=== PATIENT | female | born 1995 | race Caucasian/White ===

== ENCOUNTER → 2024-08-30 | Outpatient (CLI) | payer OTHER, SELFPAY ==
[2024-09-02 22:07] LABS: Chlamydia By Nucleic Acid AMP Negative (Negative); Gonococcus By Nucleic Acid AMP Negative (Negative)
== END | disposition home or self-care (01) ==
LOC: LABSPEC 15:44
PROVIDERS: Referring Provider Obstetrics & Gynecology; Visit Provider Obstetrics & Gynecology
DX: O09.90 Supervision of high risk pregnancy, unspecified, unspecified trimester (principal); Z3A.00 Weeks of gestation of pregnancy not specified
CPT/HCPCS: 87086; 87491; 87591

== ENCOUNTER → 2024-09-03 | Outpatient (CLI) | payer OTHER, SELFPAY ==
[2024-09-03 17:13] LABS: Absolute Lymphocyte Count 2.19 X10^3/uL (0.83-4.51); Absolute Neutrophil Count 6.8 X10^3/uL (2.0-7.7); Basophil# 0.04 X10^3/uL; Basophil% 0.4 % (0-1); Eosinophil# 0.14 X10^3/uL; Eosinophils% 1.4 % (0-5); Hematocrit 40.1 % (37-47); Lymphocyte # 2.19 X10^3/ul (0.83-4.51); Lymphocyte % 22.4 % (19-41); Mean Corp Hgb Conc 34.9 g/dL (32-36); Mean Corpuscular Hgb 30.8 pg (27.0-32.0); Mean Corpuscular Volume 88.3 fL (81-99); Mean Platelet Vol. 10.7 fl (6.2-12.0); Monocyte# 0.54 X10^3/uL; Monocyte% 5.5 % (0-10); NRBC Flagged by Analyzer 0 % (0-5); Neutrophil # 6.82 X10^3/uL (2.7-7.7); Platelet Count 216 K/mm3 (150-450); RBC Distribution Width CV 12.4 % (11.6-14.6); Red Blood Count 4.54 M/mm3 (4.2-5.4); White Blood Count 9.8 K/mm3 (4.4-11.0)
[2024-09-03 17:41] LABS: HIV Nonreactive (Nonreactive); Hepatitis B Surface Antigen Nonreactive (Nonreactive); Rubella IgG REAC (Nonreactive); Syphilis Antibodies Nonreactive (Nonreactive)
[2024-09-03 18:12] LABS: Hemoglobin A1c 5.1 % (<=5.6)
[2024-09-03 18:22] LABS: Hepatitis C Antibody Nonreactive (Nonreactive)
== END | disposition home or self-care (01) ==
PROVIDERS: Obstetrics & Gynecology; Referring Provider Obstetrics & Gynecology; Visit Provider Obstetrics & Gynecology
DX: O09.90 Supervision of high risk pregnancy, unspecified, unspecified trimester (principal); Z3A.00 Weeks of gestation of pregnancy not specified
CPT/HCPCS: 36415; 83036; 85025; 86703; 86762; 86780; 86803; 86850; 86900; 86901; 87340

== ENCOUNTER → 2025-01-10 | Outpatient (CLI) | payer OTHER, SELFPAY ==
[2025-01-10 12:20] LABS: Hematocrit 33.8 % (37-47); Hemoglobin 12.1 g/dL (12.0-15.0); Immature Granulocytes Count 0.050 X10^3/uL (0.0-0.0); Mean Corp Hgb Conc 35.8 g/dL (32-36); Mean Corpuscular Volume 90.9 fL (81-99); Mean Platelet Vol. 11.2 fl (6.2-12.0); NRBC Flagged by Analyzer 0 % (0-5); Platelet Count 176 K/mm3 (150-450); RBC Distribution Width CV 12.5 % (11.6-14.6); RBC Distribution Width SD 41.1 fl (35.1-43.9); Red Blood Count 3.72 M/mm3 (4.2-5.4); White Blood Count 8.4 K/mm3 (4.4-11.0)
[2025-01-10 13:38] LABS: Glucose Challenge Gest 1H 50g 115 mg/dL (70-140); HIV Nonreactive (Nonreactive); Syphilis Antibodies Nonreactive (Nonreactive)
== END | disposition home or self-care (01) ==
PROVIDERS: Referring Provider Obstetrics & Gynecology; Visit Provider Obstetrics & Gynecology
DX: O09.91 Supervision of high risk pregnancy, unspecified, first trimester (principal); Z13.1 Encounter for screening for diabetes mellitus; Z3A.00 Weeks of gestation of pregnancy not specified
CPT/HCPCS: 36415; 82950; 85025; 86703; 86780; 86850; 86900; 86901

== ENCOUNTER → 2025-02-07 | Outpatient (CLI) | payer OTHER, SELFPAY | END | disposition home or self-care (01) | PROVIDERS: PCP Family Medicine; Referring Provider Nurse Practitioner Women's Health; Visit Provider Nurse Practitioner Women's Health | DX: O09.93 Supervision of high risk pregnancy, unspecified, third trimester (principal); O26.899 Other specified pregnancy related conditions, unspecified trimester; R00.0 Tachycardia, unspecified; Z3A.00 Weeks of gestation of pregnancy not specified | CPT/HCPCS: 93005 ==

== ENCOUNTER 2025-02-12 16:05 | Outpatient (CLI) | payer OTHER, SELFPAY ==
[2025-02-12 17:21] LABS: Anion Gap 12 (5-15); BUN 11 mg/dL (4-19); BUN/Creat Ratio 20.0 RATIO (10-20); Calcium,Total 9.1 mg/dL (7.6-11.0); Carbon Dioxide 20.4 mmol/L (21.0-32.0); Chloride 104 mmol/L (98-108); Glucose 109 mg/dL (70-99); Potassium 3.9 mmol/L (3.3-5.1)
--- OUTSIDE RECORDS SUMMARY | 2025-02-12 18:15 | XMS RPT_ITS | CCD ---
Author Organization [facility] CliniSydc Care Team Providers Care Ultimate Hoops Referee Name Role Phone MARTY ERNST Primary Care Unavailabl e EIDEN, MARTY BELTRAN Admitting Unavailabl e STEFAN, RICHARD CHOUDHARY Attending Unavail able STEFAN, RICHARD CHOUDHARY Attending Unavail able Seggerson MILIEU TECHNICIAN, Merissa Syed Primary Care Provider MERISSA LINTON Primary Care Unavailab le HASSMANN II, GILBERTO HUANG Attending Un available SEGGERSON, MERISSA SYED Primary Care Unavailab le HASSMANN II, GILBERTO HUANG Referring Un available HASSMANN II, GILBERTO HUANG Admitting Un available HASSMANN II, GILBERTO HUANG Attending Un available SEGGERSON, MERISSA KUNAL Primary Care Unavailab le Seggerson ACTING SECTION CHIEF-MILIEU TECHNICIAN, Merissa Syed Attending Unavailable Seggerson ACTING SECTION CHIEF-MILIEU TECHNICIAN, Merissa Kunal Primary Care Unavailable Vaca ACTING SECTION CHIEF-MILIEU TECHNICIAN, Mary Cleveland Attending Mary vailable Seggerson ACTING SECTION CHIEF-MILIEU TECHNICIAN, Merissa Kunal Primary Care Unavailable Seggerson ACTING SECTION CHIEF-MILIEU TECHNICIAN, Merissa Kunal Primary Care Unavailable Vaca ACTING SECTION CHIEF-MILIEU TECHNICIAN, Mary Cleveland Attending Mary vailable Dr. Marisela Nelson MD Attending Provider [phone] Dr. Rachele Llanes DO Attending Provider Dr. Marisela Nelson MD Referring Provider [phone]( [phone] Dr. Rachele Llanes DO Referring Provider Sai Turner Attending Provider [phone] Louann Hager MD Primary Care Provider LOUANN HAGER Attending Unavailable LOUANN HAGER Primary Care Unavailable NO PRIMARY CAREMD Primary Care Unavailable PRUDENCE, SAI S Referring Unavailable SILVER ANTUNEZ Attending Unavailable Rick SMALL, Veronica Attending Provider [phone] Omar ROBERTO, Dr. Antonio Attending Provider Prudence WHYTE-C, Sai Attending Physician [phone] Dr. Rachele Llanes DO Attending Physician Veronica Cabrera CNM Attending Physician [phone] Omar ROBERTO, Dr. Antonio Attending Physician Dr. Marisela Nelson MD Referring Provider Prudence WHYTE-Micah, Sai Attending Physician [phone] Marisela Nelson Attending Unavailable Veronica Cabrera Attending Unavailable Omar, Marisela Attending Unavailable Marisela Nelson Referring Unavailable Jose Miguel Bradley, Rachele Attending Unavailvivian Llanes, Rachele Referring Unavailvivian Nelson, Marisela Attending Unavailable Marisela Nelson Referring Unavailable Prudence MACHINE SET UP TECHNICIAN, Sai Referring Unavailable Louann Hager Primary Care Unavailable Prudence MACHINE SET UP TECHNICIAN, Sai Attending Unavailable Jose Miguel Bradley, Rachele Attending Unavailvivian e Prudence MACHINE SET UP TECHNICIAN, Sai Attending Unavailable Jose Miguel Bradley, Rachele Attending Unavailabl maida Nelson, Marisela Attending Unavailable Prudence MACHINE SET UP TECHNICIAN, Sai Attending Unavailable Prudence MACHINE SET UP TECHNICIAN, Sai Attending Unavailable Veronica Cabrera Attending Unavailable Allergies Allergy Classification Reported Allergen(s) Allergy Type Date of Onset Reaction(s) Facility (1 source) No Known Medication Allergies; Translations: [No Known Medication Allergies] Propensity to adverse reactions to drug (disorder) [facility] Repository (10 sources) Ragweed pollen; Translations: [ragweed pollen] Allergy to substance 5 Itching [facility] Medications Current Medications Medication Drug Class(es) Dates Sig (Normalized) Sig (Original) cephalexin 500 mg oral capsule (3 sources) Cephalosporin Antibacterial Start: 09-29-2023 End: 10-04-2023 take 1 capsule by mouth four times daily cephALEXin (KEFLEX) 500 MG capsule Take 1 (one) capsule (500 mg total) by mouth 4 (four) times a day for 5 days . 20 capsule 0 09/29/2023 10/04/2023 Active Start: 09-19-2023 End: 09-26-2023 take 1 capsule by mouth four times daily cephALEXin (KEFLEX) 500 MG capsule Indications: Toe abscess, left , Paronychia of great toe Take 1 (one) capsule (500 mg total) by mouth 4 (four) times a day for 7 days . 28 capsule 0 09/19/2023 09/26/2023 Active famotidine 20 mg oral tablet (4 sources) Histamine-2 Receptor Antagonist Start: 12-20-2024 take 1 tablet by mouth twice daily Famotidine (Pepcid) 20 mg tablet Active 20 mg PO TWICE A DAY 60 December 20, 2024 12:00am Complies with drug therapy Mv-Mins 71-Qzhc-Xviyy No.1-Dha (Pnv-[place]) 28-1-300 mg capsule (9 sources) Start: 08-06-2024 Mv-Mins 63-Ixza-Qvlkz No.1-Dha (Pnv-[place]) 28-1-300 mg capsule Active NMA PO August 06, 2024 12:00am Complies with drug therapy Start: 08-06-2024 Start: 08-06-2024 Mv-Mins 71-Iro n-Folic No.1-Dha (Pnv-[place]) 28-1-300 mg capsule Active NMA PO August 06, 2024 12:00am ondansetron 4 mg disintegrating oral tablet (1 source) Serotonin-3 Receptor Antagonist Start: 2025 take 1 tablet by mouth every four hours as needed for nausea and vomiting Ondansetron 4 mg tablet,disintegrating Active 4 mg PO Q4H as needed for nausea and vomiting 60 2 2025 12:00am Complies with drug therapy no115/iron/folic acid ( 19 ORAL) (1 source) no115/i domenico/folic acid ( 19 ORAL) Take by mouth. Active sertraline 50 mg oral tablet (14 sources) Serotonin Reuptake Inhibitor Start: 10-01-2024 take 1 tablet by mouth once daily sertraline (Zoloft) 50 mg tablet Indications: Anxiety and depression Take 1 tablet (50 mg) by mouth once daily. 90 tablet 3 10/01/2024 Active Start: 08-13-2023 End: 10-01-2024 take 1 tablet by mouth once daily Sertraline 50 mg tablet Active 50 mg PO daily July 31, 2024 12:00am Complies with drug therapy Completed/Discontinued Medications Medication Drug Class(es) Dates Sig (Normalized) Sig (Original) docosahexaenoic acid 200 mg oral capsule (9 sources) Start: 07-31-2024 End: 08-06-2024 Docosahexaenoic Acid ( Dha) 200 mg capsule Discontinued mg PO July 31, 2024 12:00am August 06, 2024 9:13am Lidocaine (2 sources) Antiarrhythmic, Amide Local Anesthetic Start: 09-19-2023 End: 09-19-2023 lidocaine 20 mg/mL (2 %) injection 3 mL Problems Active Problems Problem Classification Problem Date Documented Da te Episodic/Chronic Administrative/social admission (1 source) First encounter by subject; Translations: [Persons encountering health services in other specified circumstances] 10-01-2024 Episodic Anxiety disorders (3 sources) Mixed anxiety and depressive disorder; Translations: [Anxiety disorder, unspecified] Onset: 10-01-2024 10-01-2024 Chronic Cardiac dysrhythmias (2 sources) Tachycardia, unspecified; Translations: [Tachycardia, unspecified] Onset: 02-05-2025 Episodic Immunizations and screening for infectious disease (1 source) Encounter for immunization; Translations: [Encounter for immunization] Onset: 2025 Episodic Mood disorders (20 sources) Depressive disorder; Translations: [Depression] 08-06-2024 Chronic Comment on above: sertraline sertraline/stable Mood disorders (3 sources) Mood disorders; Translations: [Depression, unspecified] Onset: 10-01-2024 Other complications of (20 sources) Maternal obesity complicating , childbirth and the puerperium, antepartum; Translations: [Obesity complicating , unspecified trimester] 08-06-2024 Chronic Comment on above: HgbA1c Other complications of (1 source) Obesity complicating , first trimester; Translations: [Obesity complicating , first trimester] Onset: 01-10-2025 Chronic Other complications of (1 source) Obesity complicating , unspecified trimester; Translations: [Obesity complicating , unspecified trimester] Onset: 08-30-2024 Chronic Other complications of (20 sources) High risk ; Translations: [Supervision of high risk , unspecified, unspecified trimester] 08-06-2024 Episodic Comment on above: , SAMANTHA 04/04/25, Joshua [id number], SAMANTHA 5 Boy, Joshua [id number], SAMANTHA 5 Boy, name secret?(jermaine) Joshua Other complications of (2 sources) Supervision of high risk , unspecified, third trimester; Translations: [Supervision of high risk , unspecified, third trimester] Onset: 02-05-2025 Episodic Other complications of (1 source) Supervision of high risk , unspecified, first trimester; Translations: [Supervision of high risk , unspecified, first trimester] Onset: 01-15-2025 Episodic Other connective tissue disease (2 sources) Pain of toe of left foot; Translations: [Pain in left toe(s)] 09-19-2023 Episodic Other connective tissue disease (2 sources) Pain in left foot; Translations: [Pain in left foot] Onset: 09-19-2023 Episodic Other connective tissue disease (2 sources) Pain in left toe(s); Translations: [Pain in left toe(s)] Onset: 09-19-2023 Episodic Other injuries and conditions due to external causes (1 source) Injury of toe of left foot; Translations: [Unspecified injury of left foot, initial encounter] 10-01-2024 Episodic Other skin disorders (2 sources) Ingrowing nail; Translations: [Ingrowing nail] 09-19-2023 Episodic Other skin disorders (2 sources) Ingrowing nail; Translations: [Ingrowing nail] Onset: 09-19-2023 Episodic Residual codes; unclassified (20 sources) RhD negative; Translations: [Unspecified blood type, Rh negative] 09-24-2024 Episodic Comment on above: Fetus RHD+ on NIPT; rhogam 28 wk, pp and prn Residual codes; unclassified (1 source) Gestation period, 13 weeks; Translations: [13 weeks gestation of ] 10-01-2024 Episodic Residual codes; unclassified (1 source) Unspecified blood type, Rh negative; Translations: [Unspecified blood type, Rh negative] Onset: 01-10-2025 Episodic Residual codes; unclassified (1 source) 28 weeks gestation of ; Translations: [28 weeks gestation of ] Onset: 01-10-2025 Episodic Residual codes; unclassified (1 source) 25 weeks gestation of ; Translations: [25 weeks gestation of ] Onset: 12-20-2024 Episodic Residual codes; unclassified (1 source) 21 weeks gestation of ; Translations: [21 weeks gestation of ] Onset: 11-22-2024 Episodic Skin and subcutaneous tissue infections (7 sources) Abscess of toe of left foot; Translations: [Cutaneous abscess of left foot] Onset: 09-19-2023 09-19-2023 Episodic Past or Other Problems Problem Classification Problem Date Documented Da te Episodic/Chronic Other complications of (1 source) Supervision of high risk , unspecified, unspecified trimester; Translations: [Supervision of high risk , unspecified, unspecified trimester] Onset: 09-04-2024 Episodic Other and delivery including normal (20 sources) ; Translations: [Encounter for supervision of normal , unspecified, unspecified trimester] Onset: 09-07-2024 08-30-2024 Episodic Comment on above: discussed NIPT & Car rier testing-Undecided NIPT low risk, Chelle er neg. 4/4 NIPT low risk, Chelle er neg. 4/4, unremarkable anatomy, consistent dates Residual codes; unclassified (1 source) 12 weeks gestation of ; Translations: [12 weeks gestation of ] Onset: 09-24-2024 Episodic Residual codes; unclassified (1 source) 9 weeks gestation of ; Translations: [9 weeks gestation of ] Onset: 08-30-2024 Episodic Unclassified (1 source) Onset: 10-01-2024 10-01-2024 NEGATED: Highlighted row has been ruled out!Unclassified (1 source) No known active problems 10-01-2024 Results Test Name Value Interpretation Reference Range Facility 12 Lead EKGon 02-07-2025 12 Lead EKG [facility] [address] [place] [address] 12 Lead EKG 02/07/25 0739 MR#: [id number] Acct: [id number] Name: JAMIL NORRIS Rep #: [id number] : 1995 30 From: Gale Zamora MD Attending Dr: CAMPOS Sullivan Status: REG CLI Ordering Dr: Sai Foss NP Date: 02/07/25 Location: [facility] Sex: F C Admitted: Test Reason : TACHY Blood Pressure : */* mmHG Vent. Rate : 93 BPM Atrial Rate : 93 BPM P-R Int : 142 ms QRS Dur : 80 ms QT Int : 332 ms P-R-T Axes : 31 23 39 degrees QTcB Int : 412 ms Sinus rhythm with Possible Premature atrial complexes with Aberrant conduction Otherwise normal ECG Confirmed by GALE ZAMORA ([id number]), publishing editor DEWAYNE DUBON ([id number]) on 02/10/2025 7:10:52 AM Referred By: Sai Foss Confirmed By: GALE ZAMORA 02/10/25 0710 Date Gale Zamora MD CC: ISABELL-Micah Foss; Dr. Louann Hager MD Signed Normal [facility] Assistant Secretary Office Visit Reporton 02-05-2025 Assistant Secretary Office Visit Report [facility] [address], [address] [place] [address] OFFICE VISIT Date of Service: 02/05/25 MR#: [id number] Acct: [id number] Name: JAMIL NORRIS Rep #: [id number] : 1995 Provider: CAMPOS solitario Age/Sex: 30/F Location: [facility] Status: Signed Intake Vital Signs 11/22/24 11:24 01/23/25 10:46 02/05/25 13:10 Height 5 ft 5 in 5 ft 5 in 5 ft 5 in Weight: 213 lb 6 oz BMI 35.5 BP 107/70 Pulse 112 H Intake Visit Reasons: 31 WK 5D 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 Is patient in pain?: No Allergies ragweed pollen Allergy (Mild, Verified 02/05/25 13:09) Itching Medications ???Medication ???Instructions ???Recorded ???Confirmed ???Type sertraline 50 mg tablet 50 mg PO QDAY 07/31/24 02/05/25 Hi story multivit-min no.71-iron fum 28 cap PO 08/06/24 02/05/25 History mg-folate no.1 1 mg-dha 300 mg capsule (PNV-[place]) famotidine 20 mg tablet (Pepcid) 20 mg PO BID #60 tabs 12/20/24 Rx ondansetron 4 mg disintegrating 4 mg PO Q4H PRN nausea and 5 02/05/25 Rx tablet vomiting #60 tabs Last Menstrual Period: 06/28/24 Zika: Zika virus screening: Negative : No PFSH PFSH Medical History RhD negative Seasonal allergies Pneumonia Surgical History [place] teeth extracted Family History Grandmother Arthritis Diabetes High cholesterol Grandfather Parkinson disease Thyroid disorder Lymphoma, Onset Age: 70 Maternal Grandfather Diabetes Lung cancer, Onset Age: 65 Maternal Mother Diabetes Thyroid disorder Cancer, Onset Age: 35 Thyroid cancer- thyroid removed Social History adopted: No household members: spouse housing: house current occupational status: employed 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/hazards: No pets and animals: Yes pets and animals: dog(s) history of recent travel: Yes ([place]) out of state: Yes out of country: Yes sexually active: Yes Smoking Status: Never smoker alcohol intake: current alcohol intake frequency: holidays/special occasions only details: Not while substance use type: does not use well-balanced diet: daily or most days caffeine: Yes Type: coffee Number of servings: 1 eating out: rarely or never during the past year weight has: remained stable what type of physical activity do you participate in: walking, bicycling and weight training frequency: 1-2 times per week duration: 30-45 minutes/day fredi/zoroastrian: Amish seatbelt use: always do you feel safe at home: Yes additional social history: -[place] [employer] History 1 Elective abortions Hx Para 0 Spontaneous abortions Hx # Term Pregnancies Ectopic pregnancies Hx # Pregnancies Multiple births # of living children HPI 31 WK 5D OB Details: JAMIL NORRIS is a 30 year old who presents for routine OB visit. OB Visit SAMANTAH Calculator Estimated Delivery Date Method Current WG Current Estimate 04/04/25 LMP (Certain) 31w 5d Other Estimates 04/02/25 Ultrasound #1 32w 0d Expected Delivery Route/Plan Labor Preferences- CB/BF classes: enc labor support person: Joshua labor intervention preferences: pain management options preferred: limited cut cord/dad catch: cord : yes PP control planned: [] discussed possible routes of delivery and associated risks: [] special requests: [] Specific Issue/Plans Covid status: vaccinated Flu vaccine: given Tdap vaccine: given Rhogam: given LARC form signed: yes Problem list reviewed and updated with the most current plan of care details and appropriate orders placed. Relevant counseling for the gestational age provided. Continue routine care and follow up unless otherwise noted in visit notes/problem list details Initial Weight: Not Recorded Date -???-???-???-???-?? ?-???-???-???-???-? ??-???-???- EGA Weight BP Urine Prot -???-???-???-???-?? ?-???-???-???-???-? ??-???-???- Glucose FHR FuHt Pres Dilation -???-???-???-???-?? ?-???-???-???-???-? ??-???-???- Effaced St Visit Note 08/30/24 -???-???-???-???-?? ?-???-???-???-???-? ??-???-???- 9w 0d 182 lb 8 oz 127/81 -???-???-???-???-?? ?-???-???-???-???-? ??-???-???- 179 -???-???-???-???-?? ?-???-???-???-???-? ??-???-???- JV- CRL cons istent with LMP. desires nipt. first baby first . lives in [place]. 09/24/24 -???-???-???-???-?? ?-???-???-???-???-? ??-???-???- 12w 4d 181 lb 130/82 Negative -???-???-???-???-?? ?-???-???-?? (more content not included)... Normal [facility] - Chemistry and C hemistry - challengeOrdered By: Rachele Bradley on 2025 Glucose Ql (U) Negative [facility] - UrinalysisOrder ed By: Rachele Bradley on 2025 Protein Ql (U) Negative [facility] Assistant Secretary Office Visit Reporton 2025 Assistant Secretary Office Visit Report [facility] [address], [address] [place] [address] OFFICE VISIT Date of Service: 01/23/25 MR#: [id number] Acct: [id number] Name: JAMIL NORRIS Rep #: [id number] : 1995 Provider: CAMPOS solitario Age/Sex: 30/F Location: [facility] Status: Signed Intake Vital Signs 11/22/24 11:24 01/10/25 11:12 01/23/25 10:45 01/23/25 10:46 Height 5 ft 5 in 5 ft 5 in 5 ft 5 in 5 ft 5 in Weight: 211 lb 1 oz BMI 35.1 BP 115/77 Intake Visit Reasons: 30wk ob 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 Is patient in pain?: No Allergies ragweed pollen Allergy (Mild, Verified 01/23/25 10:45) Itching Medications ???Medication ???Instructions ???Recorded ???Confirmed ???Type sertraline 50 mg tablet 50 mg PO QDAY 07/31/24 01/23/25 Hi story multivit-min no.71-iron fum 28 cap PO 08/06/24 01/23/25 History mg-folate no.1 1 mg-dha 300 mg capsule (PNV-[place]) famotidine 20 mg tablet (Pepcid) 20 mg PO BID #60 tabs 12/20/2401/09 Rx ondansetron 4 mg disintegrating 4 mg PO Q4H PRN nausea and 5 01/23/25 Rx tablet vomiting #60 tabs Last Menstrual Period: 06/28/24 Zika: Zika virus screening: Negative : Yes PFSH PFSH Medical History RhD negative Seasonal allergies Pneumonia Surgical History [place] teeth extracted Family History Grandmother Arthritis Diabetes High cholesterol Grandfather Parkinson disease Thyroid disorder Lymphoma, Onset Age: 70 Maternal Grandfather Diabetes Lung cancer, Onset Age: 65 Maternal Mother Diabetes Thyroid disorder Cancer, Onset Age: 35 Thyroid cancer- thyroid removed Social History adopted: No household members: spouse housing: house current occupational status: employed 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/hazards: No pets and animals: Yes pets and animals: dog(s) history of recent travel: Yes ([place]) out of state: Yes out of country: Yes sexually active: Yes Smoking Status: Never smoker alcohol intake: current alcohol intake frequency: holidays/special occasions only details: Not while substance use type: does not use well-balanced diet: daily or most days caffeine: Yes Type: coffee Number of servings: 1 eating out: rarely or never during the past year weight has: remained stable what type of physical activity do you participate in: walking, bicycling and weight training frequency: 1-2 times per week duration: 30-45 minutes/day fredi/zoroastrian: Amish seatbelt use: always do you feel safe at home: Yes additional social history: -Joshua- Kapil History 1 Elective abortions Hx Para 0 Spontaneous abortions Hx # Term Pregnancies Ectopic pregnancies Hx # Pregnancies Multiple births # of living children HPI 30wk ob Details: JAMIL NORRIS is a 30 year old who presents for routine OB visit. OB Visit SAMANTHA Calculator Estimated Delivery Date Method Current WG Current Estimate 04/04/25 LMP (Certain) 29w 6d Other Estimates 04/02/25 Ultrasound #1 30w 1d Expected Delivery Route/Plan Labor Preferences- CB/BF classes: enc labor support person: Joshua labor intervention preferences: pain management options preferred: limited cut cord/dad catch: cord : yes PP control planned: [] discussed possible routes of delivery and associated risks: [] special requests: [] Specific Issue/Plans Covid status: vaccinated Flu vaccine: given Tdap vaccine: given Rhogam: given LARC form signed: yes Problem list reviewed and updated with the most current plan of care details and appropriate orders placed. Relevant counseling for the gestational age provided. Continue routine care and follow up unless otherwise noted in visit notes/problem list details Initial Weight: Not Recorded Date -???-???-???-???-?? ?-???-???-???-???-? ??-???-???- EGA Weight BP Urine Prot -???-???-???-???-?? ?-???-???-???-???-? ??-???-???- Glucose FHR FuHt Pres Dilation -???-???-???-???-?? ?-???-???-???-???-? ??-???-???- Effaced St Visit Note 08/30/24 -???-???-???-???-?? ?-???-???-???-???-? ??-???-???- 9w 0d 182 lb 8 oz 127/81 -???-???-???-???-?? ?-???-???-???-???-? ??-???-???- 179 -???-???-???-???-?? ?-???-???-???-???-? ??-???-???- JV- CRL cons istent with LMP. desires nipt. first baby first . lives in [place]. 09/24/24 -???-???-???-???-?? ?-???-???-???-???-? ??-???-???- 12w 4d 181 lb 130/82 Negative -???-???-???-???-?? ?-???-???-?? (more content not included)... Normal [facility] Absolute lymphocyte countOrd ered By: Marisela Omar on 01-10-2025 Lymphocytes Auto (Unsp spec) [#/Vol] 1.58 10*3/uL 0.83-4.51 [facility] Absolute neutrophil countOrd ered By: Marisela Pickettgene on 01-10-2025 Neutrophils (Bld) [#/Vol] 5.8 10*3/uL 2.0-7.7 [facility] Automated lymphocyte count a s percentage of total leukocytesOrdered By: Marisela Nelson on 01-10-2025 Lymphocytes/100 WBC Auto (Unsp spec) 18.9 % Low 19-41 [facility] Basophil percentageOrdered B y: Marisela Nelson on 01-10-2025 Basophils/100 WBC (Bld) 0.6 % 0-1 [facility] CBC W/Diff, Automatedon 12-17 Absolute Lymph 1.58 X10 3/uL Normal 0.83-4.51 [facility] Comment on above: Performed By: #### M 100.2200, [id number] #### [facility] [address] [place], [address] Absolute Neut 5.8 X10 3/uL Normal 2.0-7.7 [facility] Comment on above: Performed By: #### M 100.2200, [id number] #### [facility] [address] [place], [address] Basophils/100 WBC (Bld) 0.6 % Normal 0-1 [facility] Comment on above: Performed By: #### M 100.2200, [id number] #### [facility] [address] [place], [address] Eosinophils/100 WBC (Bld) 2.9 % Normal 0-5 [facility] Comment on above: Performed By: #### M 100.2200, [id number] #### [facility] [address] [place], [address] Erythrocyte distribution width (RBC) [Ratio] 12.5 % Normal 11.6-14.6 [facility] Comment on above: Performed By: #### M 100.2200, [id number] #### [facility] [address] [place], [address] Hematocrit (Bld) [Volume fraction] 33.8 % Low 37-47 [facility] Comment on above: Performed By: #### M 100.2200, [id number] #### [facility] [address] [place], [address] Hemoglobin (Bld) [Mass/Vol] 12.1 g/dL Normal 12.0-15.0 [facility] Comment on above: Performed By: #### M 100.2200, [id number] #### [facility] [address] [place], [address] IG% 0.600 Normal 0.0-0.9 [facility] Comment on above: Result Comment: IG% - Immature Granulocytes (promyelocytes, myelocytes and metamyelocytes) > 1% indicates that a LEFT SHIFT is Present. Performed By: #### M 100.2200, [id number] #### [facility] [address] [place], [address] Lymphocytes/100 WBC (Bld) 18.9 % Low 19-41 [facility] Comment on above: Performed By: #### M 100.2200, [id number] #### [facility] Laboratory [address] [place], [address] MCH (RBC) [Entitic mass] 32.5 pg High 27.0-32.0 [facility] Comment on above: Performed By: #### M 100.2200, L7000.1800 #### [facility] Laboratory [address] [place], [address] MCHC (RBC) [Mass/Vol] 35.8 g/dL Normal 32-36 [facility] Comment on above: Performed By: #### M 100.2200, L7000.1800 #### [facility] Laboratory [address] [place], [address] MCV (RBC) [Entitic vol] 90.9 fL Normal 81-99 [facility] Comment on above: Performed By: #### M 100.2200, L7000.1800 #### [facility] Laboratory [address] [place], [address] Monocytes/100 WBC (Bld) 7.3 % Normal 0-10 [facility] Comment on above: Performed By: #### M 100.2200, L7000.1800 #### [facility] Laboratory [address] [place], [address] Neutrophils/100 WBC (Bld) 69.7 % Normal 47-70 [facility] Comment on above: Performed By: #### M 100.2200, L7000.1800 #### [facility] Laboratory [address] [place], [address] Nucleated RBC (Bld) [#/Vol] 0 10*3/uL Normal 0-5 [facility] Comment on above: Performed By: #### M 100.2200, L7000.1800 #### [facility] Laboratory [address] [place], [address] Platelet mean volume (Bld) [Entitic vol] 11.2 fL Normal 6.2-12.0 [facility] Comment on above: Performed By: #### M 100.2200, L7000.1800 #### [facility] Laboratory [address] [place], [address] Platelets (Bld) [#/Vol] 176 10*3/uL Normal 150-450 [facility] Comment on above: Performed By: #### M 100.2200, L7000.1800 #### [facility] Laboratory [address] [place], [address] RBC (Bld) [#/Vol] 3.72 10*6/uL Low 4.2-5.4 [facility] Comment on above: Performed By: #### M 100.2200, L7000.1800 #### [facility] Laboratory [address] [place], [address] RDW SD 41.1 fl Normal 35.1-43.9 [facility] Comment on above: Performed By: #### M 100.2200, L7000.1800 #### [facility] Laboratory [address] [place], [address] WBC (Bld) [#/Vol] 8.4 10*3/uL Normal 4.4-11.0 [facility] Comment on above: Performed By: #### M 100.2200, L7000.1800 #### [facility] Laboratory [address] [place], [address] Eosinophil percentageOrdered By: Marisela Nelson on 01-10-2025 Eosinophils/100 WBC (Bld) 2.9 % 0-5 [facility] Erythrocyte distribution wid th ratioOrdered By: Marisela Nelson on 01-10-2025 Erythrocyte distribution width (RBC) [Ratio] 12.5 % 11.6-14.6 [facility] Erythrocyte distribution wid th standard deviationOrdered By: Marisela Nelson on 01-10-2025 Erythrocyte distribution width (RBC) [Ratio] 41.1 fl 35.1-43.9 [facility] Glucose Challenge Gest 1H 50 boris 01-10-2025 GLU GEST 50g 1H 115 mg/dL Normal 70-140 [facility] Comment on above: Performed By: #### M 100.2200, L7000.1800 #### [facility] Laboratory [address] [facility] [place], [address] Glucose measurement at 2 lizeth rs post-dose gestational glucose tolerance testOrdered By: Marisela Nelson on 01-10-2025 Glucose [Mass/Vol] 115 mg/dL 70-140 [facility] HIVon 01-10-2025 HIV Non-Reactive Normal Nonreactive [facility] Comment on above: Result Comment: Non- Reactive Reactive Repeatedly reactive samples must be confirmed according to CDC recommended confirmatory algorithms. The subresults for either HIVAG or AHIV can be used as an aid in the selection of the confirmation algorithm for reactive samples. Send out specimens with Reactive results to [facility] for confirmation. Order the HIV antibody detection and differentiation: #[id number] Performed By: #### M 100.2200, L7000.1800 #### [facility] Laboratory [address] [place], [place], [address] Hematocrit Auto (Bld) [Volum e fraction]Ordered By: Marisela Nelson on 01-10-2025 Hematocrit (Bld) [Volume fraction] 33.8 % Low 37-47 [facility] Hemoglobin measurementOrdere d By: Marisela Nelson on 01-10-2025 Hemoglobin (Bld) [Mass/Vol] 12.1 g/dL 12.0-15.0 [facility] Immature granulocytes/100 WB C Auto (Bld)Ordered By: Marisela Nelson on 01-10-2025 Immature granulocytes/100 WBC (Bld) 0.600 % 0.0-0.9 [facility] Comment on above: IG% - Immature Granu locytes (promyelocytes, myelocytes and metamyelocytes) > 1% indicates that a LEFT SHIFT is Present. Laboratory - Chemistry and C hemistry - challengeOrdered By: Veronica Cabrera on 01-10-2025 Glucose Ql (U) Negative [facility] Laboratory - UrinalysisOrder ed By: Veronica Cabrera on 01-10-2025 Protein Ql (U) Negative [facility] MCV (mean corpuscular volume ) determinationOrdered By: Marisela Nelson on 01-10-2025 MCV (RBC) [Entitic vol] 90.9 fL 81-99 [facility] Mean corpuscular hemoglobin (MCH) determinationOrdered By: Marisela Nelson on 01-10-2025 MCH (RBC) [Entitic mass] 32.5 pg High 27.0-32.0 [facility] Mean corpuscular hemoglobin concentration (MCHC) determinationOrdered By: Marisela Nelson on 01-10-2025 MCHC (RBC) [Mass/Vol] 35.8 g/dL 32-36 [facility] Mean platelet volume determi nationOrdered By: Marisela Nelson on 01-10-2025 Platelet mean volume (Bld) [Entitic vol] 11.2 fL 6.2-12.0 [facility] Monocyte percentageOrdered B y: Marisela Nelson on 01-10-2025 Monocytes/100 WBC (Bld) 7.3 % 0-10 [facility] Neutrophil percentageOrdered By: Marisela Nelson on 01-10-2025 Neutrophils/100 WBC (Bld) 69.7 % 47-70 [facility] No Panel InformationOrdered By: Marisela Nelson on 01-10-2025 HIV (1&2) Antibody Non-Reactive Nonreactive [facility] Comment on above: Non-ReactiveReactive Repeatedly reactive samples must be confirmed according to CDC recommended confirmatory algorithms. The subresults for either HIVAG or AHIV can be used as an aid in the selection of the confirmation algorithm for reactive samples.Send out specimens with Reactive results to [facility] for confirmation.Order the HIV antibody detection and differentiation: #[id number] Nucleated red blood cell per centageOrdered By: Marisela Nelson on 01-10-2025 Nucleated RBC/100 WBC (Bld) [Ratio] 0 % 0-5 [facility] Assistant Secretary Office Visit Reporton 01-10-2025 Assistant Secretary Office Visit Report [facility] Women[facility] [address], [address] [place] [address] OFFICE VISIT Date of Service: 01/10/25 MR#: [id number] Acct: [id number] Name: JAMIL NORRIS Rep #: [id number] : 1995 Provider: GEOVANNY Salazar ams Age/Sex: 29/F Location: [facility] Status: Signed with Addenda ADDENDUM by Renetta Pina on 01/10/25 at 1205 Office Procedure Documentation entered by Renetta Pina 01/10/25 12:05: Injections Is this a patient provided medication?: No Immunizations Adacel(Tdap Adolesn/Adult)(PF) 2 Lf-(2.5-5-3-5)-5 Lf/0.5 mL IM syringe Performing Provider: Veronica Cabrera CNM Performing Location: [facility][1] Administered by: Renetta Pina on 01/10/25 12:03 Dose Route Admin Location Dispensed Lot Number Expiration Date Package NDC NDC Business Database Analyst 0.5 mL IM Left Deltoid 0.5 mL [id number] 12/04/26 73229-393-62 [id number] NOFI[employer]PA[employer]UR VIS Given Date VIS Provided VIS Publication Date 01/10/25 Single Vaccine 24 Eligibility Eligibility Date Funding Source Not Applicable Office Meds RhoGAM Ultra-Filtered PLUS 1,500 unit (300 mcg) intramuscular syringe Performing Provider: Veronica Cabrera CNM Performing Location: [facility][1] Administered by: Renetta Pina on 01/10/25 12:03 Dose Route Admin Location Dispensed Lot Number Expiration Date Package NDC NDC Business Database Analyst 1,500 unit IM Left Buttock 1 ea [id number] 10/30/26 05659-271-14 [id number] CSL Validas [facility] Date cc: * Signed Intake Vital Signs 11/22/24 11:24 12/20/24 10:06 01/10/25 11:12 Height 5 ft 5 in 5 ft 5 in 5 ft 5 in Weight: 206 lb 4 oz BMI 34.3 BP 127/78 H Intake Visit Reasons: 28wk ob/glucose/rhogam Chief Complaint: 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 Is patient in pain?: No Allergies ragweed pollen Allergy (Mild, Verified 01/10/25 11:10) Itching Medications ???Medication ???Instructions ???Recorded ???Confirmed ???Type sertraline 50 mg tablet 50 mg PO QDAY 07/31/24 01/10/25 Hi story multivit-min no.71-iron fum 28 cap PO 08/06/24 01/10/25 History mg-folate no.1 1 mg-dha 300 mg capsule (PNV-[place]) famotidine 20 mg tablet (Pepcid) 20 mg PO BID #60 tabs 12/20/24 Rx Last Menstrual Period: 06/28/24 : No PFSH PFSH Medical History RhD negative Seasonal allergies Pneumonia Surgical History [place] teeth extracted Family History Grandmother Arthritis Diabetes High cholesterol Grandfather Parkinson disease Thyroid disorder Lymphoma, Onset Age: 70 Maternal Grandfather Diabetes Lung cancer, Onset Age: 65 Maternal Mother Diabetes Thyroid disorder Cancer, Onset Age: 35 Thyroid cancer- thyroid removed Social History adopted: No household members: spouse housing: house current occupational status: employed 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/hazards: No pets and animals: Yes pets and animals: dog(s) history of recent travel: Yes ([place]) out of state: Yes out of country: Yes sexually active: Yes Smoking Status: Never smoker alcohol intake: current alcohol intake frequency: holidays/special occasions only details: Not while substance use type: does not use well-balanced diet: daily or most days caffeine: Yes Type: coffee Number of servings: 1 eating out: rarely or never during the past year weight has: remained stable what type of physical activity do you participate in: walking, bicycling and weight training frequency: 1-2 times per week duration: 30-45 minutes/day fredi/zoroastrian: Amish seatbelt use: always do you feel safe at home: Yes additional social history: -Joshua- Sales History 1 Elective abortions Hx Para 0 Spontaneous abortions Hx # Term Pregnancies Ectopic pregnancies Hx # Pregnancies Multiple births # of living children HPI 28wk ob/glucose/rhogam Details: JAMIL NORRIS is a 29 year old who presents for routine OB visit. OB Visit SAMANTHA Calculator Estimated Delivery Date Method Current WG Current Estimate 04/04/25 LMP (Certain) 28w 0d Other Estimates 04/02/25 Ultrasound #1 28w 2d Expected Delivery Route/Plan Labor Preferences- CB/BF classes: [] labor support person: [] labor intervention preferences: [] pain management options preferred: [] cut cord/dad catch: [] : [] PP control planned: [] discussed possible routes of delivery and associated risks: [] special requests (more content not included)... Normal [facility] Platelet countOrdered By: Barbara Nelson on 01-10-2025 Platelets (Bld) [#/Vol] 176 10*3/uL 150-450 [facility] RBC Auto (Bld) [#/Vol]Ordere d By: Marisela Nelson on 01-10-2025 RBC (Bld) [#/Vol] 3.72 10*6/uL Low 4.2-5.4 [facility] Syphilis Antibodieson 2024 Syphilis Abs Non-Reactive Normal Nonreactive [facility] Comment on above: Performed By: #### M 100.2200, L7000.1800 #### [facility] Laboratory [address] [place], [address] Type AND Screenon 01-10-2025 ABO and Rh group Nom (Bld) Blood group A Rh(D) negative Normal [facility] Comment on above: Order Comment: PN Performed By: #### M 100.2200, L7000.1800 #### [facility] Laboratory [address] [place], [place], [address] White blood cell (WBC) count Ordered By: Marisela Nelson on 01-10-2025 WBC (Bld) [#/Vol] 8.4 10*3/uL 4.4-11.0 [facility] Laboratory - Chemistry and C hemistry - challengeOrdered By: Marisela Nelson on 12-20-2024 Glucose Ql (U) Negative [facility] Laboratory - UrinalysisOrder ed By: Marisela Nelson on 12-20-2024 Protein Ql (U) Negative [facility] Assistant Secretary Office Visit Reporton 12-20-2024 Assistant Secretary Office Visit Report [facility], [address] [place] [address] OFFICE VISIT Date of Service: 12/20/24 MR#: [id number] Acct: [id number] Name: JAMIL NORRIS Rep #: [id number] : 1995 Provider: Dr. 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 Is patient in pain?: No Allergies ragweed pollen Allergy (Mild, Verified 12/20/24 10:03) Itching Medications ???Medication ???Instructions ???Recorded ???Confirmed ???Type sertraline 50 mg tablet 50 mg PO QDAY 07/31/24 12/20/24 Hi story multivit-min no.71-iron fum 28 cap PO 08/06/24 12/20/24 History mg-folate no.1 1 mg-dha 300 mg capsule (PNV-[place]) famotidine 20 mg tablet (Pepcid) 20 mg PO BID #60 tabs 12/20/2409/08 Rx Last Menstrual Period: 06/28/24 Zika: Zika virus screening: Negative : No PFSH PFSH Medical History RhD negative Seasonal allergies Pneumonia Surgical History [place] teeth extracted Family History Grandmother Arthritis Diabetes High cholesterol Grandfather Parkinson disease Thyroid disorder Lymphoma, Onset Age: 70 Maternal Grandfather Diabetes Lung cancer, Onset Age: 65 Maternal Mother Diabetes Thyroid disorder Cancer, Onset Age: 35 Thyroid cancer- thyroid removed Social History adopted: No household members: spouse housing: house current occupational status: employed 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/hazards: No pets and animals: Yes pets and animals: dog(s) history of recent travel: Yes ([place]) out of state: Yes out of country: Yes sexually active: Yes Smoking Status: Never smoker alcohol intake: current alcohol intake frequency: holidays/special occasions only details: Not while substance use type: does not use well-balanced diet: daily or most days caffeine: Yes Type: coffee Number of servings: 1 eating out: rarely or never during the past year weight has: remained stable what type of physical activity do you participate in: walking, bicycling and weight training frequency: 1-2 times per week duration: 30-45 minutes/day fredi/zoroastrian: Amish seatbelt use: always do you feel safe at home: Yes additional social history: -Joshua- Sales History 1 Elective abortions Hx Para 0 Spontaneous abortions Hx # Term Pregnancies Ectopic pregnancies Hx # Pregnancies Multiple births # of living children HPI 25wk ob Details: JAMIL NORRIS is a 29 year old who presents for routine OB visit. OB Visit SAMANTHA Calculator Estimated Delivery Date Method Current WG Current Estimate 04/04/25 LMP (Certain) 25w 0d Other Estimates 04/02/25 Ultrasound #1 25w 2d Expected Delivery Route/Plan Labor Preferences- CB/BF classes: [] labor support person: [] labor intervention preferences: [] pain management options preferred: [] cut cord/dad catch: [] : [] PP control planned: [] discussed possible routes of delivery and associated risks: [] special requests: [] Specific Issue/Plans Covid status: vaccinated Flu vaccine: unvaccinated last 2 year Tdap vaccine: Rhogam: [] LARC form signed: [] Problem list reviewed and updated with the most current plan of care details and appropriate orders placed. Relevant counseling for the gestational age provided. Continue routine care and follow up unless otherwise noted in visit notes/problem list details Initial Weight: Not Recorded Date -???-???-???-???-?? ?-???-???-???-???-? ??-???-???- EGA Weight BP Urine Prot -???-???-???-???-?? ?-???-???-???-???-? ??-???-???- Glucose FHR FuHt Pres Dilation -???-???-???-???-?? ?-???-???-???-???-? ??-???-???- Effaced St Visit Note 08/30/24 -???-???-???-???-?? ?-???-???-???-???-? ??-???-???- 9w 0d 182 lb 8 oz 127/81 -???-???-???-???-?? ?-???-???-???-???-? ??-???-???- 179 -???-???-???-???-?? ?-???-???-???-???-? ??-???-???- JV- CRL cons istent with LMP. desires nipt. first baby first . lives in [place]. 09/24/24 -???-???-???-???-?? ?-???-???-???-???-? ??-???-???- 12w 4d 181 lb 130/82 Negative -???-???-???-???-?? ?-???-???-???-???-? ??-???-???- Negative 152 -???-???-???-???-?? ?-???-???-???-???-? ??-???-???- MH-No VB. N ausea improved. (more content not included)... Normal [facility] Laboratory - Chemistry and C hemistry - challengeOrdered By: Veronica Cabrera on 11-22-2024 Glucose Ql (U) Negative [facility] Laboratory - UrinalysisOrder ed By: Veronica Cabrera on 11-22-2024 Protein Ql (U) Negative [facility] Assistant Secretary Office Visit Reporton 11-22-2024 Assistant Secretary Office Visit Report [facility] [address], [address] [place] [address] OFFICE VISIT Date of Service: 11/22/24 MR#: [id number] Acct: [id number] Name: JAMIL NORRIS Maida Rep #: [id number] : 1995 Provider: GEOVANNY Salazar ams Age/Sex: 29/F Location: [facility] Status: Signed Intake Vital Signs 08/30/24 14:15 10/24/24 10:52 11/22/24 11:24 Height 5 ft 5 in 5 ft 5 in 5 ft 5 in Weight: 189 lb 2 oz BMI 31.4 BP 124/69 H Intake Visit Reasons: 21wk ob Chief Complaint: 21wk 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 Is patient in pain?: No Allergies ragweed pollen Allergy (Mild, Verified 11/22/24 11:22) Itching Medications ???Medication ???Instructions ???Recorded ???Confirmed ???Type sertraline 50 mg tablet 50 mg PO QDAY 07/31/24 11/22/24 Hi story multivit-min no.71-iron fum 28 cap PO 08/06/24 11/22/24 History mg-folate no.1 1 mg-dha 300 mg capsule (PNV-[place]) Last Menstrual Period: 06/28/24 : No PFSH PFSH Medical History RhD negative Seasonal allergies Pneumonia Surgical History [place] teeth extracted Family History Grandmother Arthritis Diabetes High cholesterol Grandfather Parkinson disease Thyroid disorder Lymphoma, Onset Age: 70 Maternal Grandfather Diabetes Lung cancer, Onset Age: 65 Maternal Mother Diabetes Thyroid disorder Cancer, Onset Age: 35 Thyroid cancer- thyroid removed Social History adopted: No household members: spouse housing: house current occupational status: employed 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/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: No pets and animals: Yes pets and animals: dog(s) history of recent travel: Yes ([place]) out of state: Yes out of country: Yes sexually active: Yes Smoking Status: Never smoker alcohol intake: current alcohol intake frequency: holidays/special occasions only details: Not while substance use type: does not use well-balanced diet: daily or most days caffeine: Yes Type: coffee Number of servings: 1 eating out: rarely or never during the past year weight has: remained stable what type of physical activity do you participate in: walking, bicycling and weight training frequency: 1-2 times per week duration: 30-45 minutes/day fredi/zoroastrian: Amish seatbelt use: always do you feel safe at home: Yes additional social history: -Joshua- Sales History 1 Elective abortions Hx Para 0 Spontaneous abortions Hx # Term Pregnancies Ectopic pregnancies Hx # Pregnancies Multiple births # of living children HPI 21wk ob Details: JAMIL NORRIS is a 29 year old who presents for routine OB visit. OB Visit SAMANTHA Calculator Estimated Delivery Date Method Current WG Current Estimate 04/04/25 LMP (Certain) 21w 0d Other Estimates 04/02/25 Ultrasound #1 21w 2d Specific Issue/Plans Covid status: vaccinated Flu vaccine: unvaccinated last 2 year Tdap vaccine: Rhogam: [] LARC form signed: [] Problem list reviewed and updated with the most current plan of care details and appropriate orders placed. Relevant counseling for the gestational age provided. Continue routine care and follow up unless otherwise noted in visit notes/problem list details Initial Weight: Not Recorded Date -???-???-???-???-?? ?-???-???-???-???-? ??-???-???- EGA Weight BP Urine Prot -???-???-???-???-?? ?-???-???-???-???-? ??-???-???- Glucose FHR FuHt Pres Dilation -???-???-???-???-?? ?-???-???-???-???-? ??-???-???- Effaced St Visit Note 08/30/24 -???-???-???-???-?? ?-???-???-???-???-? ??-???-???- 9w 0d 182 lb 8 oz 127/81 -???-???-???-???-?? ?-???-???-???-???-? ??-???-???- 179 -???-???-???-???-?? ?-???-???-???-???-? ??-???-???- JV- CRL cons istent with LMP. desires nipt. first baby first . lives in [place]. 09/24/24 -???-???-???-???-?? ?-???-???-???-???-? ??-???-???- 12w 4d 181 lb 130/82 Negative -???-???-???-???-?? ?-???-???-???-???-? ??-???-???- Negative 152 -???-???-???-???-?? ?-???-???-???-???-? ??-???-???- MH-No VB. N ausea improved. Br US confirm FHT 10/24/24 -???-???-???-???-?? ?-???-???-???-???-? ??-???-???- 16w 6d 180 lb 6 oz 111/79 Negative -???-???-???-???-?? ?-???-???-???-???-? ??-???-???- Negative 152 -???-???-???-???-?? ?-???-???-???-???-? ??-???-???- JV- having a boy and thinking of naming him Jermaine. No complaints today. 11/22/24 -???-???-???-???-?? ?-???-???-???-???-? ??-???-???- 21w 0d 189 lb 2 oz 124/69 Negative -???-???-???-???-?? ?-???-???-???-???-? ??-???-???- Negative 145 21 (more content not included)... Normal [facility] Laboratory - Chemistry and C hemistry - challengeOrdered By: Rachele Bradley on 10-24-2024 Glucose Ql (U) Negative [facility] Laboratory - UrinalysisOrder ed By: Rachele Bradley on 10-24-2024 Protein Ql (U) Negative [facility] Assistant Secretary Office Visit Reporton 10-24-2024 Assistant Secretary Office Visit Report [facility] [address], [address] [place] [address] OFFICE VISIT Date of Service: 10/24/24 MR#: [id number] Acct: [id number] Name: JAMIL NORRIS Rep #: [id number] : 1995 Provider: Dr. 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 Is patient in pain?: No Allergies ragweed pollen Allergy (Mild, Verified 10/24/24 10:53) Itching Medications ???Medication ???Instructions ???Recorded ???Confirmed ???Type sertraline 50 mg tablet 50 mg PO QDAY 07/31/24 10/24/24 Hi story multivit-min no.71-iron fum 28 cap PO 08/06/24 10/24/24 History mg-folate no.1 1 mg-dha 300 mg capsule (PNV-[place]) Last Menstrual Period: 06/28/24 Zika: Zika virus screening: Negative : No PFSH PFSH Medical History RhD negative Seasonal allergies Pneumonia Surgical History [place] teeth extracted Family History Grandmother Arthritis Diabetes High cholesterol Grandfather Parkinson disease Thyroid disorder Lymphoma, Onset Age: 70 Maternal Grandfather Diabetes Lung cancer, Onset Age: 65 Maternal Mother Diabetes Thyroid disorder Cancer, Onset Age: 35 Thyroid cancer- thyroid removed Social History adopted: No household members: spouse housing: house current occupational status: employed 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/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: No pets and animals: Yes pets and animals: dog(s) history of recent travel: Yes ([place]) out of state: Yes out of country: Yes sexually active: Yes Smoking Status: Never smoker alcohol intake: current alcohol intake frequency: holidays/special occasions only details: Not while substance use type: does not use well-balanced diet: daily or most days caffeine: Yes Type: coffee Number of servings: 1 eating out: rarely or never during the past year weight has: remained stable what type of physical activity do you participate in: walking, bicycling and weight training frequency: 1-2 times per week duration: 30-45 minutes/day fredi/zoroastrian: Amish seatbelt use: always do you feel safe at home: Yes additional social history: -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 OB Visit SAMANTHA Calculator Estimated Delivery Date Method Current WG Current Estimate 04/04/25 LMP (Certain) 16w 6d Other Estimates 04/02/25 Ultrasound #1 17w 1d Specific Issue/Plans Covid status: vaccinated Flu vaccine: unvaccinated last 2 year Tdap vaccine: Rhogam: [] LARC form signed: [] Problem list reviewed and updated with the most current plan of care details and appropriate orders placed. Relevant counseling for the gestational age provided. Continue routine care and follow up unless otherwise noted in visit notes/problem list details Initial Weight: Not Recorded Date -???-???-???-???-?? ?-???-???-???-???-? ??-???-???- EGA Weight BP Urine Prot -???-???-???-???-?? ?-???-???-???-???-? ??-???-???- Glucose FHR FuHt Pres Dilation -???-???-???-???-?? ?-???-???-???-???-? ??-???-???- Effaced St Visit Note 08/30/24 -???-???-???-???-?? ?-???-???-???-???-? ??-???-???- 9w 0d 182 lb 8 oz 127/81 -???-???-???-???-?? ?-???-???-???-???-? ??-???-???- 179 -???-???-???-???-?? ?-???-???-???-???-? ??-???-???- JV- CRL cons istent with LMP. desires nipt. first baby first . lives in [place]. 09/24/24 -???-???-???-???-?? ?-???-???-???-???-? ??-???-???- 12w 4d 181 lb 130/82 Negative -???-???-???-???-?? ?-???-???-???-???-? ??-???-???- Negative 152 -???-???-???-???-?? ?-???-???-???-???-? ??-???-???- MH-No VB. N ausea improved. Br US confirm FHT 10/24/24 -???-???-???-???-?? ?-???-???-???-???-? ??-???-???- 16w 6d 180 lb 6 oz 111/79 Negative -???-???-???-???-?? ?-???-???-???-???-? ??-???-???- Negative 152 -???-???-???-???-?? ?-???-???-???-???-? ??-???-???- JV- having a boy and thinking of naming him Jermaine. No complaints today. ACOG First Trimester First Trimester: Discussed Results POC Urinalysis 2 Dip (Clinic) Office Urine (more content not included)... Normal [facility] - Chemistry and C hemistry - challengeOrdered By: Sai Foss on 09-24-2024 Glucose Ql (U) Negative [facility] - UrinalysisOrder ed By: Sai Foss on 09-24-2024 Protein Ql (U) Negative [facility] Assistant Secretary Office Visit Reporton 09-24-2024 Assistant Secretary Office Visit Report [facility] [address], [address] [place] [address] OFFICE VISIT Date of Service: 09/24/24 MR#: [id number] Acct: [id number] Name: JAMIL NORRIS Rep #: [id number] : 1995 Provider: CAMPOS solitario Age/Sex: 29/F Location: [facility] [place] Status: Signed Intake Vital Signs 08/06/24 09:57 08/30/24 14:15 09/24/24 09:41 Height 5 ft 5 in 5 ft 5 in 5 ft 5 in Weight: 181 lb BMI 30.1 BP 130/82 H Intake Visit Reasons: 12 WK OB Chief Complaint: 12 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 Is patient in pain?: No Allergies ragweed pollen Allergy (Mild, Verified 09/24/24 09:43) Itching Medications ???Medication ???Instructions ???Recorded ???Confirmed ???Type sertraline 50 mg tablet 50 mg PO QDAY 07/31/24 09/24/24 Hi story multivit-min no.71-iron fum 28 cap PO 08/06/24 09/24/24 History mg-folate no.1 1 mg-dha 300 mg capsule (PNV-[place]) Last Menstrual Period: 06/28/24 Zika: Zika virus screening: Negative : No PFSH PFSH Medical History RhD negative Seasonal allergies Pneumonia Surgical History [place] teeth extracted Family History Grandmother Arthritis Diabetes High cholesterol Grandfather Parkinson disease Thyroid disorder Lymphoma, Onset Age: 70 Maternal Grandfather Diabetes Lung cancer, Onset Age: 65 Maternal Mother Diabetes Thyroid disorder Cancer, Onset Age: 35 Thyroid cancer- thyroid removed Social History adopted: No household members: spouse housing: house current occupational status: employed 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/hazards: No pets and animals: Yes pets and animals: dog(s) history of recent travel: Yes ([place]) out of state: Yes out of country: Yes sexually active: Yes Smoking Status: Never smoker alcohol intake: current alcohol intake frequency: holidays/special occasions only details: Not while substance use type: does not use well-balanced diet: daily or most days caffeine: Yes Type: coffee Number of servings: 1 eating out: rarely or never during the past year weight has: remained stable what type of physical activity do you participate in: walking, bicycling and weight training frequency: 1-2 times per week duration: 30-45 minutes/day fredi/zoroastrian: Amish seatbelt use: always do you feel safe at home: Yes additional social history: -Joshua- Sales History 1 Elective abortions Hx Para 0 Spontaneous abortions Hx # Term Pregnancies Ectopic pregnancies Hx # Pregnancies Multiple births # of living children HPI 12 WK OB Details: JAMIL NORRIS is a 29 year old who presents for routine OB visit. OB Visit SAMANTHA Calculator Estimated Delivery Date Method Current WG Current Estimate 04/04/25 LMP (Certain) 12w 4d Other Estimates 04/02/25 Ultrasound #1 12w 6d Specific Issue/Plans Covid status: vaccinated Flu vaccine: unvaccinated last 2 year Tdap vaccine: Rhogam: [] LARC form signed: [] Problem list reviewed and updated with the most current plan of care details and appropriate orders placed. Relevant counseling for the gestational age provided. Continue routine care and follow up unless otherwise noted in visit notes/problem list details Initial Weight: Not Recorded Date -???-???-???-???-?? ?-???-???-???-???-? ??-???-???- EGA Weight BP Urine Prot -???-???-???-???-?? ?-???-???-???-???-? ??-???-???- Glucose FHR FuHt Pres Dilation -???-???-???-???-?? ?-???-???-???-???-? ??-???-???- Effaced St Visit Note 08/30/24 -???-???-???-???-?? ?-???-???-???-???-? ??-???-???- 9w 0d 182 lb 8 oz 127/81 -???-???-???-???-?? ?-???-???-???-???-? ??-???-???- 179 -???-???-???-???-?? ?-???-???-???-???-? ??-???-???- JV- CRL cons istent with LMP. desires nipt. first baby first . lives in [place]. 09/24/24 -???-???-???-???-?? ?-???-???-???-???-? ??-???-???- 12w 4d 181 lb 130/82 Negative -???-???-???-???-?? ?-???-???-???-???-? ??-???-???- Negative 152 -???-???-???-???-?? ?-???-???-???-???-? ??-???-???- MH-No VB. N ausea improved. Br US confirm FHT ACOG First Trimester First Trimester: Discussed ROS Const Reports system reviewed and no additional complaints, except as documented GI Denies abdominal pain, Denies nausea and Denies vomiting Exam Const General: cooperative Nutritional Appearance: well nourished GI Palpation: soft, nontender and other (gravid) Results POC Urinalysis 2 Dip (Clin (more content not included)... Normal [facility] Absolute lymphocyte countOrd ered By: Marisela Nelson on 09-03-2024 Lymphocytes Auto (Unsp spec) [#/Vol] 2.19 10*3/uL 0.83-4.51 [facility] Absolute neutrophil countOrd ered By: Marisela Nelson on 09-03-2024 Neutrophils (Bld) [#/Vol] 6.8 10*3/uL 2.0-7.7 [facility] Automated lymphocyte count a s percentage of total leukocytesOrdered By: Marisela Pickettgene on 09-03-2024 Lymphocytes/100 WBC Auto (Unsp spec) 22.4 % 19-41 [facility] Basophil percentageOrdered B y: Marisela Straussorlin on 09-03-2024 Basophils/100 WBC (Bld) 0.4 % 0-1 [facility] CBC W/Diff, Automatedon 08-16 0-2024 Absolute Lymph 2.19 X10 3/uL Normal 0.83-4.51 [facility] Comment on above: Performed By: #### L 509.8002, L501.9985, BTS, L3890.6006, L100.0100, L3890.6102, L509.4006, L3890.6301 #### [facility] [address] [place], [place], [id number] Absolute Neut 6.8 X10 3/uL Normal 2.0-7.7 [facility] Comment on above: Performed By: #### L 509.8002, L501.9985, BTS, L3890.6006, L100.0100, L3890.6102, L509.4006, L3890.6301 #### [facility] [address] [place], [address] Basophils/100 WBC (Bld) 0.4 % Normal 0-1 [facility] Comment on above: Performed By: #### L 509.8002, L501.9985, BTS, L3890.6006, L100.0100, L3890.6102, L509.4006, L3890.6301 #### [facility] [address] [place], [address] Eosinophils/100 WBC (Bld) 1.4 % Normal 0-5 [facility] Comment on above: Performed By: #### L 509.8002, L501.9985, BTS, L3890.6006, L100.0100, L3890.6102, L509.4006, L3890.6301 #### [facility] [address] [place], [address] Erythrocyte distribution width (RBC) [Ratio] 12.4 % Normal 11.6-14.6 [facility] Comment on above: Performed By: #### L 509.8002, L501.9985, BTS, L3890.6006, L100.0100, L3890.6102, L509.4006, L3890.6301 #### [facility] [address] [place], [address] Hematocrit (Bld) [Volume fraction] 40.1 % Normal 37-47 [facility] Comment on above: Performed By: #### L 509.8002, L501.9985, BTS, L3890.6006, L100.0100, L3890.6102, L509.4006, L3890.6301 #### [facility] [address] [place], [address] Hemoglobin (Bld) [Mass/Vol] 14.0 g/dL Normal 12.0-15.0 [facility] Comment on above: Performed By: #### L 509.8002, L501.9985, BTS, L3890.6006, L100.0100, L3890.6102, L509.4006, L3890.6301 #### [facility] [address] [place], [address] IG% 0.300 Normal 0.0-0.9 [facility] Comment on above: Result Comment: IG% - Immature Granulocytes (promyelocytes, myelocytes and metamyelocytes) > 1% indicates that a LEFT SHIFT is Present. Performed By: #### L 509.8002, L501.9985, BTS, L3890.6006, L100.0100, L3890.6102, L509.4006, L3890.6301 #### [facility] [address] [facility] [place], [address] Lymphocytes/100 WBC (Bld) 22.4 % Normal 19-41 [facility] Comment on above: Performed By: #### L 509.8002, L501.9985, BTS, L3890.6006, L100.0100, L3890.6102, L509.4006, L3890.6301 #### [facility] [address] [place], [address] MCH (RBC) [Entitic mass] 30.8 pg Normal 27.0-32.0 [facility] Comment on above: Performed By: #### L 509.8002, L501.9985, BTS, L3890.6006, L100.0100, L3890.6102, L509.4006, L3890.6301 #### [facility] [address] [facility] [place], [address] MCHC (RBC) [Mass/Vol] 34.9 g/dL Normal 32-36 [facility] Comment on above: Performed By: #### L 509.8002, L501.9985, BTS, L3890.6006, L100.0100, L3890.6102, L509.4006, L3890.6301 #### [facility] [address] [place], [address] MCV (RBC) [Entitic vol] 88.3 fL Normal 81-99 [facility] Comment on above: Performed By: #### L 509.8002, L501.9985, BTS, L3890.6006, L100.0100, L3890.6102, L509.4006, L3890.6301 #### [facility] [address] [place], [address] Monocytes/100 WBC (Bld) 5.5 % Normal 0-10 [facility] Comment on above: Performed By: #### L 509.8002, L501.9985, BTS, L3890.6006, L100.0100, L3890.6102, L509.4006, L3890.6301 #### [facility] [address] [place], [address] Neutrophils/100 WBC (Bld) 70.0 % Normal 47-70 [facility] Comment on above: Performed By: #### L 509.8002, L501.9985, BTS, L3890.6006, L100.0100, L3890.6102, L509.4006, L3890.6301 #### [facility] [address] [place], [address] Nucleated RBC (Bld) [#/Vol] 0 10*3/uL Normal 0-5 [facility] Comment on above: Performed By: #### L 509.8002, L501.9985, BTS, L3890.6006, L100.0100, L3890.6102, L509.4006, L3890.6301 #### [facility] [address] [place], [address] Platelet mean volume (Bld) [Entitic vol] 10.7 fL Normal 6.2-12.0 [facility] Comment on above: Performed By: #### L 509.8002, L501.9985, BTS, L3890.6006, L100.0100, L3890.6102, L509.4006, L3890.6301 #### [facility] [address] [place], [address] Platelets (Bld) [#/Vol] 216 10*3/uL Normal 150-450 [facility] Comment on above: Performed By: #### L 509.8002, L501.9985, BTS, L3890.6006, L100.0100, L3890.6102, L509.4006, L3890.6301 #### [facility] [address] [place], [address] RBC (Bld) [#/Vol] 4.54 10*6/uL Normal 4.2-5.4 [facility] Comment on above: Performed By: #### L 509.8002, L501.9985, BTS, L3890.6006, L100.0100, L3890.6102, L509.4006, L3890.6301 #### [facility] [address] [place], [address] RDW SD 40.0 fl Normal 35.1-43.9 [facility] Comment on above: Performed By: #### L 509.8002, L501.9985, BTS, L3890.6006, L100.0100, L3890.6102, L509.4006, L3890.6301 #### [facility] [address] [place], [address] WBC (Bld) [#/Vol] 9.8 10*3/uL Normal 4.4-11.0 [facility] Comment on above: Performed By: #### L 509.8002, L501.9985, BTS, L3890.6006, L100.0100, L3890.6102, L509.4006, L3890.6301 #### [facility] [address] [place], [place], [id number] Eosinophil percentageOrdered By: Marisela Pickettgene on 09-03-2024 Eosinophils/100 WBC (Bld) 1.4 % 0-5 [facility] Erythrocyte distribution wid th ratioOrdered By: Marisela Pickettgene on 09-03-2024 Erythrocyte distribution width (RBC) [Ratio] 12.4 % 11.6-14.6 [facility] Erythrocyte distribution wid th standard deviationOrdered By: Marisela Pickettgene on 09-03-2024 Erythrocyte distribution width (RBC) [Ratio] 40.0 fl 35.1-43.9 [facility] HIVon 09-03-2024 HIV Non-Reactive Normal Nonreactive [facility] Comment on above: Result Comment: Non- Reactive Reactive Repeatedly reactive samples must be confirmed according to CDC recommended confirmatory algorithms. The subresults for either HIVAG or AHIV can be used as an aid in the selection of the confirmation algorithm for reactive samples. Send out specimens with Reactive results to [facility] for confirmation. Order the HIV antibody detection and differentiation: lc#[id number] Performed By: #### L 509.8002, L501.9985, BTS, L3890.6006, L100.0100, L3890.6102, L509.4006, L3890.6301 #### [facility] [address] [place], [place], [address] Hematocrit Auto (Bld) [Volum e fraction]Ordered By: Marisela Nelson on 09-03-2024 Hematocrit (Bld) [Volume fraction] 40.1 % 37-47 [facility] Hemoglobin A1con 09-03-2024 HbA1c (Bld) [Mass fraction] 5.1 % Normal <=5.6 [facility] Comment on above: Result Comment: Norm al < 5.7 % Prediabetic 5.7 - 6.4 % Diabetic >or= 6.5 % Please note range changes. Performed By: #### L 509.8002, L501.9985, BTS, L3890.6006, L100.0100, L3890.6102, L509.4006, L3890.6301 #### [facility] [address] [place], [address] Hemoglobin A1c percentageOrd ered By: Marisela Nelson on 09-03-2024 HbA1c (Bld) [Mass fraction] 5.1 % <5.7 [facility] Comment on above: Normal < 5.7 % Predi abetic 5.7 - 6.4 % Diabetic >or= 6.5 % Please note range changes. Hemoglobin measurementOrdere d By: Marisela Nelson on 09-03-2024 Hemoglobin (Bld) [Mass/Vol] 14.0 g/dL 12.0-15.0 [facility] Hepatitis C Antibodyon 09-03 Hepatitis C Ab Non-Reactive Normal Nonreactive [facility] Comment on above: Result Comment: Reac tive: Presumptive evidence of antibodies to HCV. Follow CDC recommendations for supplemental testing. Non-Reactive: Antibodies to HCV were not detected; does not exclude the possibility of exposure to HCV Reactive Results are presumptive evidence of antibodies to HCV. Follow CDC recommendations for supplemental testing. Order confirmation testing: HCV Quant by PCR testing - HCVPCR #[id number] Non Reactive: < 0.8 Equivocal: >/= 0.8 to < 1.0 Reactive: >/= 1.0 The CDC requires that a reactive/equivocal HCV antibody result be sent out for confirmation. HCV Quant by PCR testing. Performed By: #### M 100.2200, L7000.1800 #### [facility] [address] [place], [address] Immature granulocytes/100 WB C Auto (Bld)Ordered By: Marisela Nelson on 09-03-2024 Immature granulocytes/100 WBC (Bld) 0.300 % 0.0-0.9 [facility] Comment on above: IG% - Immature Granu locytes (promyelocytes, myelocytes and metamyelocytes) > 1% indicates that a LEFT SHIFT is Present. L3890.6102on 09-03-2024 HEP B Surf Ag Non-Reactive Normal Nonreactive [facility] Comment on above: Result Comment: Reac tive: Presumptive evidence of HBV. Repeatedly reactive samples must be confirmed using a neutralization test ([employer] HBsAg Confirmatory Test) Non-Reactive: HBsAg not detected; does not exclude the possibility of exposure to HBV Performed By: #### L 509.8002, L501.9985, BTS, L3890.6006, L100.0100, L3890.6102, L509.4006, L3890.6301 #### [facility] [address] [facility] [place], [place], [id number] L509.4006on 09-03-2024 Rubella IgG REAC Normal Nonreactive [facility] Comment on above: Result Comment: Anti body Result: Interpretation Non-Reactive: Non-Immune Reactive: Immune The following results were obtained with the [employer] Rubella IgG assay. Results from assays of other manufacturers cannot be used interchangeably. Performed By: #### L 509.8002, L501.9985, BTS, L3890.6006, L100.0100, L3890.6102, L509.4006, L3890.6301 #### [facility] [address] [place], [place], [id number] Laboratory - Microbiology an d Antimicrobial susceptibilityOrdered By: Marisela Nelson on 09-03-2024 HBV surface Ag Ql (S) Non-Reactive Nonreactive [facility] Comment on above: Reactive: Presumptiv e evidence of HBV. Repeatedly reactive samples must be confirmed using a neutralization test ([employer] HBsAg Confirmatory Test)Non-Reactive: HBsAg not detected; does not exclude the possibility of exposure to HBV MCV (mean corpuscular volume ) determinationOrdered By: Marisela Nelson on 09-03-2024 MCV (RBC) [Entitic vol] 88.3 fL 81-99 [facility] Mean corpuscular hemoglobin (MCH) determinationOrdered By: Marisela Nelson on 09-03-2024 MCH (RBC) [Entitic mass] 30.8 pg 27.0-32.0 [facility] Mean corpuscular hemoglobin concentration (MCHC) determinationOrdered By: Marisela Nelson on 09-03-2024 MCHC (RBC) [Mass/Vol] 34.9 g/dL 32-36 [facility] Mean platelet volume determi nationOrdered By: Marisela Nelson on 09-03-2024 Platelet mean volume (Bld) [Entitic vol] 10.7 fL 6.2-12.0 [facility] Monocyte percentageOrdered B y: Marisela Nelson on 09-03-2024 Monocytes/100 WBC (Bld) 5.5 % 0-10 [facility] NATERAon 09-03-2024 NATURA SEE SCANNED REPORT Normal [facility] Comment on above: Performed By: #### L 900.0098 #### [facility] [address] [place], [address] Neutrophil percentageOrdered By: Marisela Nelson on 09-03-2024 Neutrophils/100 WBC (Bld) 70.0 % 47-70 [facility] No Panel InformationOrdered By: Marisela Nelson on 09-03-2024 HIV (1&2) Antibody Non-Reactive Nonreactive [facility] Comment on above: Non-ReactiveReactive Repeatedly reactive samples must be confirmed according to CDC recommended confirmatory algorithms. The subresults for either HIVAG or AHIV can be used as an aid in the selection of the confirmation algorithm for reactive samples.Send out specimens with Reactive results to [facility] for confirmation.Order the HIV antibody detection and differentiation: #[id number] Nucleated red blood cell per centageOrdered By: Marisela Nelson on 09-03-2024 Nucleated RBC/100 WBC (Bld) [Ratio] 0 % 0-5 [facility] Platelet countOrdered By: Barbara Nelson on 09-03-2024 Platelets (Bld) [#/Vol] 216 10*3/uL 150-450 [facility] RBC Auto (Bld) [#/Vol]Ordere d By: Marisela Nelson on 09-03-2024 RBC (Bld) [#/Vol] 4.54 10*6/uL 4.2-5.4 [facility] Syphilis Antibodieson 2024 Syphilis Abs Non-Reactive Normal Nonreactive [facility] Comment on above: Performed By: #### L 509.8002, L501.9985, BTS, L3890.6006, L100.0100, L3890.6102, L509.4006, L3890.6301 #### [facility] [address] [place], [address] Type AND Screenon 09-03-2024 Ab SCREEN GEL Negative Normal [facility] Comment on above: Order Comment: PN Performed By: #### L 509.8002, L501.9985, BTS, L3890.6006, L100.0100, L3890.6102, L509.4006, L3890.6301 #### [facility] [address] [place], [address] White blood cell (WBC) count Ordered By: Marisela Nelson on 09-03-2024 WBC (Bld) [#/Vol] 9.8 10*3/uL 4.4-11.0 [facility] Chlamydia/GC CK aptimaon CHLAMY,NUC ACID Negative Normal Negative [facility] Comment on above: Performed By: #### M 100.2200, L7000.1800 #### [facility] [address] [place], [address] GC BY NUC ACID Negative Normal Negative [facility] Comment on above: Result Comment: Perf ormed at: =G - [facility] [address] [id number] Web Site Specialist: Jeannine So MD, Phone: [phone] Performed By: #### M 100.2200, L7000.1800 #### [facility] [address] [place], [address] Urine Cultureon 08-31-2024 URC Culture exhibits no growth. Normal [facility] Comment on above: Performed By: #### M 100.2200, L7000.1800 #### [facility] [address] [place], [address] Chlamydia trachomatis rRNA d etection by probe and target amplification methodOrdered By: Marisela Nelson on 08-30-2024 C. trachomatis rRNA CK+probe Ql (Unsp spec) Negative Negative [facility] Neisseria gonorrhoeae nuclei c acid detection by amplified probe techniqueOrdered By: Marisela Nelson on 08-30-2024 N. gonorrhoeae DNA CK+probe Ql (Unsp spec) Negative Negative [facility] Comment on above: Performed at: =[address] [id number] Director: Jeannine So MD, Phone: [phone] Assistant Secretary Office Visit Reporton 08-30-2024 Assistant Secretary Office Visit Report [facility] [address], [address] [place] [address] OFFICE VISIT Date of Service: 08/30/24 MR#: [id number] Acct: [id number] Name: JAMIL NORRIS Maida Rep #: [id number] : 1995 Provider: Dr. Rachele Hook DO Age/Sex: 29/F Location: [facility] [place] Status: Signed Intake Vital Signs 08/06/24 09:57 08/30/24 14:13 08/30/24 14:15 Height 5 ft 5 in 5 ft 5 in 5 ft 5 in Weight: 182 lb 8 oz BMI 30.3 BP 127/81 H Intake Visit Reasons: New OB, LMP 06/28, SAMANTHA 04/04, first baby 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 Is patient in pain?: No Allergies ragweed pollen Allergy (Mild, Verified 08/30/24 14:12) Itching Medications ???Medication ???Instructions ???Recorded ???Confirmed ???Type sertraline 50 mg tablet 50 mg PO QDAY 07/31/24 08/30/24 Hi story multivit-min no.71-iron fum 28 cap PO 08/06/24 08/30/24 History mg-folate no.1 1 mg-dha 300 mg capsule (PNV-[place]) Last Menstrual Period: 06/28/24 Zika: Zika virus screening: Negative : No PFSH PFSH Medical History Seasonal allergies Pneumonia Surgical History [place] teeth extracted Family History Grandmother Arthritis Diabetes High cholesterol Grandfather Parkinson disease Thyroid disorder Lymphoma, Onset Age: 70 Maternal Grandfather Diabetes Lung cancer, Onset Age: 65 Maternal Mother Diabetes Thyroid disorder Cancer, Onset Age: 35 Thyroid cancer- thyroid removed Social History adopted: No household members: spouse housing: house current occupational status: employed 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/hazards: No pets and animals: Yes pets and animals: dog(s) history of recent travel: Yes ([place] April) out of state: Yes out of country: Yes sexually active: Yes Smoking Status: Never smoker alcohol intake: current alcohol intake frequency: holidays/special occasions only details: Not while substance use type: does not use well-balanced diet: daily or most days caffeine: Yes Type: coffee Number of servings: 1 eating out: rarely or never during the past year weight has: remained stable what type of physical activity do you participate in: walking, bicycling and weight training frequency: 1-2 times per week duration: 30-45 minutes/day fredi/zoroastrian: Amish seatbelt use: always do you feel safe at home: Yes additional social history: -Joshua- Sales History 1 Elective abortions Hx Para 0 Spontaneous abortions Hx # Term Pregnancies Ectopic pregnancies Hx # Pregnancies Multiple births # of living children HPI New OB, LMP 06/28, SAMANTHA 04/04, first baby Details: JAMIL NORRIS is a 29 year old who presents for New OB visit. OB Visit SAMANTHA Calculator Estimated Delivery Date Method Current WG Current Estimate 04/04/25 LMP (Certain) 9w 0d Other Estimates 04/02/25 Ultrasound #1 9w 2d Estimated Due Date: 04/04/25 Specific Issue/Plans Covid status: vaccinated Flu vaccine: unvaccinated last 2 year Tdap vaccine: Rhogam: [] LARC form signed: [] Problem list reviewed and updated with the most current plan of care details and appropriate orders placed. Relevant counseling for the gestational age provided. Continue routine care and follow up unless otherwise noted in visit notes/problem list details Initial Weight: Not Recorded Date -???-???-???-???-?? ?-???-???-???-???-? ??-???-???- EGA Weight BP Urine Prot -???-???-???-???-?? ?-???-???-???-???-? ??-???-???- Glucose FHR FuHt Pres Dilation -???-???-???-???-?? ?-???-???-???-???-? ??-???-???- Effaced St Visit Note 08/30/24 -???-???-???-???-?? ?-???-???-???-???-? ??-???-???- 9w 0d 182 lb 8 oz 127/81 -???-???-???-???-?? ?-???-???-???-???-? ??-???-???- 179 -???-???-???-???-?? ?-???-???-???-???-? ??-???-???- JV- CRL cons istent with LMP. desires nipt. first baby first . lives in [place]. Menstrual History Last Menstrual Period: 06/28/24 Reported LMP: definite Normal amount/duration: Yes Frequency in days: 28-29 On hormonal BC at conception: No hCG+: 07/24/24 Antepartum Record Genetic Screening: Congenital Heart Defect: Other, Neural Tube Defect: Other, Hemoglobinopathy Or Carrier: Other, Cystic Fibrosis: Other, Chromosome Abnormality: Other, Julio-Sachs: Other, Hemophilia: Other, Intellectual Disability/Autism: Other, Recurrent Loss/Stillbirth: Other, Other Structural Defect: Other, Other Genetic Disease: Other and Maternal Metabolic Disorder: Other Infe (more content not included)... Normal [facility] Urine cultureOrdered By: Nazario Nelson on 08-30-2024 Bacteria identified Cx Nom (U) Culture exhibits no growth. [facility] Laboratory - Chemistry and C hemistry - challengeOrdered By: Marisela Nelson on 08-06-2024 HCG ( test) Ql (U) Positive [facility] Office Visit Reporton 2024 Office Visit Report [facility] [address] [place] [address] OFFICE VISIT Date of Service: 08/06/24 MR#: [id number] Acct: [id number] Patient: JAMIL NORRIS Rep #: [id number] : 1995 Provider: Dr. Marisela wang MD Age/Sex: 29/F Location: [facility] [place] Status: Signed Intake Vital Signs 08/06/24 09:57 Height 5 ft 5 in Weight: 182 lb BMI 30.2 BP 116/70 Blood Pressure Location Rt brachial Position Sitting Intake Visit Reasons: Est Care/Urine test/ Vitals 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 Accompanied by: Is patient in pain?: No Allergies ragweed pollen Allergy (Mild, Verified 08/06/24 09:59) Itching Medications ???Medication ???Instructions ???Recorded ???Confirmed ???Type sertraline 50 mg tablet 50 mg PO QDAY 07/31/24 08/06/24 Hi story multivit-min no.71-iron fum 28 cap PO 08/06/24 08/06/24 History mg-folate no.1 1 mg-dha 300 mg capsule (PNV-[place]) Is last menstrual period known: Yes Last menstrual period: 06/28/24 Post menopausal: No Patient : Yes Nurse's Note: Pt here for PNOB. Office UPT: positive. Vitals WNL. PNOB questions completed. Problem list, allergies, and medications updated. Results POC Urine Office , Urine Positive Last Edit by Celia Pires on 08/06/24 10:01 Assessment and Plan Assessment and Plan (1) Supervision of high-risk : Status: Acute Comment: , SAMANTHA 04/04/25, Joshua (2) Depression: Status: Acute Comment: sertraline (3) : Status: Acute Comment: discussed NIPT Carrier testing-Undecided (4) Obesity affecting : Status: Acute Comment: HgbA1c Orders: Orders POC Urine 08/06/24 N91.2 - Amenorrhea, unspecified CBC W/Diff, Automated 08/06/24 O09.90 - Supervision of high risk , unspecified, unspecified trimester Type Screen 08/06/24 O09.90 - Supervision of high risk , unspecified, unspecified trimester Rubella IgG 08/06/24 O09.90 - Supervision of high risk , unspecified, unspecified trimester Hepatitis C Antibody 08/06/24 O09.90 - Supervision of high risk , unspecified, unspecified trimester Hepatitis B Surface Antigen 08/06/24 O09.90 - Supervision of high risk , unspecified, unspecified trimester Culture, Urine 08/06/24 O09.90 - Supervision of high risk , unspecified, unspecified trimester Syphilis Antibodies 08/06/24 O09.90 - Supervision of high risk , unspecified, unspecified trimester Chlamydia/GC CK aptima 08/06/24 O09.90 - Supervision of high risk , unspecified, unspecified trimester HIV 08/06/24 O09.90 - Supervision of high risk , unspecified, unspecified trimester Hemoglobin A1c 08/06/24 O09.90 - Supervision of high risk , unspecified, unspecified trimester, O99.210 - Obesity complicating , unspecified trimester 08/07/24 1218 Date Marisela Jin Signature: Date (if applicable) CC: Pedro [facility] Family Medicine Office/Clini c Noteon 07-04-2024 Family Medicine Office/Clinic Note The content of this note was generated by an artificial intelligence (AI) language dictation. The patient or guardian has given their consent for the use of AI technology during the visit to capture and process the conversation. The AI will assist in providing information and support throughout the discussion. The AI will not store personal or sensitive information beyond the scope of this session, and the purpose is solely to facilitate the conversation. Chief Complaint Wellness History of Present Illness Disclaimer: The content of this note was generated by an artificial intelligence (AI) language model version 25.01.0.0 The patient is a 29-year-old female with a history of major depression, presenting for a medication check. Medication Management and Mental Health The patient has been on Zoloft since February 2020. She reports that the medication has been effective in stabilizing her mood, preventing significant highs and lows. However, she expresses concerns about the long-term use of Zoloft, particularly as she and her are actively trying to conceive. She has considered weaning off the medication but is apprehensive about potential mood destabilization. The patient has discussed her concerns with her friend Meka Vaca, who reassured her about the safety of Zoloft during . The patient is aware that Zoloft is considered one of the safest medications for use during and . She notes that her overall happiness and social engagement have decreased since starting the medication. She used to be very social and active but now prefers solitude and a smaller social [place]. The patient is also concerned about the impact of Zoloft on her libido and intimacy with her , which has declined since starting the medication. TSH has been checked and normal in 2020. Pap 01/18/24. Review of Systems General Adult ROS Fatigue: No Appetite change: No Weakness: No Cardiovascular Chest pain/pressure: No Edema: No Palpitations: No EENMT Nasal congestion: No Nasal discharge: No Sore_throat: No Gastrointestinal Abdominal pain: No Constipation: No Diarrhea: No Genitourinary Dysuria: No Hematologic/Lymphat ic Musculoskeletal Muscle aches: No Neurological Headache: No Psychiatric Anxiety: No Depression: No Homicidal Ideation: No Poor sleep quality: No Suicidal Ideation: No Respiratory Cough: No Shortness_of_breath : No Skin Physical Exam Vitals & Measurements T: 36.3 ?C (Temporal Artery) HR: 81 (Peripheral) BP: 110/70 SpO2: 99% HT: 165.5 cm WT: 81.9 kg WT: 81.9 kg (Dosing) BMI: 29.9 Constitutional General appearance: Comfortable, Well Kept Nutritional status: normal Lungs CTAB, no crackles or wheezes. CV RRR, no murmur. Psychiatric Affect reactive. Mood euthymic. Judgment: normal Mental Status: Psych-alert and oriented x 4. Attentive and appropriate, constitutionally normal, displays normal mood and affect per situation. There are no obvious deficits in memory, reasoning, or intellect. Additional Vitals BP Position/Location: Sitting, Left arm Assessment and Plan: Patient is a 29-year-old female with major depression presenting today for wellness examination and medication management. 1. Wellness examination - Discussed the importance of thyroid function in conception and recommended rechecking thyroid levels if not by September. - Advised patient to follow up with family practice in [place] in September for a wellness check and lab work. 2. Major depression - Continue current medication (Zoloft) as it is considered safe for and . - Discussed the potential impact of hormonal changes during on mood. - Recommended against weaning off medication during winter; suggested considering weaning in the next three weeks when the weather is consistently nice. - Discussed the possibility of cutting the dose in half for a week and then stopping, with flexibility based on how she feels. - Emphasized the importance of maintaining mental health for a healthy and period. - Encouraged outdoor activities and exposure to sunlight for mental health benefits. - Refilled Zoloft prescription for one year. - Discussed the potential impact of Zoloft on libido and intimacy, and the possibility of switching to Wellbutrin, although it is not the preferred choice for someone trying to conceive. - Emphasized the importance of self-care and mental health for overall well-being and successful . Medical Decision Making Chronic conditions NOT treated during this visit that affected my overall medical decision making: [] Treatment plans discussed but not opted for at this time: [] Prescribed medication that requires intensive monitoring for toxicity: [] I have reviewed the patient?s medication list for medication interactions/contra indications and/or for upcoming procedures: [yes or no] Time Spent with the Pa (more content not included)... Normal [facility] [employer] Cytology Reporton 10-08- 2024 [facility] [employer] [facility] Cytology Report Clinical Information Specimen Collection Date: 01/18/24 LMP: 01/16/24 Type of specimen: Cervical/endocervic al Purpose of smear: Regular periodic exam/screening Pap HPV testing ordered only if ASCUS Pap. GY Specimen A Liquid Prep Pap Smear, Reflex if ASCUS Adequacy Alpha Response SAT ANATOMICPATHOLOGY Endocervical Alpha Response EC/TZONE - ANATOMICPATHOLOGY Statement of Adequacy Satisfactory for Evaluation. Transformation Zone Absent. Diagnosis Alpha Response GY NILM ANATOMICPATHOLOGY Diagnosis NEGATIVE FOR INTRAEPITHELIAL LESION OR MALIGNANCY. Completed by: GRETCHEN Conteh (ASCP) (Electronically signed by) 01/23/24 13:54 EDT GY Recommendation Smear is partially obscured by blood. Endometrial cells present GY Disclaimer Interp The PAP smear is a screening test with an inherent, but low, probability of error. A negative report indicates a low probability of significant cervical pathology. Your patient should be reminded to consult you immediately if she experiences new symptoms and to continue having regular PAP smears in the future. GY Disclaimer Alpha [facility] [employer] [facility] Disclaimer ANATOMICPATHOLOGY Normal [facility] Comment on above: Performed By: #### G YNCYTREP #### [facility] (DEFAULT) [address] [id number] Gynecology Office/Clinic Not terrence 01-18-2024 Gynecology Office/Clinic Note Chief Complaint 28 y/o presents for annual visit. last pap 11/10/22-negative. History of Present Illness Pelvic Pain: No Painful Sex: No Abnormal Vaginal Discharge: No Abnormal Vaginal Bleeding: No Vaginal Dryness: No Vaginal Itch: No Vaginal Burning: No Vaginal Odor: No Hot Flashes: No Night Sweats: No Breast Lump: No Breast Pain: No Sexually Active: No Jamil presents for annual. Menses regular. Not using hormonal contraception. Denies pelvic pain or breast concerns. Does wonder if she has PCOS d/t hirsutism. Discussed [place] criteria. Remains on 50mg Zoloft for anxiety/depression, managed by PCP. Would like to wean soon. Plans to attempt . Dc'd this medication in and it's safety. [employer] Additional Details Menstrual History Last Menstrual [id number]/16/2024 Age Menses [id number] Periods RegularYes Days Between Periods~ 30 days Menstrual Flow Days5 Pass ClotsYes Pain With PeriodYes Flow Start PainNo Pain Starts Days Before Period7 Periods AreLight Miss School/Work Due to PeriodsNo Contraception Contraception TypeCondoms Review of Systems Head Migraines: No Headaches: No Eyes Corrective Lenses: Glasses Blurred vision: Glasses Ears, Nose, Throat Congestion: No Vertigo: No Sore throat: No Nasal drainage: No Cardio Respiratory Peripheral edema: No Heart Irregularity: No Chest Pain: No Shortness of Breath: No Gastrointestinal Bloating: No Reflux/heartburn: No Abdominal Pain: No Change in bowel habits: No Urinary Urinary Incontinence: No Urinary frequency: No Nocturia: No Urgency: No Painful urination: No Musculoskeletal Back Pain: No Muscle Aches: No Joint Pain: No Integumentary Lesions: No Moles: No Acne: No Hair changes: No PsychoSocial Sleep Problems: No Anxiety: No Suicidal Ideation: No Homicidal Ideation: No Depression: No Hematologic/Lymphat ic Lymphadenopathy: No Thromboembolism: No Bruising: No Bleeding tendencies: No Endocrine Abnormal weight gain: No Abnormal weight loss: No Fatigue: No Additional Details Pain Present Physical Exam Vitals & Measurements BP: 118/80 HT: 165.5 cm WT: 79.7 kg WT: 79.7 kg (Dosing) BMI: 29.1 General: Alert and oriented, well nourished, no acute distress. Neck: Supple, non-tender, no carotid bruits, no JVD, no lymphadenopathy. Lungs: Clear to auscultation, non-labored respiration. Heart: Normal rate, regular rhythm, no murmur, gallop or edema. Abdomen: Soft, non-tender, non-distended, no masses. Musculoskeletal: Normal range of motion and strength, no tenderness or swelling. Skin: Skin is warm, dry and pink, no rashes or lesions. Neurologic: Awake, alert, and oriented X3, CN II-XII intact. Psychiatric: Cooperative, appropriate mood and affect. Breast exam: No fibrocystic changes noted bilaterally, no masses, tenderness, skin changes or nipple discharge. External Genitalia: Normal urethral meatus, no lesions, vulvar skin intact. Genitourinary: Normal vaginal mucosa, no lesions or abnormal discharge, cervix intact without lesions, some vaginal bleeding pt on cycle. No cystocele or rectocele. Bimanual exam: Normal sized, non-tender, mobile uterus. No adnexal tenderness or masses Assessment/Plan 1. Women's annual routine gynecological examination Pap collected w/o difficulty. ON cycle, dc'd may come back obscured by blood Dc'd mammo at age 42 Ordered: Pathology Pap Smear Request Time Spent with the Patient I have personally spent [30] minutes on this date, directly related to today's patient visit, including pre and post visit work, for this date of service. Time listed does not include time spent on separately billable services. OB History History (0,0,0,0) No previous pregnancies history have been recorded Women's Health Screening Last Pap Smear Diagnosis 11/10/22 18:57:00 NEGATIVE FOR INTRAEPITHELIAL LESION OR MALIGNANCY. Last HPV No qualifying data available. Bone Density No qualifying data available. Mammograms No qualifying data available. Outside Results No qualifying data available. 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 Substance Abuse Denies All Tobacco Never (less than 100 in lifetime) Use:. Family History Family history is negative Immunizations Vaccine Date Status meningococcal conjugate vaccine 05/31/2017 Given Comments : ND (more content not included)... Normal [facility] Destruction of lesionon 06-0 ALICIA Kohler DPM 09/19/2023 10:30 AM Destruction of lesion Timeout: Verbal Consent obtained?: Yes Written Consent obtained?: Yes Date:: 09/19/2023 Consent given by:: Patient Procedure: Procedure Performed for: Left great toe lateral border partial temporary nail avulsion versus I&D Performed by: Physician Dr. ALICIA Kohler DPM Fenestrated: No Bleeding: Minimal Hemostasis Achieved: N/A Secured: Yes Secured with: Bandage Dressing Applied: Yes Type of dressing applied: Adaptic Pain Control: 2% Lidocaine Procedural Pain:: 0 Post Procedural Pain:: 0 Additional Procedure details:: Procedure: Timeout and consent was performed for Left great toe partial temporary lateral nail avulsion. Patient was blocked with 3 cc of 2% lidocaine plain in each block type fashion. Attention was directed laterally where the nail was split with an Iranian anvil distally to approximately 3 mm off the hyponychium just below the eponychium and finished with a 6100 blade. The offending nail border was bluntly avulsed and passed off the surgical field. A curette was used to check for spicules, none were found. A copious amount of normal saline was used. Site and location. No abscess was appreciated. Post irrigation a copious amount of bacitracin was applied and a postop dressing was applied with Telfa Kerlix and Racheal. Response to Treatment:: Procedure was tolerated well [facility] Vital Signs Date Time Vital Sign Value Performing Clinician Kwan jalloh 2025 10:46-0400 Body height 165.[address] Marisela Nelson MD Work Phone: [facility] 2025 10:45-0400 Body mass index (BMI) [Ratio] 35.1 kg/m2 Dr. Marisela Nelson MD Work Phone: [facility] 2025 10:45-0400 Body weight 95.[address] Marisela Nelson MD Work Phone: [facility] 2025 10:45-0400 Diastolic blood pressure 77 mm[Hg] Dr. Marisela Nelson MD Work Phone: [facility] 2025 10:45-0400 Systolic blood pressure 115 mm[Hg] Dr. Marisela Nelson MD Work Phone: [facility] 01-10-2025 11:12-0400 Body height 165.[address] Marisela Nelson MD Work Phone: [facility] 01-10-2025 11:12-0400 Body mass index (BMI) [Ratio] 34.3 kg/m2 Dr. Marisela Nelson MD Work Phone: [facility] 01-10-2025 11:12-0400 Body weight 93.[address] Marisela Nelson MD Work Phone: [facility] 01-10-2025 11:12-0400 Diastolic blood pressure 78 mm[Hg] Dr. Marisela Nelson MD Work Phone: 0(253)781-720197 [place] [address] 01-10-2025 11:12-0400 Systolic blood pressure 127 mm[Hg] Dr. Marisela Nelson MD Work Phone: 1([phone])215-742897 [place] [address] 12-20-2024 10:06-0400 Body height 165.[address] Marisela Nelson MD Work Phone: 8(328)[phone] [place] [address] 12-20-2024 10:06-0400 Body mass index (BMI) [Ratio] 33.1 kg/m2 Dr. Marisela Nelson MD Work Phone: 2(216)950-729397 [place] [address] 12-20-2024 10:06-0400 Body weight 90.[address] Marisela Nelson MD Work Phone: 1(459)506-451397 [place] [address] 12-20-2024 10:06-0400 Diastolic blood pressure 82 mm[Hg] Dr. Marisela Nelson MD Work Phone: 7(381)423-661397 [place] [address] 12-20-2024 10:06-0400 Systolic blood pressure 122 mm[Hg] Dr. Marisela Nelson MD Work Phone: 9(210)791-092397 [place] [address] 11-22-2024 11:24-0400 Body height 165.[address] Marisela Nelson MD Work Phone: 9(222)[phone] [place] [address] 11-22-2024 11:24-0400 Body mass index (BMI) [Ratio] 31.4 kg/m2 Dr. Marisela Nelson MD Work Phone: 0([phone])[phone] [place] [address] 11-22-2024 11:24-0400 Body weight 85.[address] Marisela Nelson MD Work Phone: 5([phone])[phone] [place] [address] 11-22-2024 11:24-0400 Diastolic blood pressure 69 mm[Hg] Dr. Marisela Nelson MD Work Phone: 2(085)[phone] [place] [address] 11-22-2024 11:24-0400 Systolic blood pressure 124 mm[Hg] Dr. Marisela Nelson MD Work Phone: [facility] 10-24-2024 10:52-0400 Body height 165.[address] Marisela Nelson MD Work Phone: [facility] 10-24-2024 10:52-0400 Body mass index (BMI) [Ratio] 29.9 kg/m2 Dr. Marisela Nelson MD Work Phone: [facility] 10-24-2024 10:52-0400 Body weight 81.[address] Marisela Nelson MD Work Phone: [facility] 10-24-2024 10:52-0400 Diastolic blood pressure 79 mm[Hg] Dr. Marisela Nelson MD Work Phone: [facility] 10-24-2024 10:52-0400 Systolic blood pressure 111 mm[Hg] Dr. Marisela Nelson MD Work Phone: [facility] 10-01-2024 09:29-0400 Body height 165.1 cm Louann Hager MD Work Phone: [facility] 10-01-2024 09:29-0400 Body mass index (BMI) [Ratio] 29.82 kg/m2 Louann Hager MD Work Phone: [facility] 10-01-2024 09:29-0400 Body weight 81.28 kg Louann Hager MD Work Phone: [facility] 10-01-2024 09:29-0400 Diastolic blood pressure 62 mm[Hg] Louann Hager MD Work Phone: [facility] 10-01-2024 09:29-0400 Heart rate 89 /min Louann Hager MD Work Phone: [facility] 10-01-2024 09:29-0400 SaO2% (BldA) [Mass fraction] 98 % Louann Hager MD Work Phone: [facility] 10-01-2024 09:29-0400 Systolic blood pressure 108 mm[Hg] Louann Hager MD Work Phone: [facility] 09-24-2024 09:41-0400 Body height 165.[address] Marisela Nelson MD Work Phone: [phone] [place] [address] 09-24-2024 09:41-0400 Body mass index (BMI) [Ratio] 30.1 kg/m2 Dr. Marisela Nelson MD Work Phone: [phone](871)[phone] [place] [address] 09-24-2024 09:41-0400 Body weight [address] Marisela Nelson MD Work Phone: [phone] [place] [address] 09-24-2024 09:41-0400 Diastolic blood pressure 82 mm[Hg] Dr. Marisela Nelson MD Work Phone: [phone] [place] [address] 09-24-2024 09:41-0400 Systolic blood pressure 130 mm[Hg] Dr. Marisela Nelson MD Work Phone: [phone] [place] [address] 08-30-2024 14:15-0400 Body height 165.[address] Marisela Nelson MD Work Phone: [phone] [place] [address] 08-30-2024 14:13-0400 Body mass index (BMI) [Ratio] 30.3 kg/m2 Dr. Marisela Nelson MD Work Phone: [phone] [place] [address] 08-30-2024 14:13-0400 Body weight 82.[address] Marisela Nelson MD Work Phone: [phone] [place] [address] 08-30-2024 14:13-0400 Diastolic blood pressure 81 mm[Hg] Dr. Marisela Nelson MD Work Phone: [phone] [place] [address] 08-30-2024 14:13-0400 Systolic blood pressure 127 mm[Hg] Dr. Marisela Nelson MD Work Phone: [phone] [place] [address] 08-06-2024 09:57-0400 Body mass index (BMI) [Ratio] 30.2 kg/m2 Dr. Marisela Nelson MD Work Phone: [facility] 08-06-2024 09:57-0400 Body weight 82.[address] Marisela Nelson MD Work Phone: [facility] 08-06-2024 09:57-0400 Diastolic blood pressure 70 mm[Hg] Dr. Marisela Nelson MD Work Phone: [facility] 08-06-2024 09:57-0400 Systolic blood pressure 116 mm[Hg] Dr. Marisela Nelson MD Work Phone: [facility] 10-03-2023 07:43-0400 Body temperature 98.4 [degF] CJ Hassmann DPM Work Phone: [facility] 10-03-2023 07:43-0400 Diastolic blood pressure 69 mm[Hg] CJ Hassmann DPM Work Phone: [facility] 10-03-2023 07:43-0400 Heart rate 68 /min CJ Hassmann DPM Work Phone: [facility] 10-03-2023 07:43-0400 Systolic blood pressure 100 mm[Hg] CJ Hassmann DPM Work Phone: [facility] 09-19-2023 07:35-0400 Body temperature 98.4 [degF] CJ Hassmann DPM Work Phone: [facility] 09-19-2023 07:35-0400 Diastolic blood pressure 79 mm[Hg] CJ Hassmann DPM Work Phone: [facility] 09-19-2023 07:35-0400 Heart rate 64 /min CJ Hassmann DPM Work Phone: [facility] 09-19-2023 07:35-0400 SaO2% (BldA) [Mass fraction] 99 % CJ Hassmann DPM Work Phone: [facility] 09-19-2023 07:35-0400 Systolic blood pressure 112 mm[Hg] CJ Hassmann DPM Work Phone: [facility] Encounters Encounter Date Encounter Type Care Provider Facility Start: 02-07-2025 ambulatory Sai Foss MACHINE SET UP TECHNICIAN Facil ity:[facility] Start: 02-05-2025 End: 02-05-2025 ambulatory Sai Foss MACHINE SET UP TECHNICIAN Facility:[facility] Start: 2025 End: 2025 Patient encounter procedure Sai Foss MACHINE SET UP TECHNICIAN-C -[facility][1] Work Phone: Start: 2025 End: [address] Marisela Nelson MD Work Phone: [facility] Start: 01-10-2025 End: 01-10-2025 Patient encounter procedure Veronica Cabrera CNM -[facility][1] Work Phone: Start: 01-10-2025 End: 01-10-[address] Marisela Nelson MD Work Phone: [facility] Start: 01-10-2025 End: 01-10-2025 ambulatory Marisela Nelson Facility:[facility] Start: 12-20-2024 End: 12-20-[address] Marisela Nelson MD -[facility][1] Work Phone: Start: 12-20-2024 End: 12-20-[address] Marisela Nelson MD Work Phone: [facility] Start: 11-22-2024 End: 11-22-2024 Patient encounter procedure Veronica Cabrera CNM -[facility][1] Work Phone: Start: 11-22-2024 End: 11-22-[address] Marisela Nelson MD Work Phone: [facility] Start: 11-12-2024 End: 11-12-2024 ambulatory MD IBARRA [facility] Start: 10-24-2024 End: 10-24-[address] Rachele Llanes DO -[facility][1] Work Phone: Start: 10-24-2024 End: 10-24-[address] Marisela Nelson MD Work Phone: [facility] Start: 10-01-2024 End: 10-01-2024 Office outpatient new 45 minutes Louann Hager MD Work Phone: [facility] Comment on above: Encounter to [facility] (Primary Dx); Anxiety and depression; Injury of left toe, initial encounter; 13 weeks gestation of ([facility]) Start: 10-01-2024 End: 10-01-2024 ambulatory LOUANN Hunt BLANCA [facility] Start: 09-24-2024 End: 09-24-2024 Patient encounter procedure Sai GASCA -[facility][1] Work Phone: Start: 09-24-2024 End: 09-24-[address] Marisela Nelson MD Work Phone: [facility] Work Phone: Start: 09-03-2024 End: 09-03-[address] Rachele Llanes DO [facility] Start: 09-03-2024 End: 09-03-2024 ambulatory Rachele Llanes Facility:[facility] Start: 08-30-2024 End: 08-30-[address] Marisela Nelson MD Work Phone: [facility] Work Phone: Start: 08-30-2024 End: 08-30-[address] Marisela Nelson MD -Laboratory Specimen Work Phone: Start: 08-30-2024 End: 08-30-[address] Rachele Llanes DO -[facility][1] Work Phone: Start: 08-30-2024 End: 08-30-2024 ambulatory Rachele Llanes [facility] Work Phone: Start: 08-30-2024 End: 08-30-2024 ambulatory Marisela Nelson Facility:[facility] Start: 08-06-2024 End: 08-06-[address] Marisela Nelson MD -[facility][1] Work Phone: Start: 08-06-2024 End: 08-06-2024 ambulatory Marisela Nelson Facility:[facility] Start: 07-04-2024 End: 07-04-2024 ambulatory Merissa Linton ACTING SECTION CHIEF-MILIEU TECHNICIAN Facility: [facility] Start: 01-18-2024 End: 01-18-2024 ambulatory Mary Vaca ACTING SECTION CHIEF-MILIEU TECHNICIAN Facility:[facility] Start: 10-03-2023 End: 10-03-2023 Office outpatient visit 10 minutes ALICIA Kohler DPM Work Phone: [facility] Comment on above: Ingrown nail (Primar y Dx); Paronychia of great toe; Toe pain, left Start: 10-03-2023 End: 10-03-2023 ambulatory MERISSA LINTON [facility] Start: 09-29-2023 Orders Only ALICIA Kohler DPM Work Phone: [facility] Start: 09-19-2023 End: 09-19-2023 Office outpatient new 30 minutes ALICIA Kohler DPM Work Phone: [facility] Comment on above: Ingrown nail (Primar y Dx); Toe abscess, left; Paronychia of great toe; Toe pain, left Start: 09-19-2023 End: 09-19-2023 ambulatory GILBERTO KOHLER [facility] Start: 04-18-2022 End: 04-18-2022 ambulatory [facility] Start: 04-18-2022 End: 04-18-2022 Encounter for general adult medical examination without abnormal findings [facility] Start: 03-31-2021 End: 03-31-2021 ambulatory [facility] Start: 07-08-2020 End: 07-12-2020 Patient encounter procedure [facility] Procedures Date Procedure Procedure Detail Performing Clinician Start: 01-10-2025 Serologic test for syphilis Dr. Marislea Nelson MD Work Phone: Start: 09-03-2024 Hepatitis C antibody measurement Dr. Marisela Nelson MD Work Phone: Comment on above: Reactive: Presumptiv e evidence of antibodies to HCV. Follow CDC recommendations for supplemental testing.Non-Reactive: Antibodies to HCV were not detected; does not exclude the possibility of exposure to HCVReactive Results are presumptive evidence of antibodies to HCV. Follow CDC recommendations for supplemental testing.Order confirmation testing: HCV Quant by PCR testing - HCVPCR lc#[id number] Non Reactive: < 0.8 Equivocal: >/= 0.8 to < 1.0 Reactive: >/= 1.0The CDC requires that a reactive/equivocal HCV antibody result be sent out for confirmation. HCV Quant by PCR testing. Start: 09-03-[address] Marisela Nelson MD Work Phone: Start: 09-03-[address] Marisela Nelson MD Work Phone: Comment on above: Antibody Result: Int erpretationNon-Reactive: Non- ImmuneReactive: ImmuneThe following results were obtained with the [employer] Rubella IgG assay. Results from assays of other manufacturers cannot be used interchangeably. Start: 09-03-2024 Serologic test for syphilis Dr. Marisela Nelson MD Work Phone: Start: 08-30-[address] Jessenia Nelson MD Work Phone: Start: 10-03-2023 Follow-up visit Follow-up CHERYL KOHLER II Start: 09-19-2023 Destruction of lesion Micah Kohler DPM Work Phone: Plan of Treatment Date Care Activity Detail Author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 as documented Musc Reports system reviewed and no additional complaints, except as documented Skin/Breast Reports system reviewed and no additional complaints, except as documented Neuro Yes system reviewed and no additional complaints, except as documented Psych Reports system reviewed and no additional complaints, except as documented Endo Reports system reviewed and no additional complaints, except as documented and Reports fatigue Exam Const General: healthy appearing, comfortable and no acute distress Orientation: alert [facility] Head: normal to inspection, normocephalic and atraumatic Ears: hearing grossly normal bilaterally and external ears normal Nose: external nose normal and nares normal Mouth: oral mucosae normal Teeth and gingiva: dentition normal Eyes General: appearance normal, both eyes and all related structures Resp Effort & Inspection: normal respiratory effort GI Inspection: normal to inspection Palpation: soft and no hepatosplenomegaly General: bladder normal to palpation External Female Exam: normal external appearance and normal appearance of the urethra Urethra: normal appearance of the urethra Speculum Exam - Vagina: normal appearance of the vagina and normal vaginal discharge Speculum Exam - Cervix: normal appearance of the cervix Bimanual Exam- Vagina & Uterus: normal bimanual exam, bladder normal to palpation, non-tender and other Bimanual Exam- Adnexa, other: non-tender Skin General: no rashes or lesions noted Neuro Motor: muscle tone normal throughout and no movement abnormalities noted Extrem General: normal to inspection and full ROM Supplemental Info [facility] book given and patient encouraged to read about nutrition, exercise, weight gain, and food avoidance in . Coding Level of Care Code OB Routine Diagnoses Supervision of high-risk O09.90 Depression F32.A 9 weeks gestation of Z3A.09 Weeks of gestation: 9 weeks Obesity affecting O99.210 Assessment and Plan Assessment and Plan (1) Supervision of high-risk : Status: Acute Comment: , SAMANTHA 04/04/25, Joshua (2) Depression: Status: Acute Comment: sertraline (3) : Status: Acute Qualifiers: Weeks of gestation: 9 weeks Qualified Code(s): Z3A.09 - 9 weeks gestation of Comment: discussed NIPT & Carrier testing-Undecided (4) Obesity affecting : Status: Acute Comment: HgbA1c Plan Patient oriented to practice and discussed care expectations and screenings. [facility] book offered to patient. Discussed routine and specially indicated labs if needed- patient consents to testing. See problem list details for plan information. Optional screening including maternal carrier screenings, neural tube defect screening, genetic screening options including quad screen, nuchal translucency, sequential screening, and NIPT screening offered to patient and patient chose: nipt and carrier. 08/30/24 1504 e Mirna DO> Date _ Rachele Herring Signature: Date (if applicable) CC: ~ [facility]05-16-2025 Progress note Author Rachele Bradley [facility] Note Date/Time August 30, 2024 3:04p m [facility] [address], [address] [place] [address] OFFICE VISIT Date of Service: 08/30/24 MR#: [id number] Acct: [id number] Name: JAMIL NORRIS Rep #: [id number] : 1995 Provider: Dr. Yumiko Llanes DO Age/Sex: 29/F Location: [facility] [place] Status: Signed Intake Vital Signs 08/06/24 09:57 08/30/24 14:13 08/30/24 14:15 Height 5 ft 5 in 5 ft 5 in 5 ft 5 in Weight: 182 lb 8 oz BMI 30.3 BP 127/81 H Intake Visit Reasons: New OB, LMP 06/28, SAMANTHA 04/04, first baby 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 Is patient in pain?: No Allergies ragweed pollen Allergy (Mild, Verified 08/30/24 14:12) Itching Medications ?Medication ?Instructions ?Recorded ?Confirmed ?Type sertraline 50 mg tablet 50 mg PO QDAY 07/31/2408/30 History multivit-min no.71-iron fum 28 cap PO 08/06/24 5 History mg-folate no.1 1 mg-dha 300 mg capsule (PNV-[place]) Last Menstrual Period: 06/28/24 Zika: Zika virus screening: Negative : No PFSH PFSH Medical History Seasonal allergies Pneumonia Surgical History [place] teeth extracted Family History Grandmother Arthritis Diabetes High cholesterol Grandfather Parkinson disease Thyroid disorder Lymphoma, Onset Age: 70 Maternal Grandfather Diabetes Lung cancer, Onset Age: 65 Maternal Mother Diabetes Thyroid disorder Cancer, Onset Age: 35 Thyroid cancer- thyroid removed Social History adopted: No household members: spouse housing: house current occupational status: employed 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/hazards: No pets and animals: Yes pets and animals: dog(s) history of recent travel: Yes ([place] April) out of state: Yes out of country: Yes sexually active: Yes Smoking Status: Never smoker alcohol intake: current alcohol intake frequency: holidays/special occasions only details: Not while substance use type: does not use well-balanced diet: daily or most days caffeine: Yes Type: coffee Number of servings: 1 eating out: rarely or never during the past year weight has: remained stable what type of physical activity do you participate in: walking, bicycling and weight training frequency: 1-2 times per week duration: 30-45 minutes/day fredi/zoroastrian: Amish seatbelt use: always do you feel safe at home: Yes additional social history: -Joshua- Sales History 1 Elective abortions Hx Para 0 Spontaneous abortions Hx # Term Pregnancies Ectopic pregnancies Hx # Pregnancies Multiple births # of living children HPI New OB, LMP 3, SAMANTHA 04/04, first baby Details: JAMIL NORRIS is a 29 year old who presents for New OB visit. OB Visit SAMANTHA Calculator Estimated Delivery Date Method Current WG Current Estimate 04/04/25 LMP (Certain) 9w 0d Other Estimates 04/02/25 Ultrasound #1 9w 2d Estimated Due Date: 04/04/25 Specific Issue/Plans Covid status: vaccinated Flu vaccine: unvaccinated last 2 year Tdap vaccine: Rhogam: [] LARC form signed: [] Problem list reviewed and updated with the most current plan of care details and appropriate orders placed. Relevant counseling for the gestational age provided. Continue routine care and follow up unless otherwise noted in visit notes/problem list details Initial Weight: Not Recorded Date -?-?-?-?-?-?-?-?-?-?-?-?- EGA Weight BP Urine Prot -?-?-?-?-?-?-?-?-?--?-?-?- Glucose FHR FuHt Pres Dilation -?-?-?-?-?-?-?-?-?-?-?-?- Effaced St Visit Note 08/30/24 -?-?-?-?-?-?-?-?-?-?-?-?- 9w 0d 182 lb 8 oz 127/81 -?-?-?-?-?-?-?-?-?-?-?-?- 179 -?-?-?-?-?-?-?-?-?-?-?-?- JV- CRL consiste nt with LMP. desires nipt. first baby first . lives in [place]. Menstrual History Last Menstrual Period: 06/28/24 Reported LMP: definite Normal amount/duration: Yes Frequency in days: 28-29 On hormonal BC at conception: No hCG+: 07/24/24 Antepartum Record Genetic Screening: Congenital Heart Defect: Other, Neural Tube Defect: Other, Hemoglobinopathy Or Carrier: Other, Cystic Fibrosis: Other, Chromosome Abnormality: Other, Julio-Sachs: Other, Hemophilia: Other, Intellectual Disability/Autism: Other, Recurrent Loss/Stillbirth: Other, Other Structural Defect: Other, Other Genetic Disease: Other and Maternal Metabolic Disorder: Other Infection History: Live with someone with TB or Exposed to TB: No, Patient or Partner has history of Genital Herpes: No, Rash or Viral illness since last mentrual period: No, Prior GBS-Infected child: No, History of STD: No, HIV Infection: No, History of Hepatitis: No, Recent travel outside of [place]: Yes, Concern for hepatitis exposure: No, Varicella immune: Yes (immune- virus) and Covid Vaccinated: Yes (Moderna, No Boosters) Medical History Medical History: Positive: Depression/ depression (sertraline), Seasonal allergies, Drug/latex allergies/reactions (environmental-ragweed), Operations/hospitalizations (wisdom teeth) and Other (Obesity) and Negative: Diabetes, Hypertension, Heart disease, Auto-immune disorder, Kidney disease/UTI, Neurologic/epilepsy, Psychiatric, Hepatitis/liver disease, Varicosities/phlebitis, Thyroid dysfunction (Tested due to depression and normal), Trauma/domestic violence, History of blood transfusions, D (Rh) Sensitized, Pulmonary (e.g.,TB,Asthma), Breast, 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, Anesthetic complications, History of abnormal pap (No abnormals- last pap 02/07 nl), Uterine anomaly/loyda, Infertility, Anti-retroviral treatment and Relevant family history ACOG First Trimester First Trimester: Discussed ROS Const Reports system reviewed and no additional complaints, except as documented, Reports fatigue and Denies fever(s) Eyes Reports system reviewed and no additional complaints, except as documented ENT Reports system reviewed and no additional complaints, except as documented Card Denies chest pain and Denies dyspnea Resp Reports system reviewed and no additional complaints, except as documented, Denies cough and Denies dyspnea GI Denies abdominal pain and Reports nausea Reports system reviewed and no additional complaints, except as documented Musc Reports system reviewed and no additional complaints, except as documented Skin/Breast Reports system reviewed and no additional complaints, except as documented Neuro Yes system reviewed and no additional complaints, except as documented Psych Reports system reviewed and no additional complaints, except as documented Endo Reports system reviewed and no additional complaints, except as documented and Reports fatigue Exam Const General: healthy appearing, comfortable and no acute distress Orientation: alert [facility] Head: normal to inspection, normocephalic and atraumatic Ears: hearing grossly normal bilaterally and external ears normal Nose: external nose normal and nares normal Mouth: oral mucosae normal Teeth and gingiva: dentition normal Eyes General: appearance normal, both eyes and all related structures Resp Effort & Inspection: normal respiratory effort GI Inspection: normal to inspection Palpation: soft and no hepatosplenomegaly General: bladder normal to palpation External Female Exam: normal external appearance and normal appearance of the urethra Urethra: normal appearance of the urethra Speculum Exam - Vagina: normal appearance of the vagina and normal vaginal discharge Speculum Exam - Cervix: normal appearance of the cervix Bimanual Exam- Vagina & Uterus: normal bimanual exam, bladder normal to palpation, non-tender and other Bimanual Exam- Adnexa, other: non-tender Skin General: no rashes or lesions noted Neuro Motor: muscle tone normal throughout and no movement abnormalities noted Extrem General: normal to inspection and full ROM Supplemental Info ACOG book given and patient encouraged to read about nutrition, exercise, weight gain, and food avoidance in . Coding Level of Care Code OB Routine Diagnoses Supervision of high-risk O09.90 Depression F32.A 9 weeks gestation of Z3A.09 Weeks of gestation: 9 weeks Obesity affecting O99.210 Assessment and Plan Assessment and Plan (1) Supervision of high-risk : Status: Acute Comment: , SAMANTHA 04/04/25, Joshua (2) Depression: Status: Acute Comment: sertraline (3) : Status: Acute Qualifiers: Weeks of gestation: 9 weeks Qualified Code(s): Z3A.09 - 9 weeks gestation of Comment: discussed NIPT & Carrier testing-Undecided (4) Obesity affecting : Status: Acute Comment: HgbA1c Plan Patient oriented to practice and discussed care expectations and screenings. ACOG book offered to patient. Discussed routine and specially indicated labs if needed- patient consents to testing. See problem list details for plan information. Optional screening including maternal carrier screenings, neural tube defect screening, genetic screening options including quad screen, nuchal translucency, sequential screening, and NIPT screening offered to patient and patient chose: nipt and carrier. 08/30/24 1504 <Electronically signed by Rachele Reilly DO> Date _ Rachele Llanes DO Cosigner Signature: Date (if applicable) CC: ~ [facility] Work Phone: 1(374) 256-152504-22-2025 Evaluation note* Diagnosis Onset Date Resolution Status Admit Date Depression acute August 06 8:59am Obesity affecting acute August 06, 2024 8:59am acute August 06 8:59am Supervision of high-risk acute August 06, 2024 8:59am Depression acute August 30, 2024 2:06pm Obesity affecting acute August 30, 2024 2:06pm acute August 30, 2024 2:06pm Supervision of high-risk acute August 30, 2024 2 :06pm [facility] Work Phone: 1(430) 639-849504-22-2025 Evaluation note* Diagnosis Onset Date Resolution Status Admit Date Depression acute August 06 8:59am Obesity affecting acute August 06, 2024 8:59am acute August 06 8:59am Supervision of high-risk acute August 06, 2024 8:59am Depression acute August 30, 2024 2:06pm Obesity affecting acute August 30, 2024 2:06pm acute August 30, 2024 2:06pm Supervision of high-risk acute August 30, 2024 2 :06pm Depression acute September 24 9:37am Obesity affecting acute September 24, 2024 9:37am acute September 24 9:37am RhD negative acute September 24, 025 9:37am Supervision of high-risk acute September 24, 2024 9:37am [facility] Work Phone: 1(208) 107-726804-22-2025 Evaluation note* Diagnosis Onset Date Resolution Status Admit Date Depression acute August 06 8:59am Obesity affecting acute August 06, 2024 8:59am acute August 06 8:59am Supervision of high-risk acute August 06, 2024 8:59am Depression acute August 30, 2024 2:06pm Obesity affecting acute August 30, 2024 2:06pm acute August 30, 2024 2:06pm Supervision of high-risk acute August 30, 2024 2 :06pm Depression acute September 24 9:37am Obesity affecting acute September 24, 2024 9:37am acute September 24 9:37am RhD negative acute September 24, 025 9:37am Supervision of high-risk acute September 24, 2024 9:37am Depression acute October 24 10:49am Obesity affecting acute October 24, 2024 10:49am acute October 24 10:49am RhD negative acute October 24 025 10:49am Supervision of high-risk acute October 24, 2024 10:49am [facility] Work Phone: 1(305) 841-142604-22-2025 Evaluation note* Diagnosis Onset Date Resolution Status Admit Date Depression acute August 06 8:59am Obesity affecting acute August 06, 2024 8:59am acute August 06 8:59am Supervision of high-risk acute August 06, 2024 8:59am Depression acute August 30, 2024 2:06pm Obesity affecting acute August 30, 2024 2:06pm acute August 30, 2024 2:06pm Supervision of high-risk acute August 30, 2024 2 :06pm Depression acute September 24 9:37am Obesity affecting acute September 24, 2024 9:37am acute September 24 9:37am RhD negative acute September 24 025 9:37am Supervision of high-risk acute September 24, 2024 9:37am Depression acute October 24 10:49am Obesity affecting acute October 24, 2024 10:49am acute October 24 10:49am RhD negative acute October 24 025 10:49am Supervision of high-risk acute October 24, 2024 10:49am Depression acute November 22 11:20am Obesity affecting acute November 22, 2024 11:20am acute November 22 11:20am RhD negative acute November 22, 2024 11:20am Supervision of high-risk acute November 22, 2024 11:20am [facility] [employer] [facility] Work Phone: 1(158) 458-725506-18-2024 NoteEstablished Patient Visit ALICIA Kohler DPM Patient Name: Jamil Norris. . Date of : 1995, 28 y.o.. Gender: female. Subjective: Patient is a pleasant 28-year-old female who presents to clinic today status post left great toenail I&D/partial nail avulsion. Patient has finished up her Keflex but does relate that after finishing the Keflex on Monday she had some pus come out of her toe. Pain is substantially subsided but still has some redness to the area. She does relate that there is still some draining to the area as well. Patient denies any current fever, chills, nausea vomiting chest pain calf pain or shortness of breath. Patient has no other pedal complaints at this time peer Physical Examination: BP 100/69 (BP Location: Left arm, Patient Position: Sitting, BP Cuff Size: Adult) Pulse 68 Temp 98.4 degrees F (36.9 degrees C) (Infrared) General Appearance: Alert, cooperative, no distress, appears stated age. Podiatric Exam Vascular: DP and PT pulses are easily palpable, 2/4. Capillary refill time is brisk to distal digits, less than 3 seconds. Skin temperature is warm to warm from proximal tibial tuberosity to distal digits. No dependent rubor. Neurological: Epicritic and protopathic sensation intact to bilateral lower extremities. Dermatologic: Skin is supple and intact with mild xerosis noted plantarly. Patient has evidence of previous procedure to left great toe. Mild hyperemia is present but no drainage wound or malodor. Musculoskeletal: Bilateral foot and ankle overall rectus alignment. Muscle strength testing 5-5 to all tested muscle groups. Ankle range of motion limited with knee extended and slightly creasingly flex. No tenderness on palpation left great toenail Diagnoses: 1. Ingrown nail 2. Paronychia of great toe 3. Toe pain, left Imaging: Not acquired during today's visit. Assessment/Plan: Patient was seen and evaluated. Discussed all clinical findings Educated patient on overall status of the toe. Patient still has remaining minimal hyperemia present and subjective drainage reported by the patient. Patient to cover every other day with bacitracin and a Band-Aid and then dry bandage in the next day. Continue soaking in Dial antibacterial soap and warm water until hyperemia resolves. Should patient have any issues she is to report back to the office for Follow-up as needed This note was partially created using voice recognition software and is inherently subject to errors including those of syntax and sound-alike substitutions which may escape proofreading. In such instances, original meaning may be extrapolated by contextual derivation. ALICIA Kohler DPM Podiatric Foot & Ankle Surgery AUTHENTICATED BY GILBERTO KOHLER II, ON 10/03/2023 08:09:29[facility] of Present illness Narrative* ALICIA Kohler DPM - 10/03/2023 7:52 AM EDT Images from the original note were not included. Established Patient Visit ALICIA Kohler DPM Patient Name: Jamil Norris. . Date of : 1995, 28 y.o.. Gender: female. Subjective: Patient is a pleasant 28-year-old female who presents to clinic today status post left great toenail I&D/partial nail avulsion. Patient has finished up her Keflex but does relate that after finishing the Keflex on Monday she had some pus come out of her toe. Pain is substantially subsided but still has some redness to the area. She does relate that there is still some draining to the area as well. Patient denies any current fever, chills, nausea vomiting chest pain calf pain or shortness ofbreath. Patient has no other pedal complaints at this time peer Physical Examination: BP 100/69 (BP Location: Left arm, Patient Position: Sitting, BP Cuff Size: Adult) Pulse 68 Temp98.4 F (36.9 C) (Infrared) General Appearance: Alert, cooperative, no distress, appears stated age. Podiatric Exam Vascular: DP and PT pulses are easily palpable, 2/4. Capillary refill time is brisk to distal digits, less than 3 seconds. Skin temperature is warm to warm from proximal tibial tuberosity to distal digits. No dependent rubor. Neurological: Epicritic and protopathic sensation intact to bilateral lower extremities. Dermatologic: Skin is supple and intact with mild xerosis noted plantarly. Patient has evidence of previous procedure to left great toe. Mild hyperemia is present but no drainage wound or malodor. Musculoskeletal: Bilateral foot and ankle overall rectus alignment. Muscle strength testing 5-5 to all tested muscle groups. Ankle range of motion limited with knee extended and slightly creasingly flex. No tenderness on palpation left great toenail Diagnoses: 1. Ingrown nail 2. Paronychia of great toe 3. Toe pain, left Imaging: Not acquired during today's visit. Assessment/Plan: Patient was seen and evaluated. Discussed all clinical findings Educated patient on overall status of the toe. Patient still has remaining minimal hyperemia present and subjective drainage reported by the patient. Patient to cover every other day with bacitracin and a Band-Aid and then dry bandage in the next day. Continue soaking in Dial antibacterial soap and warm water until hyperemia resolves. Should patient have any issues she is to report back to the office for Follow-up as needed This note was partially created using voice recognition software and is inherently subject to errors including those of syntax and sound-alike substitutions which may escape proofreading. In such instances, original meaning may be extrapolated by contextual derivation. ALICIA Kohler DPM Podiatric Foot & Ankle Surgery documented in this [id number] NoteNEW Patient Visit ALICIA Kohler DPM Patient Name: Jamil Norris. . Date of : 1995, 28 y.o.. Gender: female. Subjective: Patient is a pleasant 28-year-old female who presents to clinic today with complaints of left great toenail pain. Patient relates that little over a week ago she went to get a pedicure and then shortly then after that time she started to develop redness draining and pain to the left great toe lateral border. Patient has gotten many pedicures and never had an issue with this. She is never had an ingrown toenail. Patient denies any current fever, chills, nausea, vomit, chest pain calf pain or shortness of breath. Patient has no other pedal complaints at this time. Past Medical History: Diagnosis Date Depression History reviewed. No pertinent surgical history. Social History Socioeconomic History Marital status: Tobacco Use Smoking status: Never Passive exposure: Never Smokeless tobacco: Never Vaping Use Vaping Use: Never used Substance and Sexual Activity Alcohol use: Yes Comment: social Drug use: Never Physical Examination: BP 112/79 (BP Location: Left arm, Patient Position: Sitting, BP Cuff Size: Adult) Pulse 64 Temp 98.4 degrees F (36.9 degrees C) (Infrared) SpO2 99% General Appearance: Alert, cooperative, no distress, appears stated age. Podiatric Exam Vascular: DP and PT pulses are easily palpable, 2/4. Capillary refill time is brisk to distal digits, less than 3 seconds. Skin temperature is warm to warm from proximal tibial tuberosity to distal digits. No dependent rubor. Neurological: Epicritic and protopathic sensation intact to bilateral lower extremities. Dermatologic: Skin is supple and intact with mild xerosis noted plantarly. Minimal callusing noted to the IPJ's of bilateral hallux. Attention directed to the left great toenail where all the nails have gel coating and paint. The lateral border there is a large granuloma and mild pallor with soft tissue density and mild fluctuance. Seropurulent drainage to the area. Erythema is noted but no streaking lymphangitis. No crepitus. Musculoskeletal: Bilateral foot and ankle overall rectus alignment. Muscle strength testing 5-5 to all tested muscle groups. Ankle range of motion limited with knee extended and slightly creasingly flex. Tenderness on palpation left great toenail Diagnoses: 1. Ingrown nail 2. Toe abscess, left cephALEXin (KEFLEX) 500 MG capsule 3. Paronychia of great toe cephALEXin (KEFLEX) 500 MG capsule 4. Toe pain, left Imaging: Not acquired during today's visit. Assessment/Plan: Patient was seen and evaluated. Discussed all clinical findings. Educated patient on etiology and pathophysiology associated with various foot maladies were Discussed various treatment options available to patient. Patient wishes to move forward with incision and drainage/possible partial temporary nail avulsion to the left great toe nail. Educated patient on risks and benefits associated with proposed procedure including but not limited to further infection, recurrence, chronic pain, loss of toe. Despite these risk patient wishes to move forward with proposed procedure. Informed consent was received and consent was signed. Procedure was performed, see procedure note below. Rx for Keflex for 7 days Post procedure handout was dispensed. Patient to follow-up in 1 to 2 weeks for reevaluation. Destruction of lesion Timeout: Verbal Consent obtained?: Yes Written Consent obtained?: Yes Date:: 09/19/2023 Consent given by:: Patient Procedure: Procedure Performed for: Left great toe lateral border partial temporary nail avulsion versus I&D Performed by: Physician Dr. ALCIIA Kohler, MARCELINO Fenestrated: No Bleeding: Minimal Hemostasis Achieved: N/A Secured: Yes Secured with: Bandage Dressing Applied: Yes Type of dressing applied: Adaptic Pain Control: 2% Lidocaine Procedural Pain:: 0 Post Procedural Pain:: 0 Additional Procedure details:: Procedure: Timeout and consent was performed for Left great toe partial temporary lateral nail avulsion. Patient was blocked with 3 cc of 2% lidocaine plain in each block type fashion. Attention was directed laterally where the nail was split with an Iranian anvil distally to approximately 3 mm off the hyponychium just below the eponychium and finished with a 6100 blade. The offending nail border was bluntly avulsed and passed off the surgical field. A curette was used to check for spicules, none were found. A copious amount of normal saline was used. Site and location. No abscess was appreciated. Post irrigation a copious amount of bacitracin was applied and a postop dressing was applied with Telfa Kerlix and Racheal. Response to Treatment:: Procedure was tolerated well This note was partially created using voice recognition software and is inherently subject to errors includi (more content not included)...[facility]06-04-2024 History of Present illness Narrative* ALICIA Kohler DPM - 09/19/2023 7:52 AM EDTAssociated Order(s): Destruction of lesion Post-Procedure Diagnose(s): Toe abscess, left; Ingrown nail; Paronychia of great toe; Toe pain, left Images from the original note were not included. NEW Patient Visit ALICIA Kohler DPM Patient Name: Jamil Norris. . Date of : 1995, 28 y.o.. Gender: female. Subjective: Patient is a pleasant 28-year-old female who presents to clinic today with complaints of left greattoenail pain. Patient relates that little over a week ago she went to get a pedicure and then shortly then after that time she started to develop redness draining and pain to the left great toe lateral border. Patient has gotten many pedicures and never had an issue with this. She is never had an ingrown toenail. Patient denies any current fever, chills, nausea, vomit, chest pain calf pain or shortness of breath. Patient has no other pedal complaints at this time. Past Medical History: Diagnosis Date Depression History reviewed. No pertinent surgical history. Social History Socioeconomic History Marital status: Tobacco Use Smoking status: Never Passive exposure: Never Smokeless tobacco: Never Vaping Use Vaping Use: Never used Substance and Sexual Activity Alcohol use: Yes Comment: social Drug use: Never Physical Examination: BP 112/79 (BP Location: Left arm, Patient Position: Sitting, BP Cuff Size: Adult) Pulse 64 Temp98.4 F (36.9 C) (Infrared) SpO2 99% General Appearance: Alert, cooperative, no distress, appears stated age. Podiatric Exam Vascular: DP and PT pulses are easily palpable, 2/4. Capillary refill time is brisk to distal digits, less than 3 seconds. Skin temperature is warm to warm from proximal tibial tuberosity to distal digits. No dependent rubor. Neurological: Epicritic and protopathic sensation intact to bilateral lower extremities. Dermatologic: Skin is supple and intact with mild xerosis noted plantarly. Minimal callusing noted to the IPJ's of bilateral hallux. Attention directed to the left great toenail where all the nails have gel coating and paint. The lateral border there is a large granuloma and mild pallor with soft tissue density and mild fluctuance. Seropurulent drainage to the area. Erythema is noted but no streaking lymphangitis. No crepitus. Musculoskeletal: Bilateral foot and ankle overall rectus alignment. Muscle strength testing 5-5 to all tested muscle groups. Ankle range of motion limited with knee extended and slightly creasingly flex. Tenderness on palpation left great toenail Diagnoses: 1. Ingrown nail 2. Toe abscess, left cephALEXin (KEFLEX) 500 MG capsule 3. Paronychia of great toe cephALEXin (KEFLEX) 500 MG capsule 4. Toe pain, left Imaging: Not acquired during today's visit. Assessment/Plan: Patient was seen and evaluated. Discussed all clinical findings. Educated patient on etiology and pathophysiology associated with various foot maladies were Discussed various treatment options available to patient. Patient wishes to move forward with incision and drainage/possible partial temporary nail avulsion to the left great toe nail. Educated patient on risks and benefits associated with proposed procedure including but not limitedto further infection, recurrence, chronic pain, loss of toe. Despite these risk patient wishes to move forward with proposed procedure. Informed consent was received and consent was signed. Procedure was performed, see procedure note below. Rx for Keflex for 7 days Post procedure handout was dispensed. Patient to follow-up in 1 to 2 weeks for reevaluation. Destruction of lesion Timeout: Verbal Consent obtained?: Yes Written Consent obtained?: Yes Date:: 09/19/2023 Consent given by:: Patient Procedure: Procedure Performed for: Left great toe lateral border partial temporary nail avulsion versus I&D Performed by: Physician Dr. ALICIA Kohler, MARCELINO Fenestrated: No Bleeding: Minimal Hemostasis Achieved: N/A Secured: Yes Secured with: Bandage Dressing Applied: Yes Type of dressing applied: Adaptic Pain Control: 2% Lidocaine Procedural Pain:: 0 Post Procedural Pain:: 0 Additional Procedure details:: Procedure: Timeout and consent was performed for Left great toe partial temporary lateral nail avulsion. Patient was blocked with 3 cc of 2% lidocaine plain in each block type fashion. Attention was directed laterally where the nail was split with an Iranian anvil distally to approximately 3 mm off the hyponychium just below the eponychium and finished with a 6100 blade. The offending nail border was bluntly avulsed and passed off the surgical field. A curette wasused to check for spicules, none were found. A copious amount of normal saline was used. Site and location. No abscess was appreciated. Post irrigation a copious amount of bacitracin was applied and a postop dressing was applied with Telfa Kerlix and Racheal. Response to Treatment:: Procedure was tolerated well This note was partially created using voice recognition software and is inherently subject to errors including those of syntax and sound-alike substitutions which may escape proofreading. In such instances, original meaning may be extrapolated by contextual derivation. ALICIA Kohler DPM Podiatric Foot & Ankle Surgery [facility]* Diagnosis Ingrown nail- Primary Ingrowing nail Toe abscess, left Paronychia of great toe Toe pain, left Pain in soft tissues of limb [facility]* Diagnosis Ingrown nail- Primary Ingrowing nail Paronychia of great toe Toe pain, left Pain in soft tissues of limb [facility]* Diagnosis Encounter to establish care- Primary Anxiety and depression Injury of left toe, initial encounter 13 weeks gestation of ([facility]) documented in this encounter [facility] Work Phone: Progress note Author Sai Foss [facility] Note Date/Time September 24, 2024 10:0 4am [facility] [address] [place] [address], [address] [place] [address] OFFICE VISIT Date of Service: 09/24/24 MR#: [id number] Acct: [id number] Name: JAMIL NORRIS Maida Rep #: [id number] : 1995 Provider: CAMPOS Foss Age/Sex: 29/F Location: [facility] [place] Status: Signed Intake Vital Signs 08/06/24 09:57 08/30/24 14:15 09/24/24 09:41 Height 5 ft 5 in 5 ft 5 in 5 ft 5 in Weight: 181 lb BMI 30.1 BP 130/82 H Intake Visit Reasons: 12 WK OB Chief Complaint: 12 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 Is patient in pain?: No Allergies ragweed pollen Allergy (Mild, Verified 09/24/24 09:43) Itching Medications ?Medication ?Instructions ?Recorded ?Confirmed ?Type sertraline 50 mg tablet 50 mg PO QDAY 07/31/2409/24 History multivit-min no.71-iron fum 28 cap PO 08/06/24 5 History mg-folate no.1 1 mg-dha 300 mg capsule (PNV-[place]) Last Menstrual Period: 06/28/24 Zika: Zika virus screening: Negative : No PFSH PFSH Medical History RhD negative Seasonal allergies Pneumonia Surgical History [place] teeth extracted Family History Grandmother Arthritis Diabetes High cholesterol Grandfather Parkinson disease Thyroid disorder Lymphoma, Onset Age: 70 Maternal Grandfather Diabetes Lung cancer, Onset Age: 65 Maternal Mother Diabetes Thyroid disorder Cancer, Onset Age: 35 Thyroid cancer- thyroid removed Social History adopted: No household members: spouse housing: house current occupational status: employed 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/hazards: No pets and animals: Yes pets and animals: dog(s) history of recent travel: Yes ([place] April) out of state: Yes out of country: Yes sexually active: Yes Smoking Status: Never smoker alcohol intake: current alcohol intake frequency: holidays/special occasions only details: Not while substance use type: does not use well-balanced diet: daily or most days caffeine: Yes Type: coffee Number of servings: 1 eating out: rarely or never during the past year weight has: remained stable what type of physical activity do you participate in: walking, bicycling and weight training frequency: 1-2 times per week duration: 30-45 minutes/day fredi/zoroastrian: Amish seatbelt use: always do you feel safe at home: Yes additional social history: -Joshua- Sales History 1 Elective abortions Hx Para 0 Spontaneous abortions Hx # Term Pregnancies Ectopic pregnancies Hx # Pregnancies Multiple births # of living children HPI 12 WK OB Details: JAMIL NORRIS is a 29 year old who presents for routine OB visit. OB Visit SAMANTHA Calculator Estimated Delivery Date Method Current WG Current Estimate 04/04/25 LMP (Certain) 12w 4d Other Estimates 04/02/25 Ultrasound #1 12w 6d Specific Issue/Plans Covid status: vaccinated Flu vaccine: unvaccinated last 2 year Tdap vaccine: Rhogam: [] LARC form signed: [] Problem list reviewed and updated with the most current plan of care details and appropriate orders placed. Relevant counseling for the gestational age provided. Continue routine care and follow up unless otherwise noted in visit notes/problem list details Initial Weight: Not Recorded Date -?-?-?-?-?-?-?-?-?-?-?-?- EGA Weight BP Urine Prot -?-?-?-?-?-?-?-?-?-?-?-?- Glucose FHR FuHt Pres Dilation -?-?-?-?-?-?-?-?-?-?-?-?- Effaced St Visit Note 08/30/24 -?-?-?-?-?-?-?-?-?-?-?-?- 9w 0d 182 lb 8 oz 127/81 -?-?-?-?-?-?-?-?-?-?-?-?- 179 -?-?-?-?-?-?-?-?-?-?-?-?- JV- CRL consiste nt with LMP. desires nipt. first baby first . lives in [place]. 09/24/24 -?-?-?-?-?-?-?-?-?-?-?-?- 12w 4d 181 lb 130/82 Negative -?-?-?-?-?-?-?-?-?-?-?-?- Negative 152 -?-?-?-?-?-?-?-?-?-?-?-?- MH-No VB. Nause a improved. Br US confirm FHT ACOG First Trimester First Trimester: Discussed ROS Const Reports system reviewed and no additional complaints, except as documented GI Denies abdominal pain, Denies nausea and Denies vomiting Exam Const General: cooperative Nutritional Appearance: well nourished GI Palpation: soft, nontender and other (gravid) Results POC Urinalysis 2 Dip (Clinic) Office Urine Glucose Negative Last Edit by Vibha Bah on 09/24/24 09 :44 Office Urine Protein Negative Last Edit by Vibha Bah on 09/24/24 09 :44 Coding Level of Care Code OB Routine Diagnoses Supervision of high risk in first trimester O09.91 Trimester: first trimester 12 weeks gestation of Z3A.12 Weeks of gestation: 12 weeks RhD negative Z67.91 Depression, unspecified depression type F32.A Depression Type: unspecified Obesity affecting in first trimester, unspecified obesity type O99.211 Trimester: first trimester Obesity type affecting : unspecified obesity Assessment and Plan Assessment and Plan (1) Supervision of high-risk : Status: Acute Qualifiers: Trimester: first trimester Qualified Code(s): O09.91 - Supervision of high risk , unspecified, first trimester Comment: [id number], SAMANTHA 04/04/25 Boy, Joshua (2) : Status: Acute Qualifiers: Weeks of gestation: 12 weeks Qualified Code(s): Z3A.12 - 12 weeks gestation of Comment: NIPT low risk, Carrier neg. 4/4 (3) RhD negative: Status: Acute Comment: Fetus RHD+ on NIPT; rhogam 28 wk, pp and prn (4) Depression: Status: Acute Qualifiers: Depression Type: unspecified Qualified Code(s): F32.A - Depression, unspecified Comment: sertraline (5) Obesity affecting : Status: Acute Qualifiers: Trimester: first trimester Obesity type affecting : unspecified obesity Qualified Code(s): O99.211 - Obesity complicating , first trimester Comment: HgbA1c Orders: Orders POC Urinalysis 2 Dip (Clinic) Today Plan problem list reviewed and updated for most current plan of care and appropriate orders placed. Relevant counseling for the gestational age appropriate provided and ACOG education checklist updated. Continue routine care and follow up. 09/24/24 1004 <Electronically signed by Sai loza MACHINE SET UP TECHNICIAN MACHINE SET UP TECHNICIAN-C> Date _ Sai Foss MACHINE SET UP TECHNICIAN MACHINE SET UP TECHNICIAN-C Cosigner Signature: Date (if applicable) CC: ~ [facility] Work Phone: Progress note Author Veronica Cabrera [facility] Note Date/Time November 22, 2024 11: 45am [facility] [address], [address] [place] [address] OFFICE VISIT Date of Service: 11/22/24 MR#: [id number] Acct: [id number] Name: JAMIL NORRIS Rep #: [id number] : 1995 Provider: GEOVANNY Cabrera Age/Sex: 29/F Location: [facility] Status: Signed Intake Vital Signs 08/30/24 14:15 10/24/24 10:52 11/22/24 11:24 Height 5 ft 5 in 5 ft 5 in 5 ft 5 in Weight: 189 lb 2 oz BMI 31.4 BP 124/69 H Intake Visit Reasons: 21wk ob Chief Complaint: 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 Is patient in pain?: No Allergies ragweed pollen Allergy (Mild, Verified 11/22/24 11:22) Itching Medications ?Medication ?Instructions ?Recorded ?Confirmed ?Type sertraline 50 mg tablet 50 mg PO QDAY 07/31/2411/22 History multivit-min no.71-iron fum 28 cap PO 08/06/24 5 History mg-folate no.1 1 mg-dha 300 mg capsule (PNV-[place]) Last Menstrual Period: 06/28/24 : No PFSH PFSH Medical History RhD negative Seasonal allergies Pneumonia Surgical History [place] teeth extracted Family History Grandmother Arthritis Diabetes High cholesterol Grandfather Parkinson disease Thyroid disorder Lymphoma, Onset Age: 70 Maternal Grandfather Diabetes Lung cancer, Onset Age: 65 Maternal Mother Diabetes Thyroid disorder Cancer, Onset Age: 35 Thyroid cancer- thyroid removed Social History adopted: No household members: spouse housing: house current occupational status: employed 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/hazards: No pets and animals: Yes pets and animals: dog(s) history of recent travel: Yes ([place]) out of state: Yes out of country: Yes sexually active: Yes Smoking Status: Never smoker alcohol intake: current alcohol intake frequency: holidays/special occasions only details: Not while substance use type: does not use well-balanced diet: daily or most days caffeine: Yes Type: coffee Number of servings: 1 eating out: rarely or never during the past year weight has: remained stable what type of physical activity do you participate in: walking, bicycling and weight training frequency: 1-2 times per week duration: 30-45 minutes/day fredi/zoroastrian: Amish seatbelt use: always do you feel safe at home: Yes additional social history: -Joshua- Sales History 1 Elective abortions Hx Para 0 Spontaneous abortions Hx # Term Pregnancies Ectopic pregnancies Hx # Pregnancies Multiple births # of living children HPI 21wk ob Details: JAMIL NORRIS is a 29 year old who presents for routine OB visit. OB Visit SAMANTHA Calculator Estimated Delivery Date Method Current WG Current Estimate 04/04/25 LMP (Certain) 21w 0d Other Estimates 04/02/25 Ultrasound #1 21w 2d Specific Issue/Plans Covid status: vaccinated Flu vaccine: unvaccinated last 2 year Tdap vaccine: Rhogam: [] LARC form signed: [] Problem list reviewed and updated with the most current plan of care details and appropriate orders placed. Relevant counseling for the gestational age provided. Continue routine care and follow up unless otherwise noted in visit notes/problem list details Initial Weight: Not Recorded Date -?-?-?-?-?-?-?-?-?-?-?-?- EGA Weight BP Urine Prot -?-?-?-?-?-?-?-?-?-?-?-?- Glucose FHR FuHt Pres Dilation -?-?-?-?-?-?-?-?-?-?-?-?- Effaced St Visit Note 08/30/24 -?-?-?-?-?-?-?-?-?-?-?-?- 9w 0d 182 lb 8 oz 127/81 -?-?-?-?-?-?-?-?-?-?-?-?- 179 -?-?-?-?-?-?-?-?-?-?-?-?- JV- CRL consiste nt with LMP. desires nipt. first baby first . lives in [place]. 09/24/24 -?-?-?-?-?-?-?-?-?-?-?-?- 12w 4d 181 lb 130/82 Negative -?-?-?-?-?-?-?-?-?-?-?-?- Negative 152 -?-?-?-?-?-?-?-?-?-?-?-?- MH-No VB. Nause a improved. Br US confirm FHT 10/24/24 -?-?-?-?-?-?-?-?-?-?-?-?- 16w 6d 180 lb 6 oz 111/79 Nega tive -?-?-?-?-?-?-?-?-?-?-?-?- Negative 152 -?-?-?-?-?-?-?-?-?-?-?-?- JV- having a boy and thinking of naming him Jermaine. No complaints today. 11/22/24 -?-?-?-?-?-?-?-?-?-?-?-?- 21w 0d 189 lb 2 oz 124/69 Nega tive -?-?-?-?-?-?-?-?-?-?-?-?- Negative 145 21 -?-?-?-?-?-?-?-?-?-?-?-?- KW- no vb/crampi ng. good fm. normal US. ACOG First Trimester First Trimester: Discussed ROS Const Reports system reviewed and no additional complaints, except as documented Eyes Reports system reviewed and no additional complaints, except as documented ENT Reports system reviewed and no additional complaints, except as documented Card Reports system reviewed and no additional complaints, except as documented Resp Reports system reviewed and no additional complaints, except as documented GI Reports system reviewed and no additional complaints, except as documented, Denies nausea and Denies vomiting Reports system reviewed and no additional complaints, except as documented Musc Reports system reviewed and no additional complaints, except as documented Skin/Breast Reports system reviewed and no additional complaints, except as documented Neuro Yes system reviewed and no additional complaints, except as documented Psych Reports system reviewed and no additional complaints, except as documented Endo Reports system reviewed and no additional complaints, except as documented Hugo/Lymph Reports system reviewed and no additional complaints, except as documented Aller/Immun Reports system reviewed and no additional complaints, except as documented Exam Const General: cooperative, healthy appearing and no acute distress Orientation: alert, awake and oriented x3 Neck Neck: normal visual inspection and full ROM Resp Effort & Inspection: normal respiratory effort, able to speak in complete sentences and symmetric chest movement GI Inspection: normal to inspection Palpation: soft and other Other: gravid Skin General: no rashes or lesions noted Neuro General: patient alert, patient awake and patient oriented x3 Cognition: normal cognition Speech: speech normal Gait: normal gait Motor: muscle tone normal throughout Extrem General: normal to inspection and full ROM Psych Appearance: grossly normal Mental Status: mental status grossly normal Mood: congruent mood Affect: normal affect Speech and Movement: speech and movement normal Attitude: cooperative Thought Process: normal Thought Content: normal Judgment: judgment good Results POC Urinalysis 2 Dip (Clinic) Office Urine Glucose Negative Last Edit by Renetta Pina on 11/22/24 11:30 Office Urine Protein Negative Last Edit by Renetta Pina on 11/22/24 11:30 Coding Level of Care Code OB Routine Diagnoses RhD negative Z67.91 Supervision of high risk in first trimester O09.91 Trimester: first trimester Depression, unspecified depression type F32.A Depression Type: unspecified 21 weeks gestation of Z3A.21 Weeks of gestation: 21 weeks Obesity affecting in first trimester, unspecified obesity type O99.211 Obesity type affecting : unspecified obesity Trimester: first trimester Assessment and Plan Assessment and Plan (1) RhD negative: Status: Acute Comment: Fetus RHD+ on NIPT; rhogam 28 wk, pp and prn (2) Supervision of high-risk : Status: Acute Qualifiers: Trimester: first trimester Qualified Code(s): O09.91 - Supervision of high risk , unspecified, first trimester Comment: [id number], SAMANTHA 04/04/25 Boy, Joshua (3) Depression: Status: Acute Qualifiers: Depression Type: unspecified Qualified Code(s): F32.A - Depression, unspecified Comment: sertraline (4) : Status: Acute Qualifiers: Weeks of gestation: 21 weeks Qualified Code(s): Z3A.21 - 21 weeks gestation of Comment: NIPT low risk, Carrier neg. 07/19, unremarkable anatomy, consistent dates (5) Obesity affecting : Status: Acute Qualifiers: Obesity type affecting : unspecified obesity Trimester: first trimester Qualified Code(s): O99.211 - Obesity complicating , first trimester Comment: HgbA1c Orders: Orders POC Urinalysis 2 Dip (Clinic) Today Plan Details Additional Comments: ACOG trimester education reviewed and updated. see problem list details for updated plan management information and see below for orders placed at this visit. GA appropriate handout given. 11/22/24 8354 <Electronically signed by Veronica loza CNM> Date _ Veronica Cabrera CNM Cosigner Signature: Date (if applicable) CC: ~ [facility] Work Phone: Progress note Author Marisela Nelson [facility] Note Date/Time December 20, 2024 10:32am [facility] [address] [place] [address], [address] [place] [address] OFFICE VISIT Date of Service: 12/20/24 MR#: [id number] Acct: [id number] Name: JAMIL NORRIS Rep #: [id number] : 1995 Provider: Dr. Kendrick Nelson MD Age/Sex: 29/F Location: [facility] Status: Signed Intake Vital Signs 09/24/24 09:41 11/22/24 11:24 12/20/24 10:06 Height 5 ft 5 in 5 ft 5 in 5 ft 5 in Weight: 189 lb 2 oz 199 lb 3 oz BMI 31.4 33.1 BP 124/69 H 122/82 H Intake Visit Reasons: 25wk ob 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 Is patient in pain?: No Allergies ragweed pollen Allergy (Mild, Verified 12/20/24 10:03) Itching Medications ?Medication ?Instructions ?Recorded ?Confirmed ?Type sertraline 50 mg tablet 50 mg PO QDAY 07/31/2412/20 History multivit-min no.71-iron fum 28 cap PO 08/06/24 5 History mg-folate no.1 1 mg-dha 300 mg capsule (PNV-[place]) famotidine 20 mg tablet (Pepcid) 20 mg PO BID #60 tabs 12/20/24 12/20/24 Rx Last Menstrual Period: 06/28/24 Zika: Zika virus screening: Negative : No PFSH PFSH Medical History RhD negative Seasonal allergies Pneumonia Surgical History [place] teeth extracted Family History Grandmother Arthritis Diabetes High cholesterol Grandfather Parkinson disease Thyroid disorder Lymphoma, Onset Age: 70 Maternal Grandfather Diabetes Lung cancer, Onset Age: 65 Maternal Mother Diabetes Thyroid disorder Cancer, Onset Age: 35 Thyroid cancer- thyroid removed Social History adopted: No household members: spouse housing: house current occupational status: employed 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/hazards: No pets and animals: Yes pets and animals: dog(s) history of recent travel: Yes ([place]) out of state: Yes out of country: Yes sexually active: Yes Smoking Status: Never smoker alcohol intake: current alcohol intake frequency: holidays/special occasions only details: Not while substance use type: does not use well-balanced diet: daily or most days caffeine: Yes Type: coffee Number of servings: 1 eating out: rarely or never during the past year weight has: remained stable what type of physical activity do you participate in: walking, bicycling and weight training frequency: 1-2 times per week duration: 30-45 minutes/day fredi/zoroastrian: Amish seatbelt use: always do you feel safe at home: Yes additional social history: -Joshua- Sales History 1 Elective abortions Hx Para 0 Spontaneous abortions Hx # Term Pregnancies Ectopic pregnancies Hx # Pregnancies Multiple births # of living children HPI 25wk ob Details: JAMIL NORRIS is a 29 year old who presents for routine OB visit. OB Visit SAMANTHA Calculator Estimated Delivery Date Method Current WG Current Estimate 04/04/25 LMP (Certain) 25w 0d Other Estimates 04/02/25 Ultrasound #1 25w 2d Expected Delivery Route/Plan Labor Preferences- CB/BF classes: [] labor support person: [] labor intervention preferences: [] pain management options preferred: [] cut cord/dad catch: [] : [] PP control planned: [] discussed possible routes of delivery and associated risks: [] special requests: [] Specific Issue/Plans Covid status: vaccinated Flu vaccine: unvaccinated last 2 year Tdap vaccine: Rhogam: [] LARC form signed: [] Problem list reviewed and updated with the most current plan of care details and appropriate orders placed. Relevant counseling for the gestational age provided. Continue routine care and follow up unless otherwise noted in visit notes/problem list details Initial Weight: Not Recorded Date -?--?-?-?-?-?-?-?-?-?-?-?- EGA Weight BP Urine Prot -?-?-?-?-?-?-?-?-?-?-?-?- Glucose FHR FuHt Pres Dilation -?-?-?-?-?-?-?-?-?-?-?-?- Effaced St Visit Note 08/30/24 -?-?-?-?-?-?-?-?-?-?-?-?- 9w 0d 182 lb 8 oz 127/81 -?-?-?-?-?-?-?-?-?-?-?-?- 179 -?-?-?-?-?-?-?-?-?-?-?-?- JV- CRL consiste nt with LMP. desires nipt. first baby first . lives in [place]. 09/24/24 -?-?-?-?-?-?-?-?-?-?--?-?- 12w 4d 181 lb 130/82 Negative -?-?-?-?-?-?-?-?-?-?-?-?- Negative 152 -?-?-?-?-?-?-?-?-?-?-?-?- MH-No VB. Nause a improved. Br US confirm FHT 10/24/24 -?-?-?-?-?-?-?-?-?-?-?-?- 16w 6d 180 lb 6 oz 111/79 Nega tive -?-?-?-?-?-?-?-?-?-?-?-?- Negative 152 -?-?-?-?-?-?-?-?-?-?--?-?- JV- having a boy and thinking of naming him Jermaine. No complaints today. 11/22/24 -?-?-?-?-?-?-?-?-?-?-?-?- 21w 0d 189 lb 2 oz 124/69 Nega tive -?-?-?-?-?-?-?-?-?-?-?-?- Negative 145 21 -?-?-?-?-?-?-?-?-?-?-?-?- KW- no vb/gena doran. good fm. normal US. 12/20/24 -?-?-?-?-?-?-?-?-?-?-?-?- 25w 0d 199 lb 3 oz 122/82 Nega tive -?-?-?-?-?-?-?-?-?-?-?-?- Negative 145 25 -?-?-?-?-?-?-?-?-?-?-?-?- Sm- no vb lof go od fm no regular ctx ACOG First Trimester First Trimester: Discussed Results POC Urinalysis 2 Dip (Clinic) Office Urine Glucose Negative Last Edit by Sai Hatch on 12/20/24 10:11 Office Urine Protein Negative Last Edit by Sai Hatch on 12/20/24 10:11 Coding Level of Care Code OB Routine Diagnoses RhD negative Z67.91 Supervision of high risk in first trimester O09. Trimester: first trimester Depression, unspecified depression type F32.A Depression Type: unspecified 25 weeks gestation of Z3A.25 Weeks of gestation: 25 weeks Obesity affecting in first trimester, unspecified obesity type O99.211 Obesity type affecting : unspecified obesity Trimester: first trimester Assessment and Plan Assessment and Plan (1) RhD negative: Status: Acute Comment: Fetus RHD+ on NIPT; rhogam 28 wk, pp and prn (2) Supervision of high-risk : Status: Acute Qualifiers: Trimester: first trimester Qualified Code(s): O09. - Supervision of high risk , unspecified, first trimester Comment: [id number], SAMANTHA 04/04/25 Boy, name secret?(jermaine) Joshua (3) Depression: Status: Acute Qualifiers: Depression Type: unspecified Qualified Code(s): F32.A - Depression, unspecified Comment: sertraline (4) : Status: Acute Qualifiers: Weeks of gestation: 25 weeks Qualified Code(s): Z3A.25 - 25 weeks gestation of Comment: NIPT low risk, Carrier neg. 07/19, unremarkable anatomy, consistent dates (5) Obesity affecting : Status: Acute Qualifiers: Obesity type affecting : unspecified obesity Trimester: first trimester Qualified Code(s): O99.211 - Obesity complicating , first trimester Comment: HgbA1c Orders: Orders CBC W/Diff, Automated Today O09. - Supervision of high risk , unspecified, first trimester Glucose Challenge Gest 1H 50g Today O09. - Supervision of high risk , unspecified, first trimester, Z13.1 - Encounter for screening for diabetes mellitus Type & Screen Today O - Supervision of high risk , unspecified, first trimester HIV Today O - Supervision of high risk , unspecified, first trimester Syphilis Antibodies Today O - Supervision of high risk , unspecified, first trimester POC Urinalysis 2 Dip (Clinic) Today - Supervision of high risk , unspecified, first trimester Medications: New famotidine (Pepcid) 20 mg PO BID 60 tabs 6RF 12/20/24 1032 <Electronically signed by Marisela moralez MD> Date _ Marisela Nelson MD Cosign Signature: Date (if applicable) CC: ~ [facility] Work Phone: Progress note Author Veronica Cabrera [facility] Note Date/Time January 10, 2025 11:52am [address], [address] [address] OFFICE VISIT Date of Service: 01/10/25 MR#: [id number] Acct: [id number] Name: JAMIL NORRIS Rep #: [id number] : 1995 Provider: GEOVANNY Cabrera Age/Sex: 29/F Location: [facility] [place] Status: Signed with Addenda ADDENDUM by Renetta Pina on 01/10/25 at 1205 Office Procedure Documentation entered by Renetta Pina 01/10/25 12:05: Injections Is this a patient provided medication?: No Immunizations Adacel(Tdap Adolesn/Adult)(PF) 2 Lf-(2.5-5-3-5)-5 Lf/0.5 mL IM syringe Performing Provider: Veronica Cabrera CNM Performing Location: [facility][1] Administered by: Renetta Pina on 01/10/25 12:03 Dose Route Admin Location Dispensed Lot Number Expiration Date Pack age [facility] Business Database Analyst 0.5 mL IM Left Deltoid 0.5 mL [id number] 12/04/26 53720-599-24 [id number] SANO[employer]- PASTEUR VIS Given Date VIS Provided VIS Publication Date 01/10/25 Single Vaccine 24 Eligibility Eligibility Date Funding Source Not Applicable Office Meds RhoGAM Ultra-Filtered PLUS 1,500 unit (300 mcg) intramuscular syringe Performing Provider: Veronica Cabrera CNM Performing Location: [facility] Administered by: Renetta Pina on 01/10/25 12:03 Dose Route Admin Location Dispensed Lot Number Expiration Date Pack age [facility] Business Database Analyst 1,500 unit IM Left Buttock 1 ea [id number] 10/30/26 [id number] [employer] [place] Date _ cc: ~* Signed Intake Vital Signs 11/22/24 11:24 12/20/24 10:06 01/10/25 11:12 Height 5 ft 5 in 5 ft 5 in 5 ft 5 in Weight: 206 lb 4 oz BMI 34.3 BP 127/78 H Intake Visit Reasons: 28wk ob/glucose/rhogam Chief Complaint: 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 Is patient in pain?: No Allergies ragweed pollen Allergy (Mild, Verified 01/10/25 11:10) Itching Medications ?Medication ?Instructions ?Recorded ?Confirmed ?Type sertraline 50 mg tablet 50 mg PO QDAY 07/31/2401/10 History multivit-min no.71-iron fum 28 cap PO 08/06/24 5 History mg-folate no.1 1 mg-dha 300 mg capsule (PNV-[place]) famotidine 20 mg tablet (Pepcid) 20 mg PO BID #60 tabs 12/20/24 01/10/25 Rx Last Menstrual Period: 06/28/24 : No PFSH PFSH Medical History RhD negative Seasonal allergies Pneumonia Surgical History [place] teeth extracted Family History Grandmother Arthritis Diabetes High cholesterol Grandfather Parkinson disease Thyroid disorder Lymphoma, Onset Age: 70 Maternal Grandfather Diabetes Lung cancer, Onset Age: 65 Maternal Mother Diabetes Thyroid disorder Cancer, Onset Age: 35 Thyroid cancer- thyroid removed Social History adopted: No household members: spouse housing: house current occupational status: employed 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/hazards: No pets and animals: Yes pets and animals: dog(s) history of recent travel: Yes ([place]) out of state: Yes out of country: Yes sexually active: Yes Smoking Status: Never smoker alcohol intake: current alcohol intake frequency: holidays/special occasions only details: Not while substance use type: does not use well-balanced diet: daily or most days caffeine: Yes Type: coffee Number of servings: 1 eating out: rarely or never during the past year weight has: remained stable what type of physical activity do you participate in: walking, bicycling and weight training frequency: 1-2 times per week duration: 30-45 minutes/day fredi/zoroastrian: Amish seatbelt use: always do you feel safe at home: Yes additional social history: -Joshua- Sales History 1 Elective abortions Hx Para 0 Spontaneous abortions Hx # Term Pregnancies Ectopic pregnancies Hx # Pregnancies Multiple births # of living children HPI 28wk ob/glucose/rhogam Details: JAMIL NORRIS is a 29 year old who presents for routine OB visit. OB Visit SAMANTHA Calculator Estimated Delivery Date Method Current WG Current Estimate 04/04/25 LMP (Certain) 28w 0d Other Estimates 04/02/25 Ultrasound #1 28w 2d Expected Delivery Route/Plan Labor Preferences- CB/BF classes: [] labor support person: [] labor intervention preferences: [] pain management options preferred: [] cut cord/dad catch: [] : [] PP control planned: [] discussed possible routes of delivery and associated risks: [] special requests: [] Specific Issue/Plans Covid status: vaccinated Flu vaccine: unvaccinated last 2 year Tdap vaccine: Rhogam: [] LARC form signed: [] Problem list reviewed and updated with the most current plan of care details and appropriate orders placed. Relevant counseling for the gestational age provided. Continue routine care and follow up unless otherwise noted in visit notes/problem list details Initial Weight: Not Recorded Date -?-?-?-?-?-?-?-?-?-?-?-?- EGA Weight BP Urine Prot -?-?-?-?-?-?-?-?-?-?-?-?- Glucose FHR FuHt Pres Dilation -?-?-?-?-?-?-?-?-?-?-?-?- Effaced St Visit Note 08/30/24 -?-?-?-?-?-?-?-?-?-?-?-?- 9w 0d 182 lb 8 oz 127/81 -?-?-?-?-?-?-?-?-?-?-?-?- 179 -?-?-?-?-?-?-?-?-?-?-?-?- JV- CRL consiste nt with LMP. desires nipt. first baby first . lives in [place]. 09/24/24 -?-?-?-?-?-?-?-?-?-?-?-?- 12w 4d 181 lb 130/82 Negative -?-?-?-?-?-?-?-?-?-?-?-?- Negative 152 -?-?-?-?-?-?-?-?-?-?-?-?- MH-No VB. Nause a improved. Br US confirm FHT 10/24/24 -?-?-?-?-?-?-?-?-?-?-?-?- 16w 6d 180 lb 6 oz 111/79 Nega tive -?-?-?-?-?-?-?-?-?-?-?-?- Negative 152 -?-?-?-?-?-?-?-?-?-?-?-?- JV- having a boy and thinking of naming him Jermaine. No complaints today. 11/22/24 -?-?-?-?-?-?-?-?-?-?-?-?- 21w 0d 189 lb 2 oz 124/69 Nega tive -?-?-?-?-?-?-?-?-?-?-?-?- Negative 145 21 -?-?-?-?-?--?-?-?-?-?-?-?- KW- no vb/crampi ng. good fm. normal US. 12/20/24 -?-?-?-?-?-?-?-?-?-?-?-?- 25w 0d 199 lb 3 oz 122/82 Nega tive -?-?-?-?-?-?-?-?-?-?-?-?- Negative 145 25 -?-?-?-?-?-?-?-?-?-?-?-?- Sm- no vb lof go od fm no regular ctx 01/10/25 -?-?-?-?-?-?-?-?-?-?-?-?- 28w 0d 206 lb 4 oz 127/78 Nega tive -?-?-?-?-?-?-?-?-?-?-?-?- Negative 130 29 -?-?-?-?-?-?-?-?-?-?-?-?- KW- no vb/lof/ct x. good fm Rhogam and Tdap. LARC. ACOG First Trimester First Trimester: Discussed ROS Const Reports system reviewed and no additional complaints, except as documented Eyes Reports system reviewed and no additional complaints, except as documented ENT Reports system reviewed and no additional complaints, except as documented Card Reports system reviewed and no additional complaints, except as documented Resp Reports system reviewed and no additional complaints, except as documented GI Reports system reviewed and no additional complaints, except as documented, Denies nausea and Denies vomiting Reports system reviewed and no additional complaints, except as documented Musc Reports system reviewed and no additional complaints, except as documented Skin/Breast Reports system reviewed and no additional complaints, except as documented Neuro Yes system reviewed and no additional complaints, except as documented Psych Reports system reviewed and no additional complaints, except as documented Endo Reports system reviewed and no additional complaints, except as documented Hugo/Lymph Reports system reviewed and no additional complaints, except as documented Aller/Immun Reports system reviewed and no additional complaints, except as documented Exam Const General: cooperative, healthy appearing and no acute distress Orientation: alert, awake and oriented x3 Neck Neck: normal visual inspection and full ROM Resp Effort & Inspection: normal respiratory effort, able to speak in complete sentences and symmetric chest movement GI Inspection: normal to inspection Palpation: soft and other Other: gravid Skin General: no rashes or lesions noted Neuro General: patient alert, patient awake and patient oriented x3 Cognition: normal cognition Speech: speech normal Gait: normal gait Motor: muscle tone normal throughout Extrem General: normal to inspection and full ROM Psych Appearance: grossly normal Mental Status: mental status grossly normal Mood: congruent mood Affect: normal affect Speech and Movement: speech and movement normal Attitude: cooperative Thought Process: normal Thought Content: normal Judgment: judgment good Results POC Urinalysis 2 Dip (Clinic) Office Urine Glucose Negative Last Edit by Renetta Pina on 01/10/25 11:16 Office Urine Protein Negative Last Edit by Renetta Pina on 01/10/25 11:16 Coding Level of Care Code OB Routine Diagnoses RhD negative Z67.91 Supervision of high risk in first trimester O09.91 Trimester: first trimester Depression, unspecified depression type F32.A Depression Type: unspecified 28 weeks gestation of Z3A.28 Weeks of gestation: 28 weeks Obesity affecting in first trimester, unspecified obesity type O99.211 Obesity type affecting : unspecified obesity Trimester: first trimester Assessment and Plan Assessment and Plan (1) RhD negative: Status: Acute Comment: Fetus RHD+ on NIPT; rhogam 28 wk, pp and prn (2) Supervision of high-risk : Status: Acute Qualifiers: Trimester: first trimester Qualified Code(s): O09.91 - Supervision of high risk , unspecified, first trimester Comment: [id number], SAMANTHA 04/04/[birth year] Boy, name secret?(jermaine) Joshua (3) Depression: Status: Acute Qualifiers: Depression Type: unspecified Qualified Code(s): F32.A - Depression, unspecified Comment: sertraline (4) : Status: Acute Qualifiers: Weeks of gestation: 28 weeks Qualified Code(s): Z3A.28 - 28 weeks gestation of Comment: NIPT low risk, Carrier neg. 07/19, unremarkable anatomy, consistent dates (5) Obesity affecting : Status: Acute Qualifiers: Obesity type affecting : unspecified obesity Trimester: first trimester Qualified Code(s): O99.211 - Obesity complicating , first trimester Comment: HgbA1c Orders: Orders POC Urinalysis 2 Dip (Clinic) Today Rhogam Injection Today O09. - Supervision of high risk , unspecified, first trimester, Z3A.28 - 28 weeks gestation of , Z67.91 - Unspecified blood type, Rh negative Tdap Immunization Today Z23 - Encounter for immunization Medications: New RhoGAM Ultra-Filtered PLUS (rho(D) immune globulin) 1,500 units IM ONCE 1 ea 0RF NS O09. - Supervision of high risk , unspecified, first trimester, Z3A.28 - 28 weeks gestation of , Z67.91 - Unspecified blood type, Rh negative Adacel(Tdap Adolesn/Adult)(PF) 0.5 mL IM ONCE 0.5 mL 0RF NS Z23 - Encounter for immunization Plan Details Additional Comments: ACOG trimester education reviewed and updated. see problem list details for updated plan management information and see below for orders placed at this visit. GA appropriate handout given. 01/10/25 1152 <Electronically signed by Veronica loza CNM> Date _ Veronica Cabrera CNM Cosigner Signature: Date (if applicable) CC: ~ [facility] Work Phone: Progress note Author Rachele Bradley [facility] Note Date/Time 2025 11 :10am [facility] [address] [place] [address], [address] [place] [address] OFFICE VISIT Date of Service: 01/23/25 MR#: [id number] Acct: [id number] Name: JAMIL NORRIS Rep #: [id number] : 1995 Provider: CAMPOS Foss Age/Sex: 30/F Location: [facility] [place] Status: Signed Intake Vital Signs 11/22/24 11:24 01/10/25 11:12 01/23/25 10:45 01/23/25 10:46 Height 5 ft 5 in 5 ft 5 in 5 ft 5 in 5 ft 5 in Weight: 211 lb 1 oz BMI 35.1 BP 115/77 Intake Visit Reasons: 30wk ob 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 Is patient in pain?: No Allergies ragweed pollen Allergy (Mild, Verified 01/23/25 10:45) Itching Medications ?Medication ?Instructions ?Recorded ?Confirmed ?Type sertraline 50 mg tablet 50 mg PO QDAY 07/31/2401/23 History multivit-min no.71-iron fum 28 cap PO 08/06/24 5 History mg-folate no.1 1 mg-dha 300 mg capsule (PNV-[place]) famotidine 20 mg tablet (Pepcid) 20 mg PO BID #60 tabs 12/20/24 01/23/25 Rx ondansetron 4 mg disintegrating 4 mg PO Q4H PRN nausea and 01/23/25 01/23/25 Rx tablet vomiting #60 tabs Last Menstrual Period: 06/28/24 Zika: Zika virus screening: Negative : Yes PFSH PFSH Medical History RhD negative Seasonal allergies Pneumonia Surgical History [place] teeth extracted Family History Grandmother Arthritis Diabetes High cholesterol Grandfather Parkinson disease Thyroid disorder Lymphoma, Onset Age: 70 Maternal Grandfather Diabetes Lung cancer, Onset Age: 65 Maternal Mother Diabetes Thyroid disorder Cancer, Onset Age: 35 Thyroid cancer- thyroid removed Social History adopted: No household members: spouse housing: house current occupational status: employed 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/hazards: No pets and animals: Yes pets and animals: dog(s) history of recent travel: Yes ([place] April) out of state: Yes out of country: Yes sexually active: Yes Smoking Status: Never smoker alcohol intake: current alcohol intake frequency: holidays/special occasions only details: Not while substance use type: does not use well-balanced diet: daily or most days caffeine: Yes Type: coffee Number of servings: 1 eating out: rarely or never during the past year weight has: remained stable what type of physical activity do you participate in: walking, bicycling and weight training frequency: 1-2 times per week duration: 30-45 minutes/day fredi/zoroastrian: Amish seatbelt use: always do you feel safe at home: Yes additional social history: -Joshua- Sales History 1 Elective abortions Hx Para 0 Spontaneous abortions Hx # Term Pregnancies Ectopic pregnancies Hx # Pregnancies Multiple births # of living children HPI 30wk ob Details: JAMIL NORRIS is a 30 year old who presents for routine OB visit. OB Visit SAMANTHA Calculator Estimated Delivery Date Method Current WG Current Estimate 04/04/25 LMP (Certain) 29w 6d Other Estimates 04/02/25 Ultrasound #1 30w 1d Expected Delivery Route/Plan Labor Preferences- CB/BF classes: enc labor support person: Joshua labor intervention preferences: pain management options preferred: limited cut cord/dad catch: cord : yes PP control planned: [] discussed possible routes of delivery and associated risks: [] special requests: [] Specific Issue/Plans Covid status: vaccinated Flu vaccine: given Tdap vaccine: given Rhogam: given LARC form signed: yes Problem list reviewed and updated with the most current plan of care details and appropriate orders placed. Relevant counseling for the gestational age provided. Continue routine care and follow up unless otherwise noted in visit notes/problem list details Initial Weight: Not Recorded Date -?-?-?-?-?-?-?-?-?-?-?-?- EGA Weight BP Urine Prot -?-?-?-?-?-?-?-?-?-?-?-?- Glucose FHR FuHt Pres Dilation -?-?-?-?-?-?-?-?-?-?-?-?- Effaced St Visit Note 08/30/24 -?-?-?-?-?-?-?-?-?-?-?-?- 9w 0d 182 lb 8 oz 127/81 -?-?-?-?-?-?-?-?-?-?-?-?- 179 -?-?-?-?-?-?-?-?-?-?-?-?- JV- CRL consiste nt with LMP. desires nipt. first baby first . lives in [place]. 09/24/24 -?-?-?-?-?-?-?-?-?-?-?-?- 12w 4d 181 lb 130/82 Negative -?-?-?-?-?-?-?-?-?-?-?-?- Negative 152 -?-?-?-?-?-?-?-?-?-?-?-?- MH-No VB. Nause a improved. Br US confirm FHT 10/24/24 -?-?-?-?-?-?-?-?-?-?-?-?- 16w 6d 180 lb 6 oz 111/79 Nega tive -?-?-?-?-?-?-?-?-?-?-?-?- Negative 152 -?-?-?-?-?-?-?-?-?-?-?-?- JV- having a boy and thinking of naming him Jermaine. No complaints today. 11/22/24 -?-?-?-?-?-?-?-?-?-?-?-?- 21w 0d 189 lb 2 oz 124/69 Nega tive -?-?-?-?-?-?-?-?-?-?-?-?- Negative 145 21 -?-?-?-?-?-?-?-?-?-?-?-?- KW- no vb/gena doran. good fm. normal US. 12/20/24 -?-?-?-?-?-?-?-?-?-?-?-?- 25w 0d 199 lb 3 oz 122/82 Nega tive -?-?-?-?-?-?-?--?-?-?-?-?- Negative 145 25 -?-?-?-?-?-?-?-?-?-?-?-?- Sm- no vb lof go od fm no regular ctx 01/10/25 -?-?-?-?-?-?-?-?-?-?-?-?- 28w 0d 206 lb 4 oz 127/78 Nega tive -?-?-?-?-?-?-?-?-?-?-?-?- Negative 130 29 -?-?-?-?-?-?-?-?-?-?-?-?- KW- no vb/lof/ct x. good fm Rhogam and Tdap. LARC. 01/23/25 -?-?-?-?-?-?-?-?-?-?-?-?- 29w 6d 211 lb 1 oz 115/77 Nega tive -?-?-?-?-?-?-?-?-?-?-?-?- Negative 143 30 -?-?-?-?-?-?-?-?-?-?-?-?- MH-No VB, LOF. G ood FM. Flu given. MH-No VB, LOF. Good FM. Flu given. Nausea-zofran given. ACOG First Trimester First Trimester: Second Trimester Second Trimester: Signs and Symptoms of Labor Third Trimester Third Trimester: Pain Management Plans, Labor support person(s), Immediate Larc, Circumcision preference Yes Yes, Movement Monitoring, Signs and Symptoms of Preeclampsia and Feeding Yes ROS Const Reports system reviewed and no additional complaints, except as documented GI Denies abdominal pain, Denies nausea and Denies vomiting Exam Const General: cooperative Nutritional Appearance: well nourished GI Palpation: soft, nontender and other (gravid) Results POC Urinalysis 2 Dip (Clinic) Office Urine Glucose Negative Last Edit by Janice Og on 01/23/25 10: 57 Office Urine Protein Negative Last Edit by Janice Og on 01/23/25 10: 57 Immunizations Flucelvax [id number] (PF) 45 mcg (15 mcg x 3)/0.5 mL IM syringe Performing Provider: Rachele Llanes DO Performing Location: [facility] [place] Administered by: Sai Hatch on 01/23/25 10:59 Dose Route Admin Location Dispensed Lot Number Expiration Date Pack age NDC NDC Business Database Analyst 0.5 mL IM Left Deltoid 0.5 mL [id number] 08/24/25 [id number] [employer]. VIS Given Date VIS Provided VIS Publication Date 01/23/25 Single Vaccine 24 Eligibility Eligibility Date Funding Source Not Applicable Coding Level of Care Code OB Routine Diagnoses Supervision of high risk in third trimester O09.93 Trimester: third trimester RhD negative Z67.91 Depression, unspecified depression type F32.A Depression Type: unspecified 29 weeks gestation of Z3A.29 Weeks of gestation: 29 weeks Obesity affecting in first trimester, unspecified obesity type O99.211 Obesity type affecting : unspecified obesity Trimester: first trimester Assessment and Plan Assessment and Plan (1) Supervision of high-risk : Status: Acute Qualifiers: Trimester: third trimester Qualified Code(s): O09.93 - Supervision of high risk , unspecified, third trimester Comment: [id number], SAMANTHA 04/04/25 Boy, name secret?(jermaine) Joshua (2) RhD negative: Status: Acute Comment: Fetus RHD+ on NIPT; rhogam 28 wk, pp and prn (3) Depression: Status: Acute Qualifiers: Depression Type: unspecified Qualified Code(s): F32.A - Depression, unspecified Comment: sertraline/stable (4) : Status: Acute Qualifiers: Weeks of gestation: 29 weeks Qualified Code(s): Z3A.29 - 29 weeks gestation of Comment: NIPT low risk, Carrier neg. 4/, unremarkable anatomy, consistent dates (5) Obesity affecting : Status: Acute Qualifiers: Obesity type affecting : unspecified obesity Trimester: first trimester Qualified Code(s): O99.211 - Obesity complicating , first trimester Comment: HgbA1c Orders: Orders POC Urinalysis 2 Dip (Clinic) Today Dr. Rachele Llanes DO Influenza Immunization Today Dr. Rachele Llanes DO Z23 - Encounter for immunization Medications: New ondansetron 4 mg PO Q4H PRN 60 tabs 2RF nausea and vomiting Sai Foss MACHINE SET UP TECHNICIAN, MACHINE SET UP TECHNICIAN-C Plan problem list reviewed and updated for most current plan of care and appropriate orders placed. Relevant counseling for the gestational age appropriate provided and ACOG education checklist updated. Continue routine care and follow up. 01/23/252104 <Electronically signed by Rachele Reilly DO> Date _ Rachele Llanes DO 01/23/25 1126<Electronically signed by Sai Foss NP MACHINE SET UP TECHNICIAN -C> Cosigner Signature: Date (if applicable) Sai Foss NP MACHINE SET UP TECHNICIAN-C CC: ~ [facility] Work Phone: Reason for referral (narrative)No reason for referral information availableKaweah Delta Medical Center Work Phone: Summary Purpose Family History No Family History Records Found Relationship Condition Age at Onset Recorded Date/T daniele grandmother Arthritis Unknown Diabetes mellitus Unknown High blood cholesterol Unknown grandfather Parkinson's disease Unknown Disorder of thyroid Unknown Lymphoma 70 grandfather Diabetes mellitus Unknown Malignant neoplasm of lung 65 mother Diabetes mellitus Unknown Malignant neoplasm 35 Advance Directives No Advanced Directives Records FoundNo Advanced Directives Records FoundNo Advanced Directives Records FoundNo Advanced Directives Records FoundNo Advanced Directives Records FoundNo Advanced Directives Records FoundNo Advanced Directives Records FoundNo Advanced Directives Records Found Chief Complaint and Reason for Visit Chief Complaint Admit Date Est Care/Urine test/ Vitals August 06, 2024 8:59am New OB, LMP 3/14, SAMANTHA 04/04, first baby August 30, 2024 2:06pm Reason for Visit Admit Date Depression August 06, 2024 8:5 9am Obesity affecting August 06, 2024 8:59am August 06, 2024 8:5 9am Supervision of high-risk August 06, 2024 8:59am Depression August 30, 2024 2:06p m Obesity affecting August 30 2:06pm August 30, 2024 2:06p m Supervision of high-risk August 152024 2:06pm Chief Complaint Admit Date Est Care/Urine test/ Vitals August 06, 2024 8:59am New OB, LMP 3/14, SAMANTHA 04/04, first baby August 30, 2024 2:06pm 12 WK OB September 24, 2024 9:37 am Reason for Visit Admit Date Depression August 06, 2024 8:5 9am Obesity affecting August 06, 2024 8:59am August 06, 2024 8:5 9am Supervision of high-risk August 06, 2024 8:59am Depression August 30, 2024 2:06p m Obesity affecting August 30 2:06pm August 30, 2024 2:06p m Supervision of high-risk August 152024 2:06pm Depression September 24, 2024 9:37 am Obesity affecting September 24, 2 025 9:37am September 24, 2024 9:37 am RhD negative September 24, 2024 9:37 am Supervision of high-risk September 24, 2024 9:37am Chief Complaint Admit Date Est Care/Urine test/ Vitals August 06, 2024 8:59am New OB, LMP 3/14, SAMANTHA 04/04, first baby August 30, 2024 2:06pm 12 WK OB September 24, 2024 9:37 am 16w6d ob October 24, 2024 10:4 9am Reason for Visit Admit Date Depression August 06, 2024 8:5 9am Obesity affecting August 06, 2024 8:59am August 06, 2024 8:5 9am Supervision of high-risk August 06, 2024 8:59am Depression August 30, 2024 2:06p m Obesity affecting August 30 2:06pm August 30, 2024 2:06p m Supervision of high-risk August 152024 2:06pm Depression September 24, 2024 9:37 am Obesity affecting September 24, 2 025 9:37am September 24, 2024 9:37 am RhD negative September 24, 2024 9:37 am Supervision of high-risk September 24, 2024 9:37am Depression October 24, 2024 10:4 9am Obesity affecting October 24 10:49am October 24, 2024 10:4 9am RhD negative October 24, 2024 10:4 9am Supervision of high-risk October 24, 2024 10:49am Chief Complaint Admit Date Est Care/Urine test/ Vitals August 06, 2024 8:59am New OB, LMP 3/14, SAMANTHA 04/04, first baby August 30, 2024 2:06pm 12 WK OB September 24, 2024 9:37 am 16w6d ob October 24, 2024 10:4 9am 21wk ob November 22, 2024 11: 20am Reason for Visit Admit Date Depression August 06, 2024 8:5 9am Obesity affecting August 06, 2024 8:59am August 06, 2024 8:5 9am Supervision of high-risk August 06, 2024 8:59am Depression August 30, 2024 2:06p m Obesity affecting August 30 2:06pm August 30, 2024 2:06p m Supervision of high-risk August 152024 2:06pm Depression September 24, 2024 9:37 am Obesity affecting September 24 9:37am September 24, 2024 9:37 am RhD negative September 24, 2024 9:37 am Supervision of high-risk September 24, 2024 9:37am Depression October 24, 2024 10:4 9am Obesity affecting October 24 10:49am October 24, 2024 10:4 9am RhD negative October 24, 2024 10:4 9am Supervision of high-risk October 24, 2024 10:49am Depression November 22, 2024 11: 20am Obesity affecting November 22, 2024 11:20am November 22, 2024 11: 20am RhD negative November 22, 2024 11: 20am Supervision of high-risk Aug[facility] t 2024 11:20am Chief Complaint Admit Date New OB, LMP 3/14, SAMANTHA 04/04, first baby August 30, 2024 2:06pm 12 WK OB September 24, 2024 9:37 am 16w6d ob October 24, 2024 10:4 9am 21wk ob November 22, 2024 11: 20am 25wk ob December 20, 2024 9:58am Reason for Visit Admit Date Depression August 30, 2024 2:06p m Obesity affecting August 30 2:06pm August 30, 2024 2:06p m Supervision of high-risk August 152024 2:06pm Depression September 24, 2024 9:37 am Obesity affecting September 24 9:37am September 24, 2024 9:37 am RhD negative September 24, 2024 9:37 am Supervision of high-risk September 24, 2024 9:37am Depression October 24, 2024 10:4 9am Obesity affecting October 24 10:49am October 24, 2024 10:4 9am RhD negative October 24, 2024 10:4 9am Supervision of high-risk October 24, 2024 10:49am Depression November 22, 2024 11: 20am Obesity affecting November 22, 2024 11:20am November 22, 2024 11: 20am RhD negative November 22, 2024 11: 20am Supervision of high-risk Augus 2024 11:20am Depression December 20, 2024 9:58am Obesity affecting December 9:58am December 20, 2024 9:58am RhD negative December 20, 2024 9:58am Supervision of high-risk [place] [id number] 9:58am Chief Complaint Admit Date 12 WK OB September 24, 2024 9:37 am 16w6d ob October 24, 2024 10:4 9am 21wk ob November 22, 2024 11: 20am 25wk ob December 20, 2024 9:58am 28wk ob/glucose/rhogam January 10 025 11:08am Reason for Visit Admit Date Depression September 24, 2024 9:37 am Obesity affecting September 24 025 9:37am September 24, 2024 9:37 am RhD negative September 24, 2024 9:37 am Supervision of high-risk September 24, 2024 9:37am Depression October 24, 2024 10:4 9am Obesity affecting October 24 10:49am October 24, 2024 10:4 9am RhD negative October 24, 2024 10:4 9am Supervision of high-risk October 24, 2024 10:49am Depression November 22, 2024 11: 20am Obesity affecting November 22, 2024 11:20am November 22, 2024 11: 20am RhD negative November 22, 2024 11: 20am Supervision of high-risk Augus t 2024 11:20am Depression December 20, 2024 9:58am Obesity affecting December 9:58am December 20, 2024 9:58am RhD negative December 20, 2024 9:58am Supervision of high-risk [facility] 2024 9:58am Depression January 10, 2025 11:08am Obesity affecting January 102024 11:08am January 10, 2025 11:08am RhD negative January 10, 2025 11:08am Supervision of high-risk [facility] 2024 11:08am Chief Complaint Admit Date 16w6d ob October 24, 2024 10:4 9am 21wk ob November 22, 2024 11: 20am 25wk ob December 20, 2024 9:58am 28wk ob/glucose/rhogam January 10 11:08am 30wk ob 2025 10 :54am Reason for Visit Admit Date Depression October 24, 2024 10:4 9am Obesity affecting October 24 10:49am October 24, 2024 10:4 9am RhD negative October 24, 2024 10:4 9am Supervision of high-risk October 24, 2024 10:49am Depression November 22, 2024 11: 20am Obesity affecting November 22, 2024 11:20am November 22, 2024 11: 20am RhD negative November 22, 2024 11: 20am Supervision of high-risk Augus t 2024 11:20am Depression December 20, 2024 9:58am Obesity affecting December 9:58am December 20, 2024 9:58am RhD negative December 20, 2024 9:58am Supervision of high-risk [facility] 2024 9:58am Depression January 10, 2025 11:08am Obesity affecting January 102024 11:08am January 10, 2025 11:08am RhD negative January 10, 2025 11:08am Supervision of high-risk [facility] 2024 11:08am Depression 2025 10 :54am Obesity affecting 2025 10:54am 2025 10 :54am RhD negative 2025 10 :54am Supervision of high-risk Octob er 2024 10:54am Additional Source Comments INFORMATION SOURCE (unrecogn ized section and content) DATE CREATED AUTHOR 07/12/2020 [facility] DATE CREATED AUTHOR AUTHOR'S ORGANIZ ATION 04/01/2021 [facility] DATE CREATED AUTHOR AUTHOR'S ORGANIZ ATION 04/18/2022 [facility] DATE CREATED AUTHOR AUTHOR'S ORGANIZ ATION 10/04/2023 [facility] DATE CREATED AUTHOR AUTHOR'S ORGANIZ ATION 07/05/2024 [facility] DATE CREATED AUTHOR AUTHOR'S ORGANIZ ATION 10/04/2024 [facility] DATE CREATED AUTHOR AUTHOR'S ORGANIZ ATION 11/13/2024 [facility] DATE CREATED AUTHOR AUTHOR'S ORGANIZ ATION 02/10/2025 [facility] Reason for Visit (unrecogniz ed section and content) Reason Comments Ingrown Toenail Lateral border; ongo ing about a week and a half Reason Comments Follow-up S/p Left grt toenail . Slight pain, doing well. Reason Comments New Patient Visit Toe injury, loose st ool, Care Teams (unrecognized sec tion and content) [employer] Referee Relationship Specialty Start Date End Date Merissa Linton CNP [address] [place] [id number] PCP - General Nurse Practitioner 09/19/23 [employer] Re[employer]ree Relationship Specialty Start Date End Date Merissa Linton CNP [address] [place] [address] PCP - General Nurse Practitioner 09/19/23 [employer] Re[employer]ree Relationship Specialty Start Date End Date Merissa Linton CNP [address] [place] [address] PCP - General Nurse Practitioner 09/19/23 Team Status: Inactive Member Role Status Dates Dr. Marisela Nelson MD Attending Provider Active Start: August 06, 2024 End: August 06, 2024 Team Status: Inactive Member Role Status Dates Dr. Rachele Llanes DO Attending Provider Activ e Start: August 30, 2024 End: August 30, 2024 Team Status: Inactive Member Role Status Dates Dr. Marisela Nelson MD Attending Provider Active Start: August 30, 2024 End: August 30, 2024 Dr. Marisela Nelson MD Referring Provider Active Start: August 30, 2024 End: August 30, 2024 Team Status: Active Member Role Status Dates Dr. Rachele Llanes DO Attending Provider Activ e Start: September 03, 2024 Dr. Rachele Llanes DO Referring Provider Activ e Start: September 03, 2024 Team Status: Inactive Member Role Status Dates Dr. Rachele Llanes DO Attending Provider Activ e Start: September 03, 2024 End: September 03, 2024 Dr. Rachele Llanes DO Referring Provider Activ e Start: September 03, 2024 End: September 03, 2024 Team Status: Inactive Member Role Status Dates Sai Foss MACHINE SET UP TECHNICIAN, MACHINE SET UP TECHNICIAN-C Attending Provider Active Start: September 24, 2024 End: September 24, 2024 [employer] Re[employer]ree Relationship Specialty Start Date End Date Louann Hager MD [address] [place] [address] PCP - General Family Medicine 10/01/24 Team Status: Inactive Member Role/Relationship Status Dates Dr. Marisela Nelson MD Attending Provider Active Start: August 06, 2024 End: August 06, 2024 Team Status: Inactive Member Role/Relationship Status Dates Dr. Rachele Llanes DO Attending Provider Activ e Start: August 30, 2024 End: August 30, 2024 Team Status: Inactive Member Role/Relationship Status Dates Dr. Marisela Nelson MD Attending Provider Active Start: August 30, 2024 End: August 30, 2024 Dr. Marisela Nelson MD Referring Provider Active Start: August 30, 2024 End: August 30, 2024 Team Status: Inactive Member Role/Relationship Status Dates Dr. Rachele Llanes DO Attending Provider Activ e Start: September 03, 2024 End: September 03, 2024 Dr. Rachele Llanes DO Referring Provider Activ e Start: September 03, 2024 End: September 03, 2024 Team Status: Inactive Member Role/Relationship Status Dates Sai Foss NP MACHINE SET UP TECHNICIAN-C Attending Provider Active Start: September 24, 2024 End: September 24, 2024 Team Status: Inactive Member Role/Relationship Status Dates Dr. Rachele Llanes DO Attending Provider Activ e Start: October 24, 2024 End: October 24, 2024 Team Status: Inactive Member Role/Relationship Status Dates Veronica Cabrera CNM Attending Provider Active S tart: November 22, 2024 End: November 22, 2024 Team Status: Inactive Member Role/Relationship Status Dates Dr. Rachele Llanes DO Attending Provider Activ e Start: August 30, 2024 End: August 30, 2024 Team Status: Inactive Member Role/Relationship Status Dates Dr. Marisela Nelson MD Attending Provider Active Start: August 30, 2024 End: August 30, 2024 Dr. Marisela Nelson MD Referring Provider Active Start: August 30, 2024 End: August 30, 2024 Team Status: Inactive Member Role/Relationship Status Dates Dr. Rachele Llanes DO Attending Provider Activ e Start: September 03, 2024 End: September 03, 2024 Dr. Rachele Llanes DO Referring Provider Activ e Start: September 03, 2024 End: September 03, 2024 Team Status: Inactive Member Role/Relationship Status Dates Sai Foss NP MACHINE SET UP TECHNICIAN-C Attending Provider Active Start: September 24, 2024 End: September 24, 2024 Team Status: Inactive Member Role/Relationship Status Dates Dr. Rachele Llanes DO Attending Provider Activ e Start: October 24, 2024 End: October 24, 2024 Team Status: Inactive Member Role/Relationship Status Dates Veronica Cabrera CNM Attending Provider Active S tart: November 22, 2024 End: November 22, 2024 Team Status: Inactive Member Role/Relationship Status Dates Dr. Marisela Nelson MD Attending Provider Active Start: December 20, 2024 End: December 20, 2024 Team Status: Inactive Member Role/Relationship Status Dates Sai Foss MACHINE SET UP TECHNICIAN, MACHINE SET UP TECHNICIAN-C Attending physician Active Start: September 24, 2024 End: September 24, 2024 Team Status: Inactive Member Role/Relationship Status Dates Dr. Rachele Llanes DO Attending physician Acti ve Start: October 24, 2024 End: October 24, 2024 Team Status: Inactive Member Role/Relationship Status Dates Veronica Cabrera CNM Attending physician Active Start: November 22, 2024 End: November 22, 2024 Team Status: Inactive Member Role/Relationship Status Dates Dr. Marisela Nelson MD Attending physician Active Start: December 20, 2024 End: December 20, 2024 Team Status: Inactive Member Role/Relationship Status Dates Veronica Cabrera CNM Attending physician Active Start: January 10, 2025 End: January 10, 2025 Team Status: Active Member Role/Relationship Status Dates Dr. Marisela Nelson MD Attending physician Active Start: January 10, 2025 Dr. Marisela Nelson MD Referring Provider Active Start: January 10, 2025 Team Status: Inactive Member Role/Relationship Status Dates Dr. Marisela Nelson MD Attending physician Active Start: January 10, 2025 End: January 10, 2025 Dr. Marisela Nelson MD Referring Provider Active Start: January 10, 2025 End: January 10, 2025 Team Status: Inactive Member Role/Relationship Status Dates Dr. Rachele Llanes DO Attending physician Acti ve Start: October 24, 2024 End: October 24, 2024 Team Status: Inactive Member Role/Relationship Status Dates Veronica Cabrera CNM Attending physician Active Start: November 22, 2024 End: November 22, 2024 Team Status: Inactive Member Role/Relationship Status Dates Dr. Marisela Nelson MD Attending physician Active Start: December 20, 2024 End: December 20, 2024 Team Status: Inactive Member Role/Relationship Status Dates Veronica Cabrera CNM Attending physician Active Start: January 10, 2025 End: January 10, 2025 Team Status: Inactive Member Role/Relationship Status Dates Dr. Marisela Nelson MD Attending physician Active Start: January 10, 2025 End: January 10, 2025 Dr. Marisela Nelson MD Referring Provider Active Start: January 10, 2025 End: January 10, 2025 Team Status: Inactive Member Role/Relationship Status Dates Sai Foss MACHINE SET UP TECHNICIAN, MACHINE SET UP TECHNICIAN-C Attending physician Active Start: 2025 End: 2025 Goals (unrecognized section and content) Type Care Experience svdLabor Preferences -CB/BF classes: []labor support person: []labor intervention preferences: []pain management options preferred: []cut cord/dad catch: []: []PP control planned: []discussed possible routes of delivery and associated risks: []special requests: [] Type Detail Care Experience svdLabor Preferences -CB/BF classes: enclabor support person: Curtislabor intervention preferences: pain management options preferred: limitedcut cord/dad catch: cordbreastfeeding: yesPP control planned: []discussed possible routes of delivery and associated risks: []special requests: [] FOR RECORDS PERTAINING TO PATIENTS WHO ARE OR HAVE BEEN ENROLLED IN A CHEMICAL DEPENDENCY/SUBSTANCEABUSE PROGRAM, SOME INFORMATION MAY BE OMITTED. This clinical summary was aggregated from multiple sources. Caution should be exercised in using it in the provision of clinical care. This summary normalizes information from multiple sources, and as a consequence, information in this document may materially change the coding, format and clinical context of patient data. In addition, data may be omitted in some cases. CLINICAL DECISIONS SHOULD BE BASED ON THE PRIMARY CLINICAL RECORDS. [employer] provides no warranty or guarantee of the accuracy or completeness of information in this document.
== END 2025-02-12 23:59 | disposition home or self-care (01) ==
PROVIDERS: PCP Family Medicine; Visit Provider Nurse Practitioner Women's Health
DX: O99.891 Other specified diseases and conditions complicating pregnancy (principal); R94.31 Abnormal electrocardiogram [ECG] [EKG]; Z3A.34 34 weeks gestation of pregnancy
CPT/HCPCS: 36415; 80048

== ENCOUNTER → 2025-02-20 | Outpatient (CLI) | payer OTHER, SELFPAY ==
--- NOTE | 2025-02-20 11:45 | US_ITS ---
PROCEDURE: OB LIMITED WITH BIOMETRICS 02/20/2025 REASON FOR EXAM: S>D growth. TECHNIQUE: Procedure Code: [id number] Modality: US Procedure: OB LIMITED WITH BIOMETRICS COMPARISON: None FINDINGS LMP: June 28, 2024 Number: 1 Position: Vertex Placental Position: Posterior and not low-lying Placental Abnormalities: No evidence of previa. DIMENSIONS: Biparietal Diameter: 9.1 cm: 37 weeks and 0 days: 99 percentile/ Head Circumference: 32.5 cm: 36 weeks and 5 days: 85th percentile/ Abdominal Circumference: 32.8 cm: 36 weeks and 5 days: 99 percentile/ Femur Length: 6.9 cm: 35 weeks and 1 day: 75th percentile/ ESTIMATED WEIGHT: 2940 g plus/-442 g ESTIMATED WEIGHT PERCENTILE (24+ weeks): 98th percentile ESTIMATED GESTATIONAL AGE: Baseline: 33 weeks and 6 days By Ultrasound: 36 weeks and 4 days ESTIMATED DATE OF DELIVERY: Baseline: April 04, 2024 By Ultrasound: March 16, 2025 BIOPHYSICAL ASSESSMENT: Amniotic Fluid Volume: 7.6 cm Amniotic Fluid Index: 20.6 (8-24 cm normal range) Cardiac Motion: 137 beats per minute (average) Trunk and Limb Motion: Present. MATERNAL ANATOMY: Adnexa: Neither maternal ovary is successfully identified. US/OB Limited With Biometrics IMPRESSION: Single live intrauterine gestation with a mean gestational age of 36 weeks and 4 days. Reading Location: [id number]
== END | disposition home or self-care (01) ==
PROVIDERS: PCP Family Medicine; Referring Provider Advanced Practice Midwife; Visit Provider Advanced Practice Midwife
DX: O26.843 Uterine size-date discrepancy, third trimester (principal); Z3A.36 36 weeks gestation of pregnancy
CPT/HCPCS: 76816

== ENCOUNTER → 2025-02-21 | Outpatient (CLI) | payer OTHER, SELFPAY ==
--- OUTSIDE RECORDS SUMMARY | 2025-02-21 16:49 | XMS RPT_ITS | CCD ---
Author Organization [facility] CliniSymd Care Team Providers Care Engineering Secretary Name Role Phone MARTY ERNST Primary Care Unavailabl e EIDEN, MARTY BELTRAN Admitting Unavailabl e STEFAN, RICHARD CHOUDHARY Attending Unavail able STEFAN, RICHARD CHOUDHARY Attending Unavail able [place] RESIDENTIAL ADVISOR, Merissa Syed Primary Care Provider MERISSA LINTON Primary Care Unavailab le HASSMANN II, GILBERTO HUANG Attending Un available SEGGERSON, MERISSA SYED Primary Care Unavailab le HASSMANN II, GILBERTO HUANG Referring Un available HASSMANN II, GILBERTO HUANG Admitting Un available HASSMANN II, GILBERTO HUANG Attending Un available SEGGERSON, MERISSA KUNAL Primary Care Unavailab le [place] GEOPHYSICAL DRAFTER-RESIDENTIAL ADVISOR, Merissa Syed Attending Unavailable [place] GEOPHYSICAL DRAFTER-RESIDENTIAL ADVISOR, Merissa Kunal Primary Care Unavailable [place] GEOPHYSICAL DRAFTER-RESIDENTIAL ADVISOR, Mary Cleveland Attending Mary vailable [place] GEOPHYSICAL DRAFTER-RESIDENTIAL ADVISOR, Merissa Kunal Primary Care Unavailable [place] GEOPHYSICAL DRAFTER-RESIDENTIAL ADVISOR, Merissa Kunal Primary Care Unavailable [place] GEOPHYSICAL DRAFTER-RESIDENTIAL ADVISOR, Mary Cleveland Attending Mary vailable Dr. Marisela Nelson MD Attending Provider Dr. Rachele Llanes DO Attending Provider Dr. Marisela Nelson MD Referring Provider Dr. Rachele Llanes DO Referring Provider Sai Turner Attending Provider [phone] Louann Hager MD Primary Care Provider LOUANN HAGER Attending Unavailable LOUANN HAGER Primary Care Unavailable NO PRIMARY CAREMD Primary Care Unavailable PRUDENCE, SAI S Referring Unavailable SILVER ANTUNEZ Attending Unavailable Rick SMALL, Veronica Attending Provider [phone] ROBERTO, Dr. Antonio Attending Provider [phone] Prudence WHYTE-CSai Attending Physician [phone] Dr. Rachele Llanes DO Attending Physician Veronica Cabrera CNM Attending Physician [phone] Omar ROBERTO, Dr. Antonio Attending Physician Dr. Marisela Nelson MD Referring Provider Prudence WHYTE-C, Sai Attending Physician [phone] Rachele Llanes Attending UnavailRachele Hilton Referring UnavailMarisela Amanda Attending Unavailable Marisela Nelson Referring Unavailable Prudence CUT IN STATION OPERATOR, Sai Attending Unavailable Mckenna, Louann M Primary Care Unavailable Rachele Llanes Attending Unavailvivian e Prudence WHYTE, Sai Attending Unavailable Rachele Llanes Attending Unavailabl e Veronica Cabrera Attending Unavailable Omar, Marisela Attending Unavailable Veronica Cabrera Attending Unavailable [place] CUT IN STATION OPERATOR, Sai Attending Unavailable Prudence CUT IN STATION OPERATOR, Sai Attending Unavailable Veronica Cabrera Attending Unavailable Yeater, Louann M Primary Care Unavailable Yeater, Louann M Referring Unavailable Marisela Nelson Attending Unavailable Veronica Cabrera Attending Unavailable Veronica Cabrera Referring Unavailable Yeater, Louann M Primary Care Unavailable [place] CUT IN STATION OPERATOR, Sai Attending Unavailable [place] CUT IN STATION OPERATOR, Sai Referring Unavailable Yeater, Louann M Primary Care Unavailable Marisela Nelson Attending Unavailable Marisela Nelson Referring Unavailable Allergies Allergy Classification Reported Allergen(s) Allergy Type Date of Onset Reaction(s) Facility (1 source) No Known Medication Allergies; Translations: [No Known Medication Allergies] Propensity to adverse reactions to drug (disorder) [facility] Repository (10 sources) Ragweed pollen; Translations: [ragweed pollen] Allergy to substance 5 Itching [facility] Medications Current Medications Medication Drug Class(es) [...] 20 mg PO TWICE A DAY 60 6 December 20, 2024 12:00am Complies with drug therapy Mv-Mins 69-Tgcp-Peqll No.1-Dha (Pnv-Redding) 28-1-300 mg capsule (9 sources) Start: 08-06-2024 Mv-Mins 79-Ekww-Iuuqr No.1-Dha (Pnv-Redding) 28-1-300 mg capsule Active NMA PO August 06, 2024 12:00am Complies with drug therapy Start: 08-06-2024 Start: 08-06-2024 Mv-Mins 71-Iro n-Folic No.1-Dha (Pnv-Redding) 28-1-300 mg capsule Active NMA PO August [...] unspecified] Onset: 10-01-2024 10-01-2024 Chronic Cardiac dysrhythmias (1 source) Tachycardia, unspecified; Translations: [Tachycardia, unspecified] Onset: 02-17-2025 Episodic Immunizations and screening for infectious disease [...] Translations: [Obesity complicating , first trimester] Onset: 02-17-2025 Chronic Other complications of (1 source) Obesity complicating , unspecified trimester; Translations: [Obesity complicating , unspecified trimester] Onset: 08-30-2024 Chronic Other complications of (20 sources) High risk ; Translations: [Supervision of high risk , unspecified, unspecified trimester] 08-06-2024 Episodic Comment on above: , SAMANTHA 04/04/25, Joshua [id number], SAAMNTHA 5 Boy, Joshua [id number], SAMANTHA 5 Boy, name secret?(jermaine) Joshua Other complications of (1 source) Uterine size-date discrepancy, unspecified trimester; Translations: [Uterine size-date discrepancy, unspecified trimester] Onset: 02-17-2025 Episodic Other complications of (1 source) Supervision of high risk , unspecified, third trimester; Translations: [Supervision of high risk , unspecified, third trimester] Onset: 02-17-2025 Episodic Other complications of (1 source) Supervision [...] Translations: [Unspecified blood type, Rh negative] Onset: 02-17-2025 Episodic Residual codes; unclassified (1 source) 33 weeks gestation of ; Translations: [33 weeks gestation of ] Onset: 02-17-2025 Episodic Residual codes; unclassified (1 source) 28 [...] Test Name Value Interpretation Reference Range Facility Risk Analyst Office Visit Reporton 02-17-2025 Risk Analyst Office Visit Report [facility] [address], [address] [place] [address] OFFICE VISIT Date of Service: 02/17/25 MR#: [id number] Acct: [id number] Name: JAMIL NORRIS Rep #: [id number] : 1995 Provider: GEOVANNY Salazar ams Age/Sex: 30/F Location: [facility] Status: Signed Intake Vital Signs 01/10/25 11:12 02/05/25 13:10 02/17/25 11:38 02/17/25 11:40 Height 5 ft 5 in 5 ft 5 in 5 ft 5 in 5 ft 5 in Weight: 213 lb 6 oz 213 lb 7 oz BMI 35.5 35.5 BP 107/70 117/75 Pulse 112 H Intake Visit Reasons: 33 WK 3D OB Spool Winder Required: No Is patient in pain?: No Allergies ragweed pollen Allergy (Mild, Verified 02/17/25 11:38) Itching Medications ???Medication ???Instructions ???Recorded ???Confirmed ???Type sertraline 50 mg tablet 50 mg PO QDAY 07/31/24 02/17/25 Hi story multivit-min no.71-iron fum 28 cap PO 08/06/24 02/17/25 History mg-folate no.1 1 mg-dha 300 mg capsule (PNV-Redding) famotidine 20 mg tablet (Pepcid) 20 mg PO BID #60 tabs 12/20/2407/09 Rx ondansetron 4 mg disintegrating 4 mg PO Q4H PRN nausea and 5 02/17/25 Rx tablet vomiting #60 tabs Last Menstrual Period: 06/28/24 Zika: Zika virus screening: Negative : No PFSH PFSH Medical History RhD negative Seasonal allergies Pneumonia Surgical History [place] teeth extracted Family History Grandmother Arthritis Diabetes [...] animals: dog(s) history of recent travel: Yes ([place]) out of state: Yes out of [...] 1-2 times per week duration: 30-45 minutes/day fredi/mormon: Denominational seatbelt use: always do you feel safe at home: Yes additional social history: -Joshua- Sales History 1 Elective abortions Hx Para 0 Spontaneous abortions Hx # Term Pregnancies Ectopic pregnancies Hx # Pregnancies Multiple births # of living children HPI 33 WK 3D OB Details: JAMIL NORRIS is a 30 year old who presents for routine OB visit. OB Visit SAMANTHA Calculator Estimated Delivery Date Method Current WG Current Estimate 04/04/25 LMP (Certain) 33w 3d Other Estimates 04/02/25 Ultrasound #1 33w 5d Expected Delivery Route/Plan Labor Preferences- CB/BF classes: [...] nipt. first baby first . lives in [place]. 09/24/24 -???-???-???-???-?? ?-???-???-???-???-? ??-???-???- 12w 4d 181 l (more content not included)... Normal [facility] Basic Metabolic Profile (BMP )on 02-12-2025 BUN/CRE 20.0 RATIO Normal 10-20 [facility] Comment on above: Performed By: #### L 500.2500 #### [facility] [address] [place], [address] Calcium [Mass/Vol] 9.1 mg/dL Normal 7.6-11.0 [facility] Comment on above: Performed By: #### L 500.2500 #### [facility] [address] [place], [address] Chloride [Moles/Vol] 104 mmol/L Normal 98-108 [facility] Comment on above: Performed By: #### L 500.2500 #### [facility] [address] [place], [address] CO2 [Moles/Vol] 20.4 mmol/L Low 21.0-32.0 [facility] Comment on above: Performed By: #### L 500.2500 #### [facility] [address] [place], [address] Creatinine [Mass/Vol] 0.56 mg/dL Low 0.70-1.20 [facility] Comment on above: Performed By: #### L 500.2500 #### [facility] [address] [place], [address] GAP 12 Normal 5-15 [facility] Comment on above: Performed By: #### L 500.2500 #### [facility] [address] [place], [address] GFR/1.73 sq M.predicted among non-blacks MDRD (S/P/Bld) [Vol rate/Area] 127 mL/min/{1.73_m2} Normal >60 [facility] Comment on above: Result Comment: mL/m in/1.73m2 CKD-EPI Creatinine Equation (2020) Performed By: #### L 500.2500 #### [facility] [address] [place], [address] Glucose [Mass/Vol] 109 mg/dL High 70-99 [facility] Comment on above: Performed By: #### L 500.2500 #### [facility] [address] [place], [address] Potassium [Moles/Vol] 3.9 mmol/L Normal 3.3-5.1 [facility] Comment on above: Performed By: #### L 500.2500 #### [facility] [address] [place], [address] Sodium [Moles/Vol] 136 mmol/L Normal 133-145 [facility] Comment on above: Performed By: #### L 500.2500 #### [facility] [address] [place], [address] Urea nitrogen [Mass/Vol] 11 mg/dL Normal 4-19 [facility] Comment on above: Performed By: #### L 500.2500 #### [facility] [address] [place], [address] 12 Lead EKGon 02-07-2025 12 Lead EKG [facility] [address] [place] [address] 12 Lead EKG 02/07/25 0739 MR#: [id number] Acct: [id number] Name: JAMIL NORRIS Rep #: [id number] : 1995 30 From: Gale Zamora MD Attending Dr: CAMPOS Sullivan Status: REG CLI Ordering Dr: Sai Foss NP CUT IN STATION OPERATOR-C Date: 02/07/25 Location: PSN Sex: F C Admitted: Test Reason : [...] Otherwise normal ECG Confirmed by GALE ZAMORA ([id number]), video tape editor DEWAYNE DUBON ([id number]) on 02/10/2025 7:10:52 AM Referred By: Sai Foss Confirmed By: GALE ZAMORA 02/10/25 0710 Date Gale Zamora MD CC: CAMPOS Foss; Dr. Louann Hager MD Signed Normal [facility] Risk Analyst Office Visit Reporton 02-05-2025 Risk Analyst Office Visit Report [facility] [address], [address] [place] [address] OFFICE VISIT Date of Service: 02/05/25 MR#: [id number] Acct: [id number] Name: JAMIL NORRIS Rep #: [id number] : 1995 Provider: CAMPOS solitario Age/Sex: 30/F Location: [facility] Status: Signed Intake Vital Signs 11/22/24 11:24 01/23/25 10:46 02/05/25 13:10 Height 5 ft 5 in 5 ft 5 in 5 ft 5 in Weight: 213 lb 6 oz BMI 35.5 BP 107/70 Pulse 112 H Intake Visit Reasons: 31 WK 5D OB Spool Winder Required: No Is patient in pain?: No Allergies ragweed pollen Allergy (Mild, Verified 02/05/25 13:09) Itching Medications ???Medication ???Instructions ???Recorded ???Confirmed ???Type sertraline 50 mg tablet 50 mg PO QDAY 07/31/24 02/05/25 Hi story multivit-min no.71-iron fum 28 cap PO 08/06/24 02/05/25 History mg-folate no.1 1 mg-dha 300 mg capsule (PNV-Redding) famotidine 20 mg tablet (Pepcid) 20 mg PO BID #60 tabs 12/20/24 Rx ondansetron 4 mg disintegrating 4 mg PO Q4H PRN nausea and 02/05/25 Rx tablet vomiting #60 tabs Last Menstrual Period: 06/28/24 Zika: Zika virus screening: Negative : No PFSH PFSH Medical History RhD negative Seasonal allergies Pneumonia Surgical History [place] teeth extracted Family History Grandmother Arthritis Diabetes [...] animals: dog(s) history of recent travel: Yes ([place]) out of state: Yes out of [...] 1-2 times per week duration: 30-45 minutes/day fredi/mormon: Denominational seatbelt use: always do you feel safe [...] nipt. first baby first . lives in [place]. 09/24/24 -???-???-???-???-?? ?-???-???-???-???-? ??-???-???- 12w 4d 181 lb 130/82 Negative -???-???-???-???-?? ?-???-???-?? (more content not included)... Normal [facility] - Chemistry and C hemistry - challengeOrdered By: Rachele Bradley on 2025 Glucose Ql (U) Negative [facility] - UrinalysisOrder ed By: Rachele Bradley on 2025 Protein Ql (U) Negative [facility] Risk Analyst Office Visit Reporton 2025 Risk Analyst Office Visit Report [facility] [address], [address] [place] [address] OFFICE VISIT Date of Service: 01/23/25 MR#: [id number] Acct: [id number] Name: JAMIL NORRIS Rep #: [id number] : 1995 Provider: CAMPOS solitario Age/Sex: 30/F Location: [facility] Status: Signed Intake Vital Signs 11/22/24 11:24 01/10/25 11:12 01/23/25 10:45 01/23/25 10:46 Height 5 ft 5 in 5 ft 5 in 5 ft 5 in 5 ft 5 in Weight: 211 lb 1 oz BMI 35.1 BP 115/77 Intake Visit Reasons: 30wk ob Spool Winder Required: No Is patient in pain?: No Allergies ragweed pollen Allergy (Mild, Verified 01/23/25 10:45) Itching Medications ???Medication ???Instructions ???Recorded ???Confirmed ???Type sertraline 50 mg tablet 50 mg PO QDAY 07/31/24 01/23/25 Hi story multivit-min no.71-iron fum 28 cap PO 08/06/24 01/23/25 History mg-folate no.1 1 mg-dha 300 mg capsule (PNV-Redding) famotidine 20 mg tablet (Pepcid) 20 mg PO BID #60 tabs 12/20/2401/09 Rx ondansetron 4 mg disintegrating 4 mg PO Q4H PRN nausea and 5 01/23/25 Rx tablet vomiting #60 tabs Last Menstrual Period: 06/28/24 Zika: Zika virus screening: Negative : Yes PFSH PFSH Medical History RhD negative Seasonal allergies Pneumonia Surgical History [place] teeth extracted Family History Grandmother Arthritis Diabetes [...] animals: dog(s) history of recent travel: Yes ([place]) out of state: Yes out of [...] 1-2 times per week duration: 30-45 minutes/day fredi/mormon: Denominational seatbelt use: always do you feel safe [...] nipt. first baby first . lives in [place]. 09/24/24 -???-???-???-???-?? ?-???-???-???-???-? ??-???-???- 12w 4d 181 lb 130/82 Negative -???-???-???-???-?? ?-???-???-?? (more content not included)... Normal [facility] Absolute lymphocyte countOrd ered By: Marisela Nelson on 01-10-2025 Lymphocytes Auto (Unsp spec) [#/Vol] 1.58 10*3/uL 0.83-4.51 [facility] Absolute neutrophil countOrd ered By: Marisela Nelson on 01-10-2025 Neutrophils (Bld) [#/Vol] 5.8 10*3/uL 2.0-7.7 [facility] Automated lymphocyte count a s percentage of total leukocytesOrdered By: Marisela Nelson on 01-10-2025 Lymphocytes/100 WBC Auto (Unsp spec) 18.9 % Low 19-41 [facility] Basophil percentageOrdered B y: Marisela Nelson on 01-10-2025 Basophils/100 WBC (Bld) 0.6 % 0-[address] [facility] CBC W/Diff, Automatedon 12-17 Absolute Lymph 1.58 X10 3/uL Normal 0.83-4.51 [facility] Comment on above: Performed By: #### L 509.8002, L501.0250, L100.0100, L3890.6006, BTS #### [facility] [address] [place], [address] Absolute Neut 5.8 X10 3/uL Normal 2.0-7.7 [facility] Comment on above: Performed By: #### L 509.8002, L501.0250, L100.0100, L3890.6006, BTS #### [facility] [address] [place], [address] Basophils/100 WBC (Bld) 0.6 % Normal 0-[address] [facility] Comment on above: Performed By: #### L 509.8002, L501.0250, L100.0100, L3890.6006, BTS #### [facility] [address] [place], [address] Eosinophils/100 WBC (Bld) 2.9 % Normal 0-5 [facility] Comment on above: Performed By: #### L 509.8002, L501.0250, L100.0100, L3890.6006, BTS #### [facility] [address] [place], [address] Erythrocyte distribution width (RBC) [Ratio] 12.5 % Normal 11.6-14.6 [facility] Comment on above: Performed By: #### L 509.8002, L501.0250, L100.0100, L3890.6006, BTS #### [facility] [address] [place], [address] Hematocrit (Bld) [Volume fraction] 33.8 % Low 37-47 [facility] Comment on above: Performed By: #### L 509.8002, L501.0250, L100.0100, L3890.6006, BTS #### [facility] [address] [place], [address] Hemoglobin (Bld) [Mass/Vol] 12.1 g/dL Normal 12.0-15.0 [facility] Comment on above: Performed By: #### L 509.8002, L501.0250, L100.0100, L3890.6006, BTS #### [facility] [address] [place], [address] IG% 0.600 Normal 0.0-0.9 [facility] Comment on above: Result Comment: IG% - Immature Granulocytes (promyelocytes, myelocytes and metamyelocytes) > 1% indicates that a LEFT SHIFT is Present. Performed By: #### L 509.8002, L501.0250, L100.0100, L3890.6006, BTS #### [facility] [address] [place], [address] Lymphocytes/100 WBC (Bld) 18.9 % Low 19-41 [facility] Comment on above: Performed By: #### L 509.8002, L501.0250, L100.0100, L3890.6006, BTS #### [facility] [address] [place], [address] MCH (RBC) [Entitic mass] 32.5 pg High 27.0-32.0 [facility] Comment on above: Performed By: #### L 509.8002, L501.0250, L100.0100, L3890.6006, BTS #### [facility] [address] [place], [address] MCHC (RBC) [Mass/Vol] 35.8 g/dL Normal 32-36 [facility] Comment on above: Performed By: #### L 509.8002, L501.0250, L100.0100, L3890.6006, BTS #### [facility] [address] [place], [address] MCV (RBC) [Entitic vol] 90.9 fL Normal 81-[address] [facility] Comment on above: Performed By: #### L 509.8002, L501.0250, L100.0100, L3890.6006, BTS #### [facility] [address] [place], [address] Monocytes/100 WBC (Bld) 7.3 % Normal 0-[address] [facility] Comment on above: Performed By: #### L 509.8002, L501.0250, L100.0100, L3890.6006, BTS #### [facility] [address] [place], [address] Neutrophils/100 WBC (Bld) 69.7 % Normal 47-70 [facility] Comment on above: Performed By: #### L 509.8002, L501.0250, L100.0100, L3890.6006, BTS #### [facility] [address] [place], [address] Nucleated RBC (Bld) [#/Vol] 0 10*3/uL Normal 0-5 [facility] Comment on above: Performed By: #### L 509.8002, L501.0250, L100.0100, L3890.6006, BTS #### [facility] [address] [place], [address] Platelet mean volume (Bld) [Entitic vol] 11.2 fL Normal 6.2-12.0 [facility] Comment on above: Performed By: #### L 509.8002, L501.0250, L100.0100, L3890.6006, BTS #### [facility] [address] [place], [address] Platelets (Bld) [#/Vol] 176 10*3/uL Normal 150-450 [facility] Comment on above: Performed By: #### L 509.8002, L501.0250, L100.0100, L3890.6006, BTS #### [facility] [address] [place], [address] RBC (Bld) [#/Vol] 3.72 10*6/uL Low 4.2-5.4 [facility] Comment on above: Performed By: #### L 509.8002, L501.0250, L100.0100, L3890.6006, BTS #### [facility] [address] [place], [address] RDW SD 41.1 fl Normal 35.1-43.9 [facility] Comment on above: Performed By: #### L 509.8002, L501.0250, L100.0100, L3890.6006, BTS #### [facility] [address] [place], [place], [address] WBC (Bld) [#/Vol] 8.4 10*3/uL Normal 4.4-11.0 [facility] Comment on above: Performed By: #### L 509.8002, L501.0250, L100.0100, L3890.6006, BTS #### [facility] [address] [place], [place], [address] Eosinophil percentageOrdered By: Marisela Nelson on 01-10-2025 Eosinophils/100 WBC (Bld) 2.9 % 0-5 [facility] Erythrocyte distribution wid th ratioOrdered By: Marisela Nelson on 01-10-2025 Erythrocyte distribution width (RBC) [Ratio] 12.5 % 11.6-14.6 [facility] Erythrocyte distribution wid th standard deviationOrdered By: Marisela Nelson on 01-10-2025 Erythrocyte distribution width (RBC) [Ratio] 41.1 fl 35.1-43.9 [facility] Glucose Challenge Gest 1H 50 boris 01-10-2025 GLU GEST 50g 1H 115 mg/dL Normal 70-140 [facility] Comment on above: Performed By: #### L 509.8002, L501.0250, L100.0100, L3890.6006, BTS #### [facility] [address] [place], [place], [address] Glucose measurement at 2 lizeth rs post-dose gestational glucose tolerance testOrdered By: Marisela Nelson on 01-10-2025 Glucose [Mass/Vol] 115 mg/dL 70-140 [facility] HIVon 01-10-2025 HIV Non-Reactive Normal Nonreactive [facility] Comment on above: Result Comment: Non- Reactive Reactive Repeatedly reactive samples must be confirmed according to CDC recommended confirmatory algorithms. The subresults for either HIVAG or AHIV can be used as an aid in the selection of the confirmation algorithm for reactive samples. Send out specimens with Reactive results to [facility] for confirmation. Order the HIV antibody detection and differentiation: lc#[id number] Performed By: #### L 509.8002, L501.0250, L100.0100, L3890.6006, BTS #### [facility] [address] [place], [address] Hematocrit Auto (Bld) [Volum e fraction]Ordered By: Marisela Nelson on 01-10-2025 Hematocrit (Bld) [Volume fraction] 33.8 % Low 37-47 [facility] Hemoglobin measurementOrdere d By: Marisela Nelson on 01-10-2025 Hemoglobin (Bld) [Mass/Vol] 12.1 g/dL 12.0-15.0 [facility] Immature granulocytes/100 WB C Auto (Bld)Ordered By: Marisela Nelson on 01-10-2025 Immature granulocytes/100 WBC (Bld) 0.600 % 0.0-0.9 [facility] Comment on above: IG% - Immature Granu locytes (promyelocytes, myelocytes and metamyelocytes) > 1% indicates that a LEFT SHIFT is Present. Laboratory - Chemistry and C hemistry - challengeOrdered By: Veronica Cabrera on 01-10-2025 Glucose Ql (U) Negative [facility] - UrinalysisOrder ed By: Veronica Cabrera on 01-10-2025 Protein Ql (U) Negative [facility] MCV (mean corpuscular volume ) determinationOrdered By: Marisela Nelson on 01-10-2025 MCV (RBC) [Entitic vol] 90.9 fL 81-99 [facility] Mean corpuscular hemoglobin (MCH) determinationOrdered By: Marisela Nelson on 01-10-2025 MCH (RBC) [Entitic mass] 32.5 pg High 27.0-32.0 [facility] Mean corpuscular hemoglobin concentration (MCHC) determinationOrdered By: Marisela Nelson on 01-10-2025 MCHC (RBC) [Mass/Vol] 35.8 g/dL 32-36 [facility] Mean platelet volume determi nationOrdered By: Marisela Nelson on 01-10-2025 Platelet mean volume (Bld) [Entitic vol] 11.2 fL 6.2-12.0 [facility] Monocyte percentageOrdered B y: Marisela Nelson on 01-10-2025 Monocytes/100 WBC (Bld) 7.3 % 0-[address] [facility] Neutrophil percentageOrdered By: Marisela Nelson on 01-10-2025 Neutrophils/100 WBC (Bld) 69.7 % 47-70 [facility] No Panel InformationOrdered By: Marisela Nelson on 01-10-2025 HIV (1&2) Antibody Non-Reactive Nonreactive [facility] Comment on above: Non-ReactiveReactive Repeatedly reactive samples must be confirmed according to CDC recommended confirmatory algorithms. The subresults for either HIVAG or AHIV can be used as an aid in the selection of the confirmation algorithm for reactive samples.Send out specimens with Reactive results to [facility] for confirmation.Order the HIV antibody detection and differentiation: #[id number] Nucleated red blood cell per centageOrdered By: Marisela Nelson on 01-10-2025 Nucleated RBC/100 WBC (Bld) [Ratio] 0 % 0-5 [facility] Risk Analyst Office Visit Reporton 01-10-2025 Risk Analyst Office Visit Report [facility]'s [address], [facility] [address] [place] [address] OFFICE VISIT Date of Service: 01/10/25 MR#: [id number] Acct: [id number] Name: JAMIL NORRIS Maida Rep #: [id number] : 1995 Provider: GEOVANNY Salazar ams Age/Sex: 29/F Location: [facility] Status: Signed with Addenda ADDENDUM by Renetta Pina on 01/10/25 at 1205 Office Procedure Documentation entered by Renetta Pina 01/10/25 12:05: Injections Is this a patient provided medication?: No Immunizations Adacel(Tdap Adolesn/Adult)(PF) 2 Lf-(2.5-5-3-5)-5 Lf/0.5 mL IM syringe Performing Provider: Veronica Cabrera CNM Performing Location: [facility] Administered by: Renetta Pina on 01/10/25 12:03 Dose Route Admin Location Dispensed Lot Number Expiration Date Package NDC NDC [employer] 0.5 mL IM Left Deltoid 0.5 mL [id number] 12/04/26 76880-701-89 [id number] NOFI-PASTEUR VIS Given Date VIS Provided VIS Publication Date 01/10/25 Single Vaccine 24 Eligibility Eligibility Date Funding Source Not Applicable Office Meds RhoGAM Ultra-Filtered PLUS 1,500 unit (300 mcg) intramuscular syringe Performing Provider: Veronica Cabrera CNM Performing Location: [facility] Administered by: Renetta Pina on 01/10/25 12:03 Dose Route Admin Location Dispensed Lot Number Expiration Date Package NDC NDC [employer] 1,500 unit IM Left Buttock 1 ea [id number] 10/30/26 25850-938-81 [id number] [facility]SL [employer] [facility] Date cc: * Signed Intake Vital Signs 11/22/24 11:24 12/20/24 10:06 01/10/25 11:12 Height 5 ft 5 in 5 ft 5 in 5 ft 5 in Weight: 206 lb 4 oz BMI 34.3 BP 127/78 H Intake Visit Reasons: 28wk ob/glucose/rhogam Chief Complaint: 28wk OB Spool Winder Required: No Is patient in pain?: No Allergies ragweed pollen Allergy (Mild, Verified 01/10/25 11:10) Itching Medications ???Medication ???Instructions ???Recorded ???Confirmed ???Type sertraline 50 mg tablet 50 mg PO QDAY 07/31/24 01/10/25 Hi story multivit-min no.71-iron fum 28 cap PO 08/06/24 01/10/25 History mg-folate no.1 1 mg-dha 300 mg capsule (PNV-Redding) famotidine 20 mg tablet (Pepcid) 20 mg PO BID #60 tabs 12/20/24 Rx Last Menstrual Period: 06/28/24 : No PFSH PFSH Medical History RhD negative Seasonal allergies Pneumonia Surgical History [place] teeth extracted Family History Grandmother Arthritis Diabetes [...] animals: dog(s) history of recent travel: Yes ([place]) out of state: Yes out of [...] 1-2 times per week duration: 30-45 minutes/day fredi/mormon: Denominational seatbelt use: always do you feel safe [...] special requests (more content not included)... Normal [facility] Platelet countOrdered By: Barbara Nelson on 09-26-2025 Platelets (Bld) [#/Vol] 176 10*3/uL 150-450 [facility] RBC Auto (Bld) [#/Vol]Ordere d By: Marisela Nelson on 01-10-2025 RBC (Bld) [#/Vol] 3.72 10*6/uL Low 4.2-5.4 [facility] Syphilis Antibodieson 2024 Syphilis Abs Non-Reactive Normal Nonreactive [facility] Comment on above: Performed By: #### L 509.8002, L501.0250, L100.0100, L3890.6006, BTS #### [facility] [address] [place], [place], [id number] Type AND Screenon 01-10-2025 ABO and Rh group Nom (Bld) Blood group A Rh(D) negative Normal [facility] Comment on above: Order Comment: PN Performed By: #### L 509.8002, L501.0250, L100.0100, L3890.6006, BTS #### [facility] [address] [place], [place], [id number] White blood cell (WBC) count Ordered By: Marisela Nelson on 01-10-2025 WBC (Bld) [#/Vol] 8.4 10*3/uL 4.4-11.0 [facility] - Chemistry and C hemistry - challengeOrdered By: Marisela Nelson on 12-20-2024 Glucose Ql (U) Negative [facility] - UrinalysisOrder ed By: Marisela Nelson on 12-20-2024 Protein Ql (U) Negative [facility] Risk Analyst Office Visit Reporton 12-20-2024 Risk Analyst Office Visit Report [address], [address] [place] [address] OFFICE VISIT Date of Service: 12/20/24 MR#: [id number] Acct: [id number] Name: JAMIL NORRIS Rep #: [id number] : 1995 Provider: Dr. Marisela wang MD Age/Sex: 29/F Location: [facility] Status: Signed Intake Vital Signs 09/24/24 09:41 11/22/24 11:24 12/20/24 10:06 Height 5 ft 5 in 5 ft 5 in 5 ft 5 in Weight: 189 lb 2 oz 199 lb 3 oz BMI 31.4 33.1 BP 124/69 H 122/82 H Intake Visit Reasons: 25wk ob Spool Winder Required: No Is patient in pain?: No Allergies ragweed pollen Allergy (Mild, Verified 12/20/24 10:03) Itching Medications ???Medication ???Instructions ???Recorded ???Confirmed ???Type sertraline 50 mg tablet 50 mg PO QDAY 07/31/24 12/20/24 Hi story multivit-min no.71-iron fum 28 cap PO 08/06/24 12/20/24 History mg-folate no.1 1 mg-dha 300 mg capsule (PNV-Redding) famotidine 20 mg tablet (Pepcid) 20 mg PO BID #60 tabs 12/20/2409/08 Rx Last Menstrual Period: 06/28/24 Zika: Zika virus screening: Negative : No PFSH PFSH Medical History RhD negative Seasonal allergies Pneumonia Surgical History [place] teeth extracted Family History Grandmother Arthritis Diabetes [...] animals: dog(s) history of recent travel: Yes ([place]) out of state: Yes out of [...] 1-2 times per week duration: 30-45 minutes/day fredi/mormon: Denominational seatbelt use: always do you feel safe [...] nipt. first baby first . lives in [place]. 09/24/24 -???-???-???-???-?? ?-???-???-???-???-? ??-???-???- 12w 4d 181 lb 130/82 Negative -???-???-???-???-?? ?-???-???-???-???-? ??-???-???- Negative 152 -???-???-???-???-?? ?-???-???-???-???-? ??-???-???- -No VB. N ausea improved. (more content not included)... Normal [facility] - Chemistry and C hemistry - challengeOrdered By: Veronica Cabrera on 11-22-2024 Glucose Ql (U) Negative [facility] - UrinalysisOrder ed By: Veronica Cabrera on 11-22-2024 Protein Ql (U) Negative [facility] Risk Analyst Office Visit Reporton 11-22-2024 Risk Analyst Office Visit Report [facility]'s [address], [address] [place] [address] OFFICE VISIT Date of Service: 11/22/24 MR#: [id number] Acct: [id number] Name: JAMIL NORRIS Rep #: [id number] : 1995 Provider: GEOVANNY Salazar ams Age/Sex: 29/F Location: [facility] Status: Signed Intake Vital Signs 08/30/24 14:15 10/24/24 10:52 11/22/24 11:24 Height 5 ft 5 in 5 ft 5 in 5 ft 5 in Weight: 189 lb 2 oz BMI 31.4 BP 124/69 H Intake Visit Reasons: 21wk ob Chief Complaint: 21wk OB Spool Winder Required: No Is patient in pain?: No Allergies ragweed pollen Allergy (Mild, Verified 11/22/24 11:22) Itching Medications ???Medication ???Instructions ???Recorded ???Confirmed ???Type sertraline 50 mg tablet 50 mg PO QDAY 07/31/24 11/22/24 Hi story multivit-min no.71-iron fum 28 cap PO 08/06/24 11/22/24 History mg-folate no.1 1 mg-dha 300 mg capsule (PNV-Redding) Last Menstrual Period: 06/28/24 : No PFSH PFSH Medical History RhD negative Seasonal allergies Pneumonia Surgical History [place] teeth extracted Family History Grandmother Arthritis Diabetes [...] animals: dog(s) history of recent travel: Yes ([place]) out of state: Yes out of [...] 1-2 times per week duration: 30-45 minutes/day fredi/mormon: Denominational seatbelt use: always do you feel safe [...] nipt. first baby first . lives in [place]. 09/24/24 -???-???-???-???-?? ?-???-???-???-???-? ??-???-???- 12w 4d 181 [...] 145 21 (more content not included)... Normal [facility] - Chemistry and C hemistry - challengeOrdered By: Rachele Bradley on 10-24-2024 Glucose Ql (U) Negative [facility] - UrinalysisOrder ed By: Rachele Bradley on 10-24-2024 Protein Ql (U) Negative [facility] Risk Analyst Office Visit Reporton 10-24-2024 Risk Analyst Office Visit Report [facility] [address], [address] [place] [address] OFFICE VISIT Date of Service: 10/24/24 MR#: [id number] Acct: [id number] Name: JAMIL NORRIS Rep #: [id number] : 1995 Provider: Dr. Rachele Hook DO Age/Sex: 29/F Location: [facility] Status: Signed Intake Vital Signs 08/30/24 14:15 09/24/24 09:41 10/24/24 10:52 Height 5 ft 5 in 5 ft 5 in 5 ft 5 in Weight: 180 lb 6 oz BMI 29.9 BP 111/79 Intake Visit Reasons: 16w6d ob Spool Winder Required: No Is patient in pain?: No Allergies ragweed pollen Allergy (Mild, Verified 10/24/24 10:53) Itching Medications ???Medication ???Instructions ???Recorded ???Confirmed ???Type sertraline 50 mg tablet 50 mg PO QDAY 07/31/24 10/24/24 Hi story multivit-min no.71-iron fum 28 cap PO 08/06/24 10/24/24 History mg-folate no.1 1 mg-dha 300 mg capsule (PNV-Redding) Last Menstrual Period: 06/28/24 Zika: Zika virus screening: Negative : No PFSH PFSH Medical History RhD negative Seasonal allergies Pneumonia Surgical History [place] teeth extracted Family History Grandmother Arthritis Diabetes [...] animals: dog(s) history of recent travel: Yes ([place]) out of state: Yes out of [...] 1-2 times per week duration: 30-45 minutes/day fredi/mormon: Denominational seatbelt use: always do you feel safe [...] nipt. first baby first . lives in [place]. 09/24/24 -???-???-???-???-?? ?-???-???-???-???-? ??-???-???- 12w 4d 181 lb 130/82 Negative -???-???-???-???-?? ?-???-???-???-???-? ??-???-???- Negative 152 -???-???-???-???-?? ?-???-???-???-???-? ??-???-???- MH-No VB. N ausea improved. Br US confirm FHT 10/24/24 -???-???-???-???-?? ?-???-???-???-???-? ??-???-???- 16w 6d 180 lb 6 oz 111/79 Negative -???-???-???-???-?? ?-???-???-???-???-? ??-???-???- Negative 152 -???-???-???-???-?? ?-???-???-???-???-? ??-???-???- JV- having a boy and thinking of naming him Jemraine. No complaints today. ACOG First Trimester First Trimester: Discussed Results POC Urinalysis 2 Dip (Clinic) Office Urine (more content not included)... Normal [facility] - Chemistry and C hemistry - challengeOrdered By: Sai Foss on 09-24-2024 Glucose Ql (U) Negative [facility] - UrinalysisOrder ed By: Sai Foss on 09-24-2024 Protein Ql (U) Negative [facility] Risk Analyst Office Visit Reporton 09-24-2024 Risk Analyst Office Visit Report [facility] [address] [place] [address], [address] [place] [address] OFFICE VISIT Date of Service: 09/24/24 MR#: [id number] Acct: [id number] Name: JAMIL NORRIS Rep #: [id number] : 1995 Provider: CAMPOS solitario Age/Sex: 29/F Location: [facility] Status: Signed Intake Vital Signs 08/06/24 09:57 08/30/24 14:15 09/24/24 09:41 Height 5 ft 5 in 5 ft 5 in 5 ft 5 in Weight: 181 lb BMI 30.1 BP 130/82 H Intake Visit Reasons: 12 WK OB Chief Complaint: 12 Week OB Spool Winder Required: No Is patient in pain?: No Allergies ragweed pollen Allergy (Mild, Verified 09/24/24 09:43) Itching Medications ???Medication ???Instructions ???Recorded ???Confirmed ???Type sertraline 50 mg tablet 50 mg PO QDAY 07/31/24 09/24/24 Hi story multivit-min no.71-iron fum 28 cap PO 08/06/24 09/24/24 History mg-folate no.1 1 mg-dha 300 mg capsule (PNV-Redding) Last Menstrual Period: 06/28/24 Zika: Zika virus screening: Negative : No PFSH PFSH Medical History RhD negative Seasonal allergies Pneumonia Surgical History [place] teeth extracted Family History Grandmother Arthritis Diabetes [...] animals: dog(s) history of recent travel: Yes ([place]) out of state: Yes out of [...] 1-2 times per week duration: 30-45 minutes/day fredi/mormon: Denominational seatbelt use: always do you feel safe [...] nipt. first baby first . lives in [place]. 09/24/24 -???-???-???-???-?? ?-???-???-???-???-? ??-???-???- 12w 4d 181 [...] Dip (Clin (more content not included)... Normal [facility] Absolute lymphocyte countOrd ered By: Marisela Nelson on 09-03-2024 Lymphocytes Auto (Unsp spec) [#/Vol] 2.19 10*3/uL 0.83-4.51 [facility] Absolute neutrophil countOrd ered By: Marisela Nelson on 09-03-2024 Neutrophils (Bld) [#/Vol] 6.8 10*3/uL 2.0-7.7 [facility] Automated lymphocyte count a s percentage of total leukocytesOrdered By: Marisela Nelson on 09-03-2024 Lymphocytes/100 WBC Auto (Unsp spec) 22.4 % 19-41 [facility] Basophil percentageOrdered B y: Marisela Nelson on 09-03-2024 Basophils/100 WBC (Bld) 0.4 % 0-[address] [facility] CBC W/Diff, Automatedon 05-2 0-2025 Absolute Lymph 2.19 X10 3/uL Normal 0.83-4.51 [facility] Comment on above: Performed By: #### L 509.8002, L501.0250, L100.0100, L3890.6006, BTS #### [facility] [address] [place], [address] Absolute Neut 6.8 X10 3/uL Normal 2.0-7.7 [facility] Comment on above: Performed By: #### L 509.8002, L501.0250, L100.0100, L3890.6006, BTS #### [facility] [address] [place], [address] Basophils/100 WBC (Bld) 0.4 % Normal 0-[address] [facility] Comment on above: Performed By: #### L 509.8002, L501.0250, L100.0100, L3890.6006, BTS #### [facility] [address] [place], [address] Eosinophils/100 WBC (Bld) 1.4 % Normal 0-5 [facility] Comment on above: Performed By: #### L 509.8002, L501.0250, L100.0100, L3890.6006, BTS #### [facility] [address] [place], [address] Erythrocyte distribution width (RBC) [Ratio] 12.4 % Normal 11.6-14.6 [facility] Comment on above: Performed By: #### L 509.8002, L501.0250, L100.0100, L3890.6006, BTS #### [facility] [address] [place], [address] Hematocrit (Bld) [Volume fraction] 40.1 % Normal 37-47 [facility] Comment on above: Performed By: #### L 509.8002, L501.0250, L100.0100, L3890.6006, BTS #### [facility] [address] [place], [address] Hemoglobin (Bld) [Mass/Vol] 14.0 g/dL Normal 12.0-15.0 [facility] Comment on above: Performed By: #### L 509.8002, L501.0250, L100.0100, L3890.6006, BTS #### [facility] [address] [place], [address] IG% 0.300 Normal 0.0-0.9 [facility] Comment on above: Result Comment: IG% - Immature Granulocytes (promyelocytes, myelocytes and metamyelocytes) > 1% indicates that a LEFT SHIFT is Present. Performed By: #### L 509.8002, L501.0250, L100.0100, L3890.6006, BTS #### [facility] [address] [place], [address] Lymphocytes/100 WBC (Bld) 22.4 % Normal 19-41 [facility] Comment on above: Performed By: #### L 509.8002, L501.0250, L100.0100, L3890.6006, BTS #### [facility] [address] [place], [address] MCH (RBC) [Entitic mass] 30.8 pg Normal 27.0-32.0 [facility] Comment on above: Performed By: #### L 509.8002, L501.0250, L100.0100, L3890.6006, BTS #### [facility] [address] [place], [address] MCHC (RBC) [Mass/Vol] 34.9 g/dL Normal 32-36 [facility] Comment on above: Performed By: #### L 509.8002, L501.0250, L100.0100, L3890.6006, BTS #### [facility] [address] [place], [address] MCV (RBC) [Entitic vol] 88.3 fL Normal 81-[address] [facility] Comment on above: Performed By: #### L 509.8002, L501.0250, L100.0100, L3890.6006, BTS #### [facility] [address] [place], [address] Monocytes/100 WBC (Bld) 5.5 % Normal 0-[address] [facility] Comment on above: Performed By: #### L 509.8002, L501.0250, L100.0100, L3890.6006, BTS #### [facility] [address] [place], [address] Neutrophils/100 WBC (Bld) 70.0 % Normal 47-70 [facility] Comment on above: Performed By: #### L 509.8002, L501.0250, L100.0100, L3890.6006, BTS #### [facility] [address] [place], [address] Nucleated RBC (Bld) [#/Vol] 0 10*3/uL Normal 0-5 [facility] Comment on above: Performed By: #### L 509.8002, L501.0250, L100.0100, L3890.6006, BTS #### [facility] [address] [place], [address] Platelet mean volume (Bld) [Entitic vol] 10.7 fL Normal 6.2-12.0 [facility] Comment on above: Performed By: #### L 509.8002, L501.0250, L100.0100, L3890.6006, BTS #### [facility] [address] [place], [address] Platelets (Bld) [#/Vol] 216 10*3/uL Normal 150-450 [facility] Comment on above: Performed By: #### L 509.8002, L501.0250, L100.0100, L3890.6006, BTS #### [facility] [address] [place], [address] RBC (Bld) [#/Vol] 4.54 10*6/uL Normal 4.2-5.4 [facility] Comment on above: Performed By: #### L 509.8002, L501.0250, L100.0100, L3890.6006, BTS #### [facility] [address] [place], [address] RDW SD 40.0 fl Normal 35.1-43.9 [facility] Comment on above: Performed By: #### L 509.8002, L501.0250, L100.0100, L3890.6006, BTS #### [facility] [address] [place], [address] WBC (Bld) [#/Vol] 9.8 10*3/uL Normal 4.4-11.0 [facility] Comment on above: Performed By: #### L 509.8002, L501.0250, L100.0100, L3890.6006, BTS #### [facility] [address] [place], [address] Eosinophil percentageOrdered By: Marisela Nelson on 09-03-2024 Eosinophils/100 WBC (Bld) 1.4 % 0-5 [facility] Erythrocyte distribution wid th ratioOrdered By: Marisela Nelson on 09-03-2024 Erythrocyte distribution width (RBC) [Ratio] 12.4 % 11.6-14.6 [facility] Erythrocyte distribution wid th standard deviationOrdered By: Marisela Nelson on 09-03-2024 Erythrocyte distribution width (RBC) [Ratio] 40.0 fl 35.1-43.9 [facility] HIVon 09-03-2024 HIV Non-Reactive Normal Nonreactive [facility] Comment on above: Result Comment: Non- Reactive Reactive Repeatedly reactive samples must be confirmed according to CDC recommended confirmatory algorithms. The subresults for either HIVAG or AHIV can be used as an aid in the selection of the confirmation algorithm for reactive samples. Send out specimens with Reactive results to [facility] for confirmation. Order the HIV antibody detection and differentiation: lc#[id number] Performed By: #### L 509.8002, L501.0250, L100.0100, L3890.6006, BTS #### [facility] [address] [place], [address] Hematocrit Auto (Bld) [Volum e fraction]Ordered By: Marisela Nelson on 09-03-2024 Hematocrit (Bld) [Volume fraction] 40.1 % 37-47 [facility] Hemoglobin A1con 09-03-2024 HbA1c (Bld) [Mass fraction] 5.1 % Normal <=5.6 [facility] Comment on above: Result Comment: Norm al < 5.7 % Prediabetic 5.7 - 6.4 % Diabetic >or= 6.5 % Please note range changes. Performed By: #### L 509.8002, L501.0250, L100.0100, L3890.6006, BTS #### [facility] [address] [place], [address] Hemoglobin A1c percentageOrd ered By: Marisela Nelson on 09-03-2024 HbA1c (Bld) [Mass fraction] 5.1 % <5.7 [facility] Comment on above: Normal < 5.7 % Predi abetic 5.7 - 6.4 % Diabetic >or= 6.5 % Please note range changes. Hemoglobin measurementOrdere d By: Marisela Nelson on 09-03-2024 Hemoglobin (Bld) [Mass/Vol] 14.0 g/dL 12.0-15.0 [facility] Hepatitis C Antibodyon 09-03 Hepatitis C Ab Non-Reactive Normal Nonreactive [facility] Comment on above: Result Comment: Reac tive: Presumptive evidence of antibodies to HCV. Follow CDC recommendations for supplemental testing. Non-Reactive: Antibodies to HCV were not detected; does not exclude the possibility of exposure to HCV Reactive Results are presumptive evidence of antibodies to HCV. Follow CDC recommendations for supplemental testing. Order confirmation testing: HCV Quant by PCR testing - HCVPCR lc#[id number] Non Reactive: < 0.8 Equivocal: >/= 0.8 to < 1.0 Reactive: >/= 1.0 The CDC requires that a reactive/equivocal HCV antibody result be sent out for confirmation. HCV Quant by PCR testing. Performed By: #### L 509.8002, L501.0250, L100.0100, L3890.6006, BTS #### [facility] [address], [place], [id number] Immature granulocytes/100 WB C Auto (Bld)Ordered By: Marisela Nelson on 09-03-2024 Immature granulocytes/100 WBC (Bld) 0.300 % 0.0-0.9 [facility] Comment on above: IG% - Immature Granu locytes (promyelocytes, myelocytes and metamyelocytes) > 1% indicates that a LEFT SHIFT is Present. L3890.6102on 09-03-2024 HEP B Surf Ag Non-Reactive Normal Nonreactive [facility] Comment on above: Result Comment: Reac tive: Presumptive evidence of HBV. Repeatedly reactive samples must be confirmed using a neutralization test (ElecSelf-A-r-Ts HBsAg Confirmatory Test) Non-Reactive: HBsAg not detected; does not exclude the possibility of exposure to HBV Performed By: #### L 509.8002, L501.0250, L100.0100, L3890.6006, BTS #### [facility] [address] [facility] [place], [place], [id number] (243 L509.4006on 09-03-2024 Rubella IgG REAC Normal Nonreactive [facility] Comment on above: Result Comment: Anti body Result: Interpretation Non-Reactive: Non-Immune Reactive: Immune The following results were obtained with the Elecsys Rubella IgG assay. Results from assays of other manufacturers cannot be used interchangeably. Performed By: #### L 509.8002, L501.0250, L100.0100, L3890.6006, BTS #### [facility] [address] [facility] [place], [place], [id number] Laboratory - Microbiology an d Antimicrobial susceptibilityOrdered By: Marisela Nelson on 09-03-2024 HBV surface Ag Ql (S) Non-Reactive Nonreactive [facility] Comment on above: Reactive: Presumptiv e evidence of HBV. Repeatedly reactive samples must be confirmed using a neutralization test (Elecsys HBsAg Confirmatory Test)Non-Reactive: HBsAg not detected; does not exclude the possibility of exposure to HBV MCV (mean corpuscular volume ) determinationOrdered By: Marisela Nelson on 09-03-2024 MCV (RBC) [Entitic vol] 88.3 fL 81-[address] [facility] Mean corpuscular hemoglobin (MCH) determinationOrdered By: Marisela Nelson on 09-03-2024 MCH (RBC) [Entitic mass] 30.8 pg 27.0-32.0 [facility] Mean corpuscular hemoglobin concentration (MCHC) determinationOrdered By: Marisela Nelson on 09-03-2024 MCHC (RBC) [Mass/Vol] 34.9 g/dL 32-36 [facility] Mean platelet volume determi nationOrdered By: Marisela Nelson on 09-03-2024 Platelet mean volume (Bld) [Entitic vol] 10.7 fL 6.2-12.0 [facility] Monocyte percentageOrdered B y: Marisela Nelson on 09-03-2024 Monocytes/100 WBC (Bld) 5.5 % 0-[address] [facility] NATERAon 09-03-2024 NATURA SEE SCANNED REPORT Normal [facility] Comment on above: Performed By: #### L 900.0098 #### [facility] [address] [place], [address] Neutrophil percentageOrdered By: Marisela Nelson on 09-03-2024 Neutrophils/100 WBC (Bld) 70.0 % 47-70 [facility] No Panel InformationOrdered By: Marisela Nelson on 09-03-2024 HIV (1&2) Antibody Non-Reactive Nonreactive [facility] Comment on above: Non-ReactiveReactive Repeatedly reactive samples must be confirmed according to CDC recommended confirmatory algorithms. The subresults for either HIVAG or AHIV can be used as an aid in the selection of the confirmation algorithm for reactive samples.Send out specimens with Reactive results to [facility] for confirmation.Order the HIV antibody detection and differentiation: #[id number] Nucleated red blood cell per centageOrdered By: Marisela Nelson on 09-03-2024 Nucleated RBC/100 WBC (Bld) [Ratio] 0 % 0-5 [facility] Platelet countOrdered By: Barbara Nelson on 09-03-2024 Platelets (Bld) [#/Vol] 216 10*3/uL 150-450 [facility] RBC Auto (Bld) [#/Vol]Ordere d By: Marisela Nelson on 09-03-2024 RBC (Bld) [#/Vol] 4.54 10*6/uL 4.2-5.4 [facility] Syphilis Antibodieson 2024 Syphilis Abs Non-Reactive Normal Nonreactive [facility] Comment on above: Performed By: #### L 509.8002, L501.0250, L100.0100, L3890.6006, BTS #### [facility] [address] [place], [address] Type AND Screenon 09-03-2024 Ab SCREEN GEL Negative Normal [facility] Comment on above: Order Comment: PN Performed By: #### L 509.8002, L501.0250, L100.0100, L3890.6006, BTS #### [facility] [address] [place], [place], [id number] White blood cell (WBC) count Ordered By: Marisela Nelson on 09-03-2024 WBC (Bld) [#/Vol] 9.8 10*3/uL 4.4-11.0 [facility] Chlamydia/GC CK aptimaon CHLAMY,NUC ACID Negative Normal Negative [facility] Comment on above: Performed By: #### L 509.8002, L501.0250, L100.0100, L3890.6006, BTS #### [facility] [address] [place], [address] GC BY NUC ACID Negative Normal Negative [facility] Comment on above: Result Comment: Perf ormed at: =G - [facility] [address] [id number] Video Machines Mechanic: Jeannine So MD, Phone: [phone] Performed By: #### L 509.8002, L501.0250, L100.0100, L3890.6006, BTS #### [facility] [address] [place], [address] Urine Cultureon 08-31-2024 URC Culture exhibits no growth. Normal [facility] Comment on above: Performed By: #### L 509.8002, L501.0250, L100.0100, L3890.6006, BTS #### [facility] [address] [place], [address] Chlamydia trachomatis rRNA d etection by probe and target amplification methodOrdered By: Marisela Nelson on 08-30-2024 C. trachomatis rRNA CK+probe Ql (Unsp spec) Negative Negative [facility] Neisseria gonorrhoeae nuclei c acid detection by amplified probe techniqueOrdered By: Marisela Nelson on 08-30-2024 N. gonorrhoeae DNA CK+probe Ql (Unsp spec) Negative Negative [facility] Comment on above: Performed at: =G - [facility] [address] [id number] Director: Jeannine So MD, Phone: [phone] Risk Analyst Office Visit Reporton 08-30-2024 Risk Analyst Office Visit Report [facility]'[address], [address] [place] [address] OFFICE VISIT Date of Service: 08/30/24 MR#: [id number] Acct: [id number] Name: JAMIL NORRIS Rep #: [id number] : 1995 Provider: Dr. Rachele Hook DO Age/Sex: 29/F Location: [facility] Status: Signed Intake Vital Signs 08/06/24 09:57 08/30/24 14:13 08/30/24 14:15 Height 5 ft 5 in 5 ft 5 in 5 ft 5 in Weight: 182 lb 8 oz BMI 30.3 BP 127/81 H Intake Visit Reasons: New OB, LMP 06/28, SAMANTHA 04/04, first baby Spool Winder Required: No Is patient in pain?: No Allergies ragweed pollen Allergy (Mild, Verified 08/30/24 14:12) Itching Medications ???Medication ???Instructions ???Recorded ???Confirmed ???Type sertraline 50 mg tablet 50 mg PO QDAY 07/31/24 08/30/24 Hi story multivit-min no.71-iron fum 28 cap PO 08/06/24 08/30/24 History mg-folate no.1 1 mg-dha 300 mg capsule (PNV-[place]) Last Menstrual Period: 06/28/24 Zika: Zika virus screening: Negative : No PFSH PFSH Medical History Seasonal allergies Pneumonia Surgical History [place] teeth extracted Family History Grandmother Arthritis Diabetes [...] animals: dog(s) history of recent travel: Yes ([place]) out of state: Yes out of [...] 1-2 times per week duration: 30-45 minutes/day fredi/mormon: Denominational seatbelt use: always do you feel safe [...] nipt. first baby first . lives in [place]. Menstrual History Last Menstrual Period: 06/28/24 Reported [...] Other Infe (more content not included)... Normal [facility] Urine cultureOrdered By: Nazario Nelson on 08-30-2024 Bacteria identified Cx Nom (U) Culture exhibits no growth. [facility] - Chemistry and C hemistry - challengeOrdered By: Marisela Nelson on 08-06-2024 HCG ( test) Ql (U) Positive [facility] Office Visit Reporton 2024 Office Visit Report [facility] [address] [place] [address] OFFICE VISIT Date of Service: 08/06/24 MR#: [id number] Acct: [id number] Patient: JAMIL NORRIS Rep #: [id number] : 1995 Provider: Dr. Marisela wang MD Age/Sex: 29/F Location: [facility] Status: Signed Intake Vital Signs 08/06/24 09:57 Height 5 ft 5 in Weight: 182 lb BMI 30.2 BP 116/70 Blood Pressure Location Rt brachial Position Sitting Intake Visit Reasons: Est Care/Urine test/ Vitals Spool Winder Required: No Accompanied by: Is patient in pain?: No Allergies ragweed pollen Allergy (Mild, Verified 08/06/24 09:59) Itching Medications ???Medication ???Instructions ???Recorded ???Confirmed ???Type sertraline 50 mg tablet 50 mg PO QDAY 07/31/24 08/06/24 Hi story multivit-min no.71-iron fum 28 cap PO 08/06/24 08/06/24 History mg-folate no.1 1 mg-dha 300 mg capsule (PNV-[place]) Is last menstrual period known: Yes Last [...] , unspecified trimester 08/07/24 1218 Date [facility]isela [facility] MD [facility] Signature: Date (if applicable) CC: Normal [facility] Family Medicine Office/Clini c Noteon 07-04-2024 [...] now prefers solitude and a smaller social [place]. The patient is also concerned about the [...] to follow up with family practice in [place] in September for a wellness check and [...] the Pa (more content not included)... Normal [facility] Baccarat Dealer Cytology Reporton 2023 Baccarat Dealer Cytology Report Clinical Information Specimen Collection Date: [...] smears in the future. GY Disclaimer Alpha Baccarat Dealer Disclaimer ANATOMICPATHOLOGY Normal [facility] Comment on above: Performed By: #### G YNCYTREP #### [facility] (DEFAULT) [address] [place] [address] Gynecology Office/Clinic Not terrence 01-18-2024 Gynecology Office/Clinic [...] Dc'd this medication in and it's safety. 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 Substance Abuse Denies All Tobacco Never (less than 100 in lifetime) Use:. Family History Family history is negative Immunizations Vaccine Date Status meningococcal conjugate vaccine 05/31/2017 Given Comments : ND (more content not included)... Normal [facility] Destruction of lesionon 06-0 ALICIA Kohler DPM [...] where the nail was split with an [place] anvil distally to approximately 3 mm off [...] Response to Treatment:: Procedure was tolerated well [facility] Vital Signs Date Time Vital Sign Value Performing Clinician Kwan jalloh 2025 10:46-0400 Body height 165.[address] Marisela Nelson MD Work Phone: [facility] 2025 10:45-0400 Body mass index (BMI) [Ratio] 35.1 kg/m2 Dr. Marisela Nelson MD Work Phone: [facility] 2025 10:45-0400 Body weight 95.[address] Marisela Nelson MD Work Phone: [facility] 2025 10:45-0400 Diastolic blood pressure 77 mm[Hg] Dr. Marisela Nelson MD Work Phone: [facility] 2025 10:45-0400 Systolic blood pressure 115 mm[Hg] Dr. Marisela Nelson MD Work Phone: 8(201)447-183442 [place] [address] 01-10-2025 11:12-0400 Body height 165.[address] Marisela Nelson MD Work Phone: [facility] 01-10-2025 11:12-0400 Body mass index (BMI) [Ratio] 34.3 kg/m2 Dr. Marisela Nelson MD Work Phone: [facility] 01-10-2025 11:12-0400 Body weight 93.[address] Marisela Nelson MD Work Phone: [facility] 01-10-2025 11:12-0400 Diastolic blood pressure 78 mm[Hg] Dr. Marisela Nelson MD Work Phone: [facility] 01-10-2025 11:12-0400 Systolic blood pressure 127 mm[Hg] Dr. Marisela Nelson MD Work Phone: [facility] 12-20-2024 10:06-0400 Body height 165.[address] Marisela Nelson MD Work Phone: [facility] 12-20-2024 10:06-0400 Body mass index (BMI) [Ratio] 33.1 kg/m2 Dr. Marisela Nelson MD Work Phone: [facility] 12-20-2024 10:06-0400 Body weight 90.[address] Marisela Nelson MD Work Phone: 8(127)006-542442 [place] [address] 12-20-2024 10:06-0400 Diastolic blood pressure 82 mm[Hg] Dr. Marisela Nelson MD Work Phone: 0(327)968-115342 [place] [address] 12-20-2024 10:06-0400 Systolic blood pressure 122 mm[Hg] Dr. Marisela Nelson MD Work Phone: 9(953)416-132842 [place] [address] 11-22-2024 11:24-0400 Body height 165.[address] Marisela Nelson MD Work Phone: 6(263)786-393642 [place] [address] 11-22-2024 11:24-0400 Body mass index (BMI) [Ratio] 31.4 kg/m2 Dr. Marisela Nelson MD Work Phone: 9(869)187-870742 [place] [address] 11-22-2024 11:24-0400 Body weight 85.[address] Marisela Nelson MD Work Phone: 0(917)452-541642 [place] [address] 11-22-2024 11:24-0400 Diastolic blood pressure 69 mm[Hg] Dr. Marisela Nelson MD Work Phone: 4(541)244-318642 [place] [address] 11-22-2024 11:24-0400 Systolic blood pressure 124 mm[Hg] Dr. Marisela Nelson MD Work Phone: 7(718)919-262342 [place] [address] 10-24-2024 10:52-0400 Body height 165.[address] Marisela Nelson MD Work Phone: 0(428)560-725942 [place] [address] 10-24-2024 10:52-0400 Body mass index (BMI) [Ratio] 29.9 kg/m2 Dr. Marisela Nelson MD Work Phone: 9(720)548-383742 [place] [address] 10-24-2024 10:52-0400 Body weight 81.[address] Marisela Nelson MD Work Phone: 1(118)455-988542 [place] [address] 10-24-2024 10:52-0400 Diastolic blood pressure 79 mm[Hg] Dr. Marisela Nelson MD Work Phone: 5(971)585-652642 [place] [address] 10-24-2024 10:52-0400 Systolic blood pressure 111 mm[Hg] Dr. Marisela Nelson MD Work Phone: [facility] 10-01-2024 09:29-0400 Body height 165.1 cm Louann Hager MD Work Phone: [facility] 10-01-2024 09:29-0400 Body mass index (BMI) [Ratio] 29.82 kg/m2 Louann Hager MD Work Phone: [facility] 10-01-2024 09:29-0400 Body weight 81.28 kg Louann Hager MD Work Phone: [facility] 10-01-2024 09:29-0400 Diastolic blood pressure 62 mm[Hg] Louann Hager MD Work Phone: [facility] 10-01-2024 09:29-0400 Heart rate 89 /min Louann Hager MD Work Phone: [facility] 10-01-2024 09:29-0400 SaO2% (BldA) [Mass fraction] 98 % Louann Hager MD Work Phone: [facility] 10-01-2024 09:29-0400 Systolic blood pressure 108 mm[Hg] Louann Hager MD Work Phone: [facility] 09-24-2024 09:41-0400 Body height 165.[address] Marisela Nelson MD Work Phone: [facility] 09-24-2024 09:41-0400 Body mass index (BMI) [Ratio] 30.1 kg/m2 Dr. Marisela Nelson MD Work Phone: [facility] 09-24-2024 09:41-0400 Body weight 82.[address] Marisela Nelson MD Work Phone: [facility] 09-24-2024 09:41-0400 Diastolic blood pressure 82 mm[Hg] Dr. Marisela Nelson MD Work Phone: [facility] 09-24-2024 09:41-0400 Systolic blood pressure 130 mm[Hg] Dr. Marisela Nelson MD Work Phone: [facility] 08-30-2024 14:15-0400 Body height 165.[address] Marisela Nelson MD Work Phone: [facility] 08-30-2024 14:13-0400 Body mass index (BMI) [Ratio] 30.3 kg/m2 Dr. Marisela Nelson MD Work Phone: [facility] 08-30-2024 14:13-0400 Body weight 82.[address] Marisela Nelson MD Work Phone: [facility] 08-30-2024 14:13-0400 Diastolic blood pressure 81 mm[Hg] Dr. Marisela Nelson MD Work Phone: [facility] 08-30-2024 14:13-0400 Systolic blood pressure 127 mm[Hg] Dr. Marisela Nelson MD Work Phone: [facility] 08-06-2024 09:57-0400 Body mass index (BMI) [Ratio] 30.2 kg/m2 Dr. Marisela Nelson MD Work Phone: [facility] 08-06-2024 09:57-0400 Body weight 82.[address] Marisela Nelson MD Work Phone: [facility] 08-06-2024 09:57-0400 Diastolic blood pressure 70 mm[Hg] Dr. Marisela Nelson MD Work Phone: [facility] 08-06-2024 09:57-0400 Systolic blood pressure 116 mm[Hg] Dr. Marisela Nelson MD Work Phone: [facility] 10-03-2023 07:43-0400 Body temperature 98.4 [degF] ALICIA Kohler DPM Work Phone: [facility] 10-03-2023 07:43-0400 Diastolic blood pressure 69 mm[Hg] ALICIA Kohler DPM Work Phone: [facility] 10-03-2023 07:43-0400 Heart rate 68 /min CJ Hassmann DPM Work Phone: [facility] 10-03-2023 07:43-0400 Systolic blood pressure 100 mm[Hg] CJ Hassmann DPM Work Phone: [facility] 09-19-2023 07:35-0400 Body temperature 98.4 [degF] CJ Hassmann DPM Work Phone: [facility] 09-19-2023 07:35-0400 Diastolic blood pressure 79 mm[Hg] CJ Hassmann DPM Work Phone: [facility] 09-19-2023 07:35-0400 Heart rate 64 /min CJ Hassmann DPM Work Phone: [facility] 09-19-2023 07:35-0400 SaO2% (BldA) [Mass fraction] 99 % CJ Hassmann DPM Work Phone: [facility] 09-19-2023 07:35-0400 Systolic blood pressure 112 mm[Hg] CJ Hassmann DPM Work Phone: [facility] Encounters Encounter Date Encounter Type Care Provider Facility Start: 02-20-2025 ambulatory Veronica Cabrera Facility :[facility] Start: 02-17-2025 End: 02-17-2025 ambulatory Veronica Cabrera Facility:[facility] Start: 02-12-2025 ambulatory Sai Foss CUT IN STATION OPERATOR Facil ity:[facility] Start: 02-07-2025 End: 02-07-2025 ambulatory Sai Foss CUT IN STATION OPERATOR Facility:[facility] Start: 02-05-2025 End: 02-05-2025 ambulatory Sai Foss CUT IN STATION OPERATOR Facility:[facility] Start: 2025 End: 2025 Patient encounter procedure Sai Foss CUT IN STATION OPERATOR-C -[facility] Work Phone: Start: 2025 End: [address] Marisela Nelson MD Work Phone: -[facility] Start: 01-10-2025 End: 01-10-2025 Patient encounter procedure Veronica Cabrera CNM -[facility] Work Phone: Start: 01-10-2025 End: 01-10-[address] Marisela Nelson MD Work Phone: -[facility] Start: 01-10-2025 End: 01-10-2025 ambulatory Marisela Nelson Facility:[facility] Start: 12-20-2024 End: 12-20-[address] Marisela Nelson MD -[facility] Work Phone: Start: 12-20-2024 End: 12-20-[address] Marisela Nelson MD Work Phone: -[facility] Start: 11-22-2024 End: 11-22-2024 Patient encounter procedure Veronica Cabrera CNM -[facility] Work Phone: Start: 11-22-2024 End: 11-22-[address] Marisela Nelson MD Work Phone: -[facility] Start: 11-12-2024 End: 11-12-2024 ambulatory MD [facility] Start: 10-24-2024 End: 10-24-[address] Rachele [place] DO -[facility] Work Phone: Start: 10-24-2024 End: 10-24-[address] Marisela Nelson MD Work Phone: -[facility] Start: 10-01-2024 End: 10-01-2024 Office outpatient new 45 minutes Louann Hager MD Work Phone: [facility] Comment on above: Encounter to [facility] (Primary Dx); Anxiety and depression; Injury of left toe, initial encounter; 13 weeks gestation of ([facility] Start: 10-01-2024 End: 10-01-2024 ambulatory [facility] Start: 09-24-2024 End: 09-24-2024 Patient encounter procedure Sai GASCA -[facility] Work Phone: Start: 09-24-2024 End: 09-24-[address] Marisela Nelson MD Work Phone: [facility] Work Phone: Start: 09-03-2024 End: 09-03-[address] Rachele [place] DO -[facility] Start: 09-03-2024 End: 09-03-2024 ambulatory Rachele Llanes Facility:[facility] Start: 08-30-2024 End: 08-30-[address] Marisela Nelson MD Work Phone: [facility] Work Phone: Start: 08-30-2024 End: 08-30-[address] Marisela Nelson MD -[facility] Specimen Work Phone: Start: 08-30-2024 End: 08-30-[address] Rachele [place] DO [facility] Work Phone: Start: 08-30-2024 End: 08-30-2024 ambulatory Rachele Llanes [facility] Work Phone: Start: 08-30-2024 End: 08-30-2024 ambulatory Marisela Nelson Facility:[facility] Start: 08-06-2024 End: 08-06-[address] [facility] Nelson MD [facility] Work Phone: Start: 08-06-2024 End: 08-06-2024 ambulatory Marisela Nelson Facility:[facility] Start: 07-04-2024 End: 07-04-2024 ambulatory Merissa Linton GEOPHYSICAL DRAFTER-RESIDENTIAL ADVISOR Facility: [facility] Start: 01-18-2024 End: 01-18-2024 ambulatory Mary Vaca GEOPHYSICAL DRAFTER-RESIDENTIAL ADVISOR Facility:[facility] Start: 10-03-2023 End: 10-03-2023 Office outpatient visit 10 minutes ALICIA Kohler DPM Work Phone: [facility] Comment on above: Ingrown nail (Primar y Dx); Paronychia of great toe; Toe pain, left Start: 10-03-2023 End: 10-03-2023 ambulatory MERISSA LINTON [facility] Start: 09-29-2023 Orders Only ALICIA Kohler DPM Work Phone: [facility] Start: 09-19-2023 End: 09-19-2023 Office outpatient new 30 minutes ALICIA Kohler DPM Work Phone: [facility] Comment on above: Ingrown nail (Primar y Dx); Toe abscess, left; Paronychia of great toe; Toe pain, left Start: 09-19-2023 End: 09-19-2023 [facility] Start: 04-18-2022 End: 04-18-2022 ambulatory [facility] Start: 04-18-2022 End: 04-18-2022 Encounter for general adult medical examination without abnormal findings [facility] Start: 03-31-2021 End: 03-31-2021 ambulatory [facility] Start: 07-08-2020 End: 07-12-2020 Patient encounter procedure [facility] Procedures Date Procedure Procedure Detail Performing Clinician Start: 01-10-2025 Serologic test for syphilis Dr. Marisela Nelson MD Work Phone: Start: 09-03-2024 Hepatitis [...] HCV Quant by PCR testing - HCVPCR [id number] Non Reactive: < 0.8 Equivocal: >/= 0.8 to < 1.0 Reactive: >/= 1.0The CDC requires that a reactive/equivocal HCV antibody result be sent out for confirmation. HCV Quant by PCR testing. Start: 09-03-[address] Marisela Nelson MD Work Phone: Start: 09-03-[address] Mraisela Nelson MD Work Phone: Comment on above: [...] (1 - 1-dose 75+ series) [facility] Start: 2047 Zoster Vaccines (1 of 2) Zoster Vaccines (1 of 2) [facility] Start: 01-15-2027 Screening for malignant neoplasm of cervix [facility] Start: 10-02-2025 End: 10-02-2025 Patient encounter procedure 10/02/2025 10:20 AM EDT Office Visit [place] [address] [phone] Louann Hager MD [address] [address] [facility] Start: 12-16-2024 Influenza vaccination Influenza Vaccine (Season Ended) [facility] Start: 12-17-2023 COVID-19 Vaccine ( season) COVID-19 Vaccine ( season) [facility] Start: 12-17-2023 Influenza vaccination Influenza Vaccine (Season Ended) [facility] Start: 10-03-2023 End: 10-03-2023 Patient encounter procedure 10/03/2023 7:45 AM EDT Office Visit [facility] [place] [address] [place] [address] ALICIA Kohler, DPM [address] [place] [address] [facility] Start: 12-16-2022 COVID-19 Vaccine ( season) COVID-19 Vaccine ( season) [facility] Start: 2019 DTaP/Tdap/Td Vaccines (1 - Tdap) DTaP/Tdap/Td Vaccines (1 - Tdap) [facility] Start: 2018 Screening for malignant neoplasm of cervix Pap Smear [facility] Start: 01-24-2016 Hepatitis B Vaccines (1 of 3 - 19+ 3-dose series) Hepatitis B Vaccines (1 of 3 - 19+ 3-dose series) [facility] Start: 2015 Diabetes mellitus screening Diabetes Screening [facility] Start: 2015 Hepatitis C screening Hepatitis C Scre[facility] Start: 01-24-2012 HIV screening HIV Screening [facility] Start: 2009 Depression screening using PHQ-9 (Patient Health Questionnaire 9) score Depression Screening (PHQ-2/9) [facility] Start: 01-24-2000 History and physical examination, annual for health maintenance Wellness Visit [facility] Start: 1998 MMR Vaccines (1 of 1 - Standard series) MMR Vaccines (1 of 1 - Standard series) [facility] Start: 1997 Lipid panel Lipid Panel [facility] Start: 1997 Tetanus vaccination Tetanus: Every 10yrs [facility] Start: 1997 Yearly Adult Physical Yearly Adult Physical [facility] CBC W Auto Different ial panel - Blood [facility] CBC W Auto Different ial panel - Blood [facility] Chlamydia deoxyribon ucleic acid detection [facility] Hemoglobin A1c/Hemoglobin.total in Blood [facility] Hepatitis C antibody measurement [facility] Measurement of gluco se 2 hours after glucose challenge for glucose tolerance test [facility] Rubella IgG measurement [facility] Serologic test for syphilis [facility] Serologic test for syphilis [facility] Immunizations Immunization Date Immunization Notes Care Provider Fa cility 2025 influenza, injectabl e, madin darwin canine kidney, preservative free Dr. Marisela Nelson MD Work Phone: [facility] 01-10-2025 tetanus toxoid, reduced diphtheria toxoid, and acellular pertussis vaccine, adsorbed Dr. Marisela Nelson MD Work Phone: [facility] Payers Date Payer Category Payer Self-pay 2024 Managed Care (Private) [facility] [id number] 2024 Private Health Insurance 2023 Unknown [id number] 2020 Unknown [id number] [id number]. [id number] 2020 Unknown [id number] 1995 Unknown [id number] 2.16.840.1.268477.3.579. 2.903 1995 Unknown [id number] 2.840.1.855019.3.579. 2.903 1997 Unknown [id number] 2.16.840.1.480175.3.579. 2.903 1997 Unknown [id number] 2.16.840.1.760825.3.579. 2.903 1997 Unknown [id number] 2.16.840.1.502064.3.579. 2.196 1997 Unknown [id number] 2.16.840.1.163946.3.579. 2.196 1997 Unknown [id number] 2.16.840.1.062664.3.579. 2.196 1997 Unknown [id number] 2.16840.1.445103.3.579. 2.1244 1997 Unknown [id number] 2.840.1.106665.3.579. 2.479 Unknown [id number] 2.840.1.143823.3.579. 2.462 Unknown [id number] 2.840.1.258620.3.579. 2.462 Unknown [id number] 2.840.1.514507.3.579. 2.462 Unknown [id number] 2.16840.1.591688.3.579. 2.462 Unknown [id number] 2.840.1.279486.3.579. 2.462 Unknown [id number] 2.16.840.1.767921.3.579. 2.462 Unknown [id number] 2.16.840.1.850501.3.579. 2.462 Unknown [id number] 2.16840.1.726605.3.579. 2.462 Unknown [id number] 2.16840.1.576851.3.579. 2.462 Unknown [id number] 2.16840.1.368139.3.579. 2.462 Unknown [id number] 2.16.840.1.538066.3.579. 2.462 Unknown [id number] 2.16.840.1.042588.3.579. 2.462 Unknown [id number] 2.16.840.1.454374.3.579. 2.462 Unknown [id number] 2.16.840.1.134761.3.579. 2.462 Unknown [id number] 2.16.840.1.450229.3.579. 2.462 Unknown [id number] 2.16.840.1.588544.3.579. 2.462 Social History Date Type Detail Facility Start: 09-19-2023 End: 08-06-2024 Tobacco smoking status NHIS Never smoked tobacco [facility] Start: 09-19-2023 End: 10-01-2024 Tobacco use and exposure Smokeless tobacco non-user [facility] Start: 09-19-2023 End: 10-03-2023 Alcohol intake Current drinker of alcohol (finding) [facility] Start: 10-24-2013 End: 10-01-2024 History of Social function [facility] Start: 10-24-2013 End: 10-01-2024 Tobacco use panel [facility] Start: 09-19-2023 Alcohol Comment social [facility] Start: 1995 Sex Assigned At Not on file [facility] Start: 09-18-2023 Gender identity Identifies as female gender (finding) [facility] Start: 1995 Sex Assigned At Female [facility] Start: 10-01-2024 Alcoholic beverage intake Lifetime non-drinker (finding) [facility] [facility] Work Phone: NEGATED: Highlighted rowStart: NINF History of tobacco use Passive smoker [facility] Functional Status Date Assessment Result Facility 10-01-2024 Patient [facility] ionnaire 2 item (PHQ-2) [Reported] [facility] Work Phone: Clinical Notes 09-19-2023 to 2025 Note Date & Type Note Facility 2025 Progress note [facility] 01-10-2025 Progress note [facility] 12-20-2024 Progress note [facility] 11-22-2024 Progress note [facility] 10-24-2024 Evaluation note Diagnosis Onset Date Resolution [...] January 102024 11:08am Depression acute January 23 10:54am Obesity affecting acute January 23 10:54am acute January 23 10:54am RhD negative acute 2025 10:54am Supervision of high-risk acute 2025 10:54am [facility] Work Phone: 1(678) 687-714006-17-2025 History of Present illness Narrative* Louann Hager [...] initial encounter 4. 13 weeks gestation of ([facility]) Anxiety and depression: Chronic problem, new [...] although discussed that it likely would not liner roll changer at this time Discussed Tylenol for pain and ice Weightbearing as tolerated Problem List Items Addressed This Visit None Visit Diagnoses Encounter to establish care - Primary Anxiety and depression Relevant Medications sertraline (Zoloft) 50 mg tablet Injury of left toe, initial encounter 13 weeks gestation of ([facility]) There are no Patient Instructions on file for this visit. Follow up: 1 year for annual physical Return precautions discussed. An After Visit Summary was given to the patient. All questions were answered and patient in agreement with plan. Objective: BP 108/62 Pulse 89 Ht 1.651 m (5' 5") Wt 81.3 kg (179 lb 3.2 oz) [...] time. Louann Hager MD documented in this [facility] Work Phone: 1(988) 757-639206-10-2025 Evaluation note* Diagnosis Onset Date Resolution Status [...] 24 10:49am Supervision of high-risk acute October 24, [...] 9:58am Supervision of high-risk acute December 20 025 9:58am Depression acute December 11:08am Obesity affecting acute January 10, 2025 11:08am acute December 11:08am RhD negative acute January 102024 11:08am Supervision of high-risk acute January 10, 2025 11:08am [facility] Work Phone: 1(542) 495-288406-10-2025 Progress [facility] [address] [place] [address], [address] [place] [address] OFFICE VISIT Date of Service: 09/24/24 MR#: [id number] Acct: [id number] Name: JMAIL NORRIS Rep #: [id number] : 1995 Provider: CAMPOS Foss Age/Sex: 29/F Location: [facility] Status: Signed Intake Vital Signs 08/06/24 09:57 08/30/24 14:15 09/24/24 09:41 Height 5 ft 5 in 5 ft 5 in 5 ft 5 in Weight: 181 lb BMI 30.1 BP 130/82 H Intake Visit Reasons: 12 WK OB Chief Complaint: 12 Week OB Spool Winder Required: No Is patient in pain?: No Allergies ragweed pollen Allergy (Mild, Verified 09/24/24 09:43) Itching Medications ?Medication ?Instructions ?Recorded ?Confirmed ?Type sertraline 50 mg tablet 50 mg PO QDAY 07/31/2409/24 History multivit-min no.71-iron fum 28 cap PO 08/06/24 5 History mg-folate no.1 1 mg-dha 300 mg capsule (PNV-Redding) Last Menstrual Period: 06/28/24 Zika: Zika virus screening: Negative : No PFSH PFSH Medical History RhD negative Seasonal allergies Pneumonia Surgical History [place] teeth extracted Family History Grandmother Arthritis Diabetes [...] animals: dog(s) history of recent travel: Yes ([place]) out of state: Yes out of [...] 1-2 times per week duration: 30-45 minutes/day fredi/mormon: Denominational seatbelt use: always do you feel safe [...] nipt. first baby first . lives in [place]. 09/24/24 -?-?-?-?-?-?-?-?-?-?-?-?- 12w 4d 181 lb 130/82 [...] high risk , unspecified, first trimester Comment: [id number], SAMANTHA 04/04/25 Boy, Joshua (2) : Status: [...] care and follow up. 09/24/24 1004 s CUT IN STATION OPERATOR CUT IN STATION OPERATOR-C> Date _ Sai Foss CUT IN STATION OPERATOR CUT IN STATION OPERATOR-C Cosigner Signature: Date (if applicable) CC: ~ [facility]05-16-2025 Evaluation note* Diagnosis Onset Date Resolution Status [...] December 9:58am Supervision of high-risk acute December 20, 9:58am [facility] Work Phone: 1(459) 987-488305-16-2025 Progress [facility] [address] [place] [address], [address] [place] [address] OFFICE VISIT Date of Service: 08/30/24 MR#: [id number] Acct: [id number] Name: JAMIL NORRIS Rep #: [id number] : 1995 Provider: Dr. Yumiko Llanes DO Age/Sex: 29/F Location: [facility] Status: Signed Intake Vital Signs 08/06/24 09:57 08/30/24 14:13 08/30/24 14:15 Height 5 ft 5 in 5 ft 5 in 5 ft 5 in Weight: 182 lb 8 oz BMI 30.3 BP 127/81 H Intake Visit Reasons: New OB, LMP 314, SAMANTHA 04/04, first baby Spool Winder Required: No Is patient in pain?: No Allergies ragweed pollen Allergy (Mild, Verified 08/30/24 14:12) Itching Medications ?Medication ?Instructions ?Recorded ?Confirmed ?Type sertraline 50 mg tablet 50 mg PO QDAY 07/31/2408/30 History multivit-min no.71-iron fum 28 cap PO 08/06/24 5 History mg-folate no.1 1 mg-dha 300 mg capsule (PNV-Redding) Last Menstrual Period: 06/28/24 Zika: Zika virus screening: Negative : No PFSH PFSH Medical History Seasonal allergies Pneumonia Surgical History [place] teeth extracted Family History Grandmother Arthritis Diabetes [...] animals: dog(s) history of recent travel: Yes ([place]) out of state: Yes out of [...] 1-2 times per week duration: 30-45 minutes/day fredi/mormon: Denominational seatbelt use: always do you feel safe [...] nipt. first baby first . lives in [place]. Menstrual History Last Menstrual Period: 06/28/24 Reported [...] transfusions, D (Rh) Sensitized, Pulmonary (e.g.,TB,Asthma), Breast, Baccarat Dealer surgery, Anesthetic complications, History of abnormal pap [...] comfortable and no acute distress Orientation: alert [facility] Head: normal to inspection, normocephalic and atraumatic [...] practice and discussed care expectations and screenings. [facility] book offered to patient. Discussed routine and specially indicated labs if needed- patient consents to testing. See problem list details for plan information. Optional screening including maternal carrier screenings, neural tube defect screening, genetic screening options including quad screen, nuchal translucency, sequential screening, and NIPT screening offered to patient and patient chose: nipt and carrier. 08/30/24 1504 e Mirna DO> Date _ Rachele Llanes DO Cosigner Signature: Date (if applicable) CC: ~ [facility]05-16-2025 Progress note Author Rachele Bradley [facility] Note Date/Time August 30, 2024 3:04p luis [facility] [address] [place] [address], [address] [place] [address] OFFICE VISIT Date of Service: 08/30/24 MR#: [id number] Acct: [id number] Name: JAMIL NORRIS Rep #: [id number] : 1995 Provider: Dr. Yumiko Llanes DO Age/Sex: 29/F Location: [facility] Status: Signed Intake Vital Signs 08/06/24 09:57 08/30/24 14:13 08/30/24 14:15 Height 5 ft 5 in 5 ft 5 in 5 ft 5 in Weight: 182 lb 8 oz BMI 30.3 BP 127/81 H Intake Visit Reasons: New OB, LMP 06/28, SAMANTHA 04/04, first baby Spool Winder Required: No Is patient in pain?: No Allergies ragweed pollen Allergy (Mild, Verified 08/30/24 14:12) Itching Medications ?Medication ?Instructions ?Recorded ?Confirmed ?Type sertraline 50 mg tablet 50 mg PO QDAY 07/31/2408/30 History multivit-min no.71-iron fum 28 cap PO 08/06/24 5 History mg-folate no.1 1 mg-dha 300 mg capsule (PNV-Redding) Last Menstrual Period: 06/28/24 Zika: Zika virus screening: Negative : No PFSH PFSH Medical History Seasonal allergies Pneumonia Surgical History [place] teeth extracted Family History Grandmother Arthritis Diabetes [...] animals: dog(s) history of recent travel: Yes ([place]) out of state: Yes out of country: [...] 1-2 times per week duration: 30-45 minutes/day fredi/mormon: Denominational seatbelt use: always do you feel safe [...] nipt. first baby first . lives in [place]. Menstrual History Last Menstrual Period: 06/28/24 Reported [...] transfusions, D (Rh) Sensitized, Pulmonary (e.g.,TB,Asthma), Breast, Baccarat Dealer surgery, Anesthetic complications, History of abnormal pap [...] comfortable and no acute distress Orientation: alert [facility] Head: normal to inspection, normocephalic and atraumatic [...] to inspection and full ROM Supplemental Info [facility] book given and patient encouraged to read [...] practice and discussed care expectations and screenings. [facility] book offered to patient. Discussed routine and [...] Cosigner Signature: Date (if applicable) CC: ~ [facility] Work Phone: 1(589) 353-180304-22-2025 Evaluation note* Diagnosis Onset Date Resolution Status Admit Date Depression acute August 06 8:59am Obesity affecting acute August 06, 2024 8:59am acute August 06 8:59am Supervision of high-risk acute August 06, 2024 8:59am Depression acute August 30, 2024 2:06pm Obesity affecting acute August 30, 2024 2:06pm acute August 30, 2024 2:06pm Supervision of high-risk acute August 30, 2024 2 :06pm [facility] Work Phone: 1(495) 292-867904-22-2025 Evaluation note* Diagnosis Onset Date Resolution Status [...] of high-risk acute September 24, 2024 9:37am [facility] Work Phone: 1(763) 846-395704-22-2025 Evaluation note* Diagnosis Onset Date Resolution Status [...] 24 10:49am Supervision of high-risk acute October 24, 2024 10:49am [facility] Work Phone: 1(610) 785-506204-22-2025 Evaluation note* Diagnosis Onset Date Resolution Status [...] of high-risk acute November 22, 2024 11:20am [facility] Work Phone: 1([phone]) 112-886806-18-2024 NoteEstablished Patient Visit ALICIA Kohler DPM Patient [...] to errors including those of syntax and "sound-alike" substitutions which may escape proofreading. In such instances, original meaning may be extrapolated by contextual derivation. ALICIA Kohler DPM [facility] Foot [facility]le Surgery AUTHENTICATED BY GILBERTO KOHLER II, ON 10/03/2023 08:09:29[facility]06-18-2024 History of Present illness Narrative* ALICIA [...] to errors including those of syntax and "sound-alike" substitutions which may escape proofreading. In such instances, original meaning may be extrapolated by contextual derivation. ALICIA Kohler DPM Podiatric Foot & Ankle Surgery documented in this [id number] NoteNEW Patient Visit ALICIA Kohler DPM Patient [...] where the nail was split with an Kittitian anvil distally to approximately 3 mm off [...] subject to errors includi (more content not included)...[facility]06-04-2024 History of Present illness Narrative* ALCIIA Kohler DPM - 09/19/2023 7:52 AM EDTAssociated [...] where the nail was split with an Kitt[place] anvil distally to approximately 3 mm off [...] to errors including those of syntax and "sound-alike" substitutions which may escape proofreading. In such [...] toe, initial encounter 13 weeks gestation of ([facility] documented in this encounter [facility] Work Phone: Progress note Author Sai Foss [facility] Note Date/Time September 24, 2024 10:0 4am [facility] [address], [address] [place] [address] OFFICE VISIT Date of Service: 09/24/24 MR#: [id number] Acct: [id number] Name: MYRNAJAMIL Bey Rep #: [id number] : 1995 Provider: CAMPOS Foss Age/Sex: 29/F Location: [facility] Status: Signed Intake Vital Signs 08/06/24 09:57 08/30/24 14:15 09/24/24 09:41 Height 5 ft 5 in 5 ft 5 in 5 ft 5 in Weight: 181 lb BMI 30.1 BP 130/82 H Intake Visit Reasons: 12 WK OB Chief Complaint: 12 Week OB Spool Winder Required: No Is patient in pain?: No Allergies ragweed pollen Allergy (Mild, Verified 09/24/24 09:43) Itching Medications ?Medication ?Instructions ?Recorded ?Confirmed ?Type sertraline 50 mg tablet 50 mg PO QDAY 07/31/2409/24 History multivit-min no.71-iron fum 28 cap PO 08/06/24 5 History mg-folate no.1 1 mg-dha 300 mg capsule (PNV-Redding) Last Menstrual Period: 06/28/24 Zika: Zika virus screening: Negative : No PFSH PFSH Medical History RhD negative Seasonal allergies Pneumonia Surgical History [place] teeth extracted Family History Grandmother Arthritis Diabetes [...] animals: dog(s) history of recent travel: Yes ([place]) out of state: Yes out of [...] 1-2 times per week duration: 30-45 minutes/day fredi/mormon: Denominational seatbelt use: always do you feel safe [...] nipt. first baby first . lives in [place]. 09/24/24 -?-?-?-?-?-?-?-?-?-?-?-?- 12w 4d 181 lb 130/82 [...] high risk , unspecified, first trimester Comment: [id number], SAMANTHA 04/04/25 Boy, Joshua (2) : Status: [...] 09/24/24 1004 <Electronically signed by Sai loza NP CUT IN STATION OPERATOR-C> Date _ Sai Foss CUT IN STATION OPERATOR CUT IN STATION OPERATOR-C Cosigner Signature: Date (if applicable) CC: ~ [facility] Work Phone: Progress note Author Veronica Cabrera [facility] Note Date/Time November 22, 2024 11: 45am [facility] [address] [place] [address], [address] [place] [address] OFFICE VISIT Date of Service: 11/22/24 MR#: [id number] Acct: [id number] Name: JAMIL NORRIS Rep #: [id number] : 1995 Provider: GEOVANNY Cabrera Age/Sex: 29/F Location: [facility] Status: Signed Intake Vital Signs 08/30/24 14:15 10/24/24 10:52 11/22/24 11:24 Height 5 ft 5 in 5 ft 5 in 5 ft 5 in Weight: 189 lb 2 oz BMI 31.4 BP 124/69 H Intake Visit Reasons: 21wk ob Chief Complaint: 21wk OB Spool Winder Required: No Is patient in pain?: No Allergies ragweed pollen Allergy (Mild, Verified 11/22/24 11:22) Itching Medications ?Medication ?Instructions ?Recorded ?Confirmed ?Type sertraline 50 mg tablet 50 mg PO QDAY 07/31/2411/22 History multivit-min no.71-iron fum 28 cap PO 08/06/24 5 History mg-folate no.1 1 mg-dha 300 mg capsule (PNV-Redding) Last Menstrual Period: 06/28/24 : No PFSH PFSH Medical History RhD negative Seasonal allergies Pneumonia Surgical History [place] teeth extracted Family History Grandmother Arthritis Diabetes [...] animals: dog(s) history of recent travel: Yes ([place]) out of state: Yes out of [...] 1-2 times per week duration: 30-45 minutes/day fredi/mormon: Denominational seatbelt use: always do you feel safe [...] nipt. first baby first . lives in [place]. 09/24/24 -?-?-?-?-?-?-?-?-?-?-?-?- 12w 4d 181 lb 130/82 [...] high risk , unspecified, first trimester Comment: [id number], SAMANTHA 04/04/25 Boy, Joshua (3) Depression: Status: [...] this visit. GA appropriate handout given. 11/22/24 1149 <Electronically signed by Veronica loza CNM> Date _ Veronica Cabrera CNM Cosigner Signature: Date (if applicable) CC: ~ [facility] Work Phone: Progress note Author Marisela Nelson [facility] Note Date/Time December 20, 2024 10:32am [facility] [address] [place] [address], [address] [place] [address] OFFICE VISIT Date of Service: 12/20/24 MR#: [id number] Acct: [id number] Name: JAMIL NORRIS Rep #: [id number] : 1995 Provider: Dr. Kendrick Nelson MD Age/Sex: 29/F Location: [facility] Status: Signed Intake Vital Signs 09/24/24 09:41 11/22/24 11:24 12/20/24 10:06 Height 5 ft 5 in 5 ft 5 in 5 ft 5 in Weight: 189 lb 2 oz 199 lb 3 oz BMI 31.4 33.1 BP 124/69 H 122/82 H Intake Visit Reasons: 25wk ob Spool Winder Required: No Is patient in pain?: No Allergies ragweed pollen Allergy (Mild, Verified 12/20/24 10:03) Itching Medications ?Medication ?Instructions ?Recorded ?Confirmed ?Type sertraline 50 mg tablet 50 mg PO QDAY 07/31/2412/20 History multivit-min no.71-iron fum 28 cap PO 08/06/24 5 History mg-folate no.1 1 mg-dha 300 mg capsule (PNV-Redding) famotidine 20 mg tablet (Pepcid) 20 mg PO BID #60 tabs 12/20/24 12/20/24 Rx Last Menstrual Period: 06/28/24 Zika: Zika virus screening: Negative : No PFSH PFSH Medical History RhD negative Seasonal allergies Pneumonia Surgical History [place] teeth extracted Family History Grandmother Arthritis Diabetes [...] animals: dog(s) history of recent travel: Yes ([place]) out of state: Yes out of [...] 1-2 times per week duration: 30-45 minutes/day fredi/mormon: Denominational seatbelt use: always do you feel safe [...] nipt. first baby first . lives in [place]. 09/24/24 -?-?-?-?-?-?-?-?-?-?--?-?- 12w 4d 181 lb 130/82 [...] high risk , unspecified, first trimester Comment: [id number], SAMANTHA 04/04/25 Boy, name secret?(jermaine) Joshua (3) [...] HgbA1c Orders: Orders CBC W/Diff, Automated Today O09.91 - Supervision of high risk , unspecified, first trimester Glucose Challenge Gest 1H 50g Today O09.91 - Supervision of high risk , unspecified, first trimester, Z13.1 - Encounter for screening for diabetes mellitus Type & Screen Today O09.91 - Supervision of high risk , unspecified, first trimester HIV Today O09.91 - Supervision of high risk , unspecified, first trimester Syphilis Antibodies Today O09.91 - Supervision of high risk , unspecified, first trimester POC Urinalysis 2 Dip (Clinic) Today O09.91 - Supervision of high risk , unspecified, first trimester Medications: New famotidine (Pepcid) 20 mg PO BID 60 tabs 6RF 12/20/24 1032 <Electronically signed by Marisela moralez MD> Date _ Marisela Nelson MD Cosigner Signature: Date (if applicable) CC: ~ [facility] Work Phone: Progress note Author Veronica Cabrera [facility] Note Date/Time January 10, 2025 11:52am [facility] [address], [address] [place] [address] OFFICE VISIT Date of Service: 01/10/25 MR#: [id number] Acct: [id number] Name: JAMIL NORRIS Maida Rep #: [id number] : 1995 Provider: GEOVANNY Cabrera Age/Sex: 29/F Location: [facility] Status: Signed with Addenda ADDENDUM by Renetta Pina on 01/10/25 at 1205 Office Procedure Documentation entered by Renetta Pina 01/10/25 12:05: Injections Is this a patient provided medication?: No Immunizations Adacel(Tdap Adolesn/Adult)(PF) 2 Lf-(2.5-5-3-5)-5 Lf/0.5 mL IM syringe Performing Provider: Veronica Cabrera CNM Performing Location: [facility] Administered by: Renetta Pina on 01/10/25 12:03 Dose Route Admin Location Dispensed Lot Number Expiration Date Pack age NDC NDC [employer] 0.5 mL IM Left Deltoid 0.5 mL [id number] 12/04/26 [id number] [employer]UR VIS Given Date VIS Provided VIS Publication Date 01/10/25 Single Vaccine 24 Eligibility Eligibility Date Funding Source Not Applicable Office Meds RhoGAM Ultra-Filtered PLUS 1,500 unit (300 mcg) intramuscular syringe Performing Provider: Veronica Cabrera CNM Performing Location: [facility] Administered by: Renetta Pina on 01/10/25 12:03 Dose Route Admin Location Dispensed Lot Number Expiration Date Pack age NDC NDC [employer] 1,500 unit IM Left Buttock 1 ea [id number] 10/30/26 48132-798-68 [id number] [employer] [facility] Date _ cc: ~* Signed Intake Vital Signs 11/22/24 11:24 12/20/24 10:06 01/10/25 11:12 Height 5 ft 5 in 5 ft 5 in 5 ft 5 in Weight: 206 lb 4 oz BMI 34.3 BP 127/78 H Intake Visit Reasons: 28wk ob/glucose/rhogam Chief Complaint: 28wk OB Spool Winder Required: No Is patient in pain?: No Allergies ragweed pollen Allergy (Mild, Verified 01/10/25 11:10) Itching Medications ?Medication ?Instructions ?Recorded ?Confirmed ?Type sertraline 50 mg tablet 50 mg PO QDAY 07/31/2401/10 History multivit-min no.71-iron fum 28 cap PO 08/06/24 5 History mg-folate no.1 1 mg-dha 300 mg capsule (PNV-Redding) famotidine 20 mg tablet (Pepcid) 20 mg PO BID #60 tabs 12/20/24 01/10/25 Rx Last Menstrual Period: 06/28/24 : No PFSH PFSH Medical History RhD negative Seasonal allergies Pneumonia Surgical History [place] teeth extracted Family History Grandmother Arthritis Diabetes [...] animals: dog(s) history of recent travel: Yes ([place]) out of state: Yes out of [...] 1-2 times per week duration: 30-45 minutes/day fredi/mormon: Denominational seatbelt use: always do you feel safe [...] nipt. first baby first . lives in [place]. 09/24/24 -?-?-?-?-?-?-?-?-?-?-?-?- 12w 4d 181 lb 130/82 [...] high risk , unspecified, first trimester Comment: [id number], SAMANTHA 04/04/25 Boy, name secret?(jermaine) Joshua (3) [...] 2 Dip (Clinic) Today Rhogam Injection Today O09.91 - Supervision of high risk , unspecified, first trimester, Z3A.28 - 28 weeks gestation of , Z67.91 - Unspecified blood type, Rh negative Tdap Immunization Today Z23 - Encounter for immunization Medications: New RhoGAM Ultra-Filtered PLUS (rho(D) immune globulin) 1,500 units IM ONCE 1 ea 0RF NS O09.91 - Supervision of high risk , [...] Cosigner Signature: Date (if applicable) CC: ~ [facility] Work Phone: Progress note Author Rachele Bradley [facility] Note Date/Time 2025 11 :10am [facility] [address], [address] [place] [address] OFFICE VISIT Date of Service: 01/23/25 MR#: [id number] Acct: [id number] Name: JAMIL NORRIS Rep #: [id number] : 1995 Provider: CAMPOS Foss Age/Sex: 30/F Location: [facility] Status: Signed Intake Vital Signs 11/22/24 11:24 01/10/25 11:12 01/23/25 10:45 01/23/25 10:46 Height 5 ft 5 in 5 ft 5 in 5 ft 5 in 5 ft 5 in Weight: 211 lb 1 oz BMI 35.1 BP 115/77 Intake Visit Reasons: 30wk ob Spool Winder Required: No Is patient in pain?: No Allergies ragweed pollen Allergy (Mild, Verified 01/23/25 10:45) Itching Medications ?Medication ?Instructions ?Recorded ?Confirmed ?Type sertraline 50 mg tablet 50 mg PO QDAY 07/31/2401/23 History multivit-min no.71-iron fum 28 cap PO 08/06/24 5 History mg-folate no.1 1 mg-dha 300 mg capsule (PNV-Redding) famotidine 20 mg tablet (Pepcid) 20 mg PO BID #60 tabs 12/20/24 01/23/25 Rx ondansetron 4 mg disintegrating 4 mg PO Q4H PRN nausea and 01/23/25 01/23/25 Rx tablet vomiting #60 tabs Last Menstrual Period: 06/28/24 Zika: Zika virus screening: Negative : Yes PFSH PFSH Medical History RhD negative Seasonal allergies Pneumonia Surgical History [place] teeth extracted Family History Grandmother Arthritis Diabetes [...] animals: dog(s) history of recent travel: Yes ([place]) out of state: Yes out of [...] 1-2 times per week duration: 30-45 minutes/day fredi/mormon: Denominational seatbelt use: always do you feel safe [...] nipt. first baby first . lives in [place]. 09/24/24 -?-?-?-?-?-?-?-?-?-?-?-?- 12w 4d 181 lb 130/82 [...] Monitoring, Signs and Symptoms of Preeclampsia and Infant Feeding Yes ROS Const Reports system reviewed [...] Og on 01/23/25 10: 57 Immunizations Flucelvax [id number] (PF) 45 mcg (15 mcg x 3)/0.5 mL IM syringe Performing Provider: Rachele Llanes DO Performing Location: [facility] Administered by: Sai Hatch on 01/23/25 10:59 Dose Route Admin Location Dispensed Lot Number Expiration Date Pack age NDC NDC [employer] 0.5 mL IM Left Deltoid 0.5 mL [id number] 08/24/25 [id number] [employer]. VIS Given Date VIS Provided VIS Publication [...] high risk , unspecified, third trimester Comment: [id number], SAMANTHA 04/04/25 Boy, name secret?(jermaine) Joshua (2) RhD negative: Status: Acute Comment: Fetus RHD+ on NIPT; rhogam 28 wk, pp and prn (3) Depression: Status: Acute Qualifiers: Depression Type: unspecified Qualified Code(s): F32.A - Depression, unspecified Comment: sertraline/stable (4) : Status: Acute Qualifiers: Weeks of gestation: 29 weeks Qualified Code(s): Z3A.29 - 29 weeks gestation of Comment: NIPT low risk, Carrier neg. /, unremarkable anatomy, consistent dates (5) Obesity affecting [...] tabs 2RF nausea and vomiting Sai Foss CUT IN STATION OPERATOR, CUT IN STATION OPERATOR-C Plan problem list reviewed and updated for most current plan of care and appropriate orders placed. Relevant counseling for the gestational age appropriate provided and ACOG education checklist updated. Continue routine care and follow up. 01/23/252104 <Electronically signed by Rachele Vand e Velde DO> Date _ Rachele Llanes DO 01/23/25 1126<Electronically signed by Sai Foss NP CUT IN STATION OPERATOR -C> Cosigner Signature: Date (if applicable) Sai Foss NP CUT IN STATION OPERATOR-C CC: ~ [facility] Work Phone: Reason for referral (narrative)No reason for referral information availableK[facility] Work Phone: Summary Purpose Family History No [...] 2024 9:37 am Obesity affecting September 24, 025 9:37am September 24, 2024 9:37 am RhD negative September 24, 2024 9:37 am Supervision of high-risk September 24, 2024 9:37am Depression October 24, 2024 10:4 9am Obesity affecting October 24, 025 10:49am October 24, 2024 10:4 9am RhD negative October 24, 2024 10:4 9am Supervision of high-risk October 24, 2024 10:49am Chief Complaint Admit Date Est Care/Urine test/ Vitals August 06, 2024 8:59am New OB, LMP 3/14, SAMANTHA 04/04, first baby August 30, 2024 2:06pm 12 WK OB September 24, 2024 9:37 am w6d ob October 24, 2024 10:4 9am 21wk [...] December 20, 2024 9:58am Supervision of high-risk Septe [id number] 9:58am Chief Complaint Admit Date 12 WK OB September 24, 2024 9:37 am 16w6d ob October 24, 2024 10:4 9am 21wk ob November 22, 2024 11: 20am 25wk ob December 20, 2024 9:58am 28wk ob/glucose/rhogam January 10 11:08am Reason for Visit Admit Date Depression [...] December 20, 2024 9:58am [facility] 2024 9:58am Depression January 10, 2025 11:08am Obesity affecting January 102024 11:08am January 10, 2025 11:08am RhD negative January 10, 2025 11:08am Supervision of high-risk [facility] 2024 11:08am Chief Complaint Admit Date 16w6d ob October 24, 2024 10:4 9am 21wk ob November 22, 2024 11: 20am 25wk ob December 20, 2024 9:58am 28wk ob/glucose/rhogam January 10, 025 11:08am 30wk ob 2025 10 :54am Reason for Visit Admit Date Depression October 24, 2024 10:4 9am Obesity affecting October 24, 025 10:49am October 24, 2024 10:4 9am RhD [...] December 20, 2024 9:58am Supervision of high[facility] 2024 9:58am Depression January 10, 2025 11:08am Obesity affecting January 102024 11:08am January 10, 2025 11:08am RhD negative January 10, 2025 11:08am Supervision of high-risk [facility] 2024 11:08am Depression 2025 10 :54am Obesity affecting 2025 10:54am 2025 10 :54am RhD negative 2025 10 :54am Supervision of high-risk Octob er 2024 10:54am Additional Source Comments INFORMATION SOURCE (unrecogn ized section and content) DATE CREATED AUTHOR 07/12/2020 [facility] DATE CREATED AUTHOR AUTHOR'S ORGANIZ ATION 04/01/2021 [facility] DATE CREATED AUTHOR AUTHOR'S ORGANIZ ATION 04/18/2022 [facility] DATE CREATED AUTHOR AUTHOR'S ORGANIZ ATION 10/04/2023 [facility] DATE CREATED AUTHOR AUTHOR'S ORGANIZ ATION 07/05/2024 [facility] DATE CREATED AUTHOR AUTHOR'S ORGANIZ ATION 10/04/2024 [facility] DATE CREATED AUTHOR AUTHOR'S ORGANIZ ATION 11/13/2024 [facility] DATE CREATED AUTHOR AUTHOR'S ORGANIZ ATION 02/18/2025 [facility] Reason for Visit (unrecogniz ed section and content) Reason Comments Ingrown Toenail Lateral border; ongo ing about a week and a half Reason Comments Follow-up S/p Left grt toenail . Slight pain, doing well. Reason Comments New Patient Visit Toe injury, loose st ool, Care Teams (unrecognized sec tion and content) Engineering Secretary Relationship Specialty Start Date End Date Merissa Linton CNP [address] [place] [address] PCP - General Nurse Practitioner 09/19/23 Engineering Secretary Relationship Specialty Start Date End Date Merissa Linton CNP [address] [place] [address] PCP - General Nurse Practitioner 09/19/23 Engineering Secretary Relationship Specialty Start Date End Date Merissa Linton CNP [address] [place] [address] PCP - General Nurse Practitioner 09/19/23 Team [...] Inactive Member Role Status Dates Sai Foss CUT IN STATION OPERATOR, CUT IN STATION OPERATOR-C Attending Provider Active Start: September 24, 2024 End: September 24, 2024 Engineering Secretary Relationship Specialty Start Date End Date Louann Hager MD [address] [address] PCP - General Family Medicine 10/01/24 Team [...] Inactive Member Role/Relationship Status Dates Sai Foss NP, CUT IN STATION OPERATOR-C Attending Provider Active Start: September 24, 2024 [...] Inactive Member Role/Relationship Status Dates Sai Foss NP, CUT IN STATION OPERATOR-C Attending Provider Active Start: September 24, 2024 [...] Inactive Member Role/Relationship Status Dates Sai Foss NP, CUT IN STATION OPERATOR-C Attending physician Active Start: September 24, 2024 [...] Status: Inactive Member Role/Relationship Status Dates Sai Prudence CUT IN STATION OPERATOR, CUT IN STATION OPERATOR-C Attending physician Active Start: 2025 End: 2025 [...] BE BASED ON THE PRIMARY CLINICAL RECORDS. [facility]. provides no warranty or guarantee of the accuracy or completeness of information in this document.
[2025-02-21 17:44] LABS: Glucose Challenge Gest 1H 50g 78 mg/dL (70-140)
== END | disposition home or self-care (01) ==
PROVIDERS: Advanced Practice Midwife; PCP Family Medicine; Visit Provider Obstetrics & Gynecology
DX: O09.93 Supervision of high risk pregnancy, unspecified, third trimester (principal); Z13.1 Encounter for screening for diabetes mellitus; Z3A.00 Weeks of gestation of pregnancy not specified
CPT/HCPCS: 36415; 82950

== ENCOUNTER → 2025-03-12 | Outpatient (CLI) | payer OTHER, SELFPAY ==
--- OUTSIDE RECORDS SUMMARY | 2025-03-12 06:57 | XMS RPT_ITS | CCD ---
Author Organization [facility] CliniSyde Care Team Providers Care Fuels Engineer Name Role Phone MARTY ERNST Primary Care Unavailabl e EIDEN, MARTY BELTRAN Admitting Unavailabl e STEFAN, RICHARD CHOUDHARY Attending Unavail able STEFAN, RICHARD CHOUDHARY Attending Unavail able [place] HEALTH SCIENCE INSTRUCTOR, Merissa Syed Primary Care Provider MERISSA LINTON Primary Care Unavailab le HASSMANN II, GILBERTO HUANG Attending Un available SEGGERSON, MERISSA SYED Primary Care Unavailab le HASSMANN II, GILBERTO HUANG Referring Un available HASSMANN II, GILBERTO HUANG Admitting Un available HASSMANN II, GILBERTO HUANG Attending Un available SEGGERSON, MERISSA KUNAL Primary Care Unavailab le [place] DATA CENTER TECHNICIAN-HEALTH SCIENCE INSTRUCTOR, Merissa Syed Attending Unavailable [place] DATA CENTER TECHNICIAN-HEALTH SCIENCE INSTRUCTOR, Merissa Kunal Primary Care Unavailable [place] DATA CENTER TECHNICIAN-HEALTH SCIENCE INSTRUCTOR, Mary Cleveland Attending Mary vailable Seggerson DATA CENTER TECHNICIAN-HEALTH SCIENCE INSTRUCTOR, Merissa Kunal Primary Care Unavailable [place] DATA CENTER TECHNICIAN-HEALTH SCIENCE INSTRUCTOR, Merissa Kunal Primary Care Unavailable [place] DATA CENTER TECHNICIAN-HEALTH SCIENCE INSTRUCTOR, Mary Cleveland Attending Mary vailable Dr. Marisela Nelson MD Attending Provider Dr. Rachele Llanes DO Attending Provider Dr. Marisela Nelson MD Referring Provider [phone] Dr. Rachele Llanes DO Referring Provider Sai Turner Attending Provider Louann Hager MD Primary Care Provider LOUANN HAGER Attending Unavailable LOUANN HAGER Primary Care Unavailable NO PRIMARY CAREMD Primary Care Unavailable PRUDENCE, SAI S Referring Unavailable SILVER ANTUNEZ Attending Unavailable Rick SMALL, Veronica Attending Provider [phone] Omar ROBERTO, Dr. Antonio Attending Provider [place] HOTEL RESERVATION AGENT-C, Sai Attending Physician [phone] Jose Miguel Bradley DO, Dr. Jeffrey Attending Physician Rick SMALL, Veronica Attending Physician [phone] Omar ROBERTO, Dr. Antonio Attending Physician Omar ROBERTO, Dr. Antonio Referring Provider [phone] [place] HOTEL RESERVATION AGENT-C, Sai Attending Physician [phone] [place] HOTEL RESERVATION AGENT, Sai Attending Unavailable Yeater, Louann M Primary Care Unavailable Veronica Cabrera Attending Unavailable Veronica Cabrera Referring Unavailable Yeater, Louann M Primary Care Unavailable Jose Miguel Bradley, Rachele Attending Unavailabl e Veronica Cabrera Attending Unavailable Rick, Veronica Attending Unavailable Omar, Marisela Attending Unavailable [place] HOTEL RESERVATION AGENT, Sai Attending Unavailable [place] HOTEL RESERVATION AGENT, Sai Attending Unavailable Veronica Cabrera Attending Unavailable Yeater, Louann M Primary Care Unavailable Yeater, Louann M Referring Unavailable Omar, Marisela Attending Unavailable Vande Veloneyda, Rachele Attending Unavailabl e [place] HOTEL RESERVATION AGENT, Sai Attending Unavailable Vande Velde, Rachele Attending Unavailabl e Yeater, Louann M Primary Care Unavailable Marisela Nelson Attending Unavailable Marisela Nelson Referring Unavailable Omar, Marisela Attending Unavailable Marisela Nelson Referring Unavailable Vande Veloneyda, Rachele Attending Unavailabl e Vande Velde, Rachele Referring Unavailabl e [place] HOTEL RESERVATION AGENT, Sai Attending Unavailable [place] HOTEL RESERVATION AGENT, Sai Referring Unavailable Yeater, Louann M Primary Care Unavailable Rick SMALL, Veronica Attending Physician [phone] Omar ROBERTO, Dr. Antonio Attending Physician Dr. Marisela Nelson MD Referring Provider [place] HOTEL RESERVATION AGENT-C, Sai Attending Physician [phone] [place] HOTEL RESERVATION AGENT-C, Sai Referring Provider [phone] Mckenna ROBERTO, Dr. Louann Hunt Primary Care Physician [phone] Sera ROBERTO, Dr. Schroeder Attending Physician [phone] Mckenna ROBERTO, Dr. Louann Hunt Referring Provider Veronica Cabrera CNM Referring Provider Jose Miguel Bradley DO, Dr. Jeffrey Attending Physician Allergies Allergy Classification Reported Allergen(s) Allergy Type Date of Onset Reaction(s) Facility (1 source) No Known Medication Allergies; Translations: [No Known Medication Allergies] Propensity to adverse reactions to drug (disorder) [facility] Repository (11 sources) Ragweed pollen; Translations: [ragweed pollen] Allergy to substance Itching [facility] Medications Current Medications Medication Drug Class(es) Dates [...] 09/26/2023 Active famotidine 20 mg oral tablet (5 sources) Histamine-2 Receptor Antagonist Start: 12-20-2024 take 1 tablet by mouth twice daily Mv-Mins 65-Gpvc-Qkzxr No.1-Dha (Pnv-Wilder) 28-1-300 mg capsule (10 sources) Start: 08-06-2024 Start: 08-06-2024 Mv-Mins 71-Iro n-Folic No.1-Dha (Pnv-Wilder) 28-1-300 mg capsule Active NMA PO August 06, 2024 12:00am Complies with drug therapy Start: 08-06-2024 Start: 08-06-2024 Mv-Mins 71-Iro n-Folic No.1-Dha (Pnv-Wilder) 28-1-300 mg capsule Active NMA PO August 06, 2024 12:00am ondansetron 4 mg disintegrating oral tablet (2 sources) Serotonin-3 Receptor Antagonist Start: 2025 take 1 tablet by mouth every four hours as needed for nausea and vomiting no115/iron/folic acid ( 19 ORAL) (1 source) no115/iron/folic acid ( 19 ORAL) Take by mouth. Active sertraline 50 mg oral tablet (15 sources) Serotonin Reuptake Inhibitor Start: 10-01-2024 take 1 tablet by mouth once daily sertraline (Zoloft) 50 mg tablet Indications: Anxiety and depression Take 1 tablet (50 mg) by mouth once daily. 90 tablet 3 10/01/2024 Active Start: 08-13-2023 End: 10-01-2024 take 1 tablet by mouth once daily Completed/Discontinued Medications Medication Drug Class(es) Dates Sig (Normalized) Sig (Original) docosahexaenoic acid 200 mg oral capsule (10 sources) Start: 07-31-2024 End: 08-06-2024 Docosahexaenoic Acid ( Dha) 200 mg capsule Discontinued mg PO July 30, 2024 11:00pm August 06, 2024 8:13am Lidocaine (2 sources) Antiarrhythmic, Amide Local Anesthetic [...] unspecified] Onset: 10-01-2024 10-01-2024 Chronic Cardiac dysrhythmias (4 sources) Tachycardia, unspecified; Translations: [Tachycardia] Onset: 02-17-2025 02-05-2025 Episodic Comment on above: EKG Immunizations and screening for infectious disease (1 [...] Comment on above: , SAMANTHA 04/04/25, Joshua [id number], SAMANTHA 5 Boy, Joshua [id number], SAMANTHA 5 Boy, name secret?(jermaine) Joshua Other complications of (2 sources) Supervision of high risk , unspecified, third trimester; Translations: [Supervision of high risk , unspecified, third trimester] Onset: 02-17-2025 Episodic Other complications of (1 source) Uterine size-date discrepancy, unspecified trimester; Translations: [Uterine size-date discrepancy, unspecified trimester] Onset: 02-17-2025 Episodic Other complications of (1 source) Supervision of high risk , unspecified, first trimester; Translations: [Supervision of high risk , unspecified, first trimester] Onset: 01-15-2025 Episodic Other complications of (2 sources) Fundal height high for dates; Translations: [Uterine size-date discrepancy, unspecified trimester] 02-21-2025 Episodic Comment on above: KHADIJAH 20 EFW 98 % AC 9 9% repeat glucose-normal Other connective tissue disease (2 sources) Pain [...] left foot, initial encounter] 10-01-2024 Episodic Other screening for suspected conditions (not mental disorders or infectious disease) (1 source) Encounter for screening for diabetes mellitus; Translations: [Encounter for screening for diabetes mellitus] Onset: 02-21-2025 Episodic Other skin disorders (2 sources) Ingrowing [...] weeks gestation of ] Onset: 12-20-2024 Episodic Skin and subcutaneous tissue infections (7 [...] 4/4 NIPT low risk, Chelle er neg. 4/, unremarkable anatomy, consistent dates Residual codes; unclassified (1 source) 21 weeks gestation of ; Translations: [21 weeks gestation of ] Onset: 11-22-2024 Episodic Residual codes; unclassified (1 source) 12 weeks [...] Test Name Value Interpretation Reference Range Facility Glucose Challenge Gest 1H 50 boris 02-21-2025 GLU GEST 50g 1H 78 mg/dL Normal 70-140 [facility] Comment on above: Performed By: #### L 509.8002, L501.0250, L100.0100, L3890.6006, BTS #### [facility] Laboratory [address] [place], [address] Glucose measurement at 2 lizeth rs post-dose gestational glucose tolerance testOrdered By: Veronica Cabrera on 02-21-2025 Glucose [Mass/Vol] 78 mg/dL 70-140 [facility] OB Limited With Biometricson 02-20-2025 OB Limited With Biometrics [facility] Imaging Services [address] [place] [address] OB Limited With Biometrics MR#: [id number] Acct: [id number] Name: JAMIL NORRIS Rep #: [id number] : 1995 F 30 From: Brian del valle MD PCP: Dr. Louann Hager MD Status: REG CLI Study: OB Limited With Biometrics Date of Exam: 02/20 Exam# [id number] Ordering Dr: Veronica Cabrera CNM PROCEDURE: OB LIMITED WITH BIOMETRICS 02/20/2025 REASON FOR EXAM: S>D growth. TECHNIQUE: Procedure Code: USOBGROWTH Modality: US Procedure: OB LIMITED WITH BIOMETRICS COMPARISON: None FINDINGS LMP: June 28, 2024 Number: 1 Position: Vertex Placental Position: Posterior and not low-lying Placental Abnormalities: No evidence of previa. DIMENSIONS: Biparietal Diameter: 9.1 cm: 37 weeks and 0 days: 99 percentile/ Head Circumference: 32.5 cm: 36 weeks and 5 days: 85th percentile/ Abdominal Circumference: 32.8 cm: 36 weeks and 5 days: 99 percentile/ Femur Length: 6.9 cm: 35 weeks and 1 day: 75th percentile/ ESTIMATED WEIGHT: 2940 g plus/-442 g ESTIMATED WEIGHT PERCENTILE (24+ weeks): 98th percentile ESTIMATED GESTATIONAL AGE: Baseline: 33 weeks and 6 days By Ultrasound: 36 weeks and 4 days ESTIMATED DATE OF DELIVERY: Baseline: April 04, 2024 By Ultrasound: March 16, 2025 BIOPHYSICAL ASSESSMENT: Amniotic Fluid Volume: 7.6 cm Amniotic Fluid Index: 20.6 (8-24 cm normal range) Cardiac Motion: 137 beats per minute (average) Trunk and Limb Motion: Present. MATERNAL ANATOMY: Adnexa: Neither maternal ovary is successfully identified. US/OB Limited With Biometrics IMPRESSION: Single live intrauterine gestation with a mean gestational age of 36 weeks and 4 days. Reading Location: [id number] CC: GEOVANNY Cabrera; Dr. Louann Hager MD Shipping Track Supervisor: Signed Normal [facility] Laboratory - Chemistry and C hemistry - challengeOrdered By: Veronica Cabrera on 02-17-2025 Glucose Ql (U) Negative [facility] Laboratory - UrinalysisOrder ed By: Veronica Cabrera on 02-17-2025 Protein Ql (U) Negative [facility] Emulsion Coater Office Visit Reporton 02-17-2025 Emulsion Coater Office Visit Report [facility]'s [address], [address] [place] [address] OFFICE VISIT Date of Service: 02/17/25 MR#: [id number] Acct: [id number] Name: JAMIL NORRIS Rep #: [id number] : 1995 Provider: GEOVANNY Salazar ams Age/Sex: 30/F [place] [facility] Status: Signed Intake Vital Signs 01/10/25 11:12 02/05/25 13:10 02/17/25 11:38 02/17/25 11:40 Height 5 ft 5 in 5 ft 5 in 5 ft 5 in 5 ft 5 in Weight: 213 lb 6 oz 213 lb 7 oz BMI 35.5 35.5 BP 107/70 117/75 Pulse 112 H Intake Visit Reasons: 33 WK 3D OB Olive Packer Required: No Is patient in pain?: No Allergies ragweed pollen Allergy (Mild, Verified 02/17/25 11:38) Itching Medications ???Medication ???Instructions ???Recorded ???Confirmed ???Type sertraline 50 mg tablet 50 mg PO QDAY 07/31/24 02/17/25 Hi story multivit-min no.71-iron fum 28 cap PO 08/06/24 02/17/25 History mg-folate no.1 1 mg-dha 300 mg capsule (PNV-Wilder) famotidine 20 mg tablet (Pepcid) 20 mg PO BID #60 tabs 12/20/2407/09 Rx ondansetron 4 mg disintegrating 4 mg PO Q4H PRN nausea and 5 02/17/25 Rx tablet vomiting #60 tabs Last Menstrual Period: 06/28/24 Zika: Zika virus screening: Negative : No PFSH PFSH Medical History RhD negative Seasonal allergies Pneumonia Surgical History [place] teeth extracted Family History Grandmother Arthritis Diabetes [...] animals: dog(s) history of recent travel: Yes ([place] April) out of state: Yes out of [...] 1-2 times per week duration: 30-45 minutes/day fredi/buddhism: Religion seatbelt use: always do you feel safe [...] nipt. first baby first . lives in [place]. 09/24/24 -???-???-???-???-?? ?-???-???-???-???-? ??-???-???- 12w 4d 181 l (more content not included)... Normal [facility] Anion gap in Serum or Plasma Ordered By: Sai Foss on 02-12-2025 Anion gap [Moles/Vol] 12 mmol/L 5-15 [facility] BUN/creatinine ratioOrdered By: Sai Foss on 02-12-2025 Urea nitrogen/Creatinine [Mass ratio] 20.0 mg/mg 10-20 [facility] Basic Metabolic Profile (BMP )on 02-12-2025 BUN/CRE 20.0 RATIO Normal -20 [facility] Comment on above: Performed By: #### L 500.2500 #### [facility] Laboratory [address] [place], [address] Calcium [Mass/Vol] 9.1 mg/dL Normal 7.6-11.0 [facility] Comment on above: Performed By: #### L 500.2500 #### [facility] [address] [place], [address] Chloride [Moles/Vol] 104 mmol/L Normal 98-108 [facility] Comment on above: Performed By: #### L 500.2500 #### [facility] [address] [place], [address] CO2 [Moles/Vol] 20.4 mmol/L Low 21.0-32.0 [facility] Comment on above: Performed By: #### L 500.2500 #### [facility] [address] [place], [address] Creatinine [Mass/Vol] 0.56 mg/dL Low 0.70-1.20 [facility] Comment on above: Performed By: #### L 500.2500 #### [facility] [address] [place], [address] GAP 12 Normal 5-15 [facility] Comment on above: Performed By: #### L 500.2500 #### [facility] [address] [place], [address] GFR/1.73 sq M.predicted among non-blacks MDRD (S/P/Bld) [Vol rate/Area] 127 mL/min/{1.73_m2} Normal >60 [facility] Comment on above: Result Comment: mL/m in/1.73m2 CKD-EPI Creatinine Equation (2020) Performed By: #### L 500.2500 #### [facility] [address] [place], [address] Glucose [Mass/Vol] 109 mg/dL High 70-99 [facility] Comment on above: Performed By: #### L 500.2500 #### [facility] [address] [place], [address] Potassium [Moles/Vol] 3.9 mmol/L Normal 3.3-5.1 [facility] Comment on above: Performed By: #### L 500.2500 #### [facility] [address] [place], [address] Sodium [Moles/Vol] 136 mmol/L Normal 133-145 [facility] Comment on above: Performed By: #### L 500.2500 #### [facility] [address] [place], [address] Urea nitrogen [Mass/Vol] 11 mg/dL Normal 4-19 [facility] Comment on above: Performed By: #### L 500.2500 #### [facility] [address] [place], [address] Carbon dioxide, total [Moles /volume] in Central venous bloodOrdered By: Sai Foss on 02-12-2025 CO2 [Moles/Vol] 20.4 mmol/L Low 21.0-32.0 [facility] Chloride assayOrdered By: Denver Foss on 02-12-2025 Chloride [Moles/Vol] 104 mmol/L 98-108 [facility] Glomerular filtration rate ( GFR) estimation/1.73 sq m using serum, plasma, or whole bOrdered By: Sai Foss on 02-12-2025 GFR/1.73 sq M.predicted among non-blacks MDRD (S/P/Bld) [Vol rate/Area] 127 mL/min/{1.73_m2} >60 [facility] Comment on above: mL/min/1.73m2 CKD-EP I Creatinine Equation (2020) Potassium measurement (mass/ volume)Ordered By: Sai Foss on 02-12-2025 Potassium (Unsp spec) [Mass/Vol] 3.9 mmol/L 3.3-5.1 [facility] Serum creatinine measurement (mass/volume)Ordered By: Sai Foss on 02-12-2025 Creatinine [Mass/Vol] 0.56 mg/dL Low 0.70-1.20 [facility] Serum glucose measurement (m ass/volume)Ordered By: Sai Foss on 02-12-2025 Glucose [Mass/Vol] 109 mg/dL High 70-99 [facility] Serum or plasma calcium tamy urement (mass/volume)Ordered By: Sai Foss on 02-12-2025 Calcium [Mass/Vol] 9.1 mg/dL 7.6-11.0 [facility] Serum or plasma urea nitroge n measurement (mass/volume)Ordered By: Sai Foss on 02-12-2025 Urea nitrogen [Mass/Vol] 11 mg/dL 4-19 [facility] Sodium levelOrdered By: Daniel Foss on 02-12-2025 Sodium [Moles/Vol] 136 mmol/L 133-145 [facility] 12 Lead EKGon 02-07-2025 12 Lead EKG [facility] Cardiovascular Services [address] [place] [address] 12 Lead EKG 02/07/25 0739 MR#: [id number] Acct: [id number] Name: JAMIL NORRIS Rep #: [id number] : 1995 30 From: Gale Zamora MD Attending Dr: CAMPOS Sullivan Status: REG CLI Ordering Dr: Sai Foss NP HOTEL RESERVATION AGENT-C Date: 02/07/25 Location: N Sex: F C Admitted: Test Reason : [...] Otherwise normal ECG Confirmed by GALE ZAMORA ([id number]), book editor DEWAYNE DUBON ([id number]) on 02/10/2025 7:10:52 AM Referred By: Sai Foss Confirmed By: GALE ZAMORA 02/10/25 0710 Date Gale Zamora MD CC: CAMPOS Foss; Dr. Louann Hager MD Signed Normal [facility] Laboratory - Chemistry and C hemistry - challengeOrdered By: Sai Foss on 02-05-2025 Glucose Ql (U) Negative [facility] Laboratory - UrinalysisOrder ed By: Sai Foss on 02-05-2025 Protein Ql (U) Negative [facility] Emulsion Coater Office Visit Reporton 02-05-2025 Emulsion Coater Office Visit Report [facility] [address], [address] [place] [address] OFFICE VISIT Date of Service: 02/05/25 MR#: [id number] Acct: [id number] Name: JAMIL NORRIS Rep #: [id number] : 1995 Provider: CAMPOS solitario Age/Sex: 30/F [place] [facility] Status: Signed Intake Vital Signs 11/22/24 11:24 01/23/25 10:46 02/05/25 13:10 Height 5 ft 5 in 5 ft 5 in 5 ft 5 in Weight: 213 lb 6 oz BMI 35.5 BP 107/70 Pulse 112 H Intake Visit Reasons: 31 WK 5D OB Olive Packer Required: No Is patient in pain?: No Allergies ragweed pollen Allergy (Mild, Verified 02/05/25 13:09) Itching Medications ???Medication ???Instructions ???Recorded ???Confirmed ???Type sertraline 50 mg tablet 50 mg PO QDAY 07/31/24 02/05/25 Hi story multivit-min no.71-iron fum 28 cap PO 08/06/24 02/05/25 History mg-folate no.1 1 mg-dha 300 mg capsule (PNV-Wilder) famotidine 20 mg tablet (Pepcid) 20 mg PO BID #60 tabs 12/20/24 Rx ondansetron 4 mg disintegrating 4 mg PO Q4H PRN nausea and 5 02/05/25 Rx tablet vomiting #60 tabs Last Menstrual Period: 06/28/24 Zika: Zika virus screening: Negative : No PFSH PFSH Medical History RhD negative Seasonal allergies Pneumonia Surgical History [place] teeth extracted Family History Grandmother Arthritis Diabetes [...] animals: dog(s) history of recent travel: Yes ([place] April) out of state: Yes out of [...] 1-2 times per week duration: 30-45 minutes/day fredi/buddhism: Religion seatbelt use: always do you feel safe [...] nipt. first baby first . lives in [place]. 09/24/24 -???-???-???-???-?? ?-???-???-???-???-? ??-???-???- 12w 4d 181 lb 130/82 Negative -???-???-???-???-?? ?-???-???-?? (more content not included)... Normal [facility] Laboratory - Chemistry and C hemistry - challengeOrdered By: Rachele Bradley on 2025 Glucose Ql (U) Negative [facility] Laboratory - UrinalysisOrder ed By: Rachele Bradley on 2025 Protein Ql (U) Negative [facility] Emulsion Coater Office Visit Reporton 2025 Emulsion Coater Office Visit Report [facility] [address], [address] [place] [address] OFFICE VISIT Date of Service: 01/23/25 MR#: [id number] Acct: [id number] Name: JAMIL NORRIS Rep #: [id number] : 1995 Provider: CAMPOS solitario Age/Sex: 30/F [place] [facility] Status: Signed Intake Vital Signs 11/22/24 11:24 01/10/25 11:12 01/23/25 10:45 01/23/25 10:46 Height 5 ft 5 in 5 ft 5 in 5 ft 5 in 5 ft 5 in Weight: 211 lb 1 oz BMI 35.1 BP 115/77 Intake Visit Reasons: 30wk ob Olive Packer Required: No Is patient in pain?: No Allergies ragweed pollen Allergy (Mild, Verified 01/23/25 10:45) Itching Medications ???Medication ???Instructions ???Recorded ???Confirmed ???Type sertraline 50 mg tablet 50 mg PO QDAY 07/31/24 01/23/25 Hi story multivit-min no.71-iron fum 28 cap PO 08/06/24 01/23/25 History mg-folate no.1 1 mg-dha 300 mg capsule (PNV-Wilder) famotidine 20 mg tablet (Pepcid) 20 mg PO BID #60 tabs 12/20/2401/09 Rx ondansetron 4 mg disintegrating 4 mg PO Q4H PRN nausea and 5 01/23/25 Rx tablet vomiting #60 tabs Last Menstrual Period: 06/28/24 Zika: Zika virus screening: Negative : Yes PFSH PFSH Medical History RhD negative Seasonal allergies Pneumonia Surgical History [place] teeth extracted Family History Grandmother Arthritis Diabetes [...] animals: dog(s) history of recent travel: Yes ([place]) out of state: Yes out of [...] 1-2 times per week duration: 30-45 minutes/day fredi/buddhism: Religion seatbelt use: always do you feel safe [...] nipt. first baby first . lives in [place]. 09/24/24 -???-???-???-???-?? ?-???-???-???-???-? ??-???-???- 12w 4d 181 lb 130/82 Negative -???-???-???-???-?? ?-???-???-?? (more content not included)... Normal [facility] Absolute lymphocyte countOrd ered By: Marisela Pickettgene on 01-10-2025 Lymphocytes Auto (Unsp spec) [#/Vol] 1.58 10*3/uL 0.83-4.51 [facility] Absolute neutrophil countOrd ered By: Mariselatamy Nelson on 01-10-2025 Neutrophils (Bld) [#/Vol] 5.8 10*3/uL 2.0-7.7 [facility] Automated lymphocyte count a s percentage of total leukocytesOrdered By: Marisela Pikcettgene on 01-10-2025 Lymphocytes/100 WBC Auto (Unsp spec) 18.9 % Low 19-41 [facility] Basophil percentageOrdered B y: Marisela Pickettdenysorlin on 01-10-2025 Basophils/100 WBC (Bld) 0.6 % 0-1 [facility] CBC W/Diff, Automatedon 12-17 Absolute Lymph 1.58 X10 3/uL Normal 0.83-4.51 [facility] Comment on above: Performed By: #### L 509.8002, L501.0250, L100.0100, L3890.6006, BTS #### [facility] Laboratory [address] [place], [address] Absolute Neut 5.8 X10 3/uL Normal 2.0-7.7 [facility] Comment on above: Performed By: #### L 509.8002, L501.0250, L100.0100, L3890.6006, BTS #### [facility] [address] [place], [address] Basophils/100 WBC (Bld) 0.6 % Normal 0-1 [facility] Comment on above: Performed By: #### L 509.8002, L501.0250, L100.0100, L3890.6006, BTS #### [facility] [address] [place], [address] Eosinophils/100 WBC (Bld) 2.9 % Normal 0-5 [facility] Comment on above: Performed By: #### L 509.8002, L501.0250, L100.0100, L3890.6006, BTS #### [facility] [address] [place], [address] Erythrocyte distribution width (RBC) [Ratio] 12.5 % Normal 11.6-14.6 [facility] Comment on above: Performed By: #### L 509.8002, L501.0250, L100.0100, L3890.6006, BTS #### [facility] [address] [place], [address] Hematocrit (Bld) [Volume fraction] 33.8 % Low 37-47 [facility] Comment on above: Performed By: #### L 509.8002, L501.0250, L100.0100, L3890.6006, BTS #### [facility] [address] [place] [place], [address] Hemoglobin (Bld) [Mass/Vol] 12.1 g/dL Normal 12.0-15.0 [facility] Comment on above: Performed By: #### L 509.8002, L501.0250, L100.0100, L3890.6006, BTS #### [facility] [address] [place], [address] IG% 0.600 Normal 0.0-0.9 [facility] Comment on above: Result Comment: IG% - Immature Granulocytes (promyelocytes, myelocytes and metamyelocytes) > 1% indicates that a LEFT SHIFT is Present. Performed By: #### L 509.8002, L501.0250, L100.0100, L3890.6006, BTS #### [facility] [address] [place], [address] Lymphocytes/100 WBC (Bld) 18.9 % Low 19-41 [facility] Comment on above: Performed By: #### L 509.8002, L501.0250, L100.0100, L3890.6006, BTS #### [facility] [address] [place], [address] MCH (RBC) [Entitic mass] 32.5 pg High 27.0-32.0 [facility] Comment on above: Performed By: #### L 509.8002, L501.0250, L100.0100, L3890.6006, BTS #### [facility] [address] [place], [address] MCHC (RBC) [Mass/Vol] 35.8 g/dL Normal 32-36 [facility] Comment on above: Performed By: #### L 509.8002, L501.0250, L100.0100, L3890.6006, BTS #### [facility] [address] [place], [address] MCV (RBC) [Entitic vol] 90.9 fL Normal 81-99 [facility] Comment on above: Performed By: #### L 509.8002, L501.0250, L100.0100, L3890.6006, BTS #### [facility] [address] [place], [address] Monocytes/100 WBC (Bld) 7.3 % Normal 0-10 [facility] Comment on above: Performed By: #### L 509.8002, L501.0250, L100.0100, L3890.6006, BTS #### [facility] [address] [place], [address] Neutrophils/100 WBC (Bld) 69.7 % Normal 47-70 [facility] Comment on above: Performed By: #### L 509.8002, L501.0250, L100.0100, L3890.6006, BTS #### [facility] [address] [place], [address] Nucleated RBC (Bld) [#/Vol] 0 10*3/uL Normal 0-5 [facility] Comment on above: Performed By: #### L 509.8002, L501.0250, L100.0100, L3890.6006, BTS #### [facility] [address] [place], [address] Platelet mean volume (Bld) [Entitic vol] 11.2 fL Normal 6.2-12.0 [facility] Comment on above: Performed By: #### L 509.8002, L501.0250, L100.0100, L3890.6006, BTS #### [facility] [address] [place], [address] Platelets (Bld) [#/Vol] 176 10*3/uL Normal 150-450 [facility] Comment on above: Performed By: #### L 509.8002, L501.0250, L100.0100, L3890.6006, BTS #### [facility] [address] [place], [address] RBC (Bld) [#/Vol] 3.72 10*6/uL Low 4.2-5.4 [facility] Comment on above: Performed By: #### L 509.8002, L501.0250, L100.0100, L3890.6006, BTS #### [facility] [address] [place], [address] RDW SD 41.1 fl Normal 35.1-43.9 [facility] Comment on above: Performed By: #### L 509.8002, L501.0250, L100.0100, L3890.6006, BTS #### [facility] [address] [place], [address] WBC (Bld) [#/Vol] 8.4 10*3/uL Normal 4.4-11.0 [facility] Comment on above: Performed By: #### L 509.8002, L501.0250, L100.0100, L3890.6006, BTS #### [facility] [address] [place], [address] Eosinophil percentageOrdered By: Marisela Nelson on 01-10-2025 Eosinophils/100 WBC (Bld) 2.9 % 0-5 [facility] Erythrocyte distribution wid th ratioOrdered By: Marisela Nelson on 01-10-2025 Erythrocyte distribution width (RBC) [Ratio] 12.5 % 11.6-14.6 [facility] Erythrocyte distribution wid th standard deviationOrdered By: Marisela Nelson on 01-10-2025 Erythrocyte distribution width (RBC) [Ratio] 41.1 fl 35.1-43.9 [facility] Glucose Challenge Gest 1H 50 boris 01-10-2025 GLU GEST 50g 1H 115 mg/dL Normal 70-140 [facility] Comment on above: Performed By: #### L 509.8002, L501.0250, L100.0100, L3890.6006, BTS #### [facility] [address] [place], [address] Glucose measurement at 2 lizeth rs post-dose gestational glucose tolerance testOrdered By: Marisela Nelson on 01-10-2025 Glucose [Mass/Vol] 115 mg/dL 70-140 [facility] HIVon 01-10-2025 HIV Non-Reactive Normal Nonreactive [facility] Comment on above: Result Comment: Non- Reactive Reactive Repeatedly reactive samples must be confirmed according to CDC recommended confirmatory algorithms. The subresults for either HIVAG or AHIV can be used as an aid in the selection of the confirmation algorithm for reactive samples. Send out specimens with Reactive results to [facility] for confirmation. Order the HIV antibody detection and differentiation: lc#[id number] Performed By: #### L 509.8002, L501.0250, L100.0100, L3890.6006, BTS #### [facility] [address] [place], [address] Hematocrit Auto (Bld) [Volum e fraction]Ordered By: Marisela Nelson on 01-10-2025 Hematocrit (Bld) [Volume fraction] 33.8 % Low 37-47 [facility] Hemoglobin measurementOrdere d By: Marisela Nelson on 01-10-2025 Hemoglobin (Bld) [Mass/Vol] 12.1 g/dL 12.0-15.0 [facility] Immature granulocytes/100 WB C Auto (Bld)Ordered By: Marisela Nelson on 01-10-2025 Immature granulocytes/100 WBC (Bld) 0.600 % 0.0-0.9 [facility] Comment on above: IG% - Immature Granu locytes (promyelocytes, myelocytes and metamyelocytes) > 1% indicates that a LEFT SHIFT is Present. Laboratory - Chemistry and C hemistry - challengeOrdered By: Veronica Cabrera on 01-10-2025 Glucose Ql (U) Negative [facility] Laboratory - UrinalysisOrder ed By: Veronica Cabrera on 01-10-2025 Protein Ql (U) Negative [facility] MCV (mean corpuscular volume ) determinationOrdered By: Marisela Nelson on 01-10-2025 MCV (RBC) [Entitic vol] 90.9 fL 81-99 [facility] Mean corpuscular hemoglobin (MCH) determinationOrdered By: Marisela Nelson on 01-10-2025 MCH (RBC) [Entitic mass] 32.5 pg High 27.0-32.0 [facility] Mean corpuscular hemoglobin concentration (MCHC) determinationOrdered By: Marisela Pickettgene on 01-10-2025 MCHC (RBC) [Mass/Vol] 35.8 g/dL 32-36 [facility] Mean platelet volume determi nationOrdered By: Marisela Pickettgene on 01-10-2025 Platelet mean volume (Bld) [Entitic vol] 11.2 fL 6.2-12.0 [facility] Monocyte percentageOrdered B y: Marisela Omar on 01-10-2025 Monocytes/100 WBC (Bld) 7.3 % 0-10 [facility] Neutrophil percentageOrdered By: Marisela Pickettgene on 01-10-2025 Neutrophils/100 WBC (Bld) 69.7 % 47-70 [facility] No Panel InformationOrdered By: Marisela Pickettgene on 01-10-2025 HIV (1&2) Antibody Non-Reactive Nonreactive [facility] Comment on above: Non-ReactiveReactive Repeatedly reactive samples must be confirmed according to CDC recommended confirmatory algorithms. The subresults for either HIVAG or AHIV can be used as an aid in the selection of the confirmation algorithm for reactive samples.Send out specimens with Reactive results to [facility] for confirmation.Order the HIV antibody detection and differentiation: lc#[id number] Nucleated red blood cell per centageOrdered By: Marisela Straussorlin on 01-10-2025 Nucleated RBC/100 WBC (Bld) [Ratio] 0 % 0-5 [facility] Emulsion Coater Office Visit Reporton 01-10-2025 Em[employer] Office Visit Report [facility] [address], [address] [place] [address] OFFICE VISIT Date of Service: 01/10/25 MR#: [id number] Acct: [id number] Name: JAMIL NORRIS Rep #: [id number] : 1995 Provider: GEOVANNY Salazar ams Age/Sex: 29/F [place] [facility] Status: Signed with Addenda ADDENDUM by Renetta Pina on 01/10/25 at 1205 Office Procedure Documentation entered by Renetta Pina 01/10/25 12:05: Injections Is this a patient provided medication?: No Immunizations Adacel(Tdap Adolesn/Adult)(PF) 2 Lf-(2.5-5-3-5)-5 Lf/0.5 mL IM syringe Performing Provider: Veronica Cabrera CNM Performing Location: [facility] Administered by: Renetta Pina on 01/10/25 12:03 Dose Route Admin Location Dispensed Lot Number Expiration Date Package NDC NDC [employer] 0.5 mL IM Left Deltoid 0.5 mL [id number] 12/04/26 92349-744-41 [id number] [employer] VIS Given Date VIS Provided VIS Publication Date 01/10/25 Single Vaccine 24 Eligibility Eligibility Date Funding Source Not Applicable Office Meds RhoGAM Ultra-Filtered PLUS 1,500 unit (300 mcg) intramuscular syringe Performing Provider: Veronica Cabrera CNM Performing Location: [facility] Administered by: Renetta Pina on 01/10/25 12:03 Dose Route Admin Location Dispensed Lot Number Expiration Date Package NDC NDC [employer] 1,500 unit IM Left Buttock 1 ea [id number] 10/30/26 06688-018-05 [id number] [facility] Date cc: * Signed Intake Vital Signs 11/22/24 11:24 12/20/24 10:06 01/10/25 11:12 Height 5 ft 5 in 5 ft 5 in 5 ft 5 in Weight: 206 lb 4 oz BMI 34.3 BP 127/78 H Intake Visit Reasons: 28wk ob/glucose/rhogam Chief Complaint: 28wk OB Olive Packer Required: No Is patient in pain?: No Allergies ragweed pollen Allergy (Mild, Verified 01/10/25 11:10) Itching Medications ???Medication ???Instructions ???Recorded ???Confirmed ???Type sertraline 50 mg tablet 50 mg PO QDAY 07/31/24 01/10/25 Hi story multivit-min no.71-iron fum 28 cap PO 08/06/24 01/10/25 History mg-folate no.1 1 mg-dha 300 mg capsule (PNV-Wilder) famotidine 20 mg tablet (Pepcid) 20 mg PO BID #60 tabs 12/20/24 Rx Last Menstrual Period: 06/28/24 : No PFSH PFSH Medical History RhD negative Seasonal allergies Pneumonia Surgical History [place] teeth extracted Family History Grandmother Arthritis Diabetes [...] animals: dog(s) history of recent travel: Yes ([place]) out of state: Yes out of [...] 1-2 times per week duration: 30-45 minutes/day fredi/buddhism: Religion seatbelt use: always do you feel safe [...] special requests (more content not included)... Normal [facility] Platelet countOrdered By: Barbara Nelson on 01-10-2025 Platelets (Bld) [#/Vol] 176 10*3/uL 150-450 [facility] RBC Auto (Bld) [#/Vol]Ordere d By: Marisela Nelson on 01-10-2025 RBC (Bld) [#/Vol] 3.72 10*6/uL Low 4.2-5.4 [facility] Syphilis Antibodieson 2024 Syphilis Abs Non-Reactive Normal Nonreactive [facility] Comment on above: Performed By: #### L 509.8002, L501.0250, L100.0100, L3890.6006, BTS #### [facility] [address] [place], [place], [address] Type AND Screenon 01-10-2025 ABO and Rh group Nom (Bld) Blood group A Rh(D) negative Normal [facility] Comment on above: Order Comment: PN Performed By: #### L 509.8002, L501.0250, L100.0100, L3890.6006, BTS #### [facility] [address] [place], [address] White blood cell (WBC) count Ordered By: Marisela Nelson on 01-10-2025 WBC (Bld) [#/Vol] 8.4 10*3/uL 4.4-11.0 [facility] Laboratory - Chemistry and C hemistry - challengeOrdered By: Marisela Nelson on 12-20-2024 Glucose Ql (U) Negative [facility] Laboratory - UrinalysisOrder ed By: Marisela Nelson on 12-20-2024 Protein Ql (U) Negative [facility] Emulsion Coater Office Visit Reporton 12-20-2024 Emulsion Coater Office Visit Report [facility], [address] [place] [address] OFFICE VISIT Date of Service: 12/20/24 MR#: [id number] Acct: [id number] Name: JAMIL NORRIS Rep #: [id number] : 1995 Provider: Dr. Marisela wang MD Age/Sex: 29/F [place] [facility] Status: Signed Intake Vital Signs 09/24/24 09:41 11/22/24 11:24 12/20/24 10:06 Height 5 ft 5 in 5 ft 5 in 5 ft 5 in Weight: 189 lb 2 oz 199 lb 3 oz BMI 31.4 33.1 BP 124/69 H 122/82 H Intake Visit Reasons: 25wk ob Olive Packer Required: No Is patient in pain?: No Allergies ragweed pollen Allergy (Mild, Verified 12/20/24 10:03) Itching Medications ???Medication ???Instructions ???Recorded ???Confirmed ???Type sertraline 50 mg tablet 50 mg PO QDAY 07/31/24 12/20/24 Hi story multivit-min no.71-iron fum 28 cap PO 08/06/24 12/20/24 History mg-folate no.1 1 mg-dha 300 mg capsule (PNV-Wilder) famotidine 20 mg tablet (Pepcid) 20 mg PO BID #60 tabs 12/20/2409/08 Rx Last Menstrual Period: 06/28/24 Zika: Zika virus screening: Negative : No PFSH PFSH Medical History RhD negative Seasonal allergies Pneumonia Surgical History [place] teeth extracted Family History Grandmother Arthritis Diabetes [...] animals: dog(s) history of recent travel: Yes ([place]) out of state: Yes out of country: [...] 1-2 times per week duration: 30-45 minutes/day fredi/buddhism: Religion seatbelt use: always do you feel safe [...] nipt. first baby first . lives in [place]. 09/24/24 -???-???-???-???-?? ?-???-???-???-???-? ??-???-???- 12w 4d 181 lb 130/82 Negative -???-???-???-???-?? ?-???-???-???-???-? ??-???-???- Negative 152 -???-???-???-???-?? ?-???-???-???-???-? ??-???-???- MH-No VB. N ausea improved. (more content not included)... Normal [facility] Laboratory - Chemistry and C hemistry - challengeOrdered By: Veronica Cabrera on 11-22-2024 Glucose Ql (U) Negative [facility] Laboratory - UrinalysisOrder ed By: Veronica Cabrera on 11-22-2024 Protein Ql (U) Negative [facility] Emulsion Coater Office Visit Reporton 11-22-2024 Emulsion Coater Office Visit Report [facility] [address], [address] [place] [address] OFFICE VISIT Date of Service: 11/22/24 MR#: [id number] Acct: [id number] Name: JAMIL NORRIS Rep #: [id number] : 1995 Provider: GEOVANNY Salazar ams Age/Sex: 29/F Location[place] [facility] Status: Signed Intake Vital Signs 08/30/24 14:15 10/24/24 10:52 11/22/24 11:24 Height 5 ft 5 in 5 ft 5 in 5 ft 5 in Weight: 189 lb 2 oz BMI 31.4 BP 124/69 H Intake Visit Reasons: 21wk ob Chief Complaint: 21wk OB Olive Packer Required: No Is patient in pain?: No Allergies ragweed pollen Allergy (Mild, Verified 11/22/24 11:22) Itching Medications ???Medication ???Instructions ???Recorded ???Confirmed ???Type sertraline 50 mg tablet 50 mg PO QDAY 07/31/24 11/22/24 Hi story multivit-min no.71-iron fum 28 cap PO 08/06/24 11/22/24 History mg-folate no.1 1 mg-dha 300 mg capsule (PNV-Wilder) Last Menstrual Period: 06/28/24 : No PFSH PFSH Medical History RhD negative Seasonal allergies Pneumonia Surgical History [place] teeth extracted Family History Grandmother Arthritis Diabetes [...] 1-2 times per week duration: 30-45 minutes/day fredi/buddhism: Religion seatbelt use: always do you feel safe [...] nipt. first baby first . lives in [place]. 09/24/24 -???-???-???-???-?? ?-???-???-???-???-? ??-???-???- 12w 4d 181 [...] 145 21 (more content not included)... Normal [facility] Laboratory - Chemistry and C hemistry - challengeOrdered By: Rachele Bradley on 10-24-2024 Glucose Ql (U) Negative [facility] Laboratory - UrinalysisOrder ed By: Rachele Bradley on 10-24-2024 Protein Ql (U) Negative [facility] Emulsion Coater Office Visit Reporton 10-24-2024 Emulsion Coater Office Visit Report [facility] [address], [facility] [address] [place] [address] OFFICE VISIT Date of Service: 10/24/24 MR#: [id number] Acct: [id number] Name: JAMIL NORRIS Rep #: [id number] : 1995 Provider: Dr. Rachele Hook DO Age/Sex: 29/F Location[place] [facility] Status: Signed Intake Vital Signs 08/30/24 14:15 09/24/24 09:41 10/24/24 10:52 Height 5 ft 5 in 5 ft 5 in 5 ft 5 in Weight: 180 lb 6 oz BMI 29.9 BP 111/79 Intake Visit Reasons: 16w6d ob Olive Packer Required: No Is patient in pain?: No Allergies ragweed pollen Allergy (Mild, Verified 10/24/24 10:53) Itching Medications ???Medication ???Instructions ???Recorded ???Confirmed ???Type sertraline 50 mg tablet 50 mg PO QDAY 07/31/24 10/24/24 Hi story multivit-min no.71-iron fum 28 cap PO 08/06/24 10/24/24 History mg-folate no.1 1 mg-dha 300 mg capsule (PNV-Wilder) Last Menstrual Period: 06/28/24 Zika: Zika virus screening: Negative : No PFSH PFSH Medical History RhD negative Seasonal allergies Pneumonia Surgical History [place] teeth extracted Family History Grandmother Arthritis Diabetes [...] animals: dog(s) history of recent travel: Yes ([place]) out of state: Yes out of [...] 1-2 times per week duration: 30-45 minutes/day fredi/buddhism: Religion seatbelt use: always do you feel safe [...] nipt. first baby first . lives in [place]. 09/24/24 -???-???-???-???-?? ?-???-???-???-???-? ??-???-???- 12w 4d 181 [...] Office Urine (more content not included)... Normal [facility] Laboratory - Chemistry and C hemistry - challengeOrdered By: Sai Foss on 09-24-2024 Glucose Ql (U) Negative [facility] Laboratory - UrinalysisOrder ed By: Sai Foss on 09-24-2024 Protein Ql (U) Negative [facility] Emulsion Coater Office Visit Reporton 09-24-2024 Emulsion Coater Office Visit Report [facility] [address], [address] [place] [address] OFFICE VISIT Date of Service: 09/24/24 MR#: [id number] Acct: [id number] Name: JAMIL NORRIS Rep #: [id number] : 1995 Provider: CAMPOS solitario Age/Sex: 29/F Location[place] [facility] Status: Signed Intake Vital Signs 08/06/24 09:57 08/30/24 14:15 09/24/24 09:41 Height 5 ft 5 in 5 ft 5 in 5 ft 5 in Weight: 181 lb BMI 30.1 BP 130/82 H Intake Visit Reasons: 12 WK OB Chief Complaint: 12 Week OB Olive Packer Required: No Is patient in pain?: No Allergies ragweed pollen Allergy (Mild, Verified 09/24/24 09:43) Itching Medications ???Medication ???Instructions ???Recorded ???Confirmed ???Type sertraline 50 mg tablet 50 mg PO QDAY 07/31/24 09/24/24 Hi story multivit-min no.71-iron fum 28 cap PO 08/06/24 09/24/24 History mg-folate no.1 1 mg-dha 300 mg capsule (PNV-Wilder) Last Menstrual Period: 06/28/24 Zika: Zika virus screening: Negative : No PFSH PFSH Medical History RhD negative Seasonal allergies Pneumonia Surgical History [place] teeth extracted Family History Grandmother Arthritis Diabetes [...] animals: dog(s) history of recent travel: Yes ([place]) out of state: Yes out of [...] 1-2 times per week duration: 30-45 minutes/day fredi/buddhism: Religion seatbelt use: always do you feel safe [...] nipt. first baby first . lives in [place]. 09/24/24 -???-???-???-???-?? ?-???-???-???-???-? ??-???-???- 12w 4d 181 [...] Dip (Clin (more content not included)... Normal [facility] Absolute lymphocyte countOrd ered By: Marisela Nelson on 09-03-2024 Lymphocytes Auto (Unsp spec) [#/Vol] 2.19 10*3/uL 0.83-4.51 [facility] Absolute neutrophil countOrd ered By: Marisela Nelson on 09-03-2024 Neutrophils (Bld) [#/Vol] 6.8 10*3/uL 2.0-7.7 [facility] Automated lymphocyte count a s percentage of total leukocytesOrdered By: Marisela Nelson on 09-03-2024 Lymphocytes/100 WBC Auto (Unsp spec) 22.4 % 19-41 [facility] Basophil percentageOrdered B y: Marisela Nelson on 09-03-2024 Basophils/100 WBC (Bld) 0.4 % 0-1 [facility] CBC W/Diff, Automatedon 08-16 0 Absolute Lymph 2.19 X10 3/uL Normal 0.83-4.51 [facility] Comment on above: Performed By: #### L 509.8002, L501.0250, L100.0100, L3890.6006, BTS #### [facility] [address] [place], [address] Absolute Neut 6.8 X10 3/uL Normal 2.0-7.7 [facility] Comment on above: Performed By: #### L 509.8002, L501.0250, L100.0100, L3890.6006, BTS #### [facility] [address] [place], [address] Basophils/100 WBC (Bld) 0.4 % Normal 0-1 [facility] Comment on above: Performed By: #### L 509.8002, L501.0250, L100.0100, L3890.6006, BTS #### [facility] [address] [place], [address] Eosinophils/100 WBC (Bld) 1.4 % Normal 0-5 [facility] Comment on above: Performed By: #### L 509.8002, L501.0250, L100.0100, L3890.6006, BTS #### [facility] [address] [place], [address] Erythrocyte distribution width (RBC) [Ratio] 12.4 % Normal 11.6-14.6 [facility] Comment on above: Performed By: #### L 509.8002, L501.0250, L100.0100, L3890.6006, BTS #### [facility] [address] [place], [address] Hematocrit (Bld) [Volume fraction] 40.1 % Normal 37-47 [facility] Comment on above: Performed By: #### L 509.8002, L501.0250, L100.0100, L3890.6006, BTS #### [facility] [address] [place], [address] Hemoglobin (Bld) [Mass/Vol] 14.0 g/dL Normal 12.0-15.0 [facility] Comment on above: Performed By: #### L 509.8002, L501.0250, L100.0100, L3890.6006, BTS #### [facility] [address] [place], [address] IG% 0.300 Normal 0.0-0.9 [facility] Comment on above: Result Comment: IG% - Immature Granulocytes (promyelocytes, myelocytes and metamyelocytes) > 1% indicates that a LEFT SHIFT is Present. Performed By: #### L 509.8002, L501.0250, L100.0100, L3890.6006, BTS #### [facility] [address] [place], [address] Lymphocytes/100 WBC (Bld) 22.4 % Normal 19-41 [facility] Comment on above: Performed By: #### L 509.8002, L501.0250, L100.0100, L3890.6006, BTS #### [facility] [address] [place], [address] MCH (RBC) [Entitic mass] 30.8 pg Normal 27.0-32.0 [facility] Comment on above: Performed By: #### L 509.8002, L501.0250, L100.0100, L3890.6006, BTS #### [facility] [address] [place], [address] MCHC (RBC) [Mass/Vol] 34.9 g/dL Normal 32-36 [facility] Comment on above: Performed By: #### L 509.8002, L501.0250, L100.0100, L3890.6006, BTS #### [facility] [address] [place], [address] MCV (RBC) [Entitic vol] 88.3 fL Normal 81-99 [facility] Comment on above: Performed By: #### L 509.8002, L501.0250, L100.0100, L3890.6006, BTS #### [facility] [address] [place], [address] Monocytes/100 WBC (Bld) 5.5 % Normal 0-10 [facility] Comment on above: Performed By: #### L 509.8002, L501.0250, L100.0100, L3890.6006, BTS #### [facility] [address] [place], [place], [address] Neutrophils/100 WBC (Bld) 70.0 % Normal 47-70 [facility] Comment on above: Performed By: #### L 509.8002, L501.0250, L100.0100, L3890.6006, BTS #### [facility] [address] [place], [address] Nucleated RBC (Bld) [#/Vol] 0 10*3/uL Normal 0-5 [facility] Comment on above: Performed By: #### L 509.8002, L501.0250, L100.0100, L3890.6006, BTS #### [facility] [address] [place], [address] Platelet mean volume (Bld) [Entitic vol] 10.7 fL Normal 6.2-12.0 [facility] Comment on above: Performed By: #### L 509.8002, L501.0250, L100.0100, L3890.6006, BTS #### [facility] [address] [place], [address] Platelets (Bld) [#/Vol] 216 10*3/uL Normal 150-450 [facility] Comment on above: Performed By: #### L 509.8002, L501.0250, L100.0100, L3890.6006, BTS #### [facility] [address] [place], [address] RBC (Bld) [#/Vol] 4.54 10*6/uL Normal 4.2-5.4 [facility] Comment on above: Performed By: #### L 509.8002, L501.0250, L100.0100, L3890.6006, BTS #### [facility] [address] [place], [address] RDW SD 40.0 fl Normal 35.1-43.9 [facility] Comment on above: Performed By: #### L 509.8002, L501.0250, L100.0100, L3890.6006, BTS #### [facility] [address] [place], [address] WBC (Bld) [#/Vol] 9.8 10*3/uL Normal 4.4-11.0 [facility] Comment on above: Performed By: #### L 509.8002, L501.0250, L100.0100, L3890.6006, BTS #### [facility] [address] [place], [address] Eosinophil percentageOrdered By: Marisela Nelson on 09-03-2024 Eosinophils/100 WBC (Bld) 1.4 % 0-5 [facility] Erythrocyte distribution wid th ratioOrdered By: Marisela Pickettgene on 09-03-2024 Erythrocyte distribution width (RBC) [Ratio] 12.4 % 11.6-14.6 [facility] Erythrocyte distribution wid th standard deviationOrdered By: Marisela Pickettgene on 09-03-2024 Erythrocyte distribution width (RBC) [Ratio] 40.0 fl 35.1-43.9 [facility] HIVon 09-03-2024 HIV Non-Reactive Normal Nonreactive [facility] Comment on above: Result Comment: Non- Reactive Reactive Repeatedly reactive samples must be confirmed according to CDC recommended confirmatory algorithms. The subresults for either HIVAG or AHIV can be used as an aid in the selection of the confirmation algorithm for reactive samples. Send out specimens with Reactive results to [facility] for confirmation. Order the HIV antibody detection and differentiation: lc#[id number] Performed By: #### L 509.8002, L501.0250, L100.0100, L3890.6006, BTS #### [facility] [address] [place], [address] Hematocrit Auto (Bld) [Volum e fraction]Ordered By: Marisela Nelson on 09-03-2024 Hematocrit (Bld) [Volume fraction] 40.1 % 37-47 [facility] Hemoglobin A1con 09-03-2024 HbA1c (Bld) [Mass fraction] 5.1 % Normal <=5.6 [facility] Comment on above: Result Comment: Norm al < 5.7 % Prediabetic 5.7 - 6.4 % Diabetic >or= 6.5 % Please note range changes. Performed By: #### L 509.8002, L501.0250, L100.0100, L3890.6006, BTS #### [facility] [address] [place], [place], [address] Hemoglobin A1c percentageOrd ered By: Marisela Nelson on 09-03-2024 HbA1c (Bld) [Mass fraction] 5.1 % <5.7 [facility] Comment on above: Normal < 5.7 % Predi abetic 5.7 - 6.4 % Diabetic >or= 6.5 % Please note range changes. Hemoglobin measurementOrdere d By: Mariselatamy Pickettgene on 09-03-2024 Hemoglobin (Bld) [Mass/Vol] 14.0 g/dL 12.0-15.0 [facility] Hepatitis C Antibodyon 09-03 Hepatitis C Ab Non-Reactive Normal Nonreactive [facility] Comment on above: Result Comment: Reac tive: Presumptive evidence of antibodies to HCV. Follow CDC recommendations for supplemental testing. Non-Reactive: Antibodies to HCV were not detected; does not exclude the possibility of exposure to HCV Reactive Results are presumptive evidence of antibodies to HCV. Follow CDC recommendations for supplemental testing. Order confirmation testing: HCV Quant by PCR testing - HCVPCR lc#[id number] Non Reactive: < 0.8 Equivocal: >/= 0.8 to < 1.0 Reactive: >/= 1.0 The [facility] requires that a reactive/equivocal HCV antibody result be sent out for confirmation. HCV Quant by PCR testing. Performed By: #### L 509.8002, L501.0250, L100.0100, L3890.6006, BTS #### [facility] [address] [facility] [place], [address] Immature granulocytes/100 WB C Auto (Bld)Ordered By: Marisela Nelson on 09-03-2024 Immature granulocytes/100 WBC (Bld) 0.300 % 0.0-0.9 [facility] Comment on above: IG% - Immature Granu locytes (promyelocytes, myelocytes and metamyelocytes) > 1% indicates that a LEFT SHIFT is Present. L3890.6102on 09-03-2024 HEP B Surf Ag Non-Reactive Normal Nonreactive [facility] Comment on above: Result Comment: Reac tive: Presumptive evidence of HBV. Repeatedly reactive samples must be confirmed using a neutralization test ([employer] HBsAg Confirmatory Test) Non-Reactive: HBsAg not detected; does not exclude the possibility of exposure to HBV Performed By: #### L 509.8002, L501.0250, L100.0100, L3890.6006, BTS #### [facility] [address] [place], [place], [address] L509.4006on 09-03-2024 Rubella IgG REAC Normal Nonreactive [facility] Comment on above: Result Comment: Anti body Result: Interpretation Non-Reactive: Non-Immune Reactive: Immune The following results were obtained with the [employer] Rubella IgG assay. Results from assays of other manufacturers cannot be used interchangeably. Performed By: #### L 509.8002, L501.0250, L100.0100, L3890.6006, BTS #### [facility] [address] [place], [place], [address] Laboratory - Microbiology an d Antimicrobial susceptibilityOrdered By: Marisela Nelson on 09-03-2024 HBV surface Ag Ql (S) Non-Reactive Nonreactive [facility] Comment on above: Reactive: Presumptiv e evidence of HBV. Repeatedly reactive samples must be confirmed using a neutralization test ([employer] HBsAg Confirmatory Test)Non-Reactive: HBsAg not detected; does not exclude the possibility of exposure to HBV MCV (mean corpuscular volume ) determinationOrdered By: Marisela Nelson on 09-03-2024 MCV (RBC) [Entitic vol] 88.3 fL 81-99 [facility] Mean corpuscular hemoglobin (MCH) determinationOrdered By: Marisela Nelson on 09-03-2024 MCH (RBC) [Entitic mass] 30.8 pg 27.0-32.0 [facility] Mean corpuscular hemoglobin concentration (MCHC) determinationOrdered By: Marisela Nelson on 09-03-2024 MCHC (RBC) [Mass/Vol] 34.9 g/dL 32-36 [facility] Mean platelet volume determi nationOrdered By: Marisela Nelson on 09-03-2024 Platelet mean volume (Bld) [Entitic vol] 10.7 fL 6.2-12.0 [facility] Monocyte percentageOrdered B y: Marisela Nelson on 09-03-2024 Monocytes/100 WBC (Bld) 5.5 % 0-10 [facility] NATERAon 09-03-2024 NATURA SEE SCANNED REPORT Normal [facility] Comment on above: Performed By: #### L 900.0098 #### [facility] [address] [place], [address] Neutrophil percentageOrdered By: Marisela Nelson on 09-03-2024 Neutrophils/100 WBC (Bld) 70.0 % 47-70 [facility] No Panel InformationOrdered By: Marisela Nelson on 09-03-2024 HIV (1&2) Antibody Non-Reactive Nonreactive [facility] Comment on above: Non-ReactiveReactive Repeatedly reactive samples must be confirmed according to CDC recommended confirmatory algorithms. The subresults for either HIVAG or AHIV can be used as an aid in the selection of the confirmation algorithm for reactive samples.Send out specimens with Reactive results to [facility] for confirmation.Order the HIV antibody detection and differentiation: #[id number] Nucleated red blood cell per centageOrdered By: Marisela Nelson on 09-03-2024 Nucleated RBC/100 WBC (Bld) [Ratio] 0 % 0-5 [facility] Platelet countOrdered By: Barbara Nelson on 09-03-2024 Platelets (Bld) [#/Vol] 216 10*3/uL 150-450 [facility] RBC Auto (Bld) [#/Vol]Ordere d By: Marisela Nelson on 09-03-2024 RBC (Bld) [#/Vol] 4.54 10*6/uL 4.2-5.4 [facility] Syphilis Antibodieson 2024 Syphilis Abs Non-Reactive Normal Nonreactive [facility] Comment on above: Performed By: #### L 509.8002, L501.0250, L100.0100, L3890.6006, BTS #### [facility] [address] [place], [address] Type AND Screenon 09-03-2024 Ab SCREEN GEL Negative Normal [facility] Comment on above: Order Comment: PN Performed By: #### L 509.8002, L501.0250, L100.0100, L3890.6006, BTS #### [facility] [address] [place], [address] White blood cell (WBC) count Ordered By: Marisela Nelson on 09-03-2024 WBC (Bld) [#/Vol] 9.8 10*3/uL 4.4-11.0 [facility] Chlamydia/GC CK aptimaon CHLAMY,NUC ACID Negative Normal Negative [facility] Comment on above: Performed By: #### L 509.8002, L501.0250, L100.0100, L3890.6006, BTS #### [facility] [address] [place], [place], [address] GC BY NUC ACID Negative Normal Negative [facility] Comment on above: Result Comment: Perf ormed at: =G - [facility] [address] [id number] Auditor/Quality: Jeannine So MD, Phone: [phone] Performed By: #### L 509.8002, L501.0250, L100.0100, L3890.6006, BTS #### [facility] [address] [place], [place], [address] Urine Cultureon 08-31-2024 URC Culture exhibits no growth. Normal [facility] Comment on above: Performed By: #### L 509.8002, L501.0250, L100.0100, L3890.6006, BTS #### [facility] [address] [place], [address] Chlamydia trachomatis rRNA d etection by probe and target amplification methodOrdered By: Marisela Nelson on 08-30-2024 C. trachomatis rRNA CK+probe Ql (Unsp spec) Negative Negative [facility] Neisseria gonorrhoeae nuclei c acid detection by amplified probe techniqueOrdered By: Marisela Nelson on 08-30-2024 N. gonorrhoeae DNA CK+probe Ql (Unsp spec) Negative Negative [facility] Comment on above: Performed at: =G - [facility] [address] [id number] Director: Jeannine So MD, Phone: [phone] [employer] Office Visit Reporton 08-30-2024 [employer] Office Visit Report [facility] [address], [address] [place] [address] OFFICE VISIT Date of Service: 08/30/24 MR#: [id number] Acct: [id number] Name: JAMIL NORRIS Rep #: [id number] : 1995 Provider: Dr. Rachele Hook DO Age/Sex: 29/F [place] [facility] [place]: Signed Intake Vital Signs 08/06/24 09:57 08/30/24 14:13 08/30/24 14:15 Height 5 ft 5 in 5 ft 5 in 5 ft 5 in Weight: 182 lb 8 oz BMI 30.3 BP 127/81 H Intake Visit Reasons: New OB, LMP 06/28, SAMANTHA 04/04, first baby Olive Packer Required: No Is patient in pain?: No Allergies ragweed pollen Allergy (Mild, Verified 08/30/24 14:12) Itching Medications ???Medication ???Instructions ???Recorded ???Confirmed ???Type sertraline 50 mg tablet 50 mg PO QDAY 07/31/24 08/30/24 Hi story multivit-min no.71-iron fum 28 cap PO 08/06/24 08/30/24 History mg-folate no.1 1 mg-dha 300 mg capsule (PNV-Wilder) Last Menstrual Period: 06/28/24 Zika: Zika virus screening: Negative : No PFSH PFSH Medical History Seasonal allergies Pneumonia Surgical History Meridian teeth extracted Family History Grandmother Arthritis Diabetes [...] 1-2 times per week duration: 30-45 minutes/day fredi/buddhism: Religion seatbelt use: always do you feel safe [...] nipt. first baby first . lives in [place]. Menstrual History Last Menstrual Period: 06/28/24 Reported [...] Other Infe (more content not included)... Normal [facility] Urine cultureOrdered By: Nazario Nelson on 08-30-2024 Bacteria identified Cx Nom (U) Culture exhibits no growth. [facility] Laboratory - Chemistry and C hemistry - challengeOrdered By: Marisela Nelson on 08-06-2024 HCG ( test) Ql (U) Positive [facility] Office Visit Reporton 2024 Office Visit Report [facility] [address] [place] [address] OFFICE VISIT Date of Service: 08/06/24 MR#: [id number] Acct: [id number] Patient: JAMIL NORRIS Rep #: [id number] : 1995 Provider: Dr. Marisela wang MD Age/Sex: 29/F [place] [facility] Status: Signed Intake Vital Signs 08/06/24 09:57 Height 5 ft 5 in Weight: 182 lb BMI 30.2 BP 116/70 Blood Pressure Location Rt brachial Position Sitting Intake Visit Reasons: Est Care/Urine test/ Vitals Olive Packer Required: No Accompanied by: Is patient in pain?: No Allergies ragweed pollen Allergy (Mild, Verified 08/06/24 09:59) Itching Medications ???Medication ???Instructions ???Recorded ???Confirmed ???Type sertraline 50 mg tablet 50 mg PO QDAY 07/31/24 08/06/24 Hi story multivit-min no.71-iron fum 28 cap PO 08/06/24 08/06/24 History mg-folate no.1 1 mg-dha 300 mg capsule (PNV-Wilder) Is last menstrual period known: Yes Last [...] , unspecified trimester 08/07/24 1218 Date Marisela Stone Signature: Date (if applicable) CC: Normal [facility] Family Medicine Office/Clini c Noteon 07-04-2024 Family [...] now prefers solitude and a smaller social [place]. The patient is also concerned about [...] to follow up with family practice in [place] in September for a wellness check and [...] the Pa (more content not included)... 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 Substance Abuse Denies All Tobacco Never (less than 100 in lifetime) Use:. Family History Family history is negative Immunizations Vaccine Date Status meningococcal conjugate vaccine 05/31/2017 Given Comments : ND (more content not included)... Normal [facility] Destruction of lesionon -0 ALICIA Kohler DPM 09/19/2023 10:30 AM Destruction [...] where the nail was split with an Vincentian anvil distally to approximately 3 mm off [...] Response to Treatment:: Procedure was tolerated well [facility] Vital Signs Date Time Vital Sign Value Performing Clinician Kwan jalloh 02-17-2025 11:40-0500 Body height 165.[address] Marisela Nelson MD Work Phone: 9(922)521-459014 [place] [address] 02-17-2025 11:38-0500 Body mass index (BMI) [Ratio] 35.5 kg/m2 Dr. Marisela Nelson MD Work Phone: 6(052)756-032814 [place] [address] 02-17-2025 11:38-0500 Body weight 96.[address] Marisela Nelson MD Work Phone: 7(169)883-501614 [place] [address] 02-17-2025 11:38-0500 Diastolic blood pressure 75 mm[Hg] Dr. Marisela Nelson MD Work Phone: 3(668)705-586814 [place] [address] 02-17-2025 11:38-0500 Systolic blood pressure 117 mm[Hg] Dr. Marisela Nelson MD Work Phone: 7(666)634-955214 [place] [address] 02-05-2025 13:10-0400 Body mass index (BMI) [Ratio] 35.5 kg/m2 Dr. Marisela Nelson MD Work Phone: 5(257)526-753214 [place] [address] 02-05-2025 13:10-0400 Body weight 96.[address] Marisela Nelson MD Work Phone: 4(695)157-505114 [place] [address] 02-05-2025 13:10-0400 Diastolic blood pressure 70 mm[Hg] Dr. Marisela Nelson MD Work Phone: 1(014)189-433614 [place] [address] 02-05-2025 13:10-0400 Heart rate 112 /min Dr. Marisela Nelson MD Work Phone: 5(272)015-850814 [place] [address] 02-05-2025 13:10-0400 Systolic blood pressure 107 mm[Hg] Dr. Marisela Nelson MD Work Phone: 5(351)289-609614 [place] [address] 2025 10:46-0400 Body height 165.[address] Marisela Nelson MD Work Phone: 6(615)867-465814 [place] [address] 2025 10:45-0400 Body mass index (BMI) [Ratio] 35.1 kg/m2 Dr. Marisela Nelson MD Work Phone: 3(013)319-528114 [place] [address] 2025 10:45-0400 Body weight 95.[address] Marisela Nelson MD Work Phone: 5(472)962-701314 [place] [address] 2025 10:45-0400 Diastolic blood pressure 77 mm[Hg] Dr. Marisela Nelson MD Work Phone: 3(697)326-805614 [place] [address] 2025 10:45-0400 Systolic blood pressure 115 mm[Hg] Dr. Marisela Nelson MD Work Phone: 2(974)165-348614 [place] [address] 01-10-2025 11:12-0400 Body height 165.[address] Marisela Nelson MD Work Phone: 9(912)250-073114 [place] [address] 01-10-2025 11:12-0400 Body mass index (BMI) [Ratio] 34.3 kg/m2 Dr. Marisela Nelson MD Work Phone: 7(105)223-679014 [place] [address] 01-10-2025 11:12-0400 Body weight 93.[address] Marisela Nelson MD Work Phone: 1(046)102-355614 [place] [address] 01-10-2025 11:12-0400 Diastolic blood pressure 78 mm[Hg] Dr. Marisela Nelson MD Work Phone: 6(741)476-241614 [place] [address] 01-10-2025 11:12-0400 Systolic blood pressure 127 mm[Hg] Dr. Marisela Nelson MD Work Phone: 2(393)984-979914 [place] [address] 12-20-2024 10:06-0400 Body height 165.[address] Marisela Nelson MD Work Phone: 8(654)107-513314 [place] [address] 12-20-2024 10:06-0400 Body mass index (BMI) [Ratio] 33.1 kg/m2 Dr. Marisela Nelson MD Work Phone: 0(572)264-081814 [place] [address] 12-20-2024 10:06-0400 Body weight 90.[address] Marisela Nelson MD Work Phone: [facility] 12-20-2024 10:06-0400 Diastolic blood pressure 82 mm[Hg] Dr. Marisela Nelson MD Work Phone: 0(572)202-151914 [place] [address] 12-20-2024 10:06-0400 Systolic blood pressure 122 mm[Hg] Dr. Marisela Nelson MD Work Phone: 7(114)818-585014 [place] [address] 11-22-2024 11:24-0400 Body height 165.[address] Marisela Nelson MD Work Phone: 5(347)643-500914 [place] [address] 11-22-2024 11:24-0400 Body mass index (BMI) [Ratio] 31.4 kg/m2 Dr. Marisela Nelson MD Work Phone: 7(619)151-046214 [place] [address] 11-22-2024 11:24-0400 Body weight 85.[address] Marisela Nelson MD Work Phone: 2(896)726-025114 [place] [address] 11-22-2024 11:24-0400 Diastolic blood pressure 69 mm[Hg] Dr. Marisela Nelson MD Work Phone: 9(424)763-263414 [place] [address] 11-22-2024 11:24-0400 Systolic blood pressure 124 mm[Hg] Dr. Marisela Nelson MD Work Phone: 5(361)523-618114 [place] [address] 10-24-2024 10:52-0400 Body height 165.[address] Marisela Nelson MD Work Phone: 9(305)365-544214 [place] [address] 10-24-2024 10:52-0400 Body mass index (BMI) [Ratio] 29.9 kg/m2 Dr. Marisela Nelson MD Work Phone: 9(053)183-477714 [place] [address] 10-24-2024 10:52-0400 Body weight 81.[address] Marisela Nelson MD Work Phone: 1(689)493-958914 [place] [address] 10-24-2024 10:52-0400 Diastolic blood pressure 79 mm[Hg] Dr. Marisela Nelson MD Work Phone: 3(942)480-238114 [place] [address] 10-24-2024 10:52-0400 Systolic blood pressure 111 mm[Hg] Dr. Marisela Nelson MD Work Phone: [facility] 10-01-2024 09:29-0400 Body height 165.1 cm Louann Hager MD Work Phone: [facility] 10-01-2024 09:29-0400 Body mass index (BMI) [Ratio] 29.82 kg/m2 Louann Hager MD Work Phone: [facility] 10-01-2024 09:29-0400 Body weight 81.28 kg Louann Hager MD Work Phone: 4(364)230-876566 [address] 10-01-2024 09:29-0400 Diastolic blood pressure 62 mm[Hg] Louann Hager MD Work Phone: 2(060)924-961866 [address] 10-01-2024 09:29-0400 Heart rate 89 /min Louann Hager MD Work Phone: [facility] 10-01-2024 09:29-0400 SaO2% (BldA) [Mass fraction] 98 % Louann Hager MD Work Phone: [facility] 10-01-2024 09:29-0400 Systolic blood pressure 108 mm[Hg] Louann Hager MD Work Phone: [facility] 09-24-2024 09:41-0400 Body height 165.[address] Marisela Nelson MD Work Phone: [facility] 09-24-2024 09:41-0400 Body mass index (BMI) [Ratio] 30.1 kg/m2 Dr. Marisela Nelson MD Work Phone: [facility] 09-24-2024 09:41-0400 Body weight 82.[address] Marisela Nelson MD Work Phone: [facility] 09-24-2024 09:41-0400 Diastolic blood pressure 82 mm[Hg] Dr. Marisela Nelson MD Work Phone: [facility] 09-24-2024 09:41-0400 Systolic blood pressure 130 mm[Hg] Dr. Marisela Nelson MD Work Phone: [facility] 08-30-2024 14:15-0400 Body height 165.[address] Marisela Nelson MD Work Phone: 4(079)724-442914 [place] [address] 08-30-2024 14:13-0400 Body mass index (BMI) [Ratio] 30.3 kg/m2 Dr. Marisela Nelson MD Work Phone: 0(557)514-063914 [place] [address] 08-30-2024 14:13-0400 Body weight 82.[address] Marisela Nelson MD Work Phone: 2(415)356-744414 [place] [address] 08-30-2024 14:13-0400 Diastolic blood pressure 81 mm[Hg] Dr. Marisela Nelson MD Work Phone: 6(318)684-221314 [place] [address] 08-30-2024 14:13-0400 Systolic blood pressure 127 mm[Hg] Dr. Marisela Nelson MD Work Phone: [facility] 08-06-2024 09:57-0400 Body mass index (BMI) [Ratio] 30.2 kg/m2 Dr. Marisela Nelson MD Work Phone: [facility] 08-06-2024 09:57-0400 Body weight 82.[address] Marisela Nelson MD Work Phone: [facility] 08-06-2024 09:57-0400 Diastolic blood pressure 70 mm[Hg] Dr. Marisela Nelson MD Work Phone: [facility] 08-06-2024 09:57-0400 Systolic blood pressure 116 mm[Hg] Dr. Marisela Nelson MD Work Phone: [facility] 10-03-2023 07:43-0400 Body temperature 98.4 [degF] ALICIA Kohler DPM Work Phone: [facility] [...] 112 mm[Hg] CJ Hassmann DPM Work Phone: [facility] Encounters Encounter Date Encounter Type Care Provider Facility Start: 02-21-2025 ambulatory Rachele Cabrera cility:[facility] Start: 02-20-2025 ambulatory Veronica Cabrera Facility :[facility] Start: 02-17-2025 End: 02-17-2025 ambulatory Veronica Cabrera Facility:[facility] [place] Start: 02-12-2025 ambulatory Sai Foss NP Facil ity:[facility] Start: 02-07-2025 Non-patient / Non-visit Dr. Gale dupree MD -[facility] Work Phone: Start: 02-07-2025 End: 02-07-2025 Patient encounter procedure Sai Foss HOTEL RESERVATION AGENT-C -Pulmonary Services/Neurology Work Phone: Start: 02-07-2025 End: 02-07-2025 ambulatory Sai Foss HOTEL RESERVATION AGENT Facility:[facility] Start: 02-05-2025 End: 02-05-2025 Patient encounter procedure Sai Foss HOTEL RESERVATION AGENT-C -[facility] Work Phone: Start: 02-05-2025 End: 02-05-2025 ambulatory Sai Foss HOTEL RESERVATION AGENT Facility:[facility] Start: 2025 End: 2025 Patient encounter procedure Sai Foss HOTEL RESERVATION AGENT-C -[facility] Work Phone: Start: 2025 End: [address] Marisela Nelson MD Work Phone: [facility] Start: 01-10-2025 End: 01-10-2025 Patient encounter procedure Veronica aCbrera CNM -[facility] Work Phone: Start: 01-10-2025 End: 01-10-[address] Marisela Nelson MD Work Phone: [facility] Start: 01-10-2025 End: 01-10-2025 ambulatory Marisela Nelson Facility:[facility] Start: 12-20-2024 End: 12-20-[address] Marisela Nelson MD -[facility] Work Phone: Start: 12-20-2024 End: 12-20-[address] Marisela Nelson MD Work Phone: [facility] Start: 11-22-2024 End: 11-22-2024 Patient encounter procedure Veronica Cabrera CNM -[facility] Work Phone: Start: 11-22-2024 End: 11-22-[address] Marisela Nelson MD Work Phone: [facility] Start: 11-12-2024 End: 11-12-2024 ambulatory MD IBARRA [facility] Start: 10-24-2024 End: 10-24-[address] Rachele Llanes DO -[facility] Work Phone: Start: 10-24-2024 End: 10-24-[address] Marisela Nelson MD Work Phone: -[facility] Start: 10-01-2024 End: 10-01-2024 Office outpatient new 45 minutes Louann Hager MD Work Phone: [facility] Comment on above: [facility]counter to [facility] (Primary Dx); Anxiety and depression; Injury of left toe, initial encounter; 13 weeks gestation of ([facility]) Start: 10-01-2024 End: 10-01-2024 ambulatory LOUANN Hunt BLANCA [facility] Ambulatory Start: 09-24-2024 End: 09-24-2024 Patient encounter procedure Sai GASCA -[facility] Work Phone: Start: 09-24-2024 End: 09-24-[address] Marisela Nelson MD Work Phone: [facility] Work Phone: Start: 09-03-2024 End: 09-03-[address] Rachele Llanes DO [facility] Start: 09-03-2024 End: 09-03-2024 ambulatory Rachele Llanes Facility:[facility] Start: 08-30-2024 End: 08-30-[address] Marisela Nelson MD Work Phone: [facility] Work Phone: Start: 08-30-2024 End: 08-30-[address] Marisela Nelson MD -Laboratory Specimen Work Phone: Start: 08-30-2024 End: 08-30-[address] Rachele Llanes DO -[facility] Work Phone: Start: 08-30-2024 End: 08-30-2024 ambulatory Rachele Llanes [facility] Work Phone: Start: 08-30-2024 End: 08-30-2024 ambulatory Marisela Nelson Facility:[facility] Start: 08-06-2024 End: 08-06-[address] 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 Facility: [facility] Start: 01-18-2024 End: 01-18-2024 ambulatory Mary Vaca DATA CENTER TECHNICIAN-HEALTH SCIENCE INSTRUCTOR Facility:[facility] Start: 10-03-2023 End: 10-03-2023 Office outpatient visit 10 minutes ALICIA Kohler DPM Work Phone: [facility] Comment on above: Ingrown nail (Primar y Dx); Paronychia of great toe; Toe pain, left Start: 10-03-2023 End: 10-03-2023 ambulatory MERISSA LINTON [facility] Ambula tory Start: 09-29-2023 Orders Only ALICIA Kohler DPM Work Phone: [facility] Start: 09-19-2023 End: 09-19-2023 Office outpatient new 30 minutes ALICIA Kohler DPM Work Phone: [facility] Comment on above: Ingrown nail (Primar y Dx); Toe abscess, left; Paronychia of great toe; Toe pain, left Start: 09-19-2023 End: 09-19-2023 ambulatory GILBERTO KOHLER [facility] Ambulatory Start: 04-18-2022 End: 04-18-[address] [facility] Start: 04-18-2022 End: 04-18-2022 Encounter for general adult medical examination without abnormal findings [facility] Start: 03-31-2021 End: 03-31-2021 ambulatory [facility] Start: 07-08-2020 End: 07-12-2020 Patient encounter procedure [facility] Procedures Date Procedure Procedure Detail Performing Clinician [...] HCV Quant by PCR testing - HCVPCR lc#[id number] Non Reactive: < 0.8 Equivocal: >/= 0.8 [...] Start: 09-03-2024 Serologic test for syphilis Dr. aMrisela Nelson MD Work Phone: Start: 08-30-[address] Jessenia Nleson MD Work Phone: Start: 10-03-2023 Follow-up visit Follow-up CHERYL KOHLER II Start: 09-19-2023 Destruction of lesion Micah Kohler DPM Work Phone: Plan of Treatment Date Care Activity Detail Author Start: 01-24-2072 RSV High Risk: (Elderly (60+) or Population) (1 - 1-dose 75+ series) RSV High Risk: (Elderly (60+) or Population) (1 - 1-dose 75+ series) [facility] Start: 2047 Zoster Vaccines (1 of 2) Zoster Vaccines (1 of 2) [facility] Start: 01-15-2027 Screening for malignant neoplasm of cervix [facility] Start: 10-02-2025 End: 10-02-2025 Patient encounter procedure 10/02/2025 10:20 AM EDT Office Visit [facility] [address] [phone] Louann Hager MD [address] [address] [facility] Start: 02-21-2025 Patient encounter procedure Registered Clinical -Lab [facility] Start: 02-20-2025 Ultrasound scan for growth OB Limited With Biometrics [facility] Start: 02-20-2025 Patient encounter procedure Registered Clinical -Ultrasound [facility] Work Phone: Start: 02-17-2025 End: 02-17-2025 Patient encounter procedure Depression -[facility] Work Phone: Start: 02-12-2025 Patient encounter procedure Registered Clinical -Lab [facility] Start: 12-16-2024 Influenza vaccination Influenza Vaccine (Season Ended) [facility] Start: 12-17-2023 COVID-19 Vaccine ( season) COVID-19 Vaccine ( season) [facility] Start: 12-17-2023 Influenza vaccination Influenza Vaccine (Season Ended) [facility] Start: 10-03-2023 End: 10-03-2023 Patient encounter procedure 10/03/2023 7:45 AM EDT Office Visit [facility] [address] [place] [phone] ALICIA Kohler, DPM [address] [place] [address] [facility] Start: 12-16-2022 COVID-19 Vaccine ( season) COVID-19 Vaccine ( season) [facility] Start: 2019 DTaP/Tdap/Td Vaccines (1 - Tdap) DTaP/Tdap/Td Vaccines (1 - Tdap) [facility] Start: 2018 Screening for malignant neoplasm of cervix Pap Smear [facility] Start: 01-24-2016 Hepatitis B Vaccines (1 of 3 - 19+ 3-dose series) Hepatitis B Vaccines (1 of 3 - 19+ 3-dose series) [facility] Start: 2015 Diabetes mellitus screening Diabetes Screening [facility] Start: 2015 Hepatitis C screening Hepatitis [...] Vaccines (1 of 1 - Standard series) [facility] Start: 1997 Lipid panel Lipid Panel [facility] Start: 1997 Tetanus vaccination Tetanus: Every 10yrs [facility] Start: 1997 Yearly Adult Physical Yearly Adult Physical [facility] CBC W Auto Different ial panel - Blood [facility] CBC W Auto Different ial panel - Blood [facility] Chlamydia deoxyribon ucleic acid detection [facility] Hemoglobin A1c/Hemoglobin.total in Blood [facility] Hepatitis C antibody measurement [facility] Measurement of gluco se 2 hours after glucose challenge for glucose tolerance test [facility] Rubella IgG measurement [facility] Serologic test for syphilis [facility] Serologic test for syphilis [facility] Immunizations Immunization Date Immunization Notes Care Provider Fa [place] 2025 influenza, injectabl e, madin darwin canine kidney, preservative free Dr. Marisela Nelson MD Work Phone: [facility] 01-10-2025 tetanus toxoid, reduced diphtheria toxoid, and acellular pertussis vaccine, adsorbed Dr. Marisela Nelson MD Work Phone: [facility] Payers Date Payer Category Payer Self-pay 2024 Managed Care (Private) [facility] [id number] 2024 Private Health Insurance 2023 Unknown [id number] 2020 Unknown [id number] [id number]. [id number] 2020 Unknown [id number] 1997 Unknown [id number] 2.16.840.1.887711.3.579. 2.903 1997 Unknown [id number] 2.16.840.1.034391.3.579. 2.903 1997 Unknown [id number] 2.16.840.1.318727.3.579. 2.903 1997 Unknown [id number] 2.16.840.1.645748.3.579. 2.903 1997 Unknown [id number] 2.16.840.1.275361.3.579. 2.196 1997 Unknown [id number] 2.16.840.1.548692.3.579. 2.196 1997 Unknown [id number] 2.16.840.1.730579.3.579. 2.196 1997 Unknown [id number] 2.16.840.1.476310.3.579. 2.1244 1997 Unknown [id number] 2.16.840.1.001649.3.579. 2.479 Unknown [id number] 2.16.840.1.578572.3.579. 2.462 Unknown [id number] 2.16.840.1.660742.3.579. 2.462 Unknown [id number] 2.16.840.1.732335.3.579. 2.462 Unknown [id number] 2.16.840.1.262823.3.579. 2.462 Unknown [id number] 2.16.840.1.210803.3.579. 2.462 Unknown [id number] 2.16.840.1.599583.3.579. 2.462 Unknown [id number] 2.16.840.1.345664.3.579. 2.462 Unknown [id number] 2.840.1.958036.3.579. 2.462 Unknown [id number] 2.840.1.860815.3.579. 2.462 Unknown [id number] 2.16840.1.450458.3.579. 2.462 Unknown [id number] 2.16840.1.770285.3.579. 2.462 Unknown [id number] 2.16.840.1.023790.3.579. 2.462 Unknown [id number] 2.840.1.750541.3.579. 2.462 Unknown [id number] 2.16840.1.218631.3.579. 2.462 Unknown [id number] 2.16840.1.763597.3.579. 2.462 Unknown [id number] 2.840.1.017245.3.579. 2.462 Unknown [id number] 2.16840.1.504879.3.579. 2.462 Social History Date Type Detail Facility [...] [place] Start: 09-19-2023 Alcohol Comment social [facility] Start: 1995 Sex Assigned At Not on file [facility] Start: 09-18-2023 Gender identity Identifies as female gender (finding) [facility] Start: 1995 Sex Assigned At Female [facility] Start: 10-01-2024 Alcoholic beverage intake Lifetime non-drinker (finding) [facility] Work Phone: NEGATED: Highlighted rowStart: NINF History of tobacco use Passive smoker [facility] Functional Status Date Assessment Result Facility 10-01-2024 Patient Health Quest ionnaire 2 item (PHQ-2) [Reported] [facility] Work Phone: Clinical Notes 09-19-2023 to 02-05-2025 Note Date & Type Note Facility 02-05-2025 Progress note [facility] 02-05-2025 Progress note Note Date/Time February 05, 2025 2:26pm [facility] [address], [address] [place] [address] OFFICE VISIT Date of Service: 02/05/25 MR#: [id number] Acct: [id number] Name: JAMIL NORRIS Maida Rep #: [id number] : 1995 Provider: CAMPOS Foss Age/Sex: 30/F [facility] Status: Signed Intake Vital Signs 11/22/24 11:24 01/23/25 10:46 02/05/25 13:10 Height 5 ft 5 in 5 ft 5 in 5 ft 5 in Weight: 213 lb 6 oz BMI 35.5 BP 107/70 Pulse 112 H Intake Visit Reasons: 31 WK 5D OB Olive Packer Required: No Is patient in pain?: No Allergies ragweed pollen Allergy (Mild, Verified 02/05/25 13:09) Itching Medications ?Medication ?Instructions ?Recorded ?Confirmed ?Type sertraline 50 mg tablet 50 mg PO QDAY 07/31/2402/05 History multivit-min no.71-iron fum 28 cap PO 08/06/24 5 History mg-folate no.1 1 mg-dha 300 mg capsule (PNV-Wilder) famotidine 20 mg tablet (Pepcid) 20 mg PO BID #60 tabs 12/20/24 02/05/25 Rx ondansetron 4 mg disintegrating 4 mg PO Q4H PRN nausea and 01/23/25 02/05/25 Rx tablet vomiting #60 tabs Last Menstrual Period: 06/28/24 Zika: Zika virus screening: Negative : No PFSH PFSH Medical History RhD negative Seasonal allergies Pneumonia Surgical History Meridian teeth extracted Family History Grandmother Arthritis Diabetes [...] animals: dog(s) history of recent travel: Yes ([place]) out of state: Yes out of [...] 1-2 times per week duration: 30-45 minutes/day fredi/buddhism: Religion seatbelt use: always do you feel safe [...] nipt. first baby first . lives in [place]. 09/24/24 -?-?-?-?-?-?-?-?-?-?-?-?- 12w 4d 181 lb 130/82 [...] LOF. Good FM. Flu given. Nausea-zofran given. 02/05/25 -?-?-?-?-?-?-?-?-?-?-?-?- 31w 5d 213 lb 6 oz 107/70 Nega tive -?-?-?-?-?-?-?-?-?-?-?-?- Negative 138 32 -?-?-?-?-?-?-?-?-?-?-?-?- MH-No VB, LOF or cramping. Good FM. Noting elevated heart rate when at rest off and on. Today was 112 in office. Denies SOB, chest pain. EKG ordered ACOG First Trimester First Trimester: Discussed Second Trimester Second Trimester: Signs and Symptoms of Labor Third Trimester Third Trimester: Pain Management Plans, Labor support person(s), Immediate Larc, Circumcision preference, Movement Monitoring, Signs and Symptoms of Preeclampsia and Infant Feeding No ROS Const Denies fatigue, Denies weight gain and Denies weight loss Card Denies chest pain and Denies dyspnea on exertion Resp Denies cough and Denies dyspnea on exertion GI Denies abdominal pain, Denies bloating, Denies change in stool character, Denies constipation and Denies vomiting Reports as per HPI, Denies difficulty voiding, Denies pelvic pain, Denies urinary frequency, Denies urinary incontinence, Denies urinary urgency, Denies vaginal discharge and Denies vaginal pruritus Endo Denies fatigue Exam Const General: cooperative Nutritional Appearance: well nourished GI Palpation: soft, nontender and other (gravid) Results POC Urinalysis 2 Dip (Clinic) Office Urine Glucose Negative Last Edit by Vibha Bah on 02/05/25 13 :12 Office Urine Protein Negative Last Edit by Vibha Bah on 02/05/25 13 :12 Coding Level of Care Code OB Routine Diagnoses Supervision of high risk in third trimester O09.93 Trimester: third trimester Tachycardia R00.0 31 weeks gestation of Z3A.31 Weeks of gestation: 31 weeks Depression, unspecified depression type F32.A Depression Type: unspecified RhD negative Z67.91 Obesity affecting in first trimester, unspecified obesity type O99.211 Obesity type affecting : unspecified obesity Trimester: first trimester Assessment and Plan Assessment and Plan (1) Supervision of high-risk : Status: Acute Qualifiers: Trimester: third trimester Qualified Code(s): O09.93 - Supervision of high risk , unspecified, third trimester Comment: [id number], SAMANTHA 04[birth year] Boy, name secret?(jermaine) Joshua (2) Tachycardia: Status: Acute Comment: EKG (3) : Status: Acute Qualifiers: Weeks of gestation: 31 weeks Qualified Code(s): Z3A.31 - 31 weeks gestation of Comment: NIPT low risk, Carrier neg. /, unremarkable anatomy, consistent dates (4) Depression: Status: Acute Qualifiers: Depression Type: unspecified Qualified Code(s): F32.A - Depression, unspecified Comment: sertraline/stable (5) RhD negative: Status: Acute Comment: Fetus RHD+ on NIPT; rhogam 28 wk, pp and prn (6) Obesity affecting : Status: Acute Qualifiers: Obesity type affecting : unspecified obesity Trimester: first trimester Qualified Code(s): O99.211 - Obesity complicating , first trimester Comment: HgbA1c Orders: Orders POC Urinalysis 2 Dip (Clinic) Today 12 Lead EKG Today O09.93 - Supervision of high risk , unspecified, third trimester, R00.0 - Tachycardia, unspecified Plan problem list reviewed and updated for most current plan of care and appropriate orders placed. Relevant counseling for the gestational age appropriate provided and ACOG education checklist updated. Continue routine care and follow up. 02/05/25 1328 <Electronically signed by Sai loza NP, NP-C> Date _ Sai Jin Signature: Date (if applicable) CC: ~ [facility] Work Phone: 1(694) 328-700410-09-2025 [facility] [address], [address] [place] [address] OFFICE VISIT Date of Service: 01/23/25 MR#: [id number] Acct: [id number] Name: JAMIL NORRIS Rep #: [id number] : 1995 Provider: CAMPOS Foss Age/Sex: 30/F [place] [facility] Status: Signed Intake Vital Signs 11/22/24 11:24 01/10/25 11:12 01/23/25 10:45 01/23/25 10:46 Height 5 ft 5 in 5 ft 5 in 5 ft 5 in 5 ft 5 in Weight: 211 lb 1 oz BMI 35.1 BP 115/77 Intake Visit Reasons: 30wk ob Olive Packer Required: No Is patient in pain?: No Allergies ragweed pollen Allergy (Mild, Verified 01/23/25 10:45) Itching Medications ?Medication ?Instructions ?Recorded ?Confirmed ?Type sertraline 50 mg tablet 50 mg PO QDAY 07/31/2401/23 History multivit-min no.71-iron fum 28 cap PO 08/06/24 5 History mg-folate no.1 1 mg-dha 300 mg capsule (PNV-Wilder) famotidine 20 mg tablet (Pepcid) 20 mg PO BID #60 tabs 12/20/24 01/23/25 Rx ondansetron 4 mg disintegrating 4 mg PO Q4H PRN nausea and 01/23/25 01/23/25 Rx tablet vomiting #60 tabs Last Menstrual Period: 06/28/24 Zika: Zika virus screening: Negative : Yes PFSH PFSH Medical History RhD negative Seasonal allergies Pneumonia Surgical History Meridian teeth extracted Family History Grandmother Arthritis Diabetes [...] animals: dog(s) history of recent travel: Yes ([place]) out of state: Yes out of [...] 1-2 times per week duration: 30-45 minutes/day fredi/buddhism: Religion seatbelt use: always do you feel safe [...] nipt. first baby first . lives in [place]. 09/24/24 -?-?-?-?-?-?-?-?-?-?-?-?- 12w 4d 181 lb 130/82 [...] Nega tive -?-?-?-?-?-?-?-?-?-?-?-?- Negative 143 30 -?-?-?-?-?-?-?-?-?-?-?-?- -No VB, LOF. G ood FM. Flu given. [...] Og on 01/23/25 10: 57 Immunizations Flucelvax [id number] (PF) 45 mcg (15 mcg x 3)/0.5 mL IM syringe Performing Provider: Rachele Llanes DO Performing Location: [facility] Administered by: Sai Hatch on 01/23/25 10:59 Dose Route Admin Location Dispensed Lot Number Expiration Date Pack age NDC NDC Air Cargo Specialist 0.5 mL IM Left Deltoid 0.5 mL [id number] 08/24/25 85081-170-41 [id number] Jelli. VIS Given Date VIS Provided VIS Publication [...] high risk , unspecified, third trimester Comment: [id number], SAMANTHA 04/04/25 Boy, name secret?(jermaine) Joshua (2) [...] : unspecified obesity Trimester: first trimester Qualified Code(s):O99.211 - Obesity complicating , first trimester Comment: HgbA1c Orders: Orders POC Urinalysis 2 Dip (Clinic) Today Dr. Rachele Llanes DO Influenza Immunization Today Dr. Rachele Llanes DO Z23 - Encounter for immunization Medications: New ondansetron 4 mg PO Q4H PRN 60 tabs 2RF nausea and vomiting Sai Foss HOTEL RESERVATION AGENT, HOTEL RESERVATION AGENT-C Plan problem list reviewed and updated for most current plan of care and appropriate orders placed. Relevant counseling for the gestational age appropriate provided and ACOG education checklist updated. Continue routine care and follow up. 01/23/252104 maida Bradley DO> Date _ Rachele Llanes DO 01/23/25 1126-C> Annabel Signature: Date (if applicable) Sai Foss NP HOTEL RESERVATION AGENT-C CC: ~ [facility] [id number] [facility] [address] [place] [address], [address] [place] [address] OFFICE VISIT Date of Service: 01/10/25 MR#: [id number] Acct: [id number] Name: JAMIL NORRIS #: [id number] : 1995 Provider: GEOVANNY Cabrera Age/Sex: 29/F [place] [facility] Status: Signed with Addenda ADDENDUM by Renetta Pina on 01/10/25 at 1205 Office Procedure Documentation entered by Renetta Pina 01/10/25 12:05: Injections Is this a patient provided medication?: No Immunizations Adacel(Tdap Adolesn/Adult)(PF) 2 Lf-(2.5-5-3-5)-5 Lf/0.5 mL IM syringe Performing Provider: Veronica Cabrera CNM Performing Location: [facility] Administered by: Renetta Pina on 01/10/25 12:03 Dose Route Admin Location Dispensed Lot Number Expiration Date Pack age [facility] Air Cargo Specialist 0.5 mL IM Left Deltoid 0.5 mL [id number] 12/04/26 [id number] SANOFI- PASTEUR VIS Given Date VIS Provided VIS Publication Date 01/10/25 Single Vaccine 24 Eligibility Eligibility Date Funding Source Not Applicable Office Meds RhoGAM Ultra-Filtered PLUS 1,500 unit (300 mcg) intramuscular syringe Performing Provider: Veronica Cabrera CNM Performing Location: [facility] Administered by: Renetta Pina on 01/10/25 12:03 Dose Route Admin Location Dispensed Lot Number Expiration Date Pack age [place] NDC Air Cargo Specialist 1,500 unit IM Left Buttock 1 ea [id number] 10/30/26 [id number] [facility] Date _ cc: ~* Signed Intake Vital Signs 11/22/24 11:24 12/20/24 10:06 01/10/25 11:12 Height 5 ft 5 in 5 ft 5 in 5 ft 5 in Weight: 206 lb 4 oz BMI 34.3 BP 127/78 H Intake Visit Reasons: 28wk ob/glucose/rhogam Chief Complaint: 28wk OB Olive Packer Required: No Is patient in pain?: No Allergies ragweed pollen Allergy (Mild, Verified 09/26/25 11:10) Itching Medications ?Medication ?Instructions ?Recorded ?Confirmed ?Type sertraline 50 mg tablet 50 mg PO QDAY 07/31/2401/10 History multivit-min no.71-iron fum 28 cap PO 08/06/24 5 History mg-folate no.1 1 mg-dha 300 mg capsule (PNV-Wilder) famotidine 20 mg tablet (Pepcid) 20 mg PO BID #60 tabs 12/20/24 01/10/25 Rx Last Menstrual Period: 06/28/24 : No PFSH PFSH Medical History RhD negative Seasonal allergies Pneumonia Surgical History Meridian teeth extracted Family History Grandmother Arthritis Diabetes [...] animals: dog(s) history of recent travel: Yes ([place]) out of state: Yes out of [...] 1-2 times per week duration: 30-45 minutes/day fredi/buddhism: Religion seatbelt use: always do you feel safe at home: Yes additional social history: -Joshua- Sales History 1 Elective abortions Hx Para 0 Spontaneous abortions Hx # Term Pregnancies Ectopic pregnancies Hx # Pregnancies Multiple births # of living children HPI 28wk ob/glucose/rhogam Details: JAMIL ROUPE is a 29 year old who presents [...] nipt. first baby first . lives in [place]. 09/24/24 -?-?-?-?-?-?-?-?-?-?-?-?- 12w 4d 181 lb 130/82 [...] high risk , unspecified, first trimester Comment: [id number], SAMANTHA 04/04/25 Boy, name secret?(jermaine) Joshua (3) [...] : unspecified obesity Trimester: first trimester Qualified Code(s):O99.211 - Obesity complicating , first [...] information and see below for orders placed atthis visit. [place] appropriate handout given. 01/10/25 1152 s GEOVANNY> Date Joe Cabrera CNM Cosigner Signature: Date (if applicable) CC: ~ [facility]09-05-2025 [facility] [address], [address] [place] [address] OFFICE VISIT Date of Service: 12/20/24 MR#: [id number] Acct: [id number] Name: JAMIL NORRIS Rep #: [id number] : 1995 Provider: Dr. Kendrick Nelson MD Age/Sex: 29/F [place] [facility] [place]: Signed Intake Vital Signs 09/24/24 09:41 11/22/24 11:24 12/20/24 10:06 Height 5 ft 5 in 5 ft 5 in 5 ft 5 in Weight: 189 lb 2 oz 199 lb 3 oz BMI 31.4 33.1 BP 124/69 H 122/82 H Intake Visit Reasons: 25wk ob Olive Packer Required: No Is patient in pain?: No Allergies ragweed pollen Allergy (Mild, Verified 12/20/24 10:03) Itching Medications ?Medication ?Instructions ?Recorded ?Confirmed ?Type sertraline 50 mg tablet 50 mg PO QDAY 07/31/2412/20 History multivit-min no.71-iron fum 28 cap PO 08/06/24 5 History mg-folate no.1 1 mg-dha 300 mg capsule (PNV-Wilder) famotidine 20 mg tablet (Pepcid) 20 mg PO BID #60 tabs 12/20/24 12/20/24 Rx Last Menstrual Period: 06/28/24 Zika: Zika virus screening: Negative : No PFSH PFSH Medical History RhD negative Seasonal allergies Pneumonia Surgical History Meridian teeth extracted Family History Grandmother Arthritis Diabetes [...] animals: dog(s) history of recent travel: Yes ([place]) out of state: Yes out of [...] 1-2 times per week duration: 30-45 minutes/day fredi/buddhism: Religion seatbelt use: always do you feel safe [...] nipt. first baby first . lives in [place]. 09/24/24 -?-?-?-?-?-?-?-?-?-?--?-?- 12w 4d 181 lb 130/82 [...] high risk , unspecified, first trimester Comment: [id number], SAMANTHA 04/04/25 Boy, name secret?(jermaine) Joshua (3) [...] : unspecified obesity Trimester: first trimester Qualified Code(s):O99.211 - Obesity complicating , first trimester Comment: HgbA1c Orders: Orders CBC W/Diff, Automated Today O09. - Supervision of high risk , unspecified, first trimester Glucose Challenge Gest 1H 50g Today O09. - Supervision of high risk , unspecified, firsttrimester, Z13.1 - Encounter for screening for diabetes mellitus Type & Screen Today O09 - Supervision of high risk , unspecified, first trimester HIV Today O09. - Supervision of high risk , unspecified, first trimester Syphilis Antibodies Today O09. - Supervision of high risk , unspecified, first trimester POC Urinalysis 2 Dip (Clinic) Today O09. - Supervision of high risk , unspecified, firsttrimester Medications: New famotidine (Pepcid) 20 mg PO BID 60 tabs 6RF 12/20/24 1032 kirt ROBERTO> Date _ Marisela Nelson MD [facility] Signature: Date (if applicable) CC: ~ [facility]08-08-2025 Evaluation note* Diagnosis Onset Date Resolution Status Admit Date Depression acute November 22 11:20am Obesity affecting acute November 22, 2024 11:20am acute November 22 11:20am RhD negative acute November 22, 2024 11:20am Supervision of high-risk acute November 22, 2024 11:20am Depression acute December 20, 2024 9:58am Obesity affecting acute December 20, 2024 9:58am acute December 20, 2024 9:58am RhD negative acute December 9:58am Supervision of high-risk acute December 20, 025 9:58am Depression acute December 11:08am Obesity affecting acute January 10, 2025 11:08am acute December 11:08am RhD negative acute January 102024 11:08am Supervision of high-risk acute January 10, 2025 11:08am Depression acute January 23 10:54am Obesity affecting acute 2025 10:54am acute January 23 10:54am RhD negative acute 2025 10:54am Supervision of high-risk acute January 23 10:54am Depression acute February 05, 2025 1:01pm Obesity affecting acute February 05, 2025 1:01pm acute February 05, 2025 1:01pm RhD negative acute January 1:01pm Supervision of high-risk acute February 05 1:01pm Tachycardia acute February 05, 2025 1:01pm Depression acute February 17, 2025 11:37am Obesity affecting acute February 17, 2025 11:37am acute February 17, 2025 11:37am RhD negative acute February 11:37am Supervision of high-risk acute February 17 11:37am Tachycardia acute February 17, 2025 11:37am Uterine size date discrepanc y acute February 17 11:37am [facility] Work Phone: 1(345) 644-154608-08-2025 [facility] [address] [place] [address], [address] [place] [address] OFFICE VISIT Date of Service: 11/22/24 MR#: [id number] Acct: [id number] Name: JAMIL NORRIS Rep #: [id number] : 1995 Provider: GEOVANNY Cabrera Age/Sex: 29/F [place] [facility] [place]: Signed Intake Vital Signs 08/30/24 14:15 10/24/24 10:52 11/22/24 11:24 Height 5 ft 5 in 5 ft 5 in 5 ft 5 in Weight: 189 lb 2 oz BMI 31.4 BP 124/69 H Intake Visit Reasons: 21wk ob Chief Complaint: 21wk OB Olive Packer Required: No Is patient in pain?: No Allergies ragweed pollen Allergy (Mild, Verified 11/22/24 11:22) Itching Medications ?Medication ?Instructions ?Recorded ?Confirmed ?Type sertraline 50 mg tablet 50 mg PO QDAY 07/31/2411/22 History multivit-min no.71-iron fum 28 cap PO 08/06/24 5 History mg-folate no.1 1 mg-dha 300 mg capsule (PNV-Wilder) Last Menstrual Period: 06/28/24 : No PFSH PFSH Medical History RhD negative Seasonal allergies Pneumonia Surgical History Meridian teeth extracted Family History Grandmother Arthritis Diabetes [...] animals: dog(s) history of recent travel: Yes ([place]) out of state: Yes out of [...] 1-2 times per week duration: 30-45 minutes/day fredi/buddhism: Religion seatbelt use: always do you feel safe [...] nipt. first baby first . lives in [place]. 09/24/24 -?-?-?-?-?-?-?-?-?-?-?-?- 12w 4d 181 lb 130/82 [...] high risk , unspecified, first trimester Comment: [id number], SAMANTHA 04/04/25 Boy, Joshua (3) Depression: Status: [...] : unspecified obesity Trimester: first trimester Qualified Code(s):O99.211 - Obesity complicating , first trimester Comment: HgbA1c Orders: Orders POC Urinalysis 2 Dip (Clinic) Today Plan Details Additional Comments: ACOG trimester education reviewed and updated. see problem list details for updated plan management information and see below for orders placed atthis visit. [place] appropriate handout given. 11/22/24 1145 s GEOVANNY> Date Joe Cabrera CNM Cosigner Signature: Date (if applicable) CC: ~ [facility]07-10-2025 Evaluation note* Diagnosis Onset Date Resolution Status Admit Date Depression acute October 24 10:49am Obesity affecting [...] of high-risk acute January 10, 2025 11:08am Depression acute January 23 10:54am Obesity affecting acute 2025 10:54am acute January 23 10:54am RhD negative acute 2025 10:54am Supervision of high-risk acute January 23 10:54am [facility] Work Phone: 1([phone]) 958-845206-17-2025 History of Present illness Narrative* Louann Hager [...] although discussed that it likely would not belt changer at this time Discussed Tylenol for [...] time. Louann Hager MD documented in this [facility] Work Phone: 1(450) 183-778006-10-2025 Evaluation note* Diagnosis Onset Date Resolution Status [...] of high-risk acute January 10, 2025 11:08am [facility] Work Phone: 1(175) 589-115206-10-2025 [facility] [address] [place] [address], [address] [place] [address] OFFICE VISIT Date of Service: 09/24/24 MR#: [id number] Acct: [id number] Name: JAMIL NORRIS Rep #: [id number] : 1995 Provider: CAMPOS Foss Age/Sex: 29/F [place] [facility] [place]: Signed Intake Vital Signs 08/06/24 09:57 08/30/24 14:15 09/24/24 09:41 Height 5 ft 5 in 5 ft 5 in 5 ft 5 in Weight: 181 lb BMI 30.1 BP 130/82 H Intake Visit Reasons: 12 WK OB Chief Complaint: 12 Week OB Olive Packer Required: No Is patient in pain?: No Allergies ragweed pollen Allergy (Mild, Verified 09/24/24 09:43) Itching Medications ?Medication ?Instructions ?Recorded ?Confirmed ?Type sertraline 50 mg tablet 50 mg PO QDAY 07/31/2409/24 History multivit-min no.71-iron fum 28 cap PO 08/06/24 5 History mg-folate no.1 1 mg-dha 300 mg capsule (PNV-Wilder) Last Menstrual Period: 06/28/24 Zika: Zika virus screening: Negative : No PFSH PFSH Medical History RhD negative Seasonal allergies Pneumonia Surgical History Meridian teeth extracted Family History Grandmother Arthritis Diabetes [...] animals: dog(s) history of recent travel: Yes ([place]) out of state: Yes out of [...] 1-2 times per week duration: 30-45 minutes/day fredi/buddhism: Religion seatbelt use: always do you feel safe [...] nipt. first baby first . lives in [place]. 09/24/24 -?-?-?-?-?-?-?-?-?-?-?-?- 12w 4d 181 lb 130/82 [...] high risk , unspecified, first trimester Comment: [id number], SAMANTHA 04/04/25 Boy, Joshua (2) : Status: Acute Qualifiers: Weeks of gestation: 12 weeks Qualified Code(s): Z3A.12 - 12 weeks gestation of Comment: NIPT low risk, Carrier neg. 4/ (3) RhD negative: Status: Acute Comment: Fetus [...] care and follow up. 09/24/24 1004 s HOTEL RESERVATION AGENT HOTEL RESERVATION AGENT-C> Date _ Sai Foss HOTEL RESERVATION AGENT HOTEL RESERVATION AGENT-C Cosigner Signature: Date (if applicable) CC: ~ [facility]05-16-2025 Evaluation note* Diagnosis Onset Date [...] 24 10:49am RhD negative acute October 24, 2 025 10:49am Supervision of high-risk acute October [...] 9:58am Supervision of high-risk acute December 20, 025 9:58am [facility] Work Phone: 1(502) 873-471005-16-2025 [facility] [address] [place] [address], [address] [place] [id number] OFFICE VISIT Date of Service: 08/30/24 MR#: [id number] Acct: [id number] Name: JAMIL NORRIS Rep #: [id number] : 1995 Provider: Dr. Yumiko Llanes DO Age/Sex: 29/F [place] [facility] [place]: Signed Intake Vital Signs 08/06/24 09:57 08/30/24 14:13 08/30/24 14:15 Height 5 ft 5 in 5 ft 5 in 5 ft 5 in Weight: 182 lb 8 oz BMI 30.3 BP 127/81 H Intake Visit Reasons: New OB, LMP 06/28, SAMANTHA 04/04, first baby Olive Packer Required: No Is patient in pain?: No Allergies ragweed pollen Allergy (Mild, Verified 08/30/24 14:12) Itching Medications ?Medication ?Instructions ?Recorded ?Confirmed ?Type sertraline 50 mg tablet 50 mg PO QDAY 07/31/2408/30 History multivit-min no.71-iron fum 28 cap PO 08/06/24 5 History mg-folate no.1 1 mg-dha 300 mg capsule (PNV-Wilder) Last Menstrual Period: 06/28/24 Zika: Zika virus screening: Negative : No PFSH PFSH Medical History Seasonal allergies Pneumonia Surgical History Meridian teeth extracted Family History Grandmother Arthritis Diabetes [...] animals: dog(s) history of recent travel: Yes ([place]) out of state: Yes out of [...] 1-2 times per week duration: 30-45 minutes/day fredi/buddhism: Religion seatbelt use: always do you feel safe [...] nipt. first baby first . lives in [place]. Menstrual History Last Menstrual Period: 06/28/24 Reported [...] transfusions, D (Rh) Sensitized, Pulmonary (e.g.,TB,Asthma), Breast, Water Main Installer Helper surgery, Anesthetic complications, History of abnormal pap [...] no acute distress Orientation: alert [facility] Head: normal to inspection, normocephalic [...] Herring Signature: Date (if applicable) CC: ~ [facility]05-16-2025 Progress note Author Rachele Bradley [facility] Note Date/Time August 30, 2024 3:04p m [facility] [address], [address] [place] [address] OFFICE VISIT Date of Service: 08/30/24 MR#: [id number] Acct: [id number] Name: JAMIL NORRIS Rep #: [id number] : 1995 Provider: Dr. Yumiko Llanes DO Age/Sex: 29/F [place] [facility] [place]: Signed Intake Vital Signs 08/06/24 09:57 08/30/24 14:13 08/30/24 14:15 Height 5 ft 5 in 5 ft 5 in 5 ft 5 in Weight: 182 lb 8 oz BMI 30.3 BP 127/81 H Intake Visit Reasons: New OB, LMP 06/28, SAMANTHA 04/04, first baby Olive Packer Required: No Is patient in pain?: No Allergies ragweed pollen Allergy (Mild, Verified 08/30/24 14:12) Itching Medications ?Medication ?Instructions ?Recorded ?Confirmed ?Type sertraline 50 mg tablet 50 mg PO QDAY 07/31/2408/30 History multivit-min no.71-iron fum 28 cap PO 08/06/24 5 History mg-folate no.1 1 mg-dha 300 mg capsule (PNV-Wilder) Last Menstrual Period: 06/28/24 Zika: Zika virus screening: Negative : No PFSH PFSH Medical History Seasonal allergies Pneumonia Surgical History Meridian teeth extracted Family History Grandmother Arthritis Diabetes [...] animals: dog(s) history of recent travel: Yes ([place]) out of state: Yes out of [...] 1-2 times per week duration: 30-45 minutes/day fredi/buddhism: Religion seatbelt use: always do you feel safe [...] nipt. first baby first . lives in [place]. Menstrual History Last Menstrual Period: 06/28/24 Reported [...] transfusions, D (Rh) Sensitized, Pulmonary (e.g.,TB,Asthma), Breast, Water Main Installer Helper surgery, Anesthetic complications, History of abnormal pap [...] comfortable and no acute distress Orientation: alert HEN[facility] Head: normal to inspection, normocephalic and atraumatic [...] to inspection and full ROM Supplemental Info OG book given and patient encouraged to read [...] Cosigner Signature: Date (if applicable) CC: ~ [facility] Work Phone: 1(304) 355-700504-22-2025 Evaluation note* Diagnosis Onset Date Resolution Status Admit Date Depression acute August 06 8:59am Obesity affecting acute August 06, 2024 8:59am acute August 06 8:59am Supervision of high-risk acute August 06, 2024 8:59am Depression acute August 30, 2024 2:06pm Obesity affecting acute August 30, 2024 2:06pm acute August 30, 2024 2:06pm Supervision of high-risk acute August 30, 2024 2 :06pm [facility] Work Phone: 1(953) 436-976004-22-2025 Evaluation note* Diagnosis Onset Date Resolution Status [...] of high-risk acute September 24, 2024 9:37am [facility] Work Phone: 1(256) 720-589204-22-2025 Evaluation note* Diagnosis Onset Date Resolution Status [...] of high-risk acute October 24, 2024 10:49am [place] Work Phone: 1(879) 731-939204-22-2025 Evaluation note* Diagnosis Onset Date Resolution Status [...] of high-risk acute November 22, 2024 11:20am [facility] Work Phone: 1(555) 595-569106-18-2024 NoteEstablished Patient Visit ALICIA Kohler DPM Patient [...] AUTHENTICATED BY GILBERTO KOHLER II, ON 10/03/2023 08:09:29[facility]06-18-2024 History of Present illness Narrative* ALICIA Kohler [...] Foot & Ankle Surgery documented in this [id number] NoteNEW Patient Visit ALICIA Kohler DPM Patient [...] where the nail was split with an Vincentian anvil distally to approximately 3 mm off [...] subject to errors includi (more content not included)...[facility]06-04-2024 History of Present illness Narrative* ALICIA Kohler [...] where the nail was split with an Vincentian anvil distally to approximately 3 mm off [...] toe, initial encounter 13 weeks gestation of ([facility] documented in this encounter [facility] Work Phone: Progress note Author Sai Foss [facility] Note Date/Time September 24, 2024 10:0 4am [facility] [address] [place] [address], [address] [place] [address] OFFICE VISIT Date of Service: 09/24/24 MR#: [id number] Acct: [id number] Name: JAMIL NORRIS Maida Rep #: [id number] : 1995 Provider: CAMPOS Foss Age/Sex: 29/F [place] [facility] [place]: Signed Intake Vital Signs 08/06/24 09:57 08/30/24 14:15 09/24/24 09:41 Height 5 ft 5 in 5 ft 5 in 5 ft 5 in Weight: 181 lb BMI 30.1 BP 130/82 H Intake Visit Reasons: 12 WK OB Chief Complaint: 12 Week OB Olive Packer Required: No Is patient in pain?: No Allergies ragweed pollen Allergy (Mild, Verified 09/24/24 09:43) Itching Medications ?Medication ?Instructions ?Recorded ?Confirmed ?Type sertraline 50 mg tablet 50 mg PO QDAY 07/31/2409/24 History multivit-min no.71-iron fum 28 cap PO 08/06/24 5 History mg-folate no.1 1 mg-dha 300 mg capsule (PNV-Wilder) Last Menstrual Period: 06/28/24 Zika: Zika virus screening: Negative : No PFSH PFSH Medical History RhD negative Seasonal allergies Pneumonia Surgical History Meridian teeth extracted Family History Grandmother Arthritis Diabetes [...] animals: dog(s) history of recent travel: Yes ([place]) out of state: Yes out of [...] 1-2 times per week duration: 30-45 minutes/day fredi/buddhism: Religion seatbelt use: always do you feel safe [...] nipt. first baby first . lives in [place]. 09/24/24 -?-?-?-?-?-?-?-?-?-?-?-?- 12w 4d 181 lb 130/82 [...] high risk , unspecified, first trimester Comment: [id number], SAMANTHA 04/04/25 Boy, Joshua (2) : Status: [...] 09/24/24 1004 <Electronically signed by Sai loza HOTEL RESERVATION AGENT HOTEL RESERVATION AGENT-C> Date _ Sai Foss HOTEL RESERVATION AGENT HOTEL RESERVATION AGENT-C Cosigner Signature: Date (if applicable) CC: ~ [facility] Work Phone: Progress note Author Veronica Cabrera [facility] Note Date/Time November 22, 2024 11: 45am [facility] [address] [place] [address], [address] [place] [address] OFFICE VISIT Date of Service: 11/22/24 MR#: [id number] Acct: [id number] Name: JAMIL NORRIS Rep #: [id number] : 1995 Provider: GEOVANNY Cabrera Age/Sex: 29/F [place] [facility] [place]: Signed Intake Vital Signs 08/30/24 14:15 10/24/24 10:52 11/22/24 11:24 Height 5 ft 5 in 5 ft 5 in 5 ft 5 in Weight: 189 lb 2 oz BMI 31.4 BP 124/69 H Intake Visit Reasons: 21wk ob Chief Complaint: 21wk OB Olive Packer Required: No Is patient in pain?: No Allergies ragweed pollen Allergy (Mild, Verified 11/22/24 11:22) Itching Medications ?Medication ?Instructions ?Recorded ?Confirmed ?Type sertraline 50 mg tablet 50 mg PO QDAY 07/31/2411/22 History multivit-min no.71-iron fum 28 cap PO 08/06/24 5 History mg-folate no.1 1 mg-dha 300 mg capsule (PNV-Wilder) Last Menstrual Period: 06/28/24 : No PFSH PFSH Medical History RhD negative Seasonal allergies Pneumonia Surgical History Meridian teeth extracted Family History Grandmother Arthritis Diabetes [...] animals: dog(s) history of recent travel: Yes ([place]) out of state: Yes out of [...] 1-2 times per week duration: 30-45 minutes/day fredi/buddhism: Religion seatbelt use: always do you feel safe [...] nipt. first baby first . lives in [place]. 09/24/24 -?-?-?-?-?-?-?-?-?-?-?-?- 12w 4d 181 lb 130/82 [...] high risk , unspecified, first trimester Comment: [id number], SAMANTHA 04/04/25 Boy, Joshua (3) Depression: Status: [...] this visit. [place] appropriate handout given. 11/22/24 114 <Electronically signed by Veronica loza CNM> Date _ Veronica Cabrera CNM Cosigner Signature: Date (if applicable) CC: ~ [facility] Work Phone: Progress note Author Marisela Nelson [facility] Note Date/Time December 20, 2024 10:32am [facility] [address] [place] [address], [address] [place] [address] OFFICE VISIT Date of Service: 12/20/24 MR#: [id number] Acct: [id number] Name: JAMIL NORRIS Rep #: [id number] : 1995 Provider: Dr. Kendrick Nelson MD Age/Sex: 29/F [place] [facility] [place]: Signed Intake Vital Signs 09/24/24 09:41 11/22/24 11:24 12/20/24 10:06 Height 5 ft 5 in 5 ft 5 in 5 ft 5 in Weight: 189 lb 2 oz 199 lb 3 oz BMI 31.4 33.1 BP 124/69 H 122/82 H Intake Visit Reasons: 25wk ob Olive Packer Required: No Is patient in pain?: No Allergies ragweed pollen Allergy (Mild, Verified 12/20/24 10:03) Itching Medications ?Medication ?Instructions ?Recorded ?Confirmed ?Type sertraline 50 mg tablet 50 mg PO QDAY 07/31/2412/20 History multivit-min no.71-iron fum 28 cap PO 08/06/24 5 History mg-folate no.1 1 mg-dha 300 mg capsule (PNV-Wilder) famotidine 20 mg tablet (Pepcid) 20 mg PO BID #60 tabs 12/20/24 12/20/24 Rx Last Menstrual Period: 06/28/24 Zika: Zika virus screening: Negative : No PFSH PFSH Medical History RhD negative Seasonal allergies Pneumonia Surgical History Meridian teeth extracted Family History Grandmother Arthritis Diabetes [...] animals: dog(s) history of recent travel: Yes ([place]) out of state: Yes out of [...] 1-2 times per week duration: 30-45 minutes/day fredi/buddhism: Religion seatbelt use: always do you feel safe [...] nipt. first baby first . lives in [place]. 09/24/24 -?-?-?-?-?-?-?-?-?-?--?-?- 12w 4d 181 lb 130/82 [...] high risk , unspecified, first trimester Comment: [id number], SAMANTHA 04/04/25 Boy, name secret?(jermaine) Joshua (3) Depression: Status: Acute Qualifiers: Depression Type: unspecified Qualified Code(s): F32.A - Depression, unspecified Comment: sertraline (4) : Status: Acute Qualifiers: Weeks of gestation: 25 weeks Qualified Code(s): Z3A.25 - 25 weeks gestation of Comment: NIPT low risk, Carrier neg. 4/4, unremarkable anatomy, consistent dates (5) Obesity affecting [...] Cosigner Signature: Date (if applicable) CC: ~ [facility] Work Phone: Progress note Author Veronica Cabrera [facility] Note Date/Time January 10, 2025 11:52am [facility] [address], [place] [address] OFFICE VISIT Date of Service: 01/10/25 MR#: [id number] Acct: [id number] Name: JAMIL NORRIS Rep #: [id number] : 1995 Provider: GEOVANNY Cabrera Age/Sex: 29/F [place] [facility] Status: Signed with Addenda ADDENDUM by Renetta Pina on 01/10/25 at 1205 Office Procedure Documentation entered by Renetta Pina 01/10/25 12:05: Injections Is this a patient provided medication?: No Immunizations Adacel(Tdap Adolesn/Adult)(PF) 2 Lf-(2.5-5-3-5)-5 Lf/0.5 mL IM syringe Performing Provider: Veronica Cabrera CNM Performing Location: [facility] Administered by: Renetta Pina on 01/10/25 12:03 Dose Route Admin Location Dispensed Lot Number Expiration Date Pack age NDC NDC Air Cargo Specialist 0.5 mL IM Left Deltoid 0.5 mL [id number] 12/04/26 [id number] SANOFI- PASTEUR VIS Given Date VIS Provided VIS Publication Date 01/10/25 Single Vaccine 24 Eligibility Eligibility Date Funding Source Not Applicable Office Meds RhoGAM Ultra-Filtered PLUS 1,500 unit (300 mcg) intramuscular syringe Performing Provider: Veronica Cabrera CNM Performing Location: [facility] Administered by: eRnetta Pina on 01/10/25 12:03 Dose Route Admin Location Dispensed Lot Number Expiration Date Pack age NDC NDC Air Cargo Specialist 1,500 unit IM Left Buttock 1 ea [id number] 10/30/26 [id number] [employer] Date _ cc: ~* Signed Intake Vital Signs 11/22/24 11:24 12/20/24 10:06 01/10/25 11:12 Height 5 ft 5 in 5 ft 5 in 5 ft 5 in Weight: 206 lb 4 oz BMI 34.3 BP 127/78 H Intake Visit Reasons: 28wk ob/glucose/rhogam Chief Complaint: 28wk OB Olive Packer Required: No Is patient in pain?: No Allergies ragweed pollen Allergy (Mild, Verified 01/10/25 11:10) Itching Medications ?Medication ?Instructions ?Recorded ?Confirmed ?Type sertraline 50 mg tablet 50 mg PO QDAY 07/31/2401/10 History multivit-min no.71-iron fum 28 cap PO 08/06/24 5 History mg-folate no.1 1 mg-dha 300 mg capsule (PNV-Wilder) famotidine 20 mg tablet (Pepcid) 20 mg PO BID #60 tabs 12/20/24 01/10/25 Rx Last Menstrual Period: 06/28/24 : No PFSH PFSH Medical History RhD negative Seasonal allergies Pneumonia Surgical History Meridian teeth extracted Family History Grandmother Arthritis Diabetes [...] animals: dog(s) history of recent travel: Yes ([place]) out of state: Yes out of [...] 1-2 times per week duration: 30-45 minutes/day fredi/buddhism: Religion seatbelt use: always do you feel safe [...] nipt. first baby first . lives in [place]. 09/24/24 -?-?-?-?-?-?-?-?-?-?-?-?- 12w 4d 181 lb 130/82 [...] high risk , unspecified, first trimester Comment: [id number], SAMANTHA 04/04/25 Boy, name secret?(jermaine) Joshua (3) [...] this visit. [place] appropriate handout given. 01/10/25 1157 <Electronically signed by Veronica loza CNM> Date _ Veronica Cabrera CNM Cosigner Signature: Date (if applicable) CC: ~ [facility] Work Phone: Progress note Author Rachele Bradley [facility] Note Date/Time 2025 11 :10am [facility] [address] [place] [address], [address] [place] [address] OFFICE VISIT Date of Service: 01/23/25 MR#: [id number] Acct: [id number] Name: JAMIL NORRIS Rep #: [id number] : 1995 Provider: CAMPOS Foss Age/Sex: 30/F [place] [facility] [place] Intake Vital Signs 11/22/24 11:24 01/10/25 11:12 01/23/25 10:45 01/23/25 10:46 Height 5 ft 5 in 5 ft 5 in 5 ft 5 in 5 ft 5 in Weight: 211 lb 1 oz BMI 35.1 BP 115/77 Intake Visit Reasons: 30wk ob Olive Packer Required: No Is patient in pain?: No Allergies ragweed pollen Allergy (Mild, Verified 01/23/25 10:45) Itching Medications ?Medication ?Instructions ?Recorded ?Confirmed ?Type sertraline 50 mg tablet 50 mg PO QDAY 07/31/2401/23 History multivit-min no.71-iron fum 28 cap PO 08/06/24 5 History mg-folate no.1 1 mg-dha 300 mg capsule (PNV-Wilder) famotidine 20 mg tablet (Pepcid) 20 mg PO BID #60 tabs 12/20/24 01/23/25 Rx ondansetron 4 mg disintegrating 4 mg PO Q4H PRN nausea and 01/23/25 01/23/25 Rx tablet vomiting #60 tabs Last Menstrual Period: 06/28/24 Zika: Zika virus screening: Negative : Yes PFSH PFSH Medical History RhD negative Seasonal allergies Pneumonia Surgical History [place] teeth extracted Family History Grandmother Arthritis Diabetes [...] animals: dog(s) history of recent travel: Yes ([place] April) out of state: Yes out of [...] 1-2 times per week duration: 30-45 minutes/day fredi/buddhism: Religion seatbelt use: always do you feel safe [...] nipt. first baby first . lives in [place]. 09/24/24 -?-?-?-?-?-?-?-?-?-?-?-?- 12w 4d 181 lb 130/82 [...] Og on 01/23/25 10: 57 Immunizations Flucelvax [id number] (PF) 45 mcg (15 mcg x 3)/0.5 mL IM syringe Performing Provider: Rachele Llanes DO Performing Location: [facility] Administered by: Sai Hatch on 01/23/25 10:59 Dose Route Admin Location Dispensed Lot Number Expiration Date Pack age NDC NDC [employer] Specialist 0.5 mL IM Left Deltoid 0.5 mL [id number] 08/24/25 [id number] [employer] VIS Given Date VIS Provided VIS Publication [...] high risk , unspecified, third trimester Comment: [id number], SAMANTHA 04/04/25 Boy, name secret?(jermaine) Joshua (2) RhD negative: Status: Acute Comment: Fetus RHD+ on NIPT; rhogam 28 wk, pp and prn (3) Depression: Status: Acute Qualifiers: Depression Type: unspecified Qualified Code(s): F32.A - Depression, unspecified Comment: sertraline/stable (4) : Status: Acute Qualifiers: Weeks of gestation: 29 weeks Qualified Code(s): Z3A.29 - 29 weeks gestation of Comment: NIPT low risk, Carrier neg. 4/4, unremarkable anatomy, consistent dates (5) Obesity affecting : Status: Acute Qualifiers: Obesity type affecting : unspecified obesity Trimester: first trimester Qualified Code(s): O99.211 - Obesity complicating , first trimester Comment: HgbA1c Orders: Orders POC Urinalysis 2 Dip (Clinic) Today Dr. Rachele Llanes DO Influenza Immunization Today Dr. Rachele Llanes, DO Z23 - Encounter for immunization Medications: New ondansetron 4 mg PO Q4H PRN 60 tabs 2RF nausea and vomiting Sai Foss HOTEL RESERVATION AGENT, HOTEL RESERVATION AGENT-C Plan problem list reviewed and updated for most current plan of care and appropriate orders placed. Relevant counseling for the gestational age appropriate provided and ACOG education checklist updated. Continue routine care and follow up. 01/23/252104 <Electronically signed by Rachele Reilly DO> Date _ Rachele Llanes DO 01/23/25 1126<Electronically signed by Sai Foss HOTEL RESERVATION AGENT HOTEL RESERVATION AGENT -C> Cosigner Signature: Date (if applicable) Sai Foss NP HOTEL RESERVATION AGENT-C CC: ~ [facility] Work Phone: Reason for referral (narrative)No reason for referral information availableCity [facility] Work Phone: Summary Purpose Family History Relationship Condition Age at Onset Recorded Date/T [...] 2024 10:4 9am Obesity affecting October 24, 2 025 10:49am October 24, 2024 10:4 9am [...] 20am Supervision of high-risk Augus 2024 11:20am Chief Complaint Admit Date New [...] 2024 10:4 9am Obesity affecting October 24 025 10:49am October 24, 2024 10:4 9am [...] December 20, 2024 9:58am Supervision of high-risk [facility] 2024 9:58am Depression January 10, 2025 11:08am Obesity affecting January 102024 11:08am January 10, 2025 11:08am RhD negative January 10, 2025 11:08am Supervision of high-risk [facility] 2024 11:08am Chief Complaint Admit Date [...] December 20, 2024 9:58am Supervision of high-risk [facility] 2024 9:58am Depression January 10, 2025 11:08am Obesity affecting January 102024 11:08am January 10, 2025 11:08am RhD negative January 10, 2025 11:08am Supervision of high-risk [facility] 2024 11:08am Depression 2025 10 :54am Obesity affecting 2025 10:54am 2025 10 :54am RhD negative 2025 10 :54am Supervision of high-risk Octob er 2024 10:54am Chief Complaint Admit Date 21wk ob November 22, 2024 11: 20am 25wk ob December 20, 2024 9:58am 28wk ob/glucose/rhogam January 10, 025 11:08am 30wk ob 2025 10 :54am 31 WK 5D OB February 05, 2025 1 :01pm Tachycardia, unspecified February 07, 025 7:22am TACHY February 07, 2025 7 :39am 33 WK 3D OB February 17, 2025 1 1:37am GROWTH February 20, 2025 1 1:42am Reason for Visit Admit Date Depression November 22, 2024 11: 20am Obesity affecting November 22, 2024 11:20am November 22, 2024 11: 20am RhD negative November 22, 2024 11: 20am Supervision of high-risk Augus t 2024 11:20am Depression December 20, 2024 9:58am Obesity affecting December 9:58am December 20, 2024 9:58am RhD negative December 20, 2024 9:58am Supervision of high-risk [facility] 2024 9:58am Depression January 10, 2025 11:08am Obesity affecting January 102024 11:08am January 10, 2025 11:08am RhD negative January 10, 2025 11:08am Supervision of high-risk Huma [facility] 2024 11:08am Depression 2025 10 :54am Obesity affecting 2025 10:54am 2025 10 :54am RhD negative 2025 10 :54am Supervision of high-risk Octob er 2024 10:54am Depression February 05, 2025 1 :01pm Obesity affecting January 1:01pm February 05, 2025 1 :01pm RhD negative February 05, 2025 1 :01pm Supervision of high-risk Octob er 2024 1:01pm Tachycardia February 05, 2025 1 :01pm Depression February 17, 2025 1 1:37am Obesity affecting February 11:37am February 17, 2025 1 1:37am RhD negative February 17, 2025 1 1:37am Supervision of high-risk Novem 2024 11:37am Tachycardia February 17, 2025 1 1:37am Uterine size date discrepancy February 17, 2025 11:37am Additional Source Comments INFORMATION SOURCE (unrecogn ized section and content) DATE CREATED AUTHOR 07/12/2020 [facility] DATE CREATED AUTHOR AUTHOR'S ORGANIZ ATION [facility] [facility] DATE CREATED AUTHOR AUTHOR'S ORGANIZ ATION 04/18/2022 [facility] DATE CREATED AUTHOR AUTHOR'S ORGANIZ ATION 10/04/2023 [facility] DATE CREATED AUTHOR AUTHOR'S ORGANIZ ATION 07/05/2024 [facility] DATE CREATED AUTHOR AUTHOR'S ORGANIZ ATION 10/04/2024 [facility] DATE CREATED AUTHOR AUTHOR'S ORGANIZ ATION 11/13/2024 [facility] DATE CREATED AUTHOR AUTHOR'S ORGANIZ ATION 02/22/2025 [facility] Reason for Visit (unrecogniz ed section and content) Reason Comments Ingrown Toenail Lateral border; ongo ing about a week and a half Reason Comments Follow-up S/p Left grt toenail . Slight pain, doing well. Reason Comments New Patient Visit Toe injury, loose st ool, Care Teams (unrecognized sec tion and content) Fuels Engineer Relationship Specialty Start Date End Date Merissa Linton CNP [address] [place] [id number] PCP - General Nurse Practitioner 09/19/23 Fuels Engineer Relationship Specialty Start Date End Date Merissa Linton CNP [address] [place] [address] PCP - General Nurse Practitioner 09/19/23 Fuels Engineer Relationship Specialty Start Date End Date Merissa Linton CNP [address] [place] [address] PCP - General Nurse Practitioner 09/19/23 Team [...] Inactive Member Role Status Dates Sai Foss HOTEL RESERVATION AGENT, HOTEL RESERVATION AGENT-C Attending Provider Active Start: September 24, 2024 End: September 24, 2024 Fuels Engineer Relationship Specialty Start Date End Date Louann Hager MD [address] [place] [address] PCP - General Family Medicine 10/01/24 Team [...] Member Role/Relationship Status Dates Sai Foss NP HOTEL RESERVATION AGENT-C Attending Provider Active Start: September 24, 2024 [...] Member Role/Relationship Status Dates Sai Foss NP HOTEL RESERVATION AGENT-C Attending Provider Active Start: September 24, 2024 [...] Inactive Member Role/Relationship Status Dates Sai Foss HOTEL RESERVATION AGENT, HOTEL RESERVATION AGENT-C Attending physician Active Start: September 24, 2024 [...] Inactive Member Role/Relationship Status Dates Sai Foss HOTEL RESERVATION AGENT, HOTEL RESERVATION AGENT-C Attending physician Active Start: 2025 End: 2025 Team Status: Active Member Role/Relationship Status Dates Dr. Louann Hager MD Primary care physician Active Team Status: Inactive Member Role/Relationship Status Dates Sai Foss HOTEL RESERVATION AGENT, HOTEL RESERVATION AGENT-C Attending physician Active Start: February 05, 2025 End: February 05, 2025 Team Status: Inactive Member Role/Relationship Status Dates Sai Foss HOTEL RESERVATION AGENT, HOTEL RESERVATION AGENT-C Attending physician Active Start: February 07, 2025 End: February 07, 2025 Sai Foss HOTEL RESERVATION AGENT, HOTEL RESERVATION AGENT-C Referring Provider Active Start: February 07, 2025 End: February 07, 2025 Dr. Louann Hager MD Primary care physician Active Start: February 07, 2025 End: February 07, 2025 Team Status: Active Member Role/Relationship Status Dates Dr. Louann Hager MD Primary care physician Active Start: February 07, 2025 Dr. Gale Zamora MD Attending physician Active Start: February 07, 2025 Sai Foss HOTEL RESERVATION AGENT, HOTEL RESERVATION AGENT-C Referring Provider Active Start: February 07, 2025 Team Status: Active Member Role/Relationship Status Dates Dr. Louann Hager MD Primary care physician Active Start: February 12, 2025 Sai Foss HOTEL RESERVATION AGENT, HOTEL RESERVATION AGENT-C Attending physician Active Start: February 12, 2025 Team Status: Inactive Member Role/Relationship Status Dates Veronica Cabrera CNM Attending physician Active Start: February 17, 2025 End: February 17, 2025 Dr. Louann Hager MD Primary care physician Active Start: February 17, 2025 End: February 17, 2025 Dr. Louann Hager MD Referring Provider Active Start: February 17, 2025 End: February 17, 2025 Team Status: Active Member Role/Relationship Status Dates Dr. Louann Hager MD Primary care physician Active Start: February 20, 2025 Veronica Cabrera CNM Attending physician Active Start: February 20, 2025 Veronica Cabrera CNM Referring Provider Active S tart: February 20, 2025 Team Status: Active Member Role/Relationship Status Dates Dr. Louann Hager MD Primary care physician Active Start: February 21, 2025 Dr. Rachele Llanes DO Attending physician Acti ve Start: February 21, 2025 Goals (unrecognized section and content) Type [...] BE BASED ON THE PRIMARY CLINICAL RECORDS. [employer] provides no warranty or guarantee of the accuracy or completeness of information in this document.
== END | disposition home or self-care (01) ==
PROVIDERS: PCP Family Medicine; Referring Provider Student in an Organized Health Care Education/Training Program; Visit Provider Student in an Organized Health Care Education/Training Program
DX: O09.93 Supervision of high risk pregnancy, unspecified, third trimester (principal); Z3A.00 Weeks of gestation of pregnancy not specified; R00.0 Tachycardia, unspecified
CPT/HCPCS: 87081; 93225; 93226

== ENCOUNTER → 2025-03-25 | Outpatient (CLI) | payer OTHER, SELFPAY ==
--- NOTE | 2025-03-25 12:48 | US_ITS ---
PROCEDURE: OB LIMITED WITH BIOMETRICS 03/25/2025 REASON FOR EXAM: LARGE FOR GESTATIONAL AGE TECHNIQUE: Procedure Code: [id number] Modality: US Procedure: OB LIMITED WITH BIOMETRICS COMPARISON: 02/20/2025 FINDINGS Cephalic position with cardiac activity of 155 bpm. Maximum vertical pocket of 7 cm and KHADIJAH of 17.3 Cm. Placenta is posterior position with grade 1. BPD of 9.6, OFD of the 12.2, HC of 34.7, AC of 37.1, and FL of 7.5 cm corresponding with average gestational age of 39 weeks and 5 days with SAMANTHA of 03/27/2025. Biometric measurement demonstrate large for gestational age. Estimated weight of 4033 g (94 percentile). US/OB Limited With Biometrics IMPRESSION: Biometric measurements demonstrated large for gestational age as above. Sonogr aphic gestational age of 39 weeks and 5 days. Reading Location: [id number]
== END | disposition home or self-care (01) ==
LOC: US 12:48
PROVIDERS: PCP Family Medicine; Referring Provider Obstetrics & Gynecology; Visit Provider Obstetrics & Gynecology
DX: O26.849 Uterine size-date discrepancy, unspecified trimester (principal)
CPT/HCPCS: 76816

== ENCOUNTER → 2025-03-27 | Outpatient (CLI) | payer OTHER, SELFPAY ==
--- NOTE | 2025-03-27 10:03 | ECHOD_ITS ---
Reason For Study Reason For Study: Frequent PVC Procedure This was a 2D Doppler, Color Flow transthoracic echocardiogram. Myocardial strain analysis was performed in this exam to aid in the assessment of cardiac function. The patient is in an irregular rhythm. The study was technically difficult. Exam performed in department. Left Ventricle Left ventricle is mildly enlarged. The global longitudinal strain = -15.0% (abnormal). Left ventricular 4D EF: 54%. Normal left ventricular diastolic function. No regional wall motion abnormalities noted. Right Ventricle Normal right ventricle. Normal systolic function. RVSP estimated at: 25 mmHg. Atria The left and right atria are normal. Estimated right atrial pressure: 3 mmHg. Mitral Valve Normal mitral valve. Trace mitral regurgitation. No mitral stenosis. Tricuspid Valve Normal tricuspid valve. No tricuspid stenosis. Trace tricuspid regurgitation. Aortic Valve Normal trileaflet aortic valve. No hemodynamically significant aortic stenosis. No aortic regurgitation. Pulmonic Valve Normal pulmonic valve. Mild pulmonic regurgitation. No pulmonic stenosis. Great Vessels Normal sized aortic root. Normal ascending aorta. Pericardium/Pleural No pericardial effusion. MMode/2D Measurements & Calculations LVIDd: 4.5 cm IVSd: 1.0 cm Ao root diam: 2.6 cm LVIDs: 3.3 cm LVPWd: 1.0 cm RVDd: 3.9 cm FS: 26.3 % LAV(MOD-bp): 50.6 ml LVAd ap4: 36.4 cm2 SV(MOD-sp4): 59.0 ml LAV(MOD-bp) Indexed: 24.7 ml/m2 LVLd ap4: 9.1 cm SI(MOD-sp4): 28.8 ml/m2 LAV(MOD-sp2): 46.3 ml EDV(MOD-sp4): 118.2 ml LAV(MOD-sp4): 48.1 ml EDV(sp4-el): 122.9 ml LVAs ap4: 23.9 cm2 LVLs ap4: 8.1 cm ESV(MOD-sp4): 59.3 ml ESV(sp4-el): 59.9 ml EF(MOD-sp4): 49.9 % EF(sp4-el): 51.3 % SV(sp4-el): 63.0 ml LA A4 area: 18.6 cm2 LA dimension(2D): 3.4 cm RA A4 area: 16.7 cm2 TAPSE: 2.5 cm Time Measurements MV dec time: 0.20 sec Doppler Measurements & Calculations MV E max conner: 57.6 cm/sec Lat Peak E' Conner: 13.9 cm/sec Med Peak E' Conner: 9.8 cm/sec MV A max conner: 66.1 cm/sec E/E' lat: 4.1 E/E' med: 5.9 MV E/A: 0.87 MV V2 max: 73.5 cm/sec MV P1/2t max conner: 63.1 cm/sec Ao V2 max: 193.0 cm/sec MV max P.2 mmHg MV P1/2t: 76.5 msec Ao max P.9 mmHg MV V2 mean: 45.6 cm/sec Ao V2 mean: 141.0 cm/sec MV mean P.96 mmHg MV dec slope: 241.4 cm/sec2 Ao mean P.8 mmHg MV V2 VTI: 18.8 cm MVA(P1/2t): 2.9 cm2 Ao V2 VTI: 33.4 cm AV (velocity ratio): 0.76 LV V1 max: 128.1 cm/sec PA V2 max: 117.5 cm/sec TR max conner: 225.9 cm/sec LV V1 max P.6 mmHg TR max P.4 mmHg LV V1 mean P.3 mmHg LV V1 mean: 86.5 cm/sec LV V1 VTI: 25.5 cm ECHO/Echo Complete Interpretation Summary Frequent premature ventricular contractions during examination Normal left ventricular systolic function Normal left ventricular diastolic function Normal right ventricular systolic function No hemodynamically significant valvular disease Ordering Physician: Juan Maurer Referring Physician: Juan Maurer Performed By: Bernardo Sawyer RCS
== END | disposition home or self-care (01) ==
LOC: CVS 10:03
PROVIDERS: PCP Family Medicine; Referring Provider Student in an Organized Health Care Education/Training Program; Visit Provider Student in an Organized Health Care Education/Training Program
DX: I49.3 Ventricular premature depolarization (principal); R94.31 Abnormal electrocardiogram [ECG] [EKG]; R00.0 Tachycardia, unspecified
CPT/HCPCS: 93306

== ENCOUNTER 2025-03-28 19:20 | Inpatient (IN) | payer OTHER, SELFPAY ==
--- OUTSIDE RECORDS SUMMARY | 2025-03-28 19:11 | XMS RPT_ITS | CCD ---
Author Organization [facility] CliniSyca Care Team Providers Care Graphic Manager Name Role Phone MARTY ERNST Primary Care Unavailabl e EIDEN, MARTY BELTRAN Admitting Unavailabl e STEFAN, RICHARD CHOUDHARY Attending Unavail able STEFAN, RICHARD CHOUDHARY Attending Unavail able Seggerson CREDIT REPRESENTATIVE, Merissa Syed Primary Care Provider MERISSA LINTON Primary Care Unavailab le HASSMANN II, GILBERTO HUANG Attending Un available SEGGERSON, MERISSA SYED Primary Care Unavailab le HASSMANN II, GILBERTO HUANG Referring Un available HASSMANN II, GILBERTO HUANG Admitting Un available HASSMANN II, GILBERTO HUANG Attending Un available SEGGERSON, MERISSA KUNAL Primary Care Unavailab le Seggerson STROBOROMA OPERATOR-CREDIT REPRESENTATIVE, Merissa Syed Attending Unavailable Seggerson STROBOROMA OPERATOR-CREDIT REPRESENTATIVE, Merissa Kunal Primary Care Unavailable Vaca STROBOROMA OPERATOR-CREDIT REPRESENTATIVE, Mary Cleveland Attending Mary vailable Seggerson STROBOROMA OPERATOR-CREDIT REPRESENTATIVE, Merissa Kunal Primary Care Unavailable Seggerson STROBOROMA OPERATOR-CREDIT REPRESENTATIVE, Merissa Kunal Primary Care Unavailable Vaca STROBOROMA OPERATOR-CREDIT REPRESENTATIVE, Mary Cleveland Attending Mary vailable Dr. Marisela Nelson MD Attending Provider Dr. Rachele Llanes DO Attending Provider Dr. Marisela Nelson MD Referring Provider Dr. Rachele Llanes DO Referring Provider Sai Turner Attending Provider Louann Hager MD Primary Care Provider [phone] LOUANN HAGER Attending Unavailable LOUANN HAGER Primary Care Unavailable NO PRIMARY CAREMD Primary Care Unavailable PRUDENCE, SAI S Referring Unavailable SILVER ANTUNEZ Attending Unavailable Rick SMALL, Veronica Attending Provider [phone] Omar ROBERTO, Dr. Antonio Attending Provider [place] [employer]-C, Sai Attending Physician [phone] Jose Miguel Bradley DO, Dr. Jeffrey Attending Physician Rick SMALL, Veronica Attending Physician [phone] Omar ROBERTO, Dr. Antonio Attending Physician Omar ROBERTO, Dr. Antonio Referring Provider [place] [employer]-C, Sai Attending Physician [phone] Prudence [employer], Sai Attending Unavailable Yeater, Louann M Primary Care Unavailable Veronica Cabrera Attending Unavailable Veronica Cabrera Referring Unavailable Yeater, Louann M Primary Care Unavailable Jose Miguel Bradley, Rachele Attending Unavailabl e Veronica Cabrera Attending Unavailable Rikc, Veronica Attending Unavailable Omar, Marisela Attending Unavailable [place] [employer] PU[employer]ER, Sai Attending Unavailable [place] [employer] PU[employer]ER, Sai Attending Unavailable Veronica Cabrera Attending Unavailable Yeater, Louann M Primary Care Unavailable Yeater, Louann M Referring Unavailable Omar, Marisela Attending Unavailable Vande Veloneyda, Rachele Attending Unavailabl e [place] [employer]ER, Sai Attending Unavailable Vande Velde, Rachele Attending Unavailabl e Yeater, Louann M Primary Care Unavailable Marisela Nelson Attending Unavailable Marisela Nelson Referring Unavailable Omar, Marisela Attending Unavailable Marisela Nelson Referring Unavailable Vande Veloneyda, Rachele Attending Unavailabl e Vande Velde, Rachele Referring Unavailabl e [place] [employer]ER, Sai Attending Unavailable [place] [employer], Sai Referring Unavailable Yeater, Louann M Primary Care Unavailable Rick SMALL, Veronica Attending Physician [phone] Omar ROBERTO, Dr. Antonio Attending Physician Dr. Marisela Nelson MD Referring Provider [place] [employer]-C, Sai Attending Physician [phone] [place] [employer], Sai Referring Provider [phone] Mckenna ROBERTO, Dr. Louann Hunt Primary Care Physician Sera ROBERTO, Dr. Schroeder Attending Physician [phone] Mckenna ROBERTO, Dr. Louann Hunt Referring Provider Veronica Cabrera CNM Referring Provider Jose Miguel Bradley DO, Dr. Jeffrey Attending Physician Allergies Allergy Classification Reported Allergen(s) Allergy Type Date of Onset Reaction(s) Facility (1 source) No Known Medication Allergies; Translations: [No Known Medication Allergies] Propensity to adverse reactions to drug (disorder) [facility] Repository (11 sources) Ragweed pollen; Translations: [ragweed pollen] Allergy to substance Itching [facility] Medications Current Medications Medication Drug Class(es) [...] 1 tablet by mouth twice daily Mv-Mins 64-Okjr-Numiy No.1-Dha (Pnv-Inez) 28-1-300 mg capsule (10 sources) Start: 08-06-2024 Start: 08-06-2024 Mv-Mins 71-Iro n-Folic No.1-Dha (Pnv-Inez) 28-1-300 mg capsule Active NMA PO August 06, 2024 12:00am Complies with drug therapy Start: 08-06-2024 Start: 08-06-2024 Mv-Mins 71-Iro n-Folic No.1-Dha (Pnv-Inez) 28-1-300 mg capsule Active NMA PO August [...] Comment on above: , SAMANTHA 04/04/25, Joshua [id number], SAMANTHA 5 Boy, Joshua [id number], SAMANTHA 5 Boy, name secret?(jermaine) Joshua Other [...] GEST 50g 1H 78 mg/dL Normal 70-140 [facility] Comment on above: Performed By: #### L 509.8002, L501.0250, L100.0100, L3890.6006, BTS #### [facility] [address] [facility] [place], [address] Glucose measurement at 2 lizeth rs post-dose gestational glucose tolerance testOrdered By: Veronica Cabrera on 02-21-2025 Glucose [Mass/Vol] 78 mg/dL 70-140 [facility] OB Limited With Biometricson 02-20-2025 OB Limited With Biometrics [facility] [address] [place] [address] OB Limited With Biometrics MR#: [id number] Acct: [id number] Name: JAMIL NORRIS Rep #: [id number] : 1995 F 30 From: Brian del valle MD PCP: Dr. Louann Hager MD Status: REG CLI Study: OB Limited With Biometrics Date of Exam: 02/20 Exam# [id number] Ordering Dr: Veronica Cabrera CNM PROCEDURE: OB [...] 36 weeks and 4 days. Reading Location: [id number] CC: GEOVANNY Cabrera; Dr. Louann Hager MD Glass Blowing Instructor: Signed Normal [facility] - Chemistry and C hemistry - challengeOrdered By: Veronica Cabrera on 02-17-2025 Glucose Ql (U) Negative [facility] - UrinalysisOrder ed By: Veronica Cabrera on 02-17-2025 Protein Ql (U) Negative [facility] Mica Miner Office Visit Reporton 02-17-2025 Mica Miner Office Visit Report [facility] [address], [address] [place] [address] OFFICE VISIT Date of Service: 02/17/25 MR#: [id number] Acct: [id number] Name: JAMIL NORRIS Rep #: [id number] : 1995 Provider: GEOVANNY Salazar ams Age/Sex: 30/F [place] [facility] [place]: Signed Intake Vital Signs 01/10/25 11:12 02/05/25 13:10 02/17/25 11:38 02/17/25 11:40 Height 5 ft 5 in 5 ft 5 in 5 ft 5 in 5 ft 5 in Weight: 213 lb 6 oz 213 lb 7 oz BMI 35.5 35.5 BP 107/70 117/75 Pulse 112 H Intake Visit Reasons: 33 WK 3D OB Senior Examiner Required: No Is patient in pain?: No Allergies ragweed pollen Allergy (Mild, Verified 02/17/25 11:38) Itching Medications ???Medication ???Instructions ???Recorded ???Confirmed ???Type sertraline 50 mg tablet 50 mg PO QDAY 07/31/24 02/17/25 Hi story multivit-min no.71-iron fum 28 cap PO 08/06/24 02/17/25 History mg-folate no.1 1 mg-dha 300 mg capsule (PNV-Inez) famotidine 20 mg tablet (Pepcid) 20 mg PO BID #60 tabs 12/20/2407/09 Rx ondansetron 4 mg disintegrating 4 mg PO Q4H PRN nausea and 5 02/17/25 Rx tablet vomiting #60 tabs Last Menstrual Period: 06/28/24 Zika: Zika virus screening: Negative : No PFSH PFSH Medical History RhD negative Seasonal allergies Pneumonia Surgical History [place] teeth extracted Family History Grandmother Arthritis Diabetes [...] animals: dog(s) history of recent travel: Yes ([place]) out of state: Yes out of [...] 1-2 times per week duration: 30-45 minutes/day fredi/catholic: [employer] seatbelt use: always do you feel safe [...] nipt. first baby first . lives in [place]. 09/24/24 -???-???-???-???-?? ?-???-???-???-???-? ??-???-???- 12w 4d 181 l (more content not included)... Normal [facility] Anion gap in Serum or Plasma Ordered By: Sai Foss on 02-12-2025 Anion gap [Moles/Vol] 12 mmol/L 5-15 [facility] BUN/creatinine ratioOrdered By: Sai Foss on 02-12-2025 Urea nitrogen/Creatinine [Mass ratio] 20.0 mg/mg 10-20 [facility] Basic Metabolic Profile (BMP )on 02-12-2025 BUN/CRE 20.0 RATIO Normal -20 [facility] Comment on above: Performed By: #### L 500.2500 #### [facility] [address] [place], [address] Calcium [Mass/Vol] 9.1 mg/dL Normal 7.6-11.0 [facility] Comment on above: Performed By: #### L 500.2500 #### [facility] [address] [place], [address] Chloride [Moles/Vol] 104 mmol/L Normal 98-108 [facility] Comment on above: Performed By: #### L 500.2500 #### [facility] [address] [place], [address] CO2 [Moles/Vol] 20.4 mmol/L Low 21.0-32.0 [facility] Comment on above: Performed By: #### L 500.2500 #### [facility] [address] [place], [address] Creatinine [Mass/Vol] 0.56 mg/dL Low 0.70-1.20 [facility] Comment on above: Performed By: #### L 500.2500 #### [facility] [address] [place], [address] GAP 12 Normal 5-15 [facility] Comment on above: Performed By: #### L 500.2500 #### [facility] [address] [place], [address] GFR/1.73 sq M.predicted among non-blacks MDRD (S/P/Bld) [Vol rate/Area] 127 mL/min/{1.73_m2} Normal >60 [facility] Comment on above: Result Comment: mL/m in/1.73m2 CKD-EPI Creatinine Equation (2020) Performed By: #### L 500.2500 #### [facility] [address] [place], [address] Glucose [Mass/Vol] 109 mg/dL High 70-99 [facility] Comment on above: Performed By: #### L 500.2500 #### [facility] [address] [place], [address] Potassium [Moles/Vol] 3.9 mmol/L Normal 3.3-5.1 [facility] Comment on above: Performed By: #### L 500.2500 #### [facility] [address] [place], [address] Sodium [Moles/Vol] 136 mmol/L Normal 133-145 [facility] Comment on above: Performed By: #### L 500.2500 #### [facility] [address] [place], [address] Urea nitrogen [Mass/Vol] 11 mg/dL Normal 4-19 [facility] Comment on above: Performed By: #### L 500.2500 #### [facility] [address] [place], [address] Carbon dioxide, total [Moles /volume] in Central venous bloodOrdered By: Sai Foss on 02-12-2025 CO2 [Moles/Vol] 20.4 mmol/L Low 21.0-32.0 [facility] Chloride assayOrdered By: Denver Foss on 02-12-2025 Chloride [Moles/Vol] 104 mmol/L 98-108 [facility] Glomerular filtration rate ( GFR) estimation/1.73 sq m using serum, plasma, or whole bOrdered By: Sai Foss on 02-12-2025 GFR/1.73 sq M.predicted among non-blacks MDRD (S/P/Bld) [Vol rate/Area] 127 mL/min/{1.73_m2} >60 [facility] Comment on above: mL/min/1.73m2 CKD-EP I Creatinine Equation (2020) Potassium measurement (mass/ volume)Ordered By: Sai Foss on 02-12-2025 Potassium (Unsp spec) [Mass/Vol] 3.9 mmol/L 3.3-5.1 [facility] Serum creatinine measurement (mass/volume)Ordered By: Sai Foss on 02-12-2025 Creatinine [Mass/Vol] 0.56 mg/dL Low 0.70-1.20 [facility] Serum glucose measurement (m ass/volume)Ordered By: Sai Foss on 02-12-2025 Glucose [Mass/Vol] 109 mg/dL High 70-99 [facility] Serum or plasma calcium tamy urement (mass/volume)Ordered By: Sai Foss on 02-12-2025 Calcium [Mass/Vol] 9.1 mg/dL 7.6-11.0 [facility] Serum or plasma urea nitroge n measurement (mass/volume)Ordered By: Sai Foss on 02-12-2025 Urea nitrogen [Mass/Vol] 11 mg/dL 4-19 [facility] Sodium levelOrdered By: Daniel Foss on 02-12-2025 Sodium [Moles/Vol] 136 mmol/L 133-145 [facility] 12 Lead EKGon 02-07-2025 12 Lead EKG [facility] [address] [place] [address] 12 Lead EKG 02/07/25 0739 MR#: [id number] Acct: [id number] Name: JAMIL NORRIS Rep #: [id number] : 1995 30 From: Gale Zamora MD Attending Dr: CAMPOS Sullivan Status: REG CLI Ordering Dr: Sai Foss NP [employer]INGS [employer]ER-C Date: 02/07/25 Location: N Sex: F C [...] Otherwise normal ECG Confirmed by GALE ZAMORA ([id number]), newspaper photo editor DEWAYNE DUBON ([id number]) on 02/10/2025 7:10:52 AM Referred By: Sai Foss Confirmed By: GALE ZAMORA 02/10/25 0710 Date Gale Zamora MD CC: CAMPOS Foss; Dr. Louann Hager MD Signed Normal [facility] - Chemistry and C hemistry - challengeOrdered By: Sai Foss on 02-05-2025 Glucose Ql (U) Negative [facility] - UrinalysisOrder ed By: Sai Foss on 02-05-2025 Protein Ql (U) Negative [facility] Mica Miner Office Visit Reporton 02-05-2025 Mica Miner Office Visit Report [facility] [address], [address] [place] [address] OFFICE VISIT Date of Service: 02/05/25 MR#: [id number] Acct: [id number] Name: JAMIL NORRIS Rep #: [id number] : 1995 Provider: CAMPOS solitario Age/Sex: 30/F [place] [facility] [place]: Signed Intake Vital Signs 11/22/24 11:24 01/23/25 10:46 02/05/25 13:10 Height 5 ft 5 in 5 ft 5 in 5 ft 5 in Weight: 213 lb 6 oz BMI 35.5 BP 107/70 Pulse 112 H Intake Visit Reasons: 31 WK 5D OB Senior Examiner Required: No Is patient in pain?: No Allergies ragweed pollen Allergy (Mild, Verified 02/05/25 13:09) Itching Medications ???Medication ???Instructions ???Recorded ???Confirmed ???Type sertraline 50 mg tablet 50 mg PO QDAY 07/31/24 02/05/25 Hi story multivit-min no.71-iron fum 28 cap PO 08/06/24 02/05/25 History mg-folate no.1 1 mg-dha 300 mg capsule (PNV-Inez) famotidine 20 mg tablet (Pepcid) 20 mg PO BID #60 tabs 12/20/24 Rx ondansetron 4 mg disintegrating 4 mg PO Q4H PRN nausea and 5 02/05/25 Rx tablet vomiting #60 tabs Last Menstrual Period: 06/28/24 Zika: Zika virus screening: Negative : No PFSH PFSH Medical History RhD negative Seasonal allergies Pneumonia Surgical History [place] teeth extracted Family History Grandmother Arthritis Diabetes [...] animals: dog(s) history of recent travel: Yes ([place]) out of state: Yes out of [...] 1-2 times per week duration: 30-45 minutes/day fredi/catholic: [employer] seatbelt use: always do you feel safe [...] nipt. first baby first . lives in [place]. 09/24/24 -???-???-???-???-?? ?-???-???-???-???-? ??-???-???- 12w 4d 181 lb 130/82 Negative -???-???-???-???-?? ?-???-???-?? (more content not included)... Normal [facility] - Chemistry and C hemistry - challengeOrdered By: Rachele Bradley on 2025 Glucose Ql (U) Negative [facility] - UrinalysisOrder ed By: Rachele Bradley on 2025 Protein Ql (U) Negative [facility] Mica Miner Office Visit Reporton 2025 Mica Miner Office Visit Report [facility] [address], [address] [place] [address] OFFICE VISIT Date of Service: 01/23/25 MR#: [id number] Acct: [id number] Name: JAMIL NORRIS Rep #: [id number] : 1995 Provider: CAMPOS solitario Age/Sex: 30/F [place] [facility] [place]: Signed Intake Vital Signs 11/22/24 11:24 01/10/25 11:12 01/23/25 10:45 01/23/25 10:46 Height 5 ft 5 in 5 ft 5 in 5 ft 5 in 5 ft 5 in Weight: 211 lb 1 oz BMI 35.1 BP 115/77 Intake Visit Reasons: 30wk ob Senior Examiner Required: No Is patient in pain?: No Allergies ragweed pollen Allergy (Mild, Verified 01/23/25 10:45) Itching Medications ???Medication ???Instructions ???Recorded ???Confirmed ???Type sertraline 50 mg tablet 50 mg PO QDAY 07/31/24 01/23/25 Hi story multivit-min no.71-iron fum 28 cap PO 08/06/24 01/23/25 History mg-folate no.1 1 mg-dha 300 mg capsule (PNV-Inez) famotidine 20 mg tablet (Pepcid) 20 mg PO BID #60 tabs 12/20/2401/09 Rx ondansetron 4 mg disintegrating 4 mg PO Q4H PRN nausea and 5 01/23/25 Rx tablet vomiting #60 tabs Last Menstrual Period: 06/28/24 Zika: Zika virus screening: Negative : Yes PFSH PFSH Medical History RhD negative Seasonal allergies Pneumonia Surgical History [place] teeth extracted Family History Grandmother Arthritis Diabetes [...] animals: dog(s) history of recent travel: Yes ([place]) out of state: Yes out of [...] 1-2 times per week duration: 30-45 minutes/day fredi/catholic: [employer] seatbelt use: always do you feel safe [...] nipt. first baby first . lives in [place]. 09/24/24 -???-???-???-???-?? ?-???-???-???-???-? ??-???-???- 12w 4d 181 lb 130/82 Negative -???-???-???-???-?? ?-???-???-?? (more content not included)... Normal [facility] Absolute lymphocyte countOrd ered By: Marisela Pickettgene on 01-10-2025 Lymphocytes Auto (Unsp spec) [#/Vol] 1.58 10*3/uL 0.83-4.51 [facility] Absolute neutrophil countOrd ered By: Mariselatamy Nelson on 01-10-2025 Neutrophils (Bld) [#/Vol] 5.8 10*3/uL 2.0-7.7 [facility] Automated lymphocyte count a s percentage of total leukocytesOrdered By: Marisela Pickettgene on 01-10-2025 Lymphocytes/100 WBC Auto (Unsp spec) 18.9 % Low 19-41 [facility] Basophil percentageOrdered B y: Marisela Pickettdenysorlin on 01-10-2025 Basophils/100 WBC (Bld) 0.6 % 0-1 [facility] CBC W/Diff, Automatedon 12-17 Absolute Lymph 1.58 X10 3/uL Normal 0.83-4.51 [facility] Comment on above: Performed By: #### L 509.8002, L501.0250, L100.0100, L3890.6006, BTS #### [facility] [address] [place], [address] Absolute Neut 5.8 X10 3/uL Normal 2.0-7.7 [facility] Comment on above: Performed By: #### L 509.8002, L501.0250, L100.0100, L3890.6006, BTS #### [facility] [address] [place], [address] Basophils/100 WBC (Bld) 0.6 % Normal 0-1 [facility] Comment on above: Performed By: #### L 509.8002, L501.0250, L100.0100, L3890.6006, BTS #### [facility] [address] [place], [address] Eosinophils/100 WBC (Bld) 2.9 % Normal 0-5 [facility] Comment on above: Performed By: #### L 509.8002, L501.0250, L100.0100, L3890.6006, BTS #### [facility] [address] [place], [address] Erythrocyte distribution width (RBC) [Ratio] 12.5 % Normal 11.6-14.6 [facility] Comment on above: Performed By: #### L 509.8002, L501.0250, L100.0100, L3890.6006, BTS #### [facility] [address] [place], [address] Hematocrit (Bld) [Volume fraction] 33.8 % Low 37-47 [facility] Comment on above: Performed By: #### L 509.8002, L501.0250, L100.0100, L3890.6006, BTS #### [facility] [address] [place], [address] Hemoglobin (Bld) [Mass/Vol] 12.1 g/dL Normal 12.0-15.0 [facility] Comment on above: Performed By: #### L 509.8002, L501.0250, L100.0100, L3890.6006, BTS #### [facility] [address] [place], [address] IG% 0.600 Normal 0.0-0.9 [facility] Comment on above: Result Comment: IG% - Immature Granulocytes (promyelocytes, myelocytes and metamyelocytes) > 1% indicates that a LEFT SHIFT is Present. Performed By: #### L 509.8002, L501.0250, L100.0100, L3890.6006, BTS #### [facility] [address] [place], [address] Lymphocytes/100 WBC (Bld) 18.9 % Low 19-41 [facility] Comment on above: Performed By: #### L 509.8002, L501.0250, L100.0100, L3890.6006, BTS #### [facility] [address] [place], [address] MCH (RBC) [Entitic mass] 32.5 pg High 27.0-32.0 [facility] Comment on above: Performed By: #### L 509.8002, L501.0250, L100.0100, L3890.6006, BTS #### [facility] [address] [place], [address] MCHC (RBC) [Mass/Vol] 35.8 g/dL Normal 32-36 [facility] Comment on above: Performed By: #### L 509.8002, L501.0250, L100.0100, L3890.6006, BTS #### [facility] [address] [place], [address] MCV (RBC) [Entitic vol] 90.9 fL Normal 81-99 [facility] Comment on above: Performed By: #### L 509.8002, L501.0250, L100.0100, L3890.6006, BTS #### [facility] [address] [place], [address] Monocytes/100 WBC (Bld) 7.3 % Normal 0-10 [facility] Comment on above: Performed By: #### L 509.8002, L501.0250, L100.0100, L3890.6006, BTS #### [facility] [address] [place], [address] Neutrophils/100 WBC (Bld) 69.7 % Normal 47-70 [facility] Comment on above: Performed By: #### L 509.8002, L501.0250, L100.0100, L3890.6006, BTS #### [facility] [address] [place], [address] Nucleated RBC (Bld) [#/Vol] 0 10*3/uL Normal 0-5 [facility] Comment on above: Performed By: #### L 509.8002, L501.0250, L100.0100, L3890.6006, BTS #### [facility] [address] [place], [address] Platelet mean volume (Bld) [Entitic vol] 11.2 fL Normal 6.2-12.0 [facility] Comment on above: Performed By: #### L 509.8002, L501.0250, L100.0100, L3890.6006, BTS #### [facility] [address] [place], [address] Platelets (Bld) [#/Vol] 176 10*3/uL Normal 150-450 [facility] Comment on above: Performed By: #### L 509.8002, L501.0250, L100.0100, L3890.6006, BTS #### [facility] [address] [place], [address] RBC (Bld) [#/Vol] 3.72 10*6/uL Low 4.2-5.4 [facility] Comment on above: Performed By: #### L 509.8002, L501.0250, L100.0100, L3890.6006, BTS #### [facility] [address] [place], [address] RDW SD 41.1 fl Normal 35.1-43.9 [facility] Comment on above: Performed By: #### L 509.8002, L501.0250, L100.0100, L3890.6006, BTS #### [facility] [address] [place], [address] WBC (Bld) [#/Vol] 8.4 10*3/uL Normal 4.4-11.0 [facility] Comment on above: Performed By: #### L 509.8002, L501.0250, L100.0100, L3890.6006, BTS #### [facility] [address] [place], [address] Eosinophil percentageOrdered By: Marisela Nelson on 01-10-2025 Eosinophils/100 WBC (Bld) 2.9 % 0-5 [facility] Erythrocyte distribution wid th ratioOrdered By: Marisela Nelson on 01-10-2025 Erythrocyte distribution width (RBC) [Ratio] 12.5 % 11.6-14.6 [facility] Erythrocyte distribution wid th standard deviationOrdered By: Marisela Nelson on 01-10-2025 Erythrocyte distribution width (RBC) [Ratio] 41.1 fl 35.1-43.9 [facility] Glucose Challenge Gest 1H 50 boris 01-10-2025 GLU GEST 50g 1H 115 mg/dL Normal 70-140 [facility] Comment on above: Performed By: #### L 509.8002, L501.0250, L100.0100, L3890.6006, BTS #### [facility] [address] [place], [address] Glucose measurement at 2 lizeth rs post-dose gestational glucose tolerance testOrdered By: Marisela Nelson on 01-10-2025 Glucose [Mass/Vol] 115 mg/dL 70-140 [facility] HIVon 01-10-2025 HIV Non-Reactive Normal Nonreactive [facility] Comment on above: Result Comment: Non- Reactive Reactive Repeatedly reactive samples must be confirmed according to CDC recommended confirmatory algorithms. The subresults for either HIVAG or AHIV can be used as an aid in the selection of the confirmation algorithm for reactive samples. Send out specimens with Reactive results to [facility] for confirmation. Order the HIV antibody detection and differentiation: lc#[id number] Performed By: #### L 509.8002, L501.0250, L100.0100, L3890.6006, BTS #### [facility] [address] [place], [address] Hematocrit Auto (Bld) [Volum e fraction]Ordered By: Marisela Nelson on 01-10-2025 Hematocrit (Bld) [Volume fraction] 33.8 % Low 37-47 [facility] Hemoglobin measurementOrdere d By: Marisela Nelson on 01-10-2025 Hemoglobin (Bld) [Mass/Vol] 12.1 g/dL 12.0-15.0 [facility] Immature granulocytes/100 WB C Auto (Bld)Ordered By: Marisela Nelson on 01-10-2025 Immature granulocytes/100 WBC (Bld) 0.600 % 0.0-0.9 [facility] Comment on above: IG% - Immature Granu locytes (promyelocytes, myelocytes and metamyelocytes) > 1% indicates that a LEFT SHIFT is Present. Laboratory - Chemistry and C hemistry - challengeOrdered By: Veronica Cabrera on 01-10-2025 Glucose Ql (U) Negative [facility] Laboratory - UrinalysisOrder ed By: Veronica Cabrera on 01-10-2025 Protein Ql (U) Negative [facility] MCV (mean corpuscular volume ) determinationOrdered By: Marisela Nelson on 01-10-2025 MCV (RBC) [Entitic vol] 90.9 fL 81-99 [facility] Mean corpuscular hemoglobin (MCH) determinationOrdered By: Marisela Nelson on 01-10-2025 MCH (RBC) [Entitic mass] 32.5 pg High 27.0-32.0 [facility] Mean corpuscular hemoglobin concentration (MCHC) determinationOrdered By: Marisela Pickettgene on 01-10-2025 MCHC (RBC) [Mass/Vol] 35.8 g/dL 32-36 [facility] Mean platelet volume determi nationOrdered By: Marisela Pickettgene on 01-10-2025 Platelet mean volume (Bld) [Entitic vol] 11.2 fL 6.2-12.0 [facility] Monocyte percentageOrdered B y: Marisela Omar on 01-10-2025 Monocytes/100 WBC (Bld) 7.3 % 0-10 [facility] Neutrophil percentageOrdered By: Marisela Pickettgene on 01-10-2025 Neutrophils/100 WBC (Bld) 69.7 % 47-70 [facility] No Panel InformationOrdered By: Marisela Pickettgene on 01-10-2025 HIV (1&2) Antibody Non-Reactive Nonreactive [facility] Comment on above: Non-ReactiveReactive Repeatedly reactive samples must be confirmed according to CDC recommended confirmatory algorithms. The subresults for either HIVAG or AHIV can be used as an aid in the selection of the confirmation algorithm for reactive samples.Send out specimens with Reactive results to [facility] for confirmation.Order the HIV antibody detection and differentiation: lc#[id number] Nucleated red blood cell per centageOrdered By: Marisela Straussorlin on 01-10-2025 Nucleated RBC/100 WBC (Bld) [Ratio] 0 % 0-5 [facility] Mica Miner Office Visit Reporton 01-10-2025 Mica Miner Office Visit Report [facility] [address], [address] [place] [address] OFFICE VISIT Date of Service: 01/10/25 MR#: [id number] Acct: [id number] Name: JAMIL NORRIS Rep #: [id number] : 1995 Provider: GEOVANNY Salazar ams Age/Sex: 29/F [place] [facility] [place]: Signed with Addenda ADDENDUM by Renetta Pina on 01/10/25 at 1205 Office Procedure Documentation entered by Renetta Pina 01/10/25 12:05: Injections Is this a patient provided medication?: No Immunizations Adacel(Tdap Adolesn/Adult)(PF) 2 Lf-(2.5-5-3-5)-5 Lf/0.5 mL IM syringe Performing Provider: Veronica Cabrera CNM Performing Location: [facility] Administered by: Renetta Pina on 01/10/25 12:03 Dose Route Admin Location Dispensed Lot Number Expiration Date Package NDC NDC Monitoring Manager 0.5 mL IM Left Deltoid 0.5 mL [id number] 12/04/26 24594-365-45 [id number] NOFI-PASTEUR VIS Given Date VIS Provided VIS Publication Date 01/10/25 Single Vaccine 24 Eligibility Eligibility Date Funding Source Not Applicable Office Meds RhoGAM Ultra-Filtered PLUS 1,500 unit (300 mcg) intramuscular syringe Performing Provider: Veronica Cabrera CNM Performing Location: [facility] Administered by: Renetta Pina on 01/10/25 12:03 Dose Route Admin Location Dispensed Lot Number Expiration Date Package NDC NDC Monitoring Manager 1,500 unit IM Left Buttock 1 ea [id number] 10/30/26 94908-893-92 [id number] [facility] Date cc: * Signed Intake Vital Signs 11/22/24 11:24 12/20/24 10:06 01/10/25 11:12 Height 5 ft 5 in 5 ft 5 in 5 ft 5 in Weight: 206 lb 4 oz BMI 34.3 BP 127/78 H Intake Visit Reasons: 28wk ob/glucose/rhogam Chief Complaint: 28wk OB Senior Examiner Required: No Is patient in pain?: No Allergies ragweed pollen Allergy (Mild, Verified 01/10/25 11:10) Itching Medications ???Medication ???Instructions ???Recorded ???Confirmed ???Type sertraline 50 mg tablet 50 mg PO QDAY 07/31/24 01/10/25 Hi story multivit-min no.71-iron fum 28 cap PO 08/06/24 01/10/25 History mg-folate no.1 1 mg-dha 300 mg capsule (PNV-Inez) famotidine 20 mg tablet (Pepcid) 20 mg PO BID #60 tabs 12/20/24 Rx Last Menstrual Period: 06/28/24 : No PFSH PFSH Medical History RhD negative Seasonal allergies Pneumonia Surgical History [place] teeth extracted Family History Grandmother Arthritis Diabetes [...] animals: dog(s) history of recent travel: Yes ([place]) out of state: Yes out of [...] 1-2 times per week duration: 30-45 minutes/day fredi/catholic: [employer] seatbelt use: always do you feel safe [...] special requests (more content not included)... Normal [facility] Platelet countOrdered By: Barbara Nelson on 01-10-2025 Platelets (Bld) [#/Vol] 176 10*3/uL 150-450 [facility] RBC Auto (Bld) [#/Vol]Ordere d By: Marisela Nelson on 01-10-2025 RBC (Bld) [#/Vol] 3.72 10*6/uL Low 4.2-5.4 [facility] Syphilis Antibodieson 2024 Syphilis Abs Non-Reactive Normal Nonreactive [facility] Comment on above: Performed By: #### L 509.8002, L501.0250, L100.0100, L3890.6006, BTS #### [facility] [address] [place], [place], [address] Type AND Screenon 01-10-2025 ABO and Rh group Nom (Bld) Blood group A Rh(D) negative Normal [facility] Comment on above: Order Comment: PN Performed By: #### L 509.8002, L501.0250, L100.0100, L3890.6006, BTS #### [facility] [address] [place], [address] White blood cell (WBC) count Ordered By: Marisela Nelson on 01-10-2025 WBC (Bld) [#/Vol] 8.4 10*3/uL 4.4-11.0 [facility] - Chemistry and C hemistry - challengeOrdered By: Marisela Nelson on 12-20-2024 Glucose Ql (U) Negative [facility] - UrinalysisOrder ed By: Marisela Nelson on 12-20-2024 Protein Ql (U) Negative [facility] Mica Miner Office Visit Reporton 12-20-2024 Mica Miner Office Visit Report [facility], [address] [place] [address] OFFICE VISIT Date of Service: 12/20/24 MR#: [id number] Acct: [id number] Name: JAMIL NORRIS Rep #: [id number] : 1995 Provider: Dr. Marisela wang MD Age/Sex: 29/F [place] [facility] [place]: Signed Intake Vital Signs 09/24/24 09:41 11/22/24 11:24 12/20/24 10:06 Height 5 ft 5 in 5 ft 5 in 5 ft 5 in Weight: 189 lb 2 oz 199 lb 3 oz BMI 31.4 33.1 BP 124/69 H 122/82 H Intake Visit Reasons: 25wk ob Senior Examiner Required: No Is patient in pain?: No Allergies ragweed pollen Allergy (Mild, Verified 12/20/24 10:03) Itching Medications ???Medication ???Instructions ???Recorded ???Confirmed ???Type sertraline 50 mg tablet 50 mg PO QDAY 07/31/24 12/20/24 Hi story multivit-min no.71-iron fum 28 cap PO 08/06/24 12/20/24 History mg-folate no.1 1 mg-dha 300 mg capsule (PNV-Inez) famotidine 20 mg tablet (Pepcid) 20 mg PO BID #60 tabs 12/20/2409/08 Rx Last Menstrual Period: 06/28/24 Zika: Zika virus screening: Negative : No PFSH PFSH Medical History RhD negative Seasonal allergies Pneumonia Surgical History [place] teeth extracted Family History Grandmother Arthritis Diabetes [...] animals: dog(s) history of recent travel: Yes ([place]) out of state: Yes out of country: [...] 1-2 times per week duration: 30-45 minutes/day fredi/catholic: [employer] seatbelt use: always do you feel safe [...] nipt. first baby first . lives in [place]. 09/24/24 -???-???-???-???-?? ?-???-???-???-???-? ??-???-???- 12w 4d 181 lb 130/82 Negative -???-???-???-???-?? ?-???-???-???-???-? ??-???-???- Negative 152 -???-???-???-???-?? ?-???-???-???-???-? ??-???-???- MH-No VB. N ausea improved. (more content not included)... Normal [facility] - Chemistry and C hemistry - challengeOrdered By: Veronica Cabrera on 11-22-2024 Glucose Ql (U) Negative [facility] - UrinalysisOrder ed By: Veronica Cabrera on 11-22-2024 Protein Ql (U) Negative [facility] Mica Miner Office Visit Reporton 11-22-2024 Mica Miner Office Visit Report [facility]'s [address], [address] [place] [address] OFFICE VISIT Date of Service: 11/22/24 MR#: [id number] Acct: [id number] Name: JAMIL NORRIS Rep #: [id number] : 1995 Provider: GEOVANNY Salazar ams Age/Sex: 29/F [place] [facility] [place]: Signed Intake Vital Signs 08/30/24 14:15 10/24/24 10:52 11/22/24 11:24 Height 5 ft 5 in 5 ft 5 in 5 ft 5 in Weight: 189 lb 2 oz BMI 31.4 BP 124/69 H Intake Visit Reasons: 21wk ob Chief Complaint: 21wk OB Senior Examiner Required: No Is patient in pain?: No Allergies ragweed pollen Allergy (Mild, Verified 11/22/24 11:22) Itching Medications ???Medication ???Instructions ???Recorded ???Confirmed ???Type sertraline 50 mg tablet 50 mg PO QDAY 07/31/24 11/22/24 Hi story multivit-min no.71-iron fum 28 cap PO 08/06/24 11/22/24 History mg-folate no.1 1 mg-dha 300 mg capsule (PNV-Inez) Last Menstrual Period: 06/28/24 : No PFSH PFSH Medical History RhD negative Seasonal allergies Pneumonia Surgical History [place] teeth extracted Family History Grandmother Arthritis Diabetes [...] 1-2 times per week duration: 30-45 minutes/day fredi/catholic: [employer] seatbelt use: always do you feel safe [...] nipt. first baby first . lives in [place]. 09/24/24 -???-???-???-???-?? ?-???-???-???-???-? ??-???-???- 12w 4d 181 [...] 145 21 (more content not included)... Normal [facility] - Chemistry and C hemistry - challengeOrdered By: Rachele Bradley on 10-24-2024 Glucose Ql (U) Negative [facility] - UrinalysisOrder ed By: Rachele Bradley on 10-24-2024 Protein Ql (U) Negative [facility] Mica Miner Office Visit Reporton 10-24-2024 Mica Miner Office Visit Report [facility] [address], [facility] [address] [place] [address] OFFICE VISIT Date of Service: 10/24/24 MR#: [id number] Acct: [id number] Name: JAMIL NORRIS Rep #: [id number] : 1995 Provider: Dr. Rachele Hook DO Age/Sex: 29/F [place] [facility] [place]: Signed Intake Vital Signs 08/30/24 14:15 09/24/24 09:41 10/24/24 10:52 Height 5 ft 5 in 5 ft 5 in 5 ft 5 in Weight: 180 lb 6 oz BMI 29.9 BP 111/79 Intake Visit Reasons: 16w6d ob Senior Examiner Required: No Is patient in pain?: No Allergies ragweed pollen Allergy (Mild, Verified 10/24/24 10:53) Itching Medications ???Medication ???Instructions ???Recorded ???Confirmed ???Type sertraline 50 mg tablet 50 mg PO QDAY 07/31/24 10/24/24 Hi story multivit-min no.71-iron fum 28 cap PO 08/06/24 10/24/24 History mg-folate no.1 1 mg-dha 300 mg capsule (PNV-Inez) Last Menstrual Period: 06/28/24 Zika: Zika virus screening: Negative : No PFSH PFSH Medical History RhD negative Seasonal allergies Pneumonia Surgical History [place] teeth extracted Family History Grandmother Arthritis Diabetes [...] animals: dog(s) history of recent travel: Yes ([place]) out of state: Yes out of [...] 1-2 times per week duration: 30-45 minutes/day fredi/catholic: [employer] seatbelt use: always do you feel safe [...] nipt. first baby first . lives in [place]. 09/24/24 -???-???-???-???-?? ?-???-???-???-???-? ??-???-???- 12w 4d 181 [...] Office Urine (more content not included)... Normal [facility] - Chemistry and C hemistry - challengeOrdered By: Sai Foss on 09-24-2024 Glucose Ql (U) Negative [facility] - UrinalysisOrder ed By: Sai Foss on 09-24-2024 Protein Ql (U) Negative [facility] Mica Miner Office Visit Reporton 09-24-2024 Mica Miner Office Visit Report [facility]'s [address], [address] [place] [address] OFFICE VISIT Date of Service: 09/24/24 MR#: [id number] Acct: [id number] Name: JAMIL NORRIS Rep #: [id number] : 1995 Provider: CAMPOS solitario Age/Sex: 29/F [place] [facility] [place]: Signed Intake Vital Signs 08/06/24 09:57 08/30/24 14:15 09/24/24 09:41 Height 5 ft 5 in 5 ft 5 in 5 ft 5 in Weight: 181 lb BMI 30.1 BP 130/82 H Intake Visit Reasons: 12 WK OB Chief Complaint: 12 Week OB Senior Examiner Required: No Is patient in pain?: No Allergies ragweed pollen Allergy (Mild, Verified 09/24/24 09:43) Itching Medications ???Medication ???Instructions ???Recorded ???Confirmed ???Type sertraline 50 mg tablet 50 mg PO QDAY 07/31/24 09/24/24 Hi story multivit-min no.71-iron fum 28 cap PO 08/06/24 09/24/24 History mg-folate no.1 1 mg-dha 300 mg capsule (PNV-Inez) Last Menstrual Period: 06/28/24 Zika: Zika virus screening: Negative : No PFSH PFSH Medical History RhD negative Seasonal allergies Pneumonia Surgical History [place] teeth extracted Family History Grandmother Arthritis Diabetes [...] animals: dog(s) history of recent travel: Yes ([place]) out of state: Yes out of [...] 1-2 times per week duration: 30-45 minutes/day fredi/catholic: [employer] seatbelt use: always do you feel safe [...] nipt. first baby first . lives in [place]. 09/24/24 -???-???-???-???-?? ?-???-???-???-???-? ??-???-???- 12w 4d 181 [...] Dip (Clin (more content not included)... Normal [facility] Absolute lymphocyte countOrd ered By: Marisela Nelson on 09-03-2024 Lymphocytes Auto (Unsp spec) [#/Vol] 2.19 10*3/uL 0.83-4.51 [facility] Absolute neutrophil countOrd ered By: Marisela Nelson on 09-03-2024 Neutrophils (Bld) [#/Vol] 6.8 10*3/uL 2.0-7.7 [facility] Automated lymphocyte count a s percentage of total leukocytesOrdered By: Marisela Nelson on 09-03-2024 Lymphocytes/100 WBC Auto (Unsp spec) 22.4 % 19-41 [facility] Basophil percentageOrdered B y: Marisela Nelson on 09-03-2024 Basophils/100 WBC (Bld) 0.4 % 0-1 [facility] CBC W/Diff, Automatedon 08-16 0 Absolute Lymph 2.19 X10 3/uL Normal 0.83-4.51 [facility] Comment on above: Performed By: #### L 509.8002, L501.0250, L100.0100, L3890.6006, BTS #### [facility] [address] [place], [address] Absolute Neut 6.8 X10 3/uL Normal 2.0-7.7 [facility] Comment on above: Performed By: #### L 509.8002, L501.0250, L100.0100, L3890.6006, BTS #### [facility] [address] [place], [address] Basophils/100 WBC (Bld) 0.4 % Normal 0-1 [facility] Comment on above: Performed By: #### L 509.8002, L501.0250, L100.0100, L3890.6006, BTS #### [facility] [address] [place], [address] Eosinophils/100 WBC (Bld) 1.4 % Normal 0-5 [facility] Comment on above: Performed By: #### L 509.8002, L501.0250, L100.0100, L3890.6006, BTS #### [facility] [address] [place], [address] Erythrocyte distribution width (RBC) [Ratio] 12.4 % Normal 11.6-14.6 [facility] Comment on above: Performed By: #### L 509.8002, L501.0250, L100.0100, L3890.6006, BTS #### [facility] [address] [place], [address] Hematocrit (Bld) [Volume fraction] 40.1 % Normal 37-47 [facility] Comment on above: Performed By: #### L 509.8002, L501.0250, L100.0100, L3890.6006, BTS #### [facility] [address] [place], [address] Hemoglobin (Bld) [Mass/Vol] 14.0 g/dL Normal 12.0-15.0 [facility] Comment on above: Performed By: #### L 509.8002, L501.0250, L100.0100, L3890.6006, BTS #### [facility] [address] [place], [address] IG% 0.300 Normal 0.0-0.9 [facility] Comment on above: Result Comment: IG% - Immature Granulocytes (promyelocytes, myelocytes and metamyelocytes) > 1% indicates that a LEFT SHIFT is Present. Performed By: #### L 509.8002, L501.0250, L100.0100, L3890.6006, BTS #### [facility] [address] [place], [address] Lymphocytes/100 WBC (Bld) 22.4 % Normal 19-41 [facility] Comment on above: Performed By: #### L 509.8002, L501.0250, L100.0100, L3890.6006, BTS #### [facility] [address] [place], [address] MCH (RBC) [Entitic mass] 30.8 pg Normal 27.0-32.0 [facility] Comment on above: Performed By: #### L 509.8002, L501.0250, L100.0100, L3890.6006, BTS #### [facility] [address] [place], [address] MCHC (RBC) [Mass/Vol] 34.9 g/dL Normal 32-36 [facility] Comment on above: Performed By: #### L 509.8002, L501.0250, L100.0100, L3890.6006, BTS #### [facility] [address] [place], [address] MCV (RBC) [Entitic vol] 88.3 fL Normal 81-99 [facility] Comment on above: Performed By: #### L 509.8002, L501.0250, L100.0100, L3890.6006, BTS #### [facility] [address] [place], [address] Monocytes/100 WBC (Bld) 5.5 % Normal 0-10 [facility] Comment on above: Performed By: #### L 509.8002, L501.0250, L100.0100, L3890.6006, BTS #### [facility] [address] [place], [address] Neutrophils/100 WBC (Bld) 70.0 % Normal 47-70 [facility] Comment on above: Performed By: #### L 509.8002, L501.0250, L100.0100, L3890.6006, BTS #### [facility] [address] [place], [address] Nucleated RBC (Bld) [#/Vol] 0 10*3/uL Normal 0-5 [facility] Comment on above: Performed By: #### L 509.8002, L501.0250, L100.0100, L3890.6006, BTS #### [facility] [address] [place], [address] Platelet mean volume (Bld) [Entitic vol] 10.7 fL Normal 6.2-12.0 [facility] Comment on above: Performed By: #### L 509.8002, L501.0250, L100.0100, L3890.6006, BTS #### [facility] [address] [place], [address] Platelets (Bld) [#/Vol] 216 10*3/uL Normal 150-450 [facility] Comment on above: Performed By: #### L 509.8002, L501.0250, L100.0100, L3890.6006, BTS #### [facility] [address] [place], [address] RBC (Bld) [#/Vol] 4.54 10*6/uL Normal 4.2-5.4 [facility] Comment on above: Performed By: #### L 509.8002, L501.0250, L100.0100, L3890.6006, BTS #### [facility] [address] [place], [address] RDW SD 40.0 fl Normal 35.1-43.9 [facility] Comment on above: Performed By: #### L 509.8002, L501.0250, L100.0100, L3890.6006, BTS #### [facility] [address] [place], [address] WBC (Bld) [#/Vol] 9.8 10*3/uL Normal 4.4-11.0 [facility] Comment on above: Performed By: #### L 509.8002, L501.0250, L100.0100, L3890.6006, BTS #### [facility] [address] [place], [address] Eosinophil percentageOrdered By: Marisela Nelson on 09-03-2024 Eosinophils/100 WBC (Bld) 1.4 % 0-5 [facility] Erythrocyte distribution wid th ratioOrdered By: Marisela Pickettgnee on 09-03-2024 Erythrocyte distribution width (RBC) [Ratio] 12.4 % 11.6-14.6 [facility] Erythrocyte distribution wid th standard deviationOrdered By: Marisela Pickettgene on 09-03-2024 Erythrocyte distribution width (RBC) [Ratio] 40.0 fl 35.1-43.9 [facility] HIVon 09-03-2024 HIV Non-Reactive Normal Nonreactive [facility] Comment on above: Result Comment: Non- Reactive Reactive Repeatedly reactive samples must be confirmed according to CDC recommended confirmatory algorithms. The subresults for either HIVAG or AHIV can be used as an aid in the selection of the confirmation algorithm for reactive samples. Send out specimens with Reactive results to [facility] for confirmation. Order the HIV antibody detection and differentiation: lc#[id number] Performed By: #### L 509.8002, L501.0250, L100.0100, L3890.6006, BTS #### [facility] [address] [place], [address] Hematocrit Auto (Bld) [Volum e fraction]Ordered By: Marisela Nelson on 09-03-2024 Hematocrit (Bld) [Volume fraction] 40.1 % 37-47 [facility] Hemoglobin A1con 09-03-2024 HbA1c (Bld) [Mass fraction] 5.1 % Normal <=5.6 [facility] Comment on above: Result Comment: Norm al < 5.7 % Prediabetic 5.7 - 6.4 % Diabetic >or= 6.5 % Please note range changes. Performed By: #### L 509.8002, L501.0250, L100.0100, L3890.6006, BTS #### [facility] [address] [place], [place], [address] Hemoglobin A1c percentageOrd ered By: Marisela Nelson on 09-03-2024 HbA1c (Bld) [Mass fraction] 5.1 % <5.7 [facility] Comment on above: Normal < 5.7 % Predi abetic 5.7 - 6.4 % Diabetic >or= 6.5 % Please note range changes. Hemoglobin measurementOrdere d By: Mariselatamy Pickettgene on 09-03-2024 Hemoglobin (Bld) [Mass/Vol] 14.0 g/dL 12.0-15.0 [facility] Hepatitis C Antibodyon 09-03 Hepatitis C Ab Non-Reactive Normal Nonreactive [facility] Comment on above: Result Comment: Reac tive: Presumptive evidence of antibodies to HCV. Follow CDC recommendations for supplemental testing. Non-Reactive: Antibodies to HCV were not detected; does not exclude the possibility of exposure to HCV Reactive Results are presumptive evidence of antibodies to HCV. Follow CDC recommendations for supplemental testing. Order confirmation testing: HCV Quant by PCR testing - HCVPCR lc#[id number] Non Reactive: < 0.8 Equivocal: >/= 0.8 to < 1.0 Reactive: >/= 1.0 The [facility] [place] requires that a reactive/equivocal HCV antibody result be sent out for confirmation. HCV Quant by PCR testing. Performed By: #### L 509.8002, L501.0250, L100.0100, L3890.6006, BTS #### [facility] [address] [facility] [place], [address] Immature granulocytes/100 WB C Auto (Bld)Ordered By: Marisela Nelson on 09-03-2024 Immature granulocytes/100 WBC (Bld) 0.300 % 0.0-0.9 [facility] Comment on above: IG% - Immature Granu locytes (promyelocytes, myelocytes and metamyelocytes) > 1% indicates that a LEFT SHIFT is Present. L3890.6102on 09-03-2024 HEP B Surf Ag Non-Reactive Normal Nonreactive [facility] Comment on above: Result Comment: Reac tive: Presumptive evidence of HBV. Repeatedly reactive samples must be confirmed using a neutralization test ([employer] HBsAg Confirmatory Test) Non-Reactive: HBsAg not detected; does not exclude the possibility of exposure to HBV Performed By: #### L 509.8002, L501.0250, L100.0100, L3890.6006, BTS #### [facility] [address] [place], [place], [address] L509.4006on 09-03-2024 Rubella IgG REAC Normal Nonreactive [facility] Comment on above: Result Comment: Anti body Result: Interpretation Non-Reactive: Non-Immune Reactive: Immune The following results were obtained with the [employer] Rubella IgG assay. Results from assays of other manufacturers cannot be used interchangeably. Performed By: #### L 509.8002, L501.0250, L100.0100, L3890.6006, BTS #### [facility] [address] [place], [place], [address] Laboratory - Microbiology an d Antimicrobial susceptibilityOrdered By: Marisela Nelson on 09-03-2024 HBV surface Ag Ql (S) Non-Reactive Nonreactive [facility] Comment on above: Reactive: Presumptiv e evidence of HBV. Repeatedly reactive samples must be confirmed using a neutralization test ([employer] HBsAg Confirmatory Test)Non-Reactive: HBsAg not detected; does not exclude the possibility of exposure to HBV MCV (mean corpuscular volume ) determinationOrdered By: Marisela Nelson on 09-03-2024 MCV (RBC) [Entitic vol] 88.3 fL 81-99 [facility] Mean corpuscular hemoglobin (MCH) determinationOrdered By: Marisela Nelson on 09-03-2024 MCH (RBC) [Entitic mass] 30.8 pg 27.0-32.0 [facility] Mean corpuscular hemoglobin concentration (MCHC) determinationOrdered By: Marisela Nelson on 09-03-2024 MCHC (RBC) [Mass/Vol] 34.9 g/dL 32-36 [facility] Mean platelet volume determi nationOrdered By: Marisela Nelson on 09-03-2024 Platelet mean volume (Bld) [Entitic vol] 10.7 fL 6.2-12.0 [facility] Monocyte percentageOrdered B y: Marisela Nelson on 09-03-2024 Monocytes/100 WBC (Bld) 5.5 % 0-10 [facility] NATERAon 09-03-2024 NATURA SEE SCANNED REPORT Normal [facility] Comment on above: Performed By: #### L 900.0098 #### [facility] [address] [place], [address] Neutrophil percentageOrdered By: Marisela Nelson on 09-03-2024 Neutrophils/100 WBC (Bld) 70.0 % 47-70 [facility] No Panel InformationOrdered By: Marisela Nelson on 09-03-2024 HIV (1&2) Antibody Non-Reactive Nonreactive [facility] Comment on above: Non-ReactiveReactive Repeatedly reactive samples must be confirmed according to CDC recommended confirmatory algorithms. The subresults for either HIVAG or AHIV can be used as an aid in the selection of the confirmation algorithm for reactive samples.Send out specimens with Reactive results to [facility] for confirmation.Order the HIV antibody detection and differentiation: #[id number] Nucleated red blood cell per centageOrdered By: Marisela Nelson on 09-03-2024 Nucleated RBC/100 WBC (Bld) [Ratio] 0 % 0-5 [facility] Platelet countOrdered By: Barbara Nelsno on 09-03-2024 Platelets (Bld) [#/Vol] 216 10*3/uL 150-450 [facility] RBC Auto (Bld) [#/Vol]Ordere d By: Marisela Nelson on 09-03-2024 RBC (Bld) [#/Vol] 4.54 10*6/uL 4.2-5.4 [facility] Syphilis Antibodieson 2024 Syphilis Abs Non-Reactive Normal Nonreactive [facility] Comment on above: Performed By: #### L 509.8002, L501.0250, L100.0100, L3890.6006, BTS #### [facility] [address] [place], [address] Type AND Screenon 09-03-2024 Ab SCREEN GEL Negative Normal [facility] Comment on above: Order Comment: PN Performed By: #### L 509.8002, L501.0250, L100.0100, L3890.6006, BTS #### [facility] [address] [place], [address] White blood cell (WBC) count Ordered By: Marisela Nelson on 09-03-2024 WBC (Bld) [#/Vol] 9.8 10*3/uL 4.4-11.0 [facility] Chlamydia/GC CK aptimaon CHLAMY,NUC ACID Negative Normal Negative [facility] Comment on above: Performed By: #### L 509.8002, L501.0250, L100.0100, L3890.6006, BTS #### [facility] [address] [place], [place], [id number] GC BY NUC ACID Negative Normal Negative [facility] Comment on above: Result Comment: Perf ormed at: =G - [facility] [address] [id number] Bench Boring Machine Operator: Jeannine So MD, Phone: [phone] Performed By: #### L 509.8002, L501.0250, L100.0100, L3890.6006, BTS #### [facility] [address] [place], [place], [id number] Urine Cultureon 08-31-2024 [facility]RC Culture exhibits no growth. Normal [facility] Comment on above: Performed By: #### L 509.8002, L501.0250, L100.0100, L3890.6006, BTS #### [facility] [address] [place], [address] Chlamydia trachomatis rRNA d etection by probe and target amplification methodOrdered By: Marisela Nelson on 08-30-2024 C. trachomatis rRNA CK+probe Ql (Unsp spec) Negative Negative [facility] Neisseria gonorrhoeae nuclei c acid detection by amplified probe techniqueOrdered By: Marisela Nelson on 08-30-2024 N. gonorrhoeae DNA CK+probe Ql (Unsp spec) Negative Negative [facility] Comment on above: Performed at: =G - [facility] [address] [id number] Director: Jeannine So MD, Phone: [phone] Mica Miner Office Visit Reporton 08-30-2024 Mica Miner Office Visit Report [facility] [address], [address] [place] [address] OFFICE VISIT Date of Service: 08/30/24 MR#: [id number] Acct: [id number] Name: JAMIL NORRIS Rep #: [id number] : 1995 Provider: Dr. Rachele Hook DO Age/Sex: 29/F [place] [facility] [place]: Signed Intake Vital Signs 08/06/24 09:57 08/30/24 14:13 08/30/24 14:15 Height 5 ft 5 in 5 ft 5 in 5 ft 5 in Weight: 182 lb 8 oz BMI 30.3 BP 127/81 H Intake Visit Reasons: New OB, LMP 06/28, SAMANTHA 04/04, first baby Senior Examiner Required: No Is patient in pain?: No Allergies ragweed pollen Allergy (Mild, Verified 08/30/24 14:12) Itching Medications ???Medication ???Instructions ???Recorded ???Confirmed ???Type sertraline 50 mg tablet 50 mg PO QDAY 07/31/24 08/30/24 Hi story multivit-min no.71-iron fum 28 cap PO 08/06/24 08/30/24 History mg-folate no.1 1 mg-dha 300 mg capsule (PNV-Inez) Last Menstrual Period: 06/28/24 Zika: Zika virus screening: Negative : No PFSH PFSH Medical History Seasonal allergies Pneumonia Surgical History [place] teeth extracted Family History Grandmother Arthritis Diabetes [...] 1-2 times per week duration: 30-45 minutes/day fredi/catholic: [employer] seatbelt use: always do you feel safe [...] nipt. first baby first . lives in [place]. Menstrual History Last Menstrual Period: 06/28/24 Reported [...] Other Infe (more content not included)... Normal [facility] Urine cultureOrdered By: Nazario Nelson on 08-30-2024 Bacteria identified Cx Nom (U) Culture exhibits no growth. [facility] - Chemistry and C hemistry - challengeOrdered By: Marisela Nelson on 08-06-2024 HCG ( test) Ql (U) Positive [facility] Office Visit Reporton 2024 Office Visit Report [facility] [address] [place] [address] OFFICE VISIT Date of Service: 08/06/24 MR#: [id number] Acct: [id number] Patient: JAMIL NORRIS Rep #: [id number] : 1995 Provider: Dr. Marisela wang MD Age/Sex: 29/F [place] [facility] [place]: Signed Intake Vital Signs 08/06/24 09:57 Height 5 ft 5 in Weight: 182 lb BMI 30.2 BP 116/70 Blood Pressure Location Rt brachial Position Sitting Intake Visit Reasons: Est Care/Urine test/ Vitals Senior Examiner Required: No Accompanied by: Is patient in pain?: No Allergies ragweed pollen Allergy (Mild, Verified 08/06/24 09:59) Itching Medications ???Medication ???Instructions ???Recorded ???Confirmed ???Type sertraline 50 mg tablet 50 mg PO QDAY 07/31/24 08/06/24 Hi story multivit-min no.71-iron fum 28 cap PO 08/06/24 08/06/24 History mg-folate no.1 1 mg-dha 300 mg capsule (PNV-Inez) Is last menstrual period known: Yes Last [...] Stone Signature: Date (if applicable) CC: Normal [facility] Office/Clini c Noteon 07-04-2024 [...] now prefers solitude and a smaller social [place]. The patient is also concerned about the [...] to follow up with family practice in [place] in September for a wellness check and [...] the Pa (more content not included)... Normal [facility] Mica Miner Cytology Reporton 2023 Mica Miner Cytology Report Clinical Information Specimen Collection Date: [...] smears in the future. GY Disclaimer Alpha Mica Miner Disclaimer ANATOMICPATHOLOGY Normal [facility] Comment on above: Performed By: #### G YNCYTREP #### [facility] (DEFAULT) [address] [place] [address] Gynecology Office/Clinic Not terrence 01-18-2024 Gynecology Office/Clinic [...] Dc'd this medication in and it's safety. 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 Substance Abuse Denies All Tobacco Never (less than 100 in lifetime) Use:. Family History Family history is negative Immunizations Vaccine Date Status meningococcal conjugate vaccine 05/31/2017 Given Comments : ND (more content not included)... Normal [facility] Destruction of lesionon -0 ALICIA Kohler [...] where the nail was split with an Russian anvil distally to approximately 3 mm off [...] Response to Treatment:: Procedure was tolerated well [facility] Vital Signs Date Time Vital Sign Value Performing Clinician Kwan jalloh 02-17-2025 11:40-0500 Body height 165.[address] Marisela Nelson MD Work Phone: 9(861)242-447080 [place] [address] 02-17-2025 11:38-0500 Body mass index (BMI) [Ratio] 35.5 kg/m2 Dr. Marisela Nelson MD Work Phone: 6(587)969-480380 [place] [address] 02-17-2025 11:38-0500 Body weight 96.[address] Marisela Nelson MD Work Phone: 7(173)807-568280 [place] [address] 02-17-2025 11:38-0500 Diastolic blood pressure 75 mm[Hg] Dr. Marisela Nelson MD Work Phone: 5(475)294-231280 [place] [address] 02-17-2025 11:38-0500 Systolic blood pressure 117 mm[Hg] Dr. Marisela Nelson MD Work Phone: 5(462)976-851680 [place] [address] 02-05-2025 13:10-0400 Body mass index (BMI) [Ratio] 35.5 kg/m2 Dr. Marisela Nelson MD Work Phone: 9(400)687-133480 [place] [address] 02-05-2025 13:10-0400 Body weight 96.[address] Marisela Nelson MD Work Phone: 3(877)789-302480 [place] [address] 02-05-2025 13:10-0400 Diastolic blood pressure 70 mm[Hg] Dr. Marisela Nelson MD Work Phone: 4(814)931-991380 [place] [address] 02-05-2025 13:10-0400 Heart rate 112 /min Dr. Marisela Nelson MD Work Phone: 2(575)916-869880 [place] [address] 02-05-2025 13:10-0400 Systolic blood pressure 107 mm[Hg] Dr. Marisela Nelson MD Work Phone: 7(369)353-673080 [place] [address] 2025 10:46-0400 Body height 165.[address] Marisela Nelson MD Work Phone: 9(851)590-131280 [place] [address] 2025 10:45-0400 Body mass index (BMI) [Ratio] 35.1 kg/m2 Dr. Marisela Nelson MD Work Phone: 6(525)489-796580 [place] [address] 2025 10:45-0400 Body weight 95.[address] Marisela Nelson MD Work Phone: 0(490)493-199280 [place] [address] 2025 10:45-0400 Diastolic blood pressure 77 mm[Hg] Dr. Marisela Nelson MD Work Phone: 7(862)474-424380 [place] [address] 2025 10:45-0400 Systolic blood pressure 115 mm[Hg] Dr. Marisela Nelson MD Work Phone: 4(105)870-318180 [place] [address] 01-10-2025 11:12-0400 Body height 165.[address] Marisela Nelson MD Work Phone: 7(703)804-970980 [place] [address] 01-10-2025 11:12-0400 Body mass index (BMI) [Ratio] 34.3 kg/m2 Dr. Marisela Nelson MD Work Phone: 6(835)837-216780 [place] [address] 01-10-2025 11:12-0400 Body weight 93.[address] Marisela Nelson MD Work Phone: 9(054)178-835280 [place] [address] 01-10-2025 11:12-0400 Diastolic blood pressure 78 mm[Hg] Dr. Marisela Nelson MD Work Phone: 0(521)037-096480 [place] [address] 01-10-2025 11:12-0400 Systolic blood pressure 127 mm[Hg] Dr. Marisela Nelson MD Work Phone: 7(107)957-488280 [place] [address] 12-20-2024 10:06-0400 Body height 165.[address] Marisela Nelson MD Work Phone: 1(223)711-481380 [place] [address] 12-20-2024 10:06-0400 Body mass index (BMI) [Ratio] 33.1 kg/m2 Dr. Marisela Nelson MD Work Phone: 9(197)721-046680 [place] [address] 12-20-2024 10:06-0400 Body weight 90.[address] Marisela Nelson MD Work Phone: [facility] 12-20-2024 10:06-0400 Diastolic blood pressure 82 mm[Hg] Dr. Marisela Nelson MD Work Phone: 8(281)301-728380 [place] [address] 12-20-2024 10:06-0400 Systolic blood pressure 122 mm[Hg] Dr. Marisela Nelson MD Work Phone: 2(888)461-370380 [place] [address] 11-22-2024 11:24-0400 Body height 165.[address] Marisela Nelson MD Work Phone: 2(385)996-902580 [place] [address] 11-22-2024 11:24-0400 Body mass index (BMI) [Ratio] 31.4 kg/m2 Dr. Marisela Nelson MD Work Phone: 8(229)572-360980 [place] [address] 11-22-2024 11:24-0400 Body weight 85.[address] Marisela Nelson MD Work Phone: 4(003)352-491880 [place] [address] 11-22-2024 11:24-0400 Diastolic blood pressure 69 mm[Hg] Dr. Marisela Nelson MD Work Phone: 9(230)819-329180 [place] [address] 11-22-2024 11:24-0400 Systolic blood pressure 124 mm[Hg] Dr. Marisela Nelson MD Work Phone: 0(753)080-753580 [place] [address] 10-24-2024 10:52-0400 Body height 165.[address] Marisela Nelson MD Work Phone: 6(631)638-217880 [place] [address] 10-24-2024 10:52-0400 Body mass index (BMI) [Ratio] 29.9 kg/m2 Dr. Marisela Nelson MD Work Phone: 1(088)899-195880 [place] [address] 10-24-2024 10:52-0400 Body weight 81.[address] Marisela Nelson MD Work Phone: 5(280)308-623080 [place] [address] 10-24-2024 10:52-0400 Diastolic blood pressure 79 mm[Hg] Dr. Marisela Nelson MD Work Phone: 5(477)907-120680 [place] [address] 10-24-2024 10:52-0400 Systolic blood pressure 111 mm[Hg] Dr. Marisela Nelson MD Work Phone: [facility] 10-01-2024 09:29-0400 Body height 165.1 cm Louann Hager MD Work Phone: [facility] 10-01-2024 09:29-0400 Body mass index (BMI) [Ratio] 29.82 kg/m2 Louann Hager MD Work Phone: [facility] 10-01-2024 09:29-0400 Body weight 81.28 kg Louann Hager MD Work Phone: 7(903)435-258758 [address] 10-01-2024 09:29-0400 Diastolic blood pressure 62 mm[Hg] Louann Hager MD Work Phone: 1(108)579-122158 [address] 10-01-2024 09:29-0400 Heart rate 89 /min Louann Hager MD Work Phone: [facility] 10-01-2024 09:29-0400 SaO2% (BldA) [Mass fraction] 98 % Louann Hager MD Work Phone: [facility] 10-01-2024 09:29-0400 Systolic blood pressure 108 mm[Hg] Louann Hager MD Work Phone: [facility] 09-24-2024 09:41-0400 Body height 165.[address] Marisela Nelson MD Work Phone: [facility] 09-24-2024 09:41-0400 Body mass index (BMI) [Ratio] 30.1 kg/m2 Dr. Marisela Nelson MD Work Phone: [facility] 09-24-2024 09:41-0400 Body weight 82.[address] Marisela Nelson MD Work Phone: [facility] 09-24-2024 09:41-0400 Diastolic blood pressure 82 mm[Hg] Dr. Marisela Nelson MD Work Phone: [facility] 09-24-2024 09:41-0400 Systolic blood pressure 130 mm[Hg] Dr. Marisela Nelson MD Work Phone: [facility] 08-30-2024 14:15-0400 Body height 165.[address] Marisela Nelson MD Work Phone: 1(942)102-356080 [place] [address] 08-30-2024 14:13-0400 Body mass index (BMI) [Ratio] 30.3 kg/m2 Dr. Marisela Nelson MD Work Phone: 1(344)495-730480 [place] [address] 08-30-2024 14:13-0400 Body weight 82.[address] Marisela Nelson MD Work Phone: 5(735)328-461980 [place] [address] 08-30-2024 14:13-0400 Diastolic blood pressure 81 mm[Hg] Dr. Marisela Nelson MD Work Phone: 5(674)965-602080 [place] [address] 08-30-2024 14:13-0400 Systolic blood pressure 127 mm[Hg] Dr. Marisela Nelson MD Work Phone: [facility] 08-06-2024 09:57-0400 Body mass index (BMI) [Ratio] 30.2 kg/m2 Dr. Marisela Nelson MD Work Phone: [facility] 08-06-2024 09:57-0400 Body weight 82.[address] Marisela Nelson MD Work Phone: [facility] 08-06-2024 09:57-0400 Diastolic blood pressure 70 mm[Hg] Dr. Marisela Nelson MD Work Phone: [facility] 08-06-2024 09:57-0400 Systolic blood pressure 116 mm[Hg] Dr. Marisela Nelson MD Work Phone: [facility] 10-03-2023 07:43-0400 Body temperature 98.4 [degF] ALICIA Kohler DPM Work Phone: [facility] 10-03-2023 07:43-0400 Diastolic blood pressure 69 mm[Hg] CJ Hassmann DPM Work Phone: [facility] 10-03-2023 07:43-0400 Heart rate 68 /min CJ Hassmann DPM Work Phone: [facility] 10-03-2023 07:43-0400 Systolic blood pressure 100 mm[Hg] CJ Hassmann DPM Work Phone: [facility] 09-19-2023 07:35-0400 Body temperature 98.4 [degF] CJ Hassmann DPM Work Phone: [facility] 09-19-2023 07:35-0400 Diastolic blood pressure 79 mm[Hg] CJ Hassmann DPM Work Phone: [facility] 09-19-2023 07:35-0400 Heart rate 64 /min CJ Hassmann DPM Work Phone: [facility] 09-19-2023 07:35-0400 SaO2% (BldA) [Mass fraction] 99 % CJ Hassmann DPM Work Phone: [facility] 09-19-2023 07:35-0400 Systolic blood pressure 112 mm[Hg] CJ Hassmann DPM Work Phone: [facility] Encounters Encounter Date Encounter Type Care Provider Facility Start: 02-21-2025 ambulatory Rachele Cabrera cility:[facility] Start: 02-20-2025 ambulatory Veronica Cabrera Facility :[facility] Start: 02-17-2025 End: 02-17-2025 ambulatory Veronica Cabrera Facility:[facility] Start: 02-12-2025 ambulatory Sai Foss NP Facil ity:[facility] Start: 02-07-2025 Non-patient / Non-visit Dr. Gale dupree MD -[facility] Work Phone: Start: 02-07-2025 End: 02-07-2025 Patient encounter procedure Sai Foss [employer] -Pulmonary Services/Neurology Work Phone: Start: 02-07-2025 End: 02-07-2025 ambulatory Sai Foss [employer] Facility:[facility] Start: 02-05-2025 End: 02-05-2025 Patient encounter procedure Sai Foss [employer] -[facility] Work Phone: Start: 02-05-2025 End: 02-05-2025 ambulatory Sai Foss [employer] Facility:[facility] Start: 2025 End: 2025 Patient encounter procedure Sai Foss [employer] -[facility] Work Phone: Start: 2025 End: [address] Marisela Nelson MD Work Phone: [facility] Start: 01-10-2025 End: 01-10-2025 Patient encounter procedure Veronica Cabrera CNM -[facility] Work Phone: Start: 01-10-2025 End: 01-10-[address] Marisela Nelson MD Work Phone: [facility] Start: 01-10-2025 End: 01-10-2025 ambulatory Marisela Nelson Facility:[facility] Start: 12-20-2024 End: 12-20-[address] Marisela Nelson MD -[facility] Work Phone: Start: 12-20-2024 End: 12-20-[address] Marisela Nelson MD Work Phone: [facility] Start: 11-22-2024 End: 11-22-2024 Patient encounter procedure Veronica Cabrera CNM -[facility] Work Phone: Start: 11-22-2024 End: 11-22-[address] Marisela Nelson MD Work Phone: [facility] Start: 11-12-2024 End: 11-12-2024 ambulatory MD IBARRA [facility] Start: 10-24-2024 End: 10-24-[address] Rachele Llanes DO -[facility] Work Phone: Start: 10-24-2024 End: 10-24-[address] Marisela Nelson MD Work Phone: -[facility] Start: 10-01-2024 End: 10-01-2024 Office outpatient new 45 minutes Louann Hager MD Work Phone: [facility] Comment on above: Encounter to [facility] (Primary Dx); Anxiety and depression; Injury of left toe, initial encounter; 13 weeks gestation of ([facility]) Start: 10-01-2024 End: 10-01-2024 ambulatory LOUANN Hunt BLANCA [facility] Ambulatory Start: 09-24-2024 End: 09-24-2024 Patient encounter procedure Sai GASCA -[facility] Work Phone: Start: 09-24-2024 End: 09-24-[address] Marisela Nelson MD Work Phone: [facility] Work Phone: Start: 09-03-2024 End: 09-03-[address] Rachele Llanes DO [facility] Start: 09-03-2024 End: 09-03-2024 ambulatory Rachele Llanes Facility:[facility] Start: 08-30-2024 End: 08-30-[address] Marisela Nelson MD Work Phone: [facility] Work Phone: Start: 08-30-2024 End: 08-30-[address] Marisela Nelson MD -Laboratory Specimen Work Phone: Start: 08-30-2024 End: 08-30-[address] Rachele Llanes DO -[facility] Work Phone: Start: 08-30-2024 End: 08-30-2024 ambulatory Rachele Llanes [facility] Work Phone: Start: 08-30-2024 End: 08-30-2024 ambulatory Marisela Nelson Facility:[facility] Start: 08-06-2024 End: 08-06-[address] Marisela Nelson MD -[facility] Work Phone: Start: 08-06-2024 End: 08-06-2024 ambulatory Marisela Nelson Facility:[facility] Start: 07-04-2024 End: 07-04-2024 ambulatory Merissa Linton STROBOROMA OPERATOR-CREDIT REPRESENTATIVE Facility: [facility] Start: 01-18-2024 End: 01-18-2024 ambulatory Mary Vaca STROBOROMA OPERATOR-CREDIT REPRESENTATIVE Facility:[facility] Start: 10-03-2023 End: 10-03-2023 Office outpatient visit 10 minutes ALICIA Kohler DPM Work Phone: [facility] Comment on above: Ingrown nail (Primar y Dx); Paronychia of great toe; Toe pain, left Start: 10-03-2023 End: 10-03-2023 ambulatory MERISSA LINTON [facility] Ambula tory Start: 09-29-2023 Orders Only ALICIA Kohler DPM Work Phone: [facility] Start: 09-19-2023 End: 09-19-2023 Office outpatient new 30 minutes ALICIA Kohler DPM Work Phone: [facility] Comment on above: Ingrown nail (Primar y Dx); Toe abscess, left; Paronychia of great toe; Toe pain, left Start: 09-19-2023 End: 09-19-2023 ambulatory GILBERTO KOHLER [facility] Ambulatory Start: 04-18-2022 End: 04-18-2022 ambulatory [facility] Start: 04-18-2022 End: 04-18-2022 Encounter for general adult medical examination without abnormal findings [facility] Start: 03-31-2021 End: 03-31-2021 ambulatory [facility] Start: 07-08-2020 End: 07-12-2020 Patient encounter procedure [facility] Procedures Date Procedure Procedure Detail Performing Clinician [...] HCV Quant by PCR testing - HCVPCR [id number] Non Reactive: < 0.8 Equivocal: >/= 0.8 [...] or Population) (1 - 1-dose 75+ series) [facility] Start: 2047 Zoster Vaccines (1 of 2) Zoster Vaccines (1 of 2) [facility] Start: 01-15-2027 Screening for malignant neoplasm of cervix [facility] Start: 10-02-2025 End: 10-02-2025 Patient encounter procedure 10/02/2025 10:20 AM EDT Office Visit [facility] [address] [phone] Louann Hager MD [address] [address] [facility] Start: 02-21-2025 Patient encounter procedure Registered Clinical -Lab [facility] Start: 02-20-2025 Ultrasound scan for growth OB Limited With [employer]ometric[employer] [facility] Start: 02-20-2025 Patient encounter procedure Registered Clinical -Ultrasound [facility] Work Phone: Start: 02-17-2025 End: 02-17-2025 Patient encounter procedure Depression -[facility] Work Phone: Start: 02-12-2025 Patient encounter procedure Registered Clinical -Lab [facility] Start: 12-16-2024 Influenza vaccination Influenza Vaccine (Season Ended) [facility] Start: 12-17-2023 COVID-19 Vaccine ( season) COVID-19 Vaccine ( season) [facility] Start: 12-17-2023 Influenza vaccination Influenza Vaccine (Season Ended) [facility] Start: 10-03-2023 End: 10-03-2023 Patient encounter procedure 10/03/2023 7:45 AM EDT Office Visit [facility] [address] [place] [id number] ALICIA Kohler, DPM [address] [place] [address] [facility] Start: 12-16-2022 COVID-19 Vaccine ( season) COVID-19 Vaccine ( season) [facility] Start: 2019 DTaP/Tdap/Td Vaccines (1 - Tdap) DTaP/Tdap/Td Vaccines (1 - Tdap) [facility] Start: 2018 Screening for malignant neoplasm of cervix Pap Smear [facility] Start: 01-24-2016 Hepatitis B Vaccines (1 of 3 - 19+ 3-dose series) Hepatitis B Vaccines (1 of 3 - 19+ 3-dose series) [facility] Start: 2015 Diabetes mellitus screening Diabetes Screening [facility] Start: 2015 Hepatitis C screening Hepatitis C Screening [facility] Start: 01-24-2012 HIV screening HIV Screening [facility] Start: 2009 Depression screening using PHQ-9 (Patient Health Questionnaire 9) score Depression Screening (PHQ-2/9) [facility] Start: 01-24-2000 History and physical examination, annual for health maintenance Wellness Visit [facility] Start: 1998 MMR Vaccines (1 of 1 - Standard series) MMR Vaccines (1 of 1 - Standard series) [facility] Start: 1997 Lipid panel Lipid Panel [facility] Start: 1997 Tetanus vaccination Tetanus: Every [address] [facility] Start: 1997 Yearly Adult Physical Yearly Adult Physical [facility] CBC W Auto Different ial panel - Blood [facility] CBC W Auto Different ial panel - Blood [facility] Chlamydia deoxyribon ucleic acid detection [facility] Hemoglobin A1c/Hemoglobin.total in Blood [facility] Hepatitis C antibody measurement [facility] Measurement of gluco se 2 hours after glucose challenge for glucose tolerance test [facility] Rubella IgG measurement [facility] Serologic test for syphilis [facility] Serologic test for syphilis [facility] Immunizations Immunization Date Immunization Notes Care Provider Fa [place] 2025 influenza, injectabl e, madin darwin canine kidney, preservative free Dr. Marisela Nelson MD Work Phone: [facility] 01-10-2025 tetanus toxoid, reduced diphtheria toxoid, and acellular pertussis vaccine, adsorbed Dr. Marisela Nelson MD Work Phone: [facility] Payers Date Payer Category Payer Self-pay 2024 Managed Care (Private) [facility] [id number] 2024 Private Health Insurance 2023 Unknown [id number] 2020 Unknown [id number]. 1.13.385. 2.7.3.648745.315 2020 Unknown [id number] 1997 Unknown [id number] 2.16.840.1.843402.3.579. 2.903 1997 Unknown [id number] 2.16.840.1.948761.3.579. 2.903 1997 Unknown [id number] 2.16.840.1.530649.3.579. 2.903 1997 Unknown [id number] 2.16.840.1.561162.3.579. 2.903 1997 Unknown [id number] 2.16.840.1.540144.3.579. 2.196 1997 Unknown [id number] 2.16.840.1.211182.3.579. 2.196 1997 Unknown [id number] 2.16.840.1.132752.3.579. 2.196 1997 Unknown [id number] 2.16.840.1.724159.3.579. 2.1244 1997 Unknown [id number] 2.16.840.1.079188.3.579. 2.479 Unknown [id number] 2.16.840.1.608326.3.579. 2.462 Unknown [id number] 2.16.840.1.782375.3.579. 2.462 Unknown [id number] 2.16.840.1.438940.3.579. 2.462 Unknown [id number] 2.16.840.1.031432.3.579. 2.462 Unknown [id number] 2.16.840.1.124827.3.579. 2.462 Unknown [id number] 2.16.840.1.757615.3.579. 2.462 Unknown [id number] 2.16.840.1.888318.3.579. 2.462 Unknown [id number] 2.840.1.725746.3.579. 2.462 Unknown [id number] 2.840.1.909904.3.579. 2.462 Unknown [id number] 2.16840.1.732522.3.579. 2.462 Unknown [id number] 2.16840.1.496830.3.579. 2.462 Unknown [id number] 2.16.840.1.563796.3.579. 2.462 Unknown [id number] 2.840.1.555256.3.579. 2.462 Unknown [id number] 2.16840.1.151552.3.579. 2.462 Unknown [id number] 2.16840.1.342560.3.579. 2.462 Unknown [id number] 2.840.1.501074.3.579. 2.462 Unknown [id number] 2.16840.1.223824.3.579. 2.462 Social History Date Type Detail Facility Start: 09-19-2023 End: 08-06-2024 Tobacco smoking status NHIS Never smoked tobacco [facility] Start: 09-19-2023 End: 10-01-2024 Tobacco use and exposure Smokeless tobacco non-user [facility] Start: 09-19-2023 End: 10-03-2023 Alcohol intake Current drinker of alcohol (finding) [facility] Start: 10-24-2013 End: 10-01-2024 History of Social function [facility] Start: 10-24-2013 End: 10-01-2024 Tobacco use panel [facility] Start: 09-19-2023 Alcohol Comment social [facility] Start: 1997 Sex Assigned At Not on file [facility] Start: 09-18-2023 Gender identity Identifies as female gender (finding) [facility] Start: 1997 Sex Assigned At Female [facility] Start: 10-01-2024 Alcoholic beverage intake Lifetime non-drinker (finding) [facility] Work Phone: NEGATED: Highlighted rowStart: NINF History of tobacco use Passive smoker [facility] Functional Status Date Assessment Result Facility 10-01-2024 Patient Health Quest ionnaire 2 item (PHQ-2) [Reported] [facility] Work Phone: Clinical Notes 09-19-2023 to 02-05-2025 Note Date & Type Note Facility 02-05-2025 Progress note [facility] 02-05-2025 Progress note Note Date/Time February 05, 2025 2:26pm [facility] Women[facility] [address], [address] [place] [address] OFFICE VISIT Date of Service: 02/05/25 MR#: [id number] Acct: [id number] Name: JAMIL NORRIS Maida Rep #: [id number] : 1995 Provider: CAMPOS Foss Age/Sex: 30/F [place] [facility] [place]: Signed Intake Vital Signs 11/22/24 11:24 01/23/25 10:46 02/05/25 13:10 Height 5 ft 5 in 5 ft 5 in 5 ft 5 in Weight: 213 lb 6 oz BMI 35.5 BP 107/70 Pulse 112 H Intake Visit Reasons: 31 WK 5D OB Senior Examiner Required: No Is patient in pain?: No Allergies ragweed pollen Allergy (Mild, Verified 02/05/25 13:09) Itching Medications ?Medication ?Instructions ?Recorded ?Confirmed ?Type sertraline 50 mg tablet 50 mg PO QDAY 07/31/2402/05 History multivit-min no.71-iron fum 28 cap PO 08/06/24 5 History mg-folate no.1 1 mg-dha 300 mg capsule (PNV-Inez) famotidine 20 mg tablet (Pepcid) 20 mg PO BID #60 tabs 12/20/24 02/05/25 Rx ondansetron 4 mg disintegrating 4 mg PO Q4H PRN nausea and 01/23/25 02/05/25 Rx tablet vomiting #60 tabs Last Menstrual Period: 06/28/24 Zika: Zika virus screening: Negative : No PFSH PFSH Medical History RhD negative Seasonal allergies Pneumonia Surgical History [place] teeth extracted Family History Grandmother Arthritis Diabetes [...] animals: dog(s) history of recent travel: Yes ([place]) out of state: Yes out of [...] 1-2 times per week duration: 30-45 minutes/day fredi/catholic: Baptist seatbelt use: always do you feel safe [...] nipt. first baby first . lives in [place]. 09/24/24 -?-?-?-?-?-?-?-?-?-?-?-?- 12w 4d 181 lb 130/82 [...] high risk , unspecified, third trimester Comment: [id number], SAMANTHA 04/04/25 Boy, name secret?(jermaine) Joshua (2) [...] Jin Signature: Date (if applicable) CC: ~ [facility] Work Phone: 1(806) 529-901810-09-2025 Progress [facility]'s [address], [address] [place] [address] OFFICE VISIT Date of Service: 01/23/25 MR#: [id number] Acct: [id number] Name: JAMIL NORRIS Rep #: [id number] : 1995 Provider: CAMPOS Foss Age/Sex: 30/F [place] [facility] [place]: Signed Intake Vital Signs 11/22/24 11:24 01/10/25 11:12 01/23/25 10:45 01/23/25 10:46 Height 5 ft 5 in 5 ft 5 in 5 ft 5 in 5 ft 5 in Weight: 211 lb 1 oz BMI 35.1 BP 115/77 Intake Visit Reasons: 30wk ob Senior Examiner Required: No Is patient in pain?: No Allergies ragweed pollen Allergy (Mild, Verified 01/23/25 10:45) Itching Medications ?Medication ?Instructions ?Recorded ?Confirmed ?Type sertraline 50 mg tablet 50 mg PO QDAY 07/31/2401/23 History multivit-min no.71-iron fum 28 cap PO 08/06/24 5 History mg-folate no.1 1 mg-dha 300 mg capsule (PNV-Inez) famotidine 20 mg tablet (Pepcid) 20 mg PO BID #60 tabs 12/20/24 01/23/25 Rx ondansetron 4 mg disintegrating 4 mg PO Q4H PRN nausea and 01/23/25 01/23/25 Rx tablet vomiting #60 tabs Last Menstrual Period: 06/28/24 Zika: Zika virus screening: Negative : Yes PFSH PFSH Medical History RhD negative Seasonal allergies Pneumonia Surgical History [place] teeth extracted Family History Grandmother Arthritis Diabetes [...] animals: dog(s) history of recent travel: Yes ([place]) out of state: Yes out of [...] 1-2 times per week duration: 30-45 minutes/day fredi/catholic: Baptist seatbelt use: always do you feel safe [...] nipt. first baby first . lives in [place]. 09/24/24 -?-?-?-?-?-?-?-?-?-?-?-?- 12w 4d 181 lb 130/82 [...] Og on 01/23/25 10: 57 Immunizations Flucelvax [id number] (PF) 45 mcg (15 mcg x 3)/0.5 mL IM syringe Performing Provider: Rachele Llanes DO Performing Location: [facility] Administered by: Sai Hatch on 01/23/25 10:59 Dose Route Admin Location Dispensed Lot Number Expiration Date Pack age NDC NDC Monitoring Manager 0.5 mL IM Left Deltoid 0.5 mL [id number] 08/24/25 72371-876-53 [id number] [place]. VIS Given Date VIS Provided VIS Publication [...] high risk , unspecified, third trimester Comment: [id number], SAMANTHA 04/04/25 Boy, name secret?(jermaine) Joshua (2) [...] tabs 2RF nausea and vomiting Sai Foss [employer]ILINGS [employer]ER, TAIL[employer]-C Plan problem list reviewed and updated for most current plan of care and appropriate orders placed. Relevant counseling for the gestational age appropriate provided and ACOG education checklist updated. Continue routine care and follow up. 01/23/252104 maida Bradley DO> Date _ Rachele Llanes DO 01/23/25 1126-C> Annabel Signature: Date (if applicable) Sai Foss NP [employer]-C CC: ~ [facility] [id number] Progress [facility] [address] [place] [address], [address] [place] [address] OFFICE VISIT Date of Service: 01/10/25 MR#: [id number] Acct: [id number] Name: JAMIL NORRIS #: [id number] : 1995 Provider: GEOVANNY Cabrera Age/Sex: 29/F [place] [facility] [place]: Signed with Addenda ADDENDUM by Renetta Pina on 01/10/25 at 1205 Office Procedure Documentation entered by Renetta Pina 01/10/25 12:05: Injections Is this a patient provided medication?: No Immunizations Adacel(Tdap Adolesn/Adult)(PF) 2 Lf-(2.5-5-3-5)-5 Lf/0.5 mL IM syringe Performing Provider: Veronica Cabrera CNM Performing Location: [facility] Administered by: Renetta Pina on 01/10/25 12:03 Dose Route Admin Location Dispensed Lot Number Expiration Date Pack age [facility] Monitoring Manager 0.5 mL IM Left Deltoid 0.5 mL [id number] 12/04/26 75841-774-31 [id number] SANOFI- PASTEUR VIS Given Date VIS Provided VIS Publication Date 01/10/25 Single Vaccine 24 Eligibility Eligibility Date Funding Source Not Applicable Office Meds RhoGAM Ultra-Filtered PLUS 1,500 unit (300 mcg) intramuscular syringe Performing Provider: Veronica Cabrera CNM Performing Location: [facility] Administered by: Renetta Pina on 01/10/25 12:03 Dose Route Admin Location Dispensed Lot Number Expiration Date Pack age ND NDC Monitoring Manager 1,500 unit IM Left Buttock 1 ea [id number] 10/30/26 48912-223-06 [id number] [facility] Date _ cc: ~* Signed Intake Vital Signs 11/22/24 11:24 12/20/24 10:06 01/10/25 11:12 Height 5 ft 5 in 5 ft 5 in 5 ft 5 in Weight: 206 lb 4 oz BMI 34.3 BP 127/78 H Intake Visit Reasons: 28wk ob/glucose/rhogam Chief Complaint: 28wk OB Senior Examiner Required: No Is patient in pain?: No Allergies ragweed pollen Allergy (Mild, Verified 09/26/25 11:10) Itching Medications ?Medication ?Instructions ?Recorded ?Confirmed ?Type sertraline 50 mg tablet 50 mg PO QDAY 07/31/2401/10 History multivit-min no.71-iron fum 28 cap PO 08/06/24 5 History mg-folate no.1 1 mg-dha 300 mg capsule (PNV-Inez) famotidine 20 mg tablet (Pepcid) 20 mg PO BID #60 tabs 12/20/24 01/10/25 Rx Last Menstrual Period: 06/28/24 : No PFSH PFSH Medical History RhD negative Seasonal allergies Pneumonia Surgical History [place] teeth extracted Family History Grandmother Arthritis Diabetes [...] animals: dog(s) history of recent travel: Yes ([place]) out of state: Yes out of [...] 1-2 times per week duration: 30-45 minutes/day fredi/catholic: Baptist seatbelt use: always do you feel safe at home: Yes additional social history: -Joshua- Sales History 1 Elective abortions Hx Para 0 Spontaneous abortions Hx # Term Pregnancies Ectopic pregnancies Hx # Pregnancies Multiple births # of living children HPI 28wk ob/glucose/rhogam Details: JAMLI ROUPE is a 29 year old who [...] nipt. first baby first . lives in [place]. 09/24/24 -?-?-?-?-?-?-?-?-?-?-?-?- 12w 4d 181 lb 130/82 [...] high risk , unspecified, first trimester Comment: [id number], SAMANTHA 04/04/25 Boy, name secret?(jermaine) Joshua (3) [...] Cosigner Signature: Date (if applicable) CC: ~ [facility]09-05-2025 Progress [facility] [address], [address] [place] [address] OFFICE VISIT Date of Service: 12/20/24 MR#: [id number] Acct: [id number] Name: JAMIL NORRIS Rep #: [id number] : 1995 Provider: Dr. Kendrick Nelson MD Age/Sex: 29/F [place] [facility] [place]: Signed Intake Vital Signs 09/24/24 09:41 11/22/24 11:24 12/20/24 10:06 Height 5 ft 5 in 5 ft 5 in 5 ft 5 in Weight: 189 lb 2 oz 199 lb 3 oz BMI 31.4 33.1 BP 124/69 H 122/82 H Intake Visit Reasons: 25wk ob Senior Examiner Required: No Is patient in pain?: No Allergies ragweed pollen Allergy (Mild, Verified 12/20/24 10:03) Itching Medications ?Medication ?Instructions ?Recorded ?Confirmed ?Type sertraline 50 mg tablet 50 mg PO QDAY 07/31/2412/20 History multivit-min no.71-iron fum 28 cap PO 08/06/24 5 History mg-folate no.1 1 mg-dha 300 mg capsule (PNV-Inez) famotidine 20 mg tablet (Pepcid) 20 mg PO BID #60 tabs 12/20/24 12/20/24 Rx Last Menstrual Period: 06/28/24 Zika: Zika virus screening: Negative : No PFSH PFSH Medical History RhD negative Seasonal allergies Pneumonia Surgical History [place] teeth extracted Family History Grandmother Arthritis Diabetes [...] animals: dog(s) history of recent travel: Yes ([place]) out of state: Yes out of [...] 1-2 times per week duration: 30-45 minutes/day fredi/catholic: Baptist seatbelt use: always do you feel safe [...] nipt. first baby first . lives in [place]. 09/24/24 -?-?-?-?-?-?-?-?-?-?--?-?- 12w 4d 181 lb 130/82 [...] high risk , unspecified, first trimester Comment: [id number], SAMANTHA 04/04/25 Boy, name secret?(jermaine) Joshua (3) [...] kirt ROBERTO> Date _ Marisela Nelson MD [facility] Signature: Date (if applicable) CC: ~ [facility]08-08-2025 Evaluation note* Diagnosis Onset Date Resolution Status [...] date discrepanc y acute February 17 11:37am [facility] Work Phone: 1(776) 593-987208-08-2025 Progress [facility] [address] [place] [address], [address] [place] [address] OFFICE VISIT Date of Service: 11/22/24 MR#: [id number] Acct: [id number] Name: JAMIL NORRIS Rep #: [id number] : 1995 Provider: GEOVANNY Cabrera Age/Sex: 29/F [place] [facility] [place]: Signed Intake Vital Signs 08/30/24 14:15 10/24/24 10:52 11/22/24 11:24 Height 5 ft 5 in 5 ft 5 in 5 ft 5 in Weight: 189 lb 2 oz BMI 31.4 BP 124/69 H Intake Visit Reasons: 21wk ob Chief Complaint: 21wk OB Senior Examiner Required: No Is patient in pain?: No Allergies ragweed pollen Allergy (Mild, Verified 11/22/24 11:22) Itching Medications ?Medication ?Instructions ?Recorded ?Confirmed ?Type sertraline 50 mg tablet 50 mg PO QDAY 07/31/2411/22 History multivit-min no.71-iron fum 28 cap PO 08/06/24 5 History mg-folate no.1 1 mg-dha 300 mg capsule (PNV-Inez) Last Menstrual Period: 06/28/24 : No PFSH PFSH Medical History RhD negative Seasonal allergies Pneumonia Surgical History [place] teeth extracted Family History Grandmother Arthritis Diabetes [...] animals: dog(s) history of recent travel: Yes ([place]) out of state: Yes out of [...] 1-2 times per week duration: 30-45 minutes/day fredi/catholic: Baptist seatbelt use: always do you feel safe [...] nipt. first baby first . lives in [place]. 09/24/24 -?-?-?-?-?-?-?-?-?-?-?-?- 12w 4d 181 lb 130/82 [...] high risk , unspecified, first trimester Comment: [id number], SAMANTHA 04/04/25 Boy, Joshua (3) Depression: Status: [...] Cosigner Signature: Date (if applicable) CC: ~ [facility]07-10-2025 Evaluation note* Diagnosis Onset Date Resolution Status [...] Supervision of high-risk acute January 23 10:54am [facility] Work Phone: 1([phone]) 452-793606-17-2025 History of Present illness Narrative* Louann Hager [...] initial encounter 4. 13 weeks gestation of ([facility]) Anxiety and depression: Chronic problem, new [...] although discussed that it likely would not business change manager at this time Discussed Tylenol for pain and ice Weightbearing as tolerated Problem List Items Addressed This Visit None Visit Diagnoses Encounter to establish care - Primary Anxiety and depression Relevant Medications sertraline (Zoloft) 50 mg tablet Injury of left toe, initial encounter 13 weeks gestation of ([facility]) There are no Patient Instructions on [...] time. Louann Hager MD documented in this [facility] Work Phone: 1(354) 118-941506-10-2025 Evaluation note* Diagnosis Onset Date Resolution Status [...] of high-risk acute January 10, 2025 11:08am [facility] Work Phone: 1(834) 905-762206-10-2025 [facility] [address] [place] [address], [address] [place] [address] OFFICE VISIT Date of Service: 09/24/24 MR#: [id number] Acct: [id number] Name: JAMIL NORRIS Rep #: [id number] : 1995 Provider: CAMPOS Foss Age/Sex: 29/F [place] [facility] [place]: Signed Intake Vital Signs 08/06/24 09:57 08/30/24 14:15 09/24/24 09:41 Height 5 ft 5 in 5 ft 5 in 5 ft 5 in Weight: 181 lb BMI 30.1 BP 130/82 H Intake Visit Reasons: 12 WK OB Chief Complaint: 12 Week OB Senior Examiner Required: No Is patient in pain?: No Allergies ragweed pollen Allergy (Mild, Verified 09/24/24 09:43) Itching Medications ?Medication ?Instructions ?Recorded ?Confirmed ?Type sertraline 50 mg tablet 50 mg PO QDAY 07/31/2409/24 History multivit-min no.71-iron fum 28 cap PO 08/06/24 5 History mg-folate no.1 1 mg-dha 300 mg capsule (PNV-Inez) Last Menstrual Period: 06/28/24 Zika: Zika virus screening: Negative : No PFSH PFSH Medical History RhD negative Seasonal allergies Pneumonia Surgical History [place] teeth extracted Family History Grandmother Arthritis Diabetes [...] animals: dog(s) history of recent travel: Yes ([place]) out of state: Yes out of [...] 1-2 times per week duration: 30-45 minutes/day fredi/catholic: Baptist seatbelt use: always do you feel safe [...] nipt. first baby first . lives in [place]. 09/24/24 -?-?-?-?-?-?-?-?-?-?-?-?- 12w 4d 181 lb 130/82 [...] high risk , unspecified, first trimester Comment: [id number], SAMANTHA 04/04/25 Boy, Joshua (2) : Status: [...] care and follow up. 09/24/24 1004 s TAILINGS DAM PUMPER TAILINGS [employer] PU[employer]ER-C> Date _ Sai Foss TAILINGS [employer]ER [employer]-C Cosigner Signature: Date (if applicable) CC: ~ [facility]05-16-2025 Evaluation note* Diagnosis Onset Date Resolution Status [...] of high-risk acute December 20, 025 9:58am [facility] Work Phone: 1([phone]) 177-676405-16-2025 [facility] [address] [place] [address], [address] [place] [id number] OFFICE VISIT Date of Service: 08/30/24 MR#: [id number] Acct: [id number] Name: JAMIL NORRIS Rep #: [id number] : 1995 Provider: Dr. Yumiko Llanes DO Age/Sex: 29/F [place] [facility] [place]: Signed Intake Vital Signs 08/06/24 09:57 08/30/24 14:13 08/30/24 14:15 Height 5 ft 5 in 5 ft 5 in 5 ft 5 in Weight: 182 lb 8 oz BMI 30.3 BP 127/81 H Intake Visit Reasons: New OB, LMP 06/28, SAMANTHA 04/04, first baby Senior Examiner Required: No Is patient in pain?: No Allergies ragweed pollen Allergy (Mild, Verified 08/30/24 14:12) Itching Medications ?Medication ?Instructions ?Recorded ?Confirmed ?Type sertraline 50 mg tablet 50 mg PO QDAY 07/31/2408/30 History multivit-min no.71-iron fum 28 cap PO 08/06/24 5 History mg-folate no.1 1 mg-dha 300 mg capsule (PNV-Inez) Last Menstrual Period: 06/28/24 Zika: Zika virus screening: Negative : No PFSH PFSH Medical History Seasonal allergies Pneumonia Surgical History [place] teeth extracted Family History Grandmother Arthritis Diabetes [...] animals: dog(s) history of recent travel: Yes ([place]) out of state: Yes out of [...] 1-2 times per week duration: 30-45 minutes/day fredi/catholic: Baptist seatbelt use: always do you feel safe [...] nipt. first baby first . lives in [place]. Menstrual History Last Menstrual Period: 06/28/24 Reported [...] transfusions, D (Rh) Sensitized, Pulmonary (e.g.,TB,Asthma), Breast, Mica Miner surgery, Anesthetic complications, History of abnormal pap [...] comfortable and no acute distress Orientation: alert [facility] Head: normal to inspection, normocephalic and atraumatic [...] Herring Signature: Date (if applicable) CC: ~ [facility]05-16-2025 Progress note Author Rachele Bradley [facility] Note Date/Time August 30, 2024 3:04p m [facility]'s [address], [address] [place] [address] OFFICE VISIT Date of Service: 08/30/24 MR#: [id number] Acct: [id number] Name: JAMIL NORRIS Rep #: [id number] : 1995 Provider: Dr. Yumiko Llanes DO Age/Sex: 29/F [place] [facility] Status: Signed Intake Vital Signs 08/06/24 09:57 08/30/24 14:13 08/30/24 14:15 Height 5 ft 5 in 5 ft 5 in 5 ft 5 in Weight: 182 lb 8 oz BMI 30.3 BP 127/81 H Intake Visit Reasons: New OB, LMP 06/28, SAMANTHA 04/04, first baby Senior Examiner Required: No Is patient in pain?: No Allergies ragweed pollen Allergy (Mild, Verified 08/30/24 14:12) Itching Medications ?Medication ?Instructions ?Recorded ?Confirmed ?Type sertraline 50 mg tablet 50 mg PO QDAY 07/31/2408/30 History multivit-min no.71-iron fum 28 cap PO 08/06/24 5 History mg-folate no.1 1 mg-dha 300 mg capsule (PNV-Inez) Last Menstrual Period: 06/28/24 Zika: Zika virus screening: Negative : No PFSH PFSH Medical History Seasonal allergies Pneumonia Surgical History [place] teeth extracted Family History Grandmother Arthritis Diabetes [...] animals: dog(s) history of recent travel: Yes ([place]) out of state: Yes out of [...] 1-2 times per week duration: 30-45 minutes/day fredi/catholic: Baptist seatbelt use: always do you feel safe [...] nipt. first baby first . lives in [place]. Menstrual History Last Menstrual Period: 06/28/24 Reported [...] transfusions, D (Rh) Sensitized, Pulmonary (e.g.,TB,Asthma), Breast, Mica Miner surgery, Anesthetic complications, History of abnormal pap [...] Cosigner Signature: Date (if applicable) CC: ~ [facility] Work Phone: 1(871) 705-836904-22-2025 Evaluation note* Diagnosis Onset Date Resolution Status Admit Date Depression acute August 06 8:59am Obesity affecting acute August 06, 2024 8:59am acute August 06 8:59am Supervision of high-risk acute August 06, 2024 8:59am Depression acute August 30, 2024 2:06pm Obesity affecting acute August 30, 2024 2:06pm acute August 30, 2024 2:06pm Supervision of high-risk acute August 30, 2024 2 :06pm [facility] Work Phone: 1([phone]) 175-454904-22-2025 Evaluation note* Diagnosis Onset Date Resolution Status [...] of high-risk acute September 24, 2024 9:37am [facility] Work Phone: 1([phone]) 186-755204-22-2025 Evaluation note* Diagnosis Onset Date Resolution Status [...] of high-risk acute October 24, 2024 10:49am [facility] Work Phone: 1([phone]) [phone] Evaluation note* Diagnosis Onset Date Resolution Status [...] of high-risk acute November 22, 2024 11:20am [facility] Work Phone: 1([phone]) 340-536306-18-2024 NoteEstablished Patient Visit ALICIA Kohler DPM Patient [...] AUTHENTICATED BY GILBERTO KOHLER II, ON 10/03/2023 08:09:29[facility]06-18-2024 History of Present illness Narrative* ALICIA [...] Foot & Ankle Surgery documented in this [id number] NoteNEW Patient Visit ALICIA Kohler DPM Patient [...] where the nail was split with an Russian anvil distally to approximately 3 mm off [...] subject to errors includi (more content not included)...[facility]06-04-2024 History of Present illness Narrative* ALICIA [...] where the nail was split with an Russian anvil distally to approximately 3 mm off [...] initial encounter 13 weeks gestation of ([facility]) documented in this encounter [facility] Work Phone: Progress note Author Sai Foss [facility] Note Date/Time September 24, 2024 10:0 4am [facility] [address] [place] [address], [address] [place] [address] OFFICE VISIT Date of Service: 09/24/24 MR#: [id number] Acct: [id number] Name: JAMIL NORRIS Maida Rep #: [id number] : 1995 Provider: CAMPOS Foss Age/Sex: 29/F [place] [facility] [place]: Signed Intake Vital Signs 08/06/24 09:57 08/30/24 14:15 09/24/24 09:41 Height 5 ft 5 in 5 ft 5 in 5 ft 5 in Weight: 181 lb BMI 30.1 BP 130/82 H Intake Visit Reasons: 12 WK OB Chief Complaint: 12 Week OB Senior Examiner Required: No Is patient in pain?: No Allergies ragweed pollen Allergy (Mild, Verified 09/24/24 09:43) Itching Medications ?Medication ?Instructions ?Recorded ?Confirmed ?Type sertraline 50 mg tablet 50 mg PO QDAY 07/31/2409/24 History multivit-min no.71-iron fum 28 cap PO 08/06/24 5 History mg-folate no.1 1 mg-dha 300 mg capsule (PNV-Inez) Last Menstrual Period: 06/28/24 Zika: Zika virus screening: Negative : No PFSH PFSH Medical History RhD negative Seasonal allergies Pneumonia Surgical History [place] teeth extracted Family History Grandmother Arthritis Diabetes [...] animals: dog(s) history of recent travel: Yes ([place]) out of state: Yes out of [...] 1-2 times per week duration: 30-45 minutes/day fredi/catholic: [employer] seatbelt use: always do you feel safe [...] nipt. first baby first . lives in [place]. 09/24/24 -?-?-?-?-?-?-?-?-?-?-?-?- 12w 4d 181 lb 130/82 [...] high risk , unspecified, first trimester Comment: [id number], SAMANTHA 04/04/25 Boy, Joshua (2) : Status: [...] 09/24/24 1004 <Electronically signed by Sai loza TAILINGS DAM PUMPER TAILINGS DAM PUMPER-C> Date _ Sai Foss [employer]IL[employer] PU[employer]ER TAILINGS DAM PU[employer]ER-C Cosigner Signature: Date (if applicable) CC: ~ [facility] Work Phone: Progress note Author Veronica Cabrera [facility] Note Date/Time November 22, 2024 11: 45am [facility] [address] [place] [address], [address] [place] [address] OFFICE VISIT Date of Service: 11/22/24 MR#: [id number] Acct: [id number] Name: JAMIL NORRIS Rep #: [id number] : 1995 Provider: GEOVANNY Cabrera Age/Sex: 29/F [place] [facility] [place]: Signed Intake Vital Signs 08/30/24 14:15 10/24/24 10:52 11/22/24 11:24 Height 5 ft 5 in 5 ft 5 in 5 ft 5 in Weight: 189 lb 2 oz BMI 31.4 BP 124/69 H Intake Visit Reasons: 21wk ob Chief Complaint: 21wk OB Senior Examiner Required: No Is patient in pain?: No Allergies ragweed pollen Allergy (Mild, Verified 11/22/24 11:22) Itching Medications ?Medication ?Instructions ?Recorded ?Confirmed ?Type sertraline 50 mg tablet 50 mg PO QDAY 07/31/2411/22 History multivit-min no.71-iron fum 28 cap PO 08/06/24 5 History mg-folate no.1 1 mg-dha 300 mg capsule (PNV-Inez) Last Menstrual Period: 06/28/24 : No PFSH PFSH Medical History RhD negative Seasonal allergies Pneumonia Surgical History [place] teeth extracted Family History Grandmother Arthritis Diabetes [...] animals: dog(s) history of recent travel: Yes ([place]) out of state: Yes out of [...] 1-2 times per week duration: 30-45 minutes/day fredi/catholic: Baptist seatbelt use: always do you feel safe [...] nipt. first baby first . lives in [place]. 09/24/24 -?-?-?-?-?-?-?-?-?-?-?-?- 12w 4d 181 lb 130/82 [...] high risk , unspecified, first trimester Comment: [id number], SAMANTHA 04/04/25 Boy, Joshua (3) Depression: Status: [...] Cosigner Signature: Date (if applicable) CC: ~ [facility] Work Phone: Progress note Author Marisela Nelson [facility] Note Date/Time December 20, 2024 10:32am [facility] [address] [place] [address], [address] [place] [address] OFFICE VISIT Date of Service: 12/20/24 MR#: [id number] Acct: [id number] Name: JAMIL NORRIS Rep #: [id number] : 1995 Provider: Dr. Kendrick Nelson MD Age/Sex: 29/F [place] [facility]: Signed Intake Vital Signs 09/24/24 09:41 11/22/24 11:24 12/20/24 10:06 Height 5 ft 5 in 5 ft 5 in 5 ft 5 in Weight: 189 lb 2 oz 199 lb 3 oz BMI 31.4 33.1 BP 124/69 H 122/82 H Intake Visit Reasons: 25wk ob Senior Examiner Required: No Is patient in pain?: No Allergies ragweed pollen Allergy (Mild, Verified 12/20/24 10:03) Itching Medications ?Medication ?Instructions ?Recorded ?Confirmed ?Type sertraline 50 mg tablet 50 mg PO QDAY 07/31/2412/20 History multivit-min no.71-iron fum 28 cap PO 08/06/24 5 History mg-folate no.1 1 mg-dha 300 mg capsule (PNV-Inez) famotidine 20 mg tablet (Pepcid) 20 mg PO BID #60 tabs 12/20/24 12/20/24 Rx Last Menstrual Period: 06/28/24 Zika: Zika virus screening: Negative : No PFSH PFSH Medical History RhD negative Seasonal allergies Pneumonia Surgical History [place] teeth extracted Family History Grandmother Arthritis Diabetes [...] animals: dog(s) history of recent travel: Yes ([place]) out of state: Yes out of [...] 1-2 times per week duration: 30-45 minutes/day fredi/catholic: [employer] seatbelt use: always do you feel safe [...] nipt. first baby first . lives in [place]. 09/24/24 -?-?-?-?-?-?-?-?-?-?--?-?- 12w 4d 181 lb 130/82 [...] high risk , unspecified, first trimester Comment: [id number], SAMANTHA 04/04/25 Boy, name secret?(jermaine) Joshua (3) [...] Cosigner Signature: Date (if applicable) CC: ~ [facility] Work Phone: Progress note Author Veronica Cabrera [facility] Note Date/Time January 10, 2025 11:52am [facility] [address], [place] [address] OFFICE VISIT Date of Service: 01/10/25 MR#: [id number] Acct: [id number] Name: JAMIL NORRIS Rep #: [id number] : 1995 Provider: GEOVANNY Cabrera Age/Sex: 29/F [place] [facility]: Signed with Addenda ADDENDUM by Renetta Pina on 01/10/25 at 1205 Office Procedure Documentation entered by Renetta Pina 01/10/25 12:05: Injections Is this a patient provided medication?: No Immunizations Adacel(Tdap Adolesn/Adult)(PF) 2 Lf-(2.5-5-3-5)-5 Lf/0.5 mL IM syringe Performing Provider: Veronica Cabrera CNM Performing Location: [facility] Administered by: Renetta Pina on 01/10/25 12:03 Dose Route Admin Location Dispensed Lot Number Expiration Date Pack age NDC NDC Monitoring Manager 0.5 mL IM Left Deltoid 0.5 mL [id number] 12/04/26 92618-985-48 [id number] [employer]- PASTEUR VIS Given Date VIS Provided VIS Publication Date 01/10/25 Single Vaccine 24 Eligibility Eligibility Date Funding Source Not Applicable Office Meds RhoGAM Ultra-Filtered PLUS 1,500 unit (300 mcg) intramuscular syringe Performing Provider: Veronica Cabrera CNM Performing Location: [facility] Administered by: Renetta Pina on 01/10/25 12:03 Dose Route Admin Location Dispensed Lot Number Expiration Date Pack age NDC NDC Monitoring Manager 1,500 unit IM Left Buttock 1 ea [id number] 10/30/26 17931-106-86 [id number] CSL KIHEITAI Date _ cc: ~* Signed Intake Vital Signs 11/22/24 11:24 12/20/24 10:06 01/10/25 11:12 Height 5 ft 5 in 5 ft 5 in 5 ft 5 in Weight: 206 lb 4 oz BMI 34.3 BP 127/78 H Intake Visit Reasons: 28wk ob/glucose/rhogam Chief Complaint: 28wk OB Senior Examiner Required: No Is patient in pain?: No Allergies ragweed pollen Allergy (Mild, Verified 01/10/25 11:10) Itching Medications ?Medication ?Instructions ?Recorded ?Confirmed ?Type sertraline 50 mg tablet 50 mg PO QDAY 07/31/2401/10 History multivit-min no.71-iron fum 28 cap PO 08/06/24 5 History mg-folate no.1 1 mg-dha 300 mg capsule (PNV-Inez) famotidine 20 mg tablet (Pepcid) 20 mg PO BID #60 tabs 12/20/24 01/10/25 Rx Last Menstrual Period: 06/28/24 : No PFSH PFSH Medical History RhD negative Seasonal allergies Pneumonia Surgical History [place] teeth extracted Family History Grandmother Arthritis Diabetes [...] animals: dog(s) history of recent travel: Yes ([place]) out of state: Yes out of [...] 1-2 times per week duration: 30-45 minutes/day fredi/catholic: [employer] seatbelt use: always do you feel safe [...] nipt. first baby first . lives in [place]. 09/24/24 -?-?-?-?-?-?-?-?-?-?-?-?- 12w 4d 181 lb 130/82 [...] high risk , unspecified, first trimester Comment: [id number], SAMANTHA 04/04/25 Boy, name secret?(jermaine) Joshua (3) [...] this visit. [place] appropriate handout given. 01/10/25 1153 <Electronically signed by Veronica loza CNM> Date _ Veronica Cabrera CNM Cosigner Signature: Date (if applicable) CC: ~ [facility] Work Phone: Progress note Author Rachele Bradley [facility] Note Date/Time 2025 11 :10am [facility] [address] [place] [address], [address] [place] [address] OFFICE VISIT Date of Service: 01/23/25 MR#: [id number] Acct: [id number] Name: JAMIL NORRIS Rep #: [id number] : 1995 Provider: CAMPOS Foss Age/Sex: 30/F [place] [facility] [place]: Signed Intake Vital Signs 11/22/24 11:24 01/10/25 11:12 01/23/25 10:45 01/23/25 10:46 Height 5 ft 5 in 5 ft 5 in 5 ft 5 in 5 ft 5 in Weight: 211 lb 1 oz BMI 35.1 BP 115/77 Intake Visit Reasons: 30wk ob Senior Examiner Required: No Is patient in pain?: No Allergies ragweed pollen Allergy (Mild, Verified 01/23/25 10:45) Itching Medications ?Medication ?Instructions ?Recorded ?Confirmed ?Type sertraline 50 mg tablet 50 mg PO QDAY 07/31/2401/23 History multivit-min no.71-iron fum 28 cap PO 08/06/24 5 History mg-folate no.1 1 mg-dha 300 mg capsule (PNV-Inez) famotidine 20 mg tablet (Pepcid) 20 mg PO BID #60 tabs 12/20/24 01/23/25 Rx ondansetron 4 mg disintegrating 4 mg PO Q4H PRN nausea and 01/23/25 01/23/25 Rx tablet vomiting #60 tabs Last Menstrual Period: 06/28/24 Zika: Zika virus screening: Negative : Yes PFSH PFSH Medical History RhD negative Seasonal allergies Pneumonia Surgical History [place] teeth extracted Family History Grandmother Arthritis Diabetes [...] animals: dog(s) history of recent travel: Yes ([place]) out of state: Yes out of [...] 1-2 times per week duration: 30-45 minutes/day fredi/catholic: Baptist seatbelt use: always do you feel safe [...] nipt. first baby first . lives in [place]. 09/24/24 -?-?-?-?-?-?-?-?-?-?-?-?- 12w 4d 181 lb 130/82 [...] Og on 01/23/25 10: 57 Immunizations Flucelvax [id number] (PF) 45 mcg (15 mcg x 3)/0.5 mL IM syringe Performing Provider: Rachele Llanes DO Performing Location: [facility] Administered by: Sai Hatch on 01/23/25 10:59 Dose Route Admin Location Dispensed Lot Number Expiration Date Pack age NDC NDC Monitoring Manager 0.5 mL IM Left Deltoid 0.5 mL [id number] 08/24/25 25169-577-72 [id number] [employer] VIS Given Date VIS Provided [...] high risk , unspecified, third trimester Comment: [id number], SAMANTHA 04/04/25 Boy, name secret?(jermaine) Joshua (2) [...] tabs 2RF nausea and vomiting Sai Foss TAILINGS DAM PUMPER, TAILINGS DAM PUMPER-C Plan problem list reviewed and updated for most current plan of care and appropriate orders placed. Relevant counseling for the gestational age appropriate provided and ACOG education checklist updated. Continue routine care and follow up. 01/23/252104 <Electronically signed by Rachele Reilly DO> Date _ Rachele Llanes DO 01/23/25 1126<Electronically signed by Sai Foss TAILINGS DAM PUMPER TAILINGS DAM PUMPER -C> Cosigner Signature: Date (if applicable) Sai Foss NP TAILINGS DAM PUMPER-C CC: ~ [facility] Work Phone: Reason for referral (narrative)No reason for referral information available[facility] Work Phone: Summary Purpose Family History Relationship [...] December 20, 2024 9:58am Supervision of high-risk [facility] 2024 9:58am Depression January 10, 2025 11:08am Obesity affecting January 102024 11:08am January 10, 2025 11:08am RhD negative January 10, 2025 11:08am Supervision of high-risk [facility] 2024 11:08am Chief Complaint Admit Date [...] December 20, 2024 9:58am Supervision of high-risk [facility] 2024 9:58am Depression January 10, 2025 11:08am Obesity affecting January 102024 11:08am January 10, 2025 11:08am RhD negative January 10, 2025 11:08am Supervision of high-risk [facility] 2024 11:08am Depression 2025 10 :54am Obesity [...] December 20, 2024 9:58am Supervision of high-risk Rustma[facility] 2024 9:58am Depression January 10, 2025 11:08am Obesity affecting January 102024 11:08am January 10, 2025 11:08am RhD negative January 10, 2025 11:08am Supervision of high-risk [facility] 2024 11:08am Depression 2025 10 :54am Obesity [...] section and content) DATE CREATED AUTHOR 07/12/2020 [facility] DATE CREATED AUTHOR AUTHOR'S ORGANIZ ATION [facility] DATE CREATED AUTHOR AUTHOR'S ORGANIZ ATION 04/18/2022 [facility] DATE CREATED AUTHOR AUTHOR'S ORGANIZ ATION 10/04/2023 [facility] DATE CREATED AUTHOR AUTHOR'S ORGANIZ ATION 07/05/2024 [facility] DATE CREATED AUTHOR AUTHOR'S ORGANIZ ATION 10/04/2024 [facility] DATE CREATED AUTHOR AUTHOR'S ORGANIZ ATION 11/13/2024 [facility] DATE CREATED AUTHOR AUTHOR'S ORGANIZ ATION 02/22/2025 [facility] Reason for Visit (unrecogniz ed section and content) Reason Comments Ingrown Toenail Lateral border; ongo ing about a week and a half Reason Comments Follow-up S/p Left grt toenail . Slight pain, doing well. Reason Comments New Patient Visit Toe injury, loose st ool, Care Teams (unrecognized sec tion and content) Graphic Manager Relationship Specialty Start Date End Date Merissa Linton CNP [address] [place] [id number] PCP - General Nurse Practitioner 09/19/23 Graphic Manager Relationship Specialty Start Date End Date Merissa Linton CNP [address] [place] [address] PCP - General Nurse Practitioner 09/19/23 Graphic Manager Relationship Specialty Start Date End Date Merissa Linton CNP [address] [place] [address] PCP - General Nurse Practitioner 09/19/23 Team [...] Inactive Member Role Status Dates Sai Foss TAILINGS DAM PU[employer]ER, TAILINGS DAM PUMPER-C Attending Provider Active Start: September 24, 2024 End: September 24, 2024 Graphic Manager Relationship Specialty Start Date End Date Louann Hager MD [address] [place] [address] PCP - General Family Medicine 10/01/24 Team [...] Member Role/Relationship Status Dates Sai Foss NP [employer]IL[employer] PU[employer]ER-C Attending Provider Active Start: September 24, 2024 [...] Member Role/Relationship Status Dates Sai Foss NP [employer]IL[employer] DAM PU[employer]ER-C Attending Provider Active Start: September 24, 2024 [...] Inactive Member Role/Relationship Status Dates Sai Foss TAILINGS DAM PUMPER, TAILINGS DAM PUMPER-C Attending physician Active Start: September 24, 2024 [...] Inactive Member Role/Relationship Status Dates Sai Foss TAILINGS DAM PUMPER, TAILINGS DAM PUMPER-C Attending physician Active Start: 2025 End: 2025 Team Status: Active Member Role/Relationship Status Dates Dr. Louann Hager MD Primary care physician Active Team Status: Inactive Member Role/Relationship Status Dates Sai Foss TAILINGS DAM PUMPER, TAILINGS DAM PUMPER-C Attending physician Active Start: February 05, 2025 End: February 05, 2025 Team Status: Inactive Member Role/Relationship Status Dates Sai Foss TAILINGS DAM PUMPER, TAILINGS DAM PUMPER-C Attending physician Active Start: February 07, 2025 End: February 07, 2025 Sai Foss TAILINGS DAM PUMPER, TAILINGS DAM PUMPER-C Referring Provider Active Start: February 07, 2025 End: February 07, 2025 Dr. Louann Hager MD Primary care physician Active Start: February 07, 2025 End: February 07, 2025 Team Status: Active Member Role/Relationship Status Dates Dr. Louann Hager MD Primary care physician Active Start: February 07, 2025 Dr. Gale Zamora MD Attending physician Active Start: February 07, 2025 Sai Foss TAILINGS DAM PUMPER, TAILINGS DAM PUMPER-C Referring Provider Active Start: February 07, 2025 Team Status: Active Member Role/Relationship Status Dates Dr. Louann Hager MD Primary care physician Active Start: February 12, 2025 Sai Foss TAILINGS DAM PUMPER, TAILINGS DAM PUMPER-C Attending physician Active Start: February 12, 2025 [...] BE BASED ON THE PRIMARY CLINICAL RECORDS. [employer] provides no warranty or guarantee of the accuracy or completeness of information in this document.
[2025-03-28 19:14] VITALS: BMI 37.3
[2025-03-28 19:29] VITALS: PULSE 104; RESP 14; RESP 16; TEMP 36.8; O2SAT 98
[2025-03-28 19:31] VITALS: BP 125/77; PULSE 105
[2025-03-28] MEDS: Lactated Ringers 1,000 ML 999 ML IV (19:50)
[2025-03-28 20:25] LABS: Hematocrit 35.7 % (37-47); Hemoglobin 12.5 g/dL (12.0-15.0); Immature Granulocytes Count 0.050 X10^3/uL (0.0-0.0); Mean Corp Hgb Conc 35.0 g/dL (32-36); Mean Corpuscular Volume 87.5 fL (81-99); Mean Platelet Vol. 12.4 fl (6.2-12.0); NRBC Flagged by Analyzer 0 % (0-5); Platelet Count 165 K/mm3 (150-450); RBC Distribution Width CV 12.9 % (11.6-14.6); RBC Distribution Width SD 40.8 fl (35.1-43.9); Red Blood Count 4.08 M/mm3 (4.2-5.4); White Blood Count 10.9 K/mm3 (4.4-11.0)
[2025-03-28 21:07] VITALS: RESP 16; TEMP 37
[2025-03-28 21:08] VITALS: BP 119/58; PULSE 93
[2025-03-28 21:13] LABS: Syphilis Antibodies Nonreactive (Nonreactive)
[2025-03-29] VITALS (114 sets, daily range): BP systolic 94–158; BP diastolic 51–95; PULSE 62–129; RESP 14–16; TEMP 36.3–37.2; O2SAT 94–100
[2025-03-29] MEDS: Oxytocin 15 Units/NS 250ml 15 UNITS/250 ML IV.SOLN 2 UNITS IV (05:06)
--- NOTE | 2025-03-29 08:34 | HP.PCM.OB_ITS ---
HPI - General General Date of Admission: 03/28/25 Date of Service: 03/29/25 HPI Narrative AKHIL NORRIS, is a 30 F 39.1 weeks gestation who presents to unit for induction of labor for suspected LGA. Plan for cytotec overnight and pitocin/AROM in am Maternal Data Information SAMANTHA Calculator Estimated Delivery Date Method Current WG Current Estimate 04/04/25 LMP (Certain) 39w 1d Other Estimates 04/02/25 Ultrasound #1 39w 3d Final SAMANTHA: 04/04/25 Final SAMANTHA Source: US >20 weeks Gestational age: 39.1 PFSH PFSH Medical History Anxiety Depression RhD negative Seasonal allergies Pneumonia Home Medications ?Medication ?Instructions ?Recorded ?Last Taken ?Type sertraline 50 mg tablet 50 mg PO QDAY menatl helth 0 07/31/24 03/28/25 History multivit-min no.71-iron fum 28 cap PO 03/28/25 History mg-folate no.1 1 mg-dha 300 mg capsule (PNV-[place]) ondansetron 4 mg disintegrating 4 mg PO Q4H PRN nausea and 01/23/25 Unknown Rx tablet vomiting #60 tabs famotidine 20 mg tablet (Pepcid) 20 mg PO BID PRN 02/15 12/09 Unknown History RSV vac, preF A and preF B(PF) 120 0.5 ml IM ONCE #1 e a 03/12/25 Unknown Rx mcg/0.5 mL IM solution (Abrysvo (PF)) Allergy/AdvReac Type Severity Reaction Status Date / Time ragweed pollen Allergy Mild Itching Verified 03/28/25 19:33 Family History Grandmother Arthritis Diabetes High cholesterol Grandfather Parkinson disease Thyroid disorder Lymphoma, Onset Age: 70 Maternal Grandfather Diabetes Lung cancer, Onset Age: 65 Maternal Mother Diabetes Thyroid disorder Cancer, Onset Age: 35 Thyroid cancer- thyroid removed Surgical History [place] teeth extracted Social History adopted: No household members: spouse housing: house current occupational status: employed 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/hazards: No pets and animals: Yes pets and animals: dog(s) history of recent travel: Yes ([place]) out of state: Yes out of country: Yes sexually active: Yes Smoking Status: Never smoker alcohol intake: current alcohol intake frequency: holidays/special occasions only details: Not while substance use type: does not use well-balanced diet: daily or most days caffeine: Yes Type: coffee Number of servings: 1 eating out: rarely or never during the past year weight has: remained stable what type of physical activity do you participate in: walking, bicycling and weight training frequency: 1-2 times per week duration: 30-45 minutes/day fredi/christian: Anglican seatbelt use: always do you feel safe at home: Yes additional social history: -Joshua- Sales History 1 Elective abortions Hx Para 0 Spontaneous abortions Hx # Term Pregnancies Ectopic pregnancies Hx # Pregnancies Multiple births # of living children Visit Details Expected Delivery Route/Plan Labor Preferences- CB/BF classes: enc labor support person: Joshua labor intervention preferences: pain management options preferred: limited cut cord/dad catch: cord : yes PP control planned: [] discussed possible routes of delivery and associated risks: discussed option of PCS if EFW >5000g, would prefer special requests: [] Plans Covid status: vaccinated Flu vaccine: given Tdap vaccine: given Rhogam: given LARC form signed: yes Problem list reviewed and updated with the most current plan of care details and appropriate orders placed. Relevant counseling for the gestational age provided. Continue routine care and follow up unless otherwise noted in visit notes/problem list details OB Flowsheet Initial Weight: Not Recorded Date -?-?-?-?-?-?-?-?-?-?-?-?- EGA Weight BP Urine Prot -?-?-?-?-?-?-?-?-?-?-?-?- Glucose FHR FuHt Pres Dilation -?-?-?-?-?-?-?-?-?-?-?-?- Effaced St Visit Note 08/30/24 -?-?-?-?-?-?-?-?-?-?-?-?- 9w 0d 182 lb 8 oz 127/81 -?-?-?-?-?-?-?-?-?-?-?-?- 179 -?-?-?-?-?-?-?-?-?-?-?-?- JV- CRL consiste nt with LMP. desires nipt. first baby first . lives in [place]. 09/24/24 -?-?-?-?-?-?-?-?-?-?-?-?- 12w 4d 181 lb 130/82 Negative -?-?-?-?-?-?-?-?-?-?-?-?- Negative 152 -?-?-?-?-?-?-?-?-?-?-?-?- MH-No VB. Nause a improved. Br US confirm FHT 10/24/24 -?-?-?-?-?-?-?-?-?-?-?-?- 16w 6d 180 lb 6 oz 111/79 Nega tive -?-?-?-?-?-?-?-?-?-?-?-?- Negative 152 -?-?-?-?-?-?-?-?-?-?-?-?- JV- having a boy and thinking of naming him Jermaine. No complaints today. 11/22/24 -?-?-?-?-?-?-?-?-?-?-?-?- 21w 0d 189 lb 2 oz 124/69 Nega tive -?-?-?-?-?-?-?-?-?-?-?-?- Negative 145 21 -?-?-?-?-?-?-?-?-?-?-?-?- KW- no vb/gena doran. good fm. normal US. 12/20/24 -?-?-?-?-?-?-?-?-?-?-?-?- 25w 0d 199 lb 3 oz 122/82 Nega tive -?-?-?-?-?-?-?-?-?-?-?-?- Negative 145 25 -?-?-?-?-?-?-?-?-?-?-?-?- Sm- no vb lof go od fm no regular ctx 01/10/25 -?-?-?-?-?-?-?-?-?-?-?-?- 28w 0d 206 lb 4 oz 127/78 Nega tive -?-?-?-?-?-?-?-?-?-?-?-?- Negative 130 29 -?-?-?-?-?-?-?-?-?-?-?-?- KW- no vb/lof/ct x. good fm Rhogam and Tdap. LARC. 01/23/25 -?-?-?-?-?-?-?-?-?-?-?-?- 29w 6d 211 lb 1 oz 115/77 Nega tive -?-?-?-?-?-?-?-?-?-?-?-?- Negative 143 30 -?-?-?-?-?-?-?-?-?-?-?-?- -No VB, LOF. G ood FM. Flu given. MH-No VB, LOF. Good FM. Flu given. Nausea-zofran given. 02/05/25 -?-?-?-?-?-?-?-?-?-?-?-?- 31w 5d 213 lb 6 oz 107/70 Nega tive -?-?-?-?-?-?-?-?-?-?-?-?- Negative 138 32 -?-?-?-?-?-?-?-?-?-?-?-?- -No VB, LOF or cramping. Good FM. Noting elevated heart rate when at rest off and on. Today was 112 in office. Denies SOB, chest pain. EKG ordered 02/17/25 -?-?-?-?-?-?-?-?-?-?-?-?- 33w 3d 213 lb 7 oz 117/75 Nega tive -?-?-?-?-?-?-?-?-?-?-?-?- Negative 120 36 -?-?-?-?-?-?-?-?-?-?-?-?- KW- no vb/lof/ct x. good fm. has cardiology appt next week-had ekg and labs. growth US ordered 03/03/25 -?-?-?-?-?-?-?-?-?-?-?-?- 35w 3d 217 lb 118/70 Negative -?-?-?-?-?-?-?-?-?-?-?-?- Negative 124 37 -?-?-?-?-?-?-?-?-?-?-?-?- KV- Good FM. No ctx, LOF, or VB. KV- Good FM. No ctx, LOF, or VB. Cards appt this week. 03/12/25 -?-?-?-?-?-?-?-?-?-?-?-?- 36w 5d 220 lb 1 oz 129/78 Nega tive -?-?-?-?-?-?-?-?-?-?-?-?- Negative 129 38 Cephalic 0 -?-?-?-?-?-?-?-?-?-?-?-?- KV- Good FM. No ctx/LOF/VB. GBS collected today. Currently wearing Holter. 03/20/25 -?-?-?-?-?-?-?-?-?-?-?-?- 37w 6d 217 lb 9 oz 127/79 Trac e -?--?-?-?-?-?-?-?-?-?-?-?- Negative 130 37.5 Cephalic 0 -?-?-?-?-?-?-?-?-?-?-?-?- JV- rpt growth o rdered due to 99% AC and BPD on scan 02/20/25. She received the wrong RSV vaccine and we discussed risks today. pharmacy board official write up performed as this was given by a pharmacist. 03/27/25 -?-?-?-?-?-?-?-?-?-?-?-?- 38w 6d 224 lb 1 oz 136/86 127/85 Trace -?-?-?-?-?-?-?-?-?-?-?-?- Negative 130 38 Cephalic 1 -?-?-?-?-?-?-?-?-?-?-?-?- 50 -1 SM- no vb lof good fm no regular ctx NST FHR Rate Baby A Baseline: 130 Variability:: Moderate Accelerations:: None Decelerations:: None NST Reactive:: Yes FHR Category:: Category I Uterine Activity:: 2-3 ROS Constitutional Constitutional: Denies change in weight, fatigue, fever(s), headache(s), poor appetite or weakness Eyes Eyes: Denies blurry vision, change in vision, floaters, seeing flashes or spots in vision ENT HEENT: Denies dizziness, headache(s), loss taste/smell or sore throat Cardiovascular Cardiovascular: Denies chest pain, dizziness, dyspnea, irregular heart rhythm, lightheadedness, palpitations or rapid heart rate Respiratory/Chest Respiratory/Chest: Denies change in mental status, chest tightness, cough, dyspnea or breast pain Gastrointestinal Gastrointestinal: Denies anorexia, chewing difficulty, constipation, diarrhea or weight changes Genitourinary Genitourinary: Denies difficulty urinating, dysuria, flank pain, genital pain, urinary frequency or urinary urgency Musculoskeletal Musculoskeletal: Denies back pain, difficulty walking, extremity pain, joint pain, muscle cramps or muscle weakness Integumentary Integumentary: Denies lesions or unusual bruising Neurologic Neurologic: Denies abnormal movements, abnormal speech, dizziness, numbness, seizure-like activity, syncope or weakness Psychiatric Psychiatric: Denies behavioral changes, change in appetite, confusion, depression, homicidal ideation, suicidal ideation or suicidal thoughts Endocrine Endocrinology: Denies excessive sweating, polydipsia or polyuria Hematologic/Lymphatic Hematologic/Lymphatic: Denies anemia Allergic/Immunologic Allergic/Immunologic: Denies itchy eyes, lip swelling, throat swelling, tongue swelling or wheezing Vital Signs Vital Signs Vital Signs: 03/28/25 19:29 03/28/25 19:29 03/28/25 19:29 Temperature Temperature Source Temporal Pulse Rate 104 H Respiratory Rate 16 Blood Pressure BP Systolic BP Diastolic Pulse Ox 03/28/25 19:29 03/28/25 19:29 03/28/25 19:29 Temperature 98.2 F Temperature Source Pulse Rate Respiratory Rate 14 Blood Pressure BP Systolic BP Diastolic Pulse Ox 98 03/28/25 19:31 03/28/25 19:31 03/28/25 21:07 Temperature Temperature Source Pulse Rate 105 H Respiratory Rate 16 Blood Pressure 125/77 H BP Systolic 125 BP Diastolic 77 Pulse Ox 03/28/25 21:07 03/28/25 21:08 03/28/25 21:08 Temperature 98.6 F Temperature Source Pulse Rate 93 Respiratory Rate Blood Pressure 119/58 L BP Systolic 119 BP Diastolic 58 Pulse Ox 03/29/25 01:09 03/29/25 01:09 03/29/25 01:09 Temperature Temperature Source Temporal Pulse Rate 67 Respiratory Rate Blood Pressure 120/59 L BP Systolic 120 BP Diastolic 59 Pulse Ox 03/29/25 01:09 03/29/25 01:09 03/29/25 01:09 Temperature 97.6 F L Temperature Source Pulse Rate Respiratory Rate 14 Blood Pressure BP Systolic BP Diastolic Pulse Ox 99 03/29/25 03:27 03/29/25 03:27 03/29/25 05:10 Temperature Temperature Source Temporal Pulse Rate 62 Respiratory Rate Blood Pressure 118/62 BP Systolic 118 BP Diastolic 62 Pulse Ox 03/29/25 05:10 03/29/25 05:10 03/29/25 05:11 Temperature 97.6 F L Temperature Source Pulse Rate Respiratory Rate 16 Blood Pressure 128/67 H BP Systolic 128 BP Diastolic 67 Pulse Ox 03/29/25 05:11 03/29/25 05:11 03/29/25 05:11 Temperature Temperature Source Pulse Rate 85 81 Respiratory Rate Blood Pressure BP Systolic BP Diastolic Pulse Ox 99 03/29/25 06:33 03/29/25 06:33 03/29/25 06:33 Temperature Temperature Source Temporal Pulse Rate 88 Respiratory Rate Blood Pressure 126/71 H BP Systolic 126 BP Diastolic 71 Pulse Ox 03/29/25 06:33 03/29/25 06:33 03/29/25 07:22 Temperature 97.4 F L Temperature Source Pulse Rate Respiratory Rate 14 Blood Pressure 119/79 BP Systolic 119 BP Diastolic 79 Pulse Ox 03/29/25 07:22 03/29/25 07:22 03/29/25 07:22 Temperature Temperature Source Temporal Pulse Rate 67 Respiratory Rate Blood Pressure BP Systolic BP Diastolic Pulse Ox 97 03/29/25 07:22 03/29/25 07:22 Temperature 98.6 F Temperature Source Pulse Rate Respiratory Rate 16 Blood Pressure BP Systolic BP Diastolic Pulse Ox Weight Weight: 224 lb Body Mass Index (BMI) 37.3 PRE- weight 182 lb PRE- Body Mass Index 30.2 (BMI) Physical Exam Const alert, oriented x3 and no apparent distress General Appearance: cooperative Orientation / Consciousness: awake HEENT normocephalic Neck full ROM Lymph Lymphatic: no lymphadenopathy noted Chest inspection of chest normal Resp normal respiratory effort and normal air movement Effort and Inspection: able to speak in complete sentences and symmetric chest movement GI soft to palpation and non-tender Inspection: gravid Palpation: soft; Negative for tender external exam normal Back/Spine normal to inspection Extremity normal to inspection and full ROM Skin no rashes or lesions noted Psych mental status grossly normal Appearance: grossly normal Speech: normal speech Labs Labs Labs: Blood Type A NEGATIVE Antibody Screen NEGATIVE Hct, (37-47) 35.7 % L Hgb, (12.0-15.0) 12.5 g/dL Obstetrics Ultrasound Syphilis Total Ab, (Nonreactive) Nonreactive Rubella IgG Antibody, (Nonreactive) REAC Hep Bs Antigen, (Nonreactive) Nonreactive Hepatitis C Antibody, (Nonreactive) Nonreactive Chlamydia DNA (CK), (Negative) Negative N.gonorrhoeae DNA (CK), (Negative) Negative HIV 1&2 Antibody, (Nonreactive) Nonreactive Glucose 1 Hr 50 gm, (70-140) 78 mg/dL Assessment & Plan (1) Encounter for induction of labor: PLAN: Patient presents IOL, plan management for with pitocin/AROM. Pain management: plans epidural. GBS negative. Management of any complications: none I have reviewed the [facility] and made any clinically relevant updates. Dr Nelson aware of assessement plan and admission. agrees with above. (2) LGA (large for gestational age) fetus affecting management of mother: COMMENT: 94 percentile discussed IOL vs exp management plan 39 week IOL. nl GTT on repeat EFW 4000-4100g (3) Medication administered at wrong time: COMMENT: patient was given the Arexvy vaccine instead of the Abrysvo. The risk is labor but was given at 36 weeks. Patient informed that this is not FDA approved for but no defects were found in clinical trials. Patient was told that this also does not protect her baby from RSV and she will need to have her baby vaccinated after . (4) PVC (premature ventricular contraction): COMMENT: - Patient asymptomatic (5) Sinus tachycardia: COMMENT: - Patient with noted resting heart rates 90s to low 100s on average - No new or unexpected worsening exertional symptoms, able to tolerate Pel[employer] bike exercises regularly - Resting average heart rate is still within expected range for , and not averaging higher than 115 bpm (6) Uterine size date discrepancy : COMMENT: 33w6d KHADIJAH 20 EFW 2940g 98 % AC 99% repeat glucose 02/21-normal (7) Tachycardia: COMMENT: Cardiology appointment pending (8) RhD negative: COMMENT: Fetus RHD+ on NIPT; rhogam 28 wk, pp and prn (9) Supervision of high-risk : QUALIFIERS: Trimester: third trimester Qualified Code(s): O09.93 - Supervision of high risk , unspecified, third trimester COMMENT: [id number], SAMANTHA 04[birth year] Boy, name secret?(jermaine) Joshua (10) Depression: QUALIFIERS: Depression Type: unspecified Qualified Code(s): F32.A - Depression, unspecified COMMENT: sertraline/stable (11) : QUALIFIERS: Weeks of gestation: 38 weeks Qualified Code(s): Z3A.38 - 38 weeks gestation of COMMENT: NIPT low risk, Carrier neg. /, unremarkable anatomy, consistent dates. GBS neg. (12) Obesity affecting : QUALIFIERS: Trimester: first trimester Obesity type affecting : unspecified obesity Qualified Code(s): O99.211 - Obesity complicating , first trimester COMMENT: HgbA1c Charges/Coding Multi Select Codes Urinary/Genital Urinary/Genital CPT Codes: No Charge
[2025-03-29] MEDS: Lactated Ringers 1,000 ML 999 ML IV (09:03)
[2025-03-29] MEDS: fentaNYL-bupivacaine (epidural) 100 ML BAG EPIDURAL ×2 (10:14→18:13)
[2025-03-29] MEDS: Lactated Ringers 1,000 ML 200 ML IV ×3 (10:17→18:13)
--- NOTE | 2025-03-29 10:42 | PCM.PN.BLA ---
Progress Note comfortable with epidural current tracing: FHT: 130 Moderate variability reactive no decelerations category I tracing [place]: 2-3 Contractions Membranes: ruptured for mec SVE:4/80/0 A/P: Continue with position changes Titrate pitocin per protocol Epidural per anesthesia GBS neg Anticipate Dr Nelson aware of above assessment and agrees with plan of care Assessment & Plan Assessment/Plan (1) Encounter for induction of labor: (2) LGA (large for gestational age) fetus affecting management of mother: (3) Medication administered at wrong time: (4) PVC (premature ventricular contraction): (5) Sinus tachycardia: (6) Uterine size date discrepancy : (7) Tachycardia: (8) RhD negative: (9) Supervision of high-risk : QUALIFIERS: Trimester: third trimester Qualified Code(s): O09.93 - Supervision of high risk , unspecified, third trimester (10) Depression: QUALIFIERS: Depression Type: unspecified Qualified Code(s): F32.A - Depression, unspecified (11) : QUALIFIERS: Weeks of gestation: 38 weeks Qualified Code(s): Z3A.38 - 38 weeks gestation of (12) Obesity affecting : QUALIFIERS: Trimester: first trimester Obesity type affecting : unspecified obesity Qualified Code(s): O99.211 - Obesity complicating , first trimester Multi Select Codes Urinary/Genital Urinary/Genital CPT Codes: No Charge
--- OUTSIDE RECORDS SUMMARY | 2025-03-29 12:25 | XMS RPT_ITS | CCD ---
Author Organization [facility] Care Team Providers Care Production Laborer Name Role Phone MARTY ERNST Primary Care Unavailabl e EIDEN, MARTY BELTRAN Admitting Unavailabl e STEFAN, RCIHARD CHOUDHARY Attending Unavail able STEFAN, RICHARD CHOUDHARY Attending Unavail able Seggerson GAME AGENT, Merissa Syed Primary Care Provider MERISSA LINTON Primary Care Unavailab le HASSMANN II, GILBERTO HUANG Attending Un available SEGGERSON, MERISSA SYED Primary Care Unavailab le HASSMANN II, GILBERTO HUANG Referring Un available HASSMANN II, GILBERTO HUANG Admitting Un available HASSMANN II, GILBERTO HUANG Attending Un available SEGGERSON, MERISSA KUNAL Primary Care Unavailab le Seggerson EQUITY SALES ASSISTANT-GAME AGENT, Merissa Syed Attending Unavailable Seggerson EQUITY SALES ASSISTANT-GAME AGENT, Merissa Kunal Primary Care Unavailable [place] EQUITY SALES ASSISTANT-GAME AGENT, Mary Cleveland Attending Mary vailable Seggerson EQUITY SALES ASSISTANT-GAME AGENT, Merissa Syed Primary Care Unavailable Seggerson EQUITY SALES ASSISTANT-GAME AGENT, Merissa Kunal Primary Care Unavailable [place] EQUITY SALES ASSISTANT-GAME AGENT, Mary Cleveland Attending Mary vailable Dr. Marisela [...] [phone] Omar ROBERTO, Dr. Antonio Attending Provider [place] TOE CLOSING MACHINE TENDER-C, Sai Attending Physician [phone] Jose Miguel Bradley DO, Dr. Jeffrey Attending Physician Rick SMALL, Veronica Attending Physician [phone] Omar ROBERTO, Dr. Antonio Attending Physician Omar ROBERTO, Dr. Antonio Referring Provider [place] TOE CLOSING MACHINE TENDER-C, Sai Attending Physician [phone] Prudence TOE CLOSING MACHINE TENDER, Sai Attending Unavailable Yeater, Louann M Primary Care Unavailable Veronica Cabrera Attending Unavailable Veronica Cabrera Referring Unavailable Yeater, Louann M Primary Care Unavailable Jose Miguel Bradley, Rachele Attending Unavailabl e Veronica Cabrera Attending Unavailable Rick, Veronica Attending Unavailable Omar, Marisela Attending Unavailable [place] TOE CLOSING MACHINE TENDER, Sai Attending Unavailable [place] TOE CLOSING MACHINE TENDER, Sai Attending Unavailable Veronica Cabrera Attending Unavailable Yeater, Louann M Primary Care Unavailable Yeater, Louann M Referring Unavailable Omar, Marisela Attending Unavailable Vande Veloneyda, Rachele Attending Unavailabl e [place] TOE CLOSING MACHINE TENDER, Sai Attending Unavailable Vande Velde, Rachele Attending Unavailabl e Yeater, Louann M Primary Care Unavailable Marisela Nelson Attending Unavailable Marisela Nelson Referring Unavailable Omar, Marisela Attending Unavailable Marisela Nelson Referring Unavailable Vande Veloneyda, Rachele Attending Unavailabl e Vande Velde, Rachele Referring Unavailabl e [place] TOE CLOSING MACHINE TENDER, Sai Attending Unavailable [place] TOE CLOSING MACHINE TENDER, Sai Referring Unavailable Yeater, Louann M Primary Care Unavailable Rick SMALL, Veronica Attending Physician [phone] Omar ROBERTO, Dr. Antonio Attending Physician Dr. Marisela Nelson MD Referring Provider [phone] [place] TOE CLOSING MACHINE TENDER-C, Sai Attending Physician [phone] [place] TOE CLOSING MACHINE TENDER-C, Sai Referring Provider [phone] Mckenna ROBERTO, Dr. Louann Hunt Primary Care Physician [phone] Sera ROBERTO, Dr. Schroeder Attending Physician [phone] Mckenna ROBERTO, Dr. Louann Hunt Referring Provider Veronica Cabrera CNM Referring Provider [phone] Jose Miguel Bradley DO, Dr. Jeffrey Attending Physician Allergies Allergy Classification Reported Allergen(s) Allergy Type Date of Onset Reaction(s) Facility (1 source) No Known Medication Allergies; Translations: [No Known Medication Allergies] Propensity to adverse reactions to drug (disorder) [facility] Repository (11 sources) Ragweed pollen; Translations: [ragweed pollen] Allergy to substance Itching [facility] Medications Current Medications Medication Drug Class(es) Dates [...] 1 tablet by mouth twice daily Mv-Mins 70-Xiyd-Moqfc No.1-Dha (Pnv-[place]) 28-1-300 mg capsule (10 sources) Start: 08-06-2024 Start: 08-06-2024 Mv-Mins 71-Iro n-Folic No.1-Dha (Pnv-[place]) 28-1-300 mg capsule Active NMA PO August 06, 2024 12:00am Complies with drug therapy Start: 08-06-2024 Start: 08-06-2024 Mv-Mins 71-Iro n-Folic No.1-Dha (Pnv-[place]) 28-1-300 mg capsule Active NMA PO August [...] Comment on above: , SAMANTHA 04/04/25, Joshua [id number], SAMANTHA 5 Boy, Joshua [id number], SAMANTHA 5 Boy, name secret?(jermaine) Joshua Other [...] GEST 50g 1H 78 mg/dL Normal 70-140 [facility] Comment on above: Performed By: #### L 509.8002, L501.0250, L100.0100, L3890.6006, BTS #### [facility] Laboratory [address] [place], [address] Glucose measurement at 2 lizeth rs post-dose gestational glucose tolerance testOrdered By: Veronica Cabrera on 02-21-2025 Glucose [Mass/Vol] 78 mg/dL 70-140 [facility] OB Limited With Biometricson 02-20-2025 OB Limited With Biometrics [facility] [address] [place] [address] OB Limited With Biometrics MR#: [id number] Acct: [id number] Name: JAMIL NORRIS Rep #: [id number] : 1995 F 30 From: Brian del valle MD PCP: Dr. Louann Hager MD Status: REG CLI Study: OB Limited With Biometrics Date of Exam: 02/20 Exam# [id number] Ordering Dr: Veronica Cabrera CNM PROCEDURE: OB [...] 36 weeks and 4 days. Reading Location: [id number] CC: GEOVANNY Cabrera; Dr. Louann Hager MD Truck Engine Technician: Signed Normal [facility] Laboratory - Chemistry and C hemistry - challengeOrdered By: Veronica Cabrera on 02-17-2025 Glucose Ql (U) Negative [facility] Laboratory - UrinalysisOrder ed By: Veronica Cabrera on 02-17-2025 Protein Ql (U) Negative [facility] Doctor Naturopathic Office Visit Reporton 02-17-2025 Doctor Naturopathic Office Visit Report [facility]'s [address], [address] [place] [address] OFFICE VISIT Date of Service: 02/17/25 MR#: [id number] Acct: [id number] Name: JAMIL NORRIS Rep #: [id number] : 1995 Provider: GEOVANNY Salazar ams Age/Sex: 30/F Location: [facility] Status: Signed Intake Vital Signs 01/10/25 11:12 02/05/25 13:10 02/17/25 11:38 02/17/25 11:40 Height 5 ft 5 in 5 ft 5 in 5 ft 5 in 5 ft 5 in Weight: 213 lb 6 oz 213 lb 7 oz BMI 35.5 35.5 BP 107/70 117/75 Pulse 112 H Intake Visit Reasons: 33 WK 3D OB Computer Tech Required: No Is patient in pain?: No Allergies ragweed pollen Allergy (Mild, Verified 02/17/25 11:38) Itching Medications ???Medication ???Instructions ???Recorded ???Confirmed ???Type sertraline 50 mg tablet 50 mg PO QDAY 07/31/24 02/17/25 Hi story multivit-min no.71-iron fum 28 cap PO 08/06/24 02/17/25 History mg-folate no.1 1 mg-dha 300 mg capsule (PNV-[place]) famotidine 20 mg tablet (Pepcid) 20 mg PO BID #60 tabs 12/20/2407/09 Rx ondansetron 4 mg disintegrating 4 mg PO Q4H PRN nausea and 5 02/17/25 Rx tablet vomiting #60 tabs Last Menstrual Period: 06/28/24 Zika: Zika virus screening: Negative : No PFSH PFSH Medical History RhD negative Seasonal allergies Pneumonia Surgical History [place] teeth extracted Family History Grandmother Arthritis Diabetes [...] animals: dog(s) history of recent travel: Yes ([place]) out of state: Yes out of [...] 1-2 times per week duration: 30-45 minutes/day fredi/gnosticist: Yazdanism seatbelt use: always do you feel safe [...] nipt. first baby first . lives in [place]. 09/24/24 -???-???-???-???-?? ?-???-???-???-???-? ??-???-???- 12w 4d 181 l (more content not included)... Normal [facility] Anion gap in Serum or Plasma Ordered By: Sai Foss on 02-12-2025 Anion gap [Moles/Vol] 12 mmol/L 5-15 [facility] BUN/creatinine ratioOrdered By: Sai Foss on 02-12-2025 Urea nitrogen/Creatinine [Mass ratio] 20.0 mg/mg 10-20 [facility] Basic Metabolic Profile (BMP )on 02-12-2025 BUN/CRE 20.0 RATIO Normal -20 [facility] Comment on above: Performed By: #### L 500.2500 #### [facility] Laboratory [address] [place], [address] Calcium [Mass/Vol] 9.1 mg/dL Normal 7.6-11.0 [facility] Comment on above: Performed By: #### L 500.2500 #### [facility] [address] [place], [address] Chloride [Moles/Vol] 104 mmol/L Normal 98-108 [facility] Comment on above: Performed By: #### L 500.2500 #### [facility] [address] [place], [address] CO2 [Moles/Vol] 20.4 mmol/L Low 21.0-32.0 [facility] Comment on above: Performed By: #### L 500.2500 #### [facility] [address] [place], [address] Creatinine [Mass/Vol] 0.56 mg/dL Low 0.70-1.20 [facility] Comment on above: Performed By: #### L 500.2500 #### [facility] [address] [place], [address] GAP 12 Normal 5-15 [facility] Comment on above: Performed By: #### L 500.2500 #### [facility] [address] [place], [address] GFR/1.73 sq M.predicted among non-blacks MDRD (S/P/Bld) [Vol rate/Area] 127 mL/min/{1.73_m2} Normal >60 [facility] Comment on above: Result Comment: mL/m in/1.73m2 CKD-EPI Creatinine Equation (2020) Performed By: #### L 500.2500 #### [facility] [address] [place], [address] Glucose [Mass/Vol] 109 mg/dL High 70-99 [facility] Comment on above: Performed By: #### L 500.2500 #### [facility] [address] [place], [address] Potassium [Moles/Vol] 3.9 mmol/L Normal 3.3-5.1 [facility] Comment on above: Performed By: #### L 500.2500 #### [facility] [address] [place], [address] Sodium [Moles/Vol] 136 mmol/L Normal 133-145 [facility] Comment on above: Performed By: #### L 500.2500 #### [facility] [address] [place], [address] Urea nitrogen [Mass/Vol] 11 mg/dL Normal 4-19 [facility] Comment on above: Performed By: #### L 500.2500 #### [facility] [address] [place], [address] Carbon dioxide, total [Moles /volume] in Central venous bloodOrdered By: Sai Foss on 02-12-2025 CO2 [Moles/Vol] 20.4 mmol/L Low 21.0-32.0 [facility] Chloride assayOrdered By: Denver Foss on 02-12-2025 Chloride [Moles/Vol] 104 mmol/L 98-108 [facility] Glomerular filtration rate ( GFR) estimation/1.73 sq m using serum, plasma, or whole bOrdered By: Sai Foss on 02-12-2025 GFR/1.73 sq M.predicted among non-blacks MDRD (S/P/Bld) [Vol rate/Area] 127 mL/min/{1.73_m2} >60 [facility] Comment on above: mL/min/1.73m2 CKD-EP I Creatinine Equation (2020) Potassium measurement (mass/ volume)Ordered By: Sai Foss on 02-12-2025 Potassium (Unsp spec) [Mass/Vol] 3.9 mmol/L 3.3-5.1 [facility] Serum creatinine measurement (mass/volume)Ordered By: Sai Foss on 02-12-2025 Creatinine [Mass/Vol] 0.56 mg/dL Low 0.70-1.20 [facility] Serum glucose measurement (m ass/volume)Ordered By: Sai Foss on 02-12-2025 Glucose [Mass/Vol] 109 mg/dL High 70-99 [facility] Serum or plasma calcium tamy urement (mass/volume)Ordered By: Sai Foss on 02-12-2025 Calcium [Mass/Vol] 9.1 mg/dL 7.6-11.0 [facility] Serum or plasma urea nitroge n measurement (mass/volume)Ordered By: Sai Foss on 02-12-2025 Urea nitrogen [Mass/Vol] 11 mg/dL 4-19 [facility] Sodium levelOrdered By: Daniel Foss on 02-12-2025 Sodium [Moles/Vol] 136 mmol/L 133-145 [facility] 12 Lead EKGon 02-07-2025 12 Lead EKG [facility] [address] [place] [address] 12 Lead EKG 02/07/25 0739 MR#: [id number] Acct: [id number] Name: JAMIL NORRIS Rep #: [id number] : 1995 30 From: Gale Zamora MD Attending Dr: CAMPOS Sullivan Status: REG CLI Ordering Dr: Sai Foss NP TOE CLOSING MACHINE TENDER-C Date: 02/07/25 Location: N Sex: F C [...] Otherwise normal ECG Confirmed by GALE ZAMORA ([id number]), writer editor DEWAYNE DUBON ([id number]) on 02/10/2025 7:10:52 AM Referred By: Sai Foss Confirmed By: GALE ZAMORA 02/10/25 0710 Date Gale Zamora MD CC: CAMPOS Foss; Dr. Louann Hager MD Signed Normal [facility] Laboratory - Chemistry and C hemistry - challengeOrdered By: Sai Foss on 02-05-2025 Glucose Ql (U) Negative [facility] Laboratory - UrinalysisOrder ed By: Sai oFss on 02-05-2025 Protein Ql (U) Negative [facility] Doctor Naturopathic Office Visit Reporton 02-05-2025 Doctor Naturopathic Office Visit Report [facility]'s [address], [address] [place] [address] OFFICE VISIT Date of Service: 02/05/25 MR#: [id number] Acct: [id number] Name: JAMIL NORRIS Rep #: [id number] : 1995 Provider: CAMPOS solitario Age/Sex: 30/F Location: [facility] Status: Signed Intake Vital Signs 11/22/24 11:24 01/23/25 10:46 02/05/25 13:10 Height 5 ft 5 in 5 ft 5 in 5 ft 5 in Weight: 213 lb 6 oz BMI 35.5 BP 107/70 Pulse 112 H Intake Visit Reasons: 31 WK 5D OB Computer Tech Required: No Is patient in pain?: No Allergies ragweed pollen Allergy (Mild, Verified 02/05/25 13:09) Itching Medications ???Medication ???Instructions ???Recorded ???Confirmed ???Type sertraline 50 mg tablet 50 mg PO QDAY 07/31/24 02/05/25 Hi story multivit-min no.71-iron fum 28 cap PO 08/06/24 02/05/25 History mg-folate no.1 1 mg-dha 300 mg capsule (PNV-[place]) famotidine 20 mg tablet (Pepcid) 20 mg PO BID #60 tabs 12/20/24 Rx ondansetron 4 mg disintegrating 4 mg PO Q4H PRN nausea and 5 02/05/25 Rx tablet vomiting #60 tabs Last Menstrual Period: 06/28/24 Zika: Zika virus screening: Negative : No PFSH PFSH Medical History RhD negative Seasonal allergies Pneumonia Surgical History [place] teeth extracted Family History Grandmother Arthritis Diabetes [...] animals: dog(s) history of recent travel: Yes ([place]) out of state: Yes out of [...] 1-2 times per week duration: 30-45 minutes/day fredi/gnosticist: Yazdanism seatbelt use: always do you feel safe [...] nipt. first baby first . lives in [place]. 09/24/24 -???-???-???-???-?? ?-???-???-???-???-? ??-???-???- 12w 4d 181 lb 130/82 Negative -???-???-???-???-?? ?-???-???-?? (more content not included)... Normal [facility] Laboratory - Chemistry and C hemistry - challengeOrdered By: Rachele Bradley on 2025 Glucose Ql (U) Negative [facility] Laboratory - UrinalysisOrder ed By: Rachele Bradley on 2025 Protein Ql (U) Negative [facility] Doctor Naturopathic Office Visit Reporton 2025 Doctor Naturopathic Office Visit Report [facility] [address], [address] [place] [address] OFFICE VISIT Date of Service: 01/23/25 MR#: [id number] Acct: [id number] Name: JAMIL NORRIS Rep #: [id number] : 1995 Provider: CAMPOS solitario Age/Sex: 30/F Location: [facility] Status: Signed Intake Vital Signs 11/22/24 11:24 01/10/25 11:12 01/23/25 10:45 01/23/25 10:46 Height 5 ft 5 in 5 ft 5 in 5 ft 5 in 5 ft 5 in Weight: 211 lb 1 oz BMI 35.1 BP 115/77 Intake Visit Reasons: 30wk ob Computer Tech Required: No Is patient in pain?: No Allergies ragweed pollen Allergy (Mild, Verified 01/23/25 10:45) Itching Medications ???Medication ???Instructions ???Recorded ???Confirmed ???Type sertraline 50 mg tablet 50 mg PO QDAY 07/31/24 01/23/25 Hi story multivit-min no.71-iron fum 28 cap PO 08/06/24 01/23/25 History mg-folate no.1 1 mg-dha 300 mg capsule (PNV-[place]) famotidine 20 mg tablet (Pepcid) 20 mg PO BID #60 tabs 12/20/2401/09 Rx ondansetron 4 mg disintegrating 4 mg PO Q4H PRN nausea and 5 01/23/25 Rx tablet vomiting #60 tabs Last Menstrual Period: 06/28/24 Zika: Zika virus screening: Negative : Yes PFSH PFSH Medical History RhD negative Seasonal allergies Pneumonia Surgical History [place] teeth extracted Family History Grandmother Arthritis Diabetes [...] animals: dog(s) history of recent travel: Yes ([place]) out of state: Yes out of [...] 1-2 times per week duration: 30-45 minutes/day fredi/gnosticist: Yazdanism seatbelt use: always do you feel safe [...] nipt. first baby first . lives in [place]. 09/24/24 -???-???-???-???-?? ?-???-???-???-???-? ??-???-???- 12w 4d 181 lb 130/82 Negative -???-???-???-???-?? ?-???-???-?? (more content not included)... Normal [facility] Absolute lymphocyte countOrd ered By: Marisela Pickettgene on 01-10-2025 Lymphocytes Auto (Unsp spec) [#/Vol] 1.58 10*3/uL 0.83-4.51 [facility] Absolute neutrophil countOrd ered By: Mariselatamy Nelson on 01-10-2025 Neutrophils (Bld) [#/Vol] 5.8 10*3/uL 2.0-7.7 [facility] Automated lymphocyte count a s percentage of total leukocytesOrdered By: Marisela Pickettgene on 01-10-2025 Lymphocytes/100 WBC Auto (Unsp spec) 18.9 % Low 19-41 [facility] Basophil percentageOrdered B y: Marisela Pickettdenysorlin on 01-10-2025 Basophils/100 WBC (Bld) 0.6 % 0-1 [facility] CBC W/Diff, Automatedon 12-17 Absolute Lymph 1.58 X10 3/uL Normal 0.83-4.51 [facility] Comment on above: Performed By: #### L 509.8002, L501.0250, L100.0100, L3890.6006, BTS #### [facility] [address] [place], [address] Absolute Neut 5.8 X10 3/uL Normal 2.0-7.7 [facility] Comment on above: Performed By: #### L 509.8002, L501.0250, L100.0100, L3890.6006, BTS #### [facility] [address] [place], [address] Basophils/100 WBC (Bld) 0.6 % Normal 0-1 [facility] Comment on above: Performed By: #### L 509.8002, L501.0250, L100.0100, L3890.6006, BTS #### [facility] [address] [place], [address] Eosinophils/100 WBC (Bld) 2.9 % Normal 0-5 [facility] Comment on above: Performed By: #### L 509.8002, L501.0250, L100.0100, L3890.6006, BTS #### [facility] [address] [place], [address] Erythrocyte distribution width (RBC) [Ratio] 12.5 % Normal 11.6-14.6 [facility] Comment on above: Performed By: #### L 509.8002, L501.0250, L100.0100, L3890.6006, BTS #### [facility] [address] [place], [address] Hematocrit (Bld) [Volume fraction] 33.8 % Low 37-47 [facility] Comment on above: Performed By: #### L 509.8002, L501.0250, L100.0100, L3890.6006, BTS #### [facility] [address] [place], [address] Hemoglobin (Bld) [Mass/Vol] 12.1 g/dL Normal 12.0-15.0 [facility] Comment on above: Performed By: #### L 509.8002, L501.0250, L100.0100, L3890.6006, BTS #### [facility] [address] [place], [address] IG% 0.600 Normal 0.0-0.9 [facility] Comment on above: Result Comment: IG% - Immature Granulocytes (promyelocytes, myelocytes and metamyelocytes) > 1% indicates that a LEFT SHIFT is Present. Performed By: #### L 509.8002, L501.0250, L100.0100, L3890.6006, BTS #### [facility] [address] [place], [address] Lymphocytes/100 WBC (Bld) 18.9 % Low 19-41 [facility] Comment on above: Performed By: #### L 509.8002, L501.0250, L100.0100, L3890.6006, BTS #### [facility] [address] [place], [address] MCH (RBC) [Entitic mass] 32.5 pg High 27.0-32.0 [facility] Comment on above: Performed By: #### L 509.8002, L501.0250, L100.0100, L3890.6006, BTS #### [facility] [address] [place], [address] MCHC (RBC) [Mass/Vol] 35.8 g/dL Normal 32-36 [facility] Comment on above: Performed By: #### L 509.8002, L501.0250, L100.0100, L3890.6006, BTS #### [facility] [address] [place], [address] MCV (RBC) [Entitic vol] 90.9 fL Normal 81-99 [facility] Comment on above: Performed By: #### L 509.8002, L501.0250, L100.0100, L3890.6006, BTS #### [facility] [address] [place], [address] Monocytes/100 WBC (Bld) 7.3 % Normal 0-10 [facility] Comment on above: Performed By: #### L 509.8002, L501.0250, L100.0100, L3890.6006, BTS #### [facility] [address] [place], [address] Neutrophils/100 WBC (Bld) 69.7 % Normal 47-70 [facility] Comment on above: Performed By: #### L 509.8002, L501.0250, L100.0100, L3890.6006, BTS #### [facility] [address] [place], [address] Nucleated RBC (Bld) [#/Vol] 0 10*3/uL Normal 0-5 [facility] Comment on above: Performed By: #### L 509.8002, L501.0250, L100.0100, L3890.6006, BTS #### [facility] [address] [place], [address] Platelet mean volume (Bld) [Entitic vol] 11.2 fL Normal 6.2-12.0 [facility] Comment on above: Performed By: #### L 509.8002, L501.0250, L100.0100, L3890.6006, BTS #### [facility] [address] [place], [address] Platelets (Bld) [#/Vol] 176 10*3/uL Normal 150-450 [facility] Comment on above: Performed By: #### L 509.8002, L501.0250, L100.0100, L3890.6006, BTS #### [facility] [address] [place], [address] RBC (Bld) [#/Vol] 3.72 10*6/uL Low 4.2-5.4 [facility] Comment on above: Performed By: #### L 509.8002, L501.0250, L100.0100, L3890.6006, BTS #### [facility] [address] [place], [address] RDW SD 41.1 fl Normal 35.1-43.9 [facility] Comment on above: Performed By: #### L 509.8002, L501.0250, L100.0100, L3890.6006, BTS #### [facility] [address] [place], [address] WBC (Bld) [#/Vol] 8.4 10*3/uL Normal 4.4-11.0 [facility] Comment on above: Performed By: #### L 509.8002, L501.0250, L100.0100, L3890.6006, BTS #### [facility] [address] [place], [address] Eosinophil percentageOrdered By: Marisela Nelson on 01-10-2025 Eosinophils/100 WBC (Bld) 2.9 % 0-5 [facility] Erythrocyte distribution wid th ratioOrdered By: Marisela Nelson on 01-10-2025 Erythrocyte distribution width (RBC) [Ratio] 12.5 % 11.6-14.6 [facility] Erythrocyte distribution wid th standard deviationOrdered By: Marisela Nelson on 01-10-2025 Erythrocyte distribution width (RBC) [Ratio] 41.1 fl 35.1-43.9 [facility] Glucose Challenge Gest 1H 50 boris 01-10-2025 GLU GEST 50g 1H 115 mg/dL Normal 70-140 [facility] Comment on above: Performed By: #### L 509.8002, L501.0250, L100.0100, L3890.6006, BTS #### [facility] [address] [place], [address] Glucose measurement at 2 lizeth rs post-dose gestational glucose tolerance testOrdered By: Marisela Nelson on 01-10-2025 Glucose [Mass/Vol] 115 mg/dL 70-140 [facility] HIVon 01-10-2025 HIV Non-Reactive Normal Nonreactive [facility] Comment on above: Result Comment: Non- Reactive Reactive Repeatedly reactive samples must be confirmed according to CDC recommended confirmatory algorithms. The subresults for either HIVAG or AHIV can be used as an aid in the selection of the confirmation algorithm for reactive samples. Send out specimens with Reactive results to [facility] for confirmation. Order the HIV antibody detection and differentiation: lc#[id number] Performed By: #### L 509.8002, L501.0250, L100.0100, L3890.6006, BTS #### [facility] [address] [place], [address] Hematocrit Auto (Bld) [Volum e fraction]Ordered By: Marisela Nelson on 01-10-2025 Hematocrit (Bld) [Volume fraction] 33.8 % Low 37-47 [facility] Hemoglobin measurementOrdere d By: Marisela Nelson on 01-10-2025 Hemoglobin (Bld) [Mass/Vol] 12.1 g/dL 12.0-15.0 [facility] Immature granulocytes/100 WB C Auto (Bld)Ordered By: Marisela Nelson on 01-10-2025 Immature granulocytes/100 WBC (Bld) 0.600 % 0.0-0.9 [facility] Comment on above: IG% - Immature Granu locytes (promyelocytes, myelocytes and metamyelocytes) > 1% indicates that a LEFT SHIFT is Present. Laboratory - Chemistry and C hemistry - challengeOrdered By: Veronica Cabrera on 01-10-2025 Glucose Ql (U) Negative [facility] Laboratory - UrinalysisOrder ed By: Veronica Cabrera on 01-10-2025 Protein Ql (U) Negative [facility] MCV (mean corpuscular volume ) determinationOrdered By: Marisela Nelson on 01-10-2025 MCV (RBC) [Entitic vol] 90.9 fL 81-99 [facility] Mean corpuscular hemoglobin (MCH) determinationOrdered By: Marisela Nelson on 01-10-2025 MCH (RBC) [Entitic mass] 32.5 pg High 27.0-32.0 [facility] Mean corpuscular hemoglobin concentration (MCHC) determinationOrdered By: Marisela Pickettgene on 01-10-2025 MCHC (RBC) [Mass/Vol] 35.8 g/dL 32-36 [facility] Mean platelet volume determi nationOrdered By: Marisela Pickettgene on 01-10-2025 Platelet mean volume (Bld) [Entitic vol] 11.2 fL 6.2-12.0 [facility] Monocyte percentageOrdered B y: Marisela Omar on 01-10-2025 Monocytes/100 WBC (Bld) 7.3 % 0-10 [facility] Neutrophil percentageOrdered By: Marisela Pickettgene on 01-10-2025 Neutrophils/100 WBC (Bld) 69.7 % 47-70 [facility] No Panel InformationOrdered By: Marisela Pickettgene on 01-10-2025 HIV (1&2) Antibody Non-Reactive Nonreactive [facility] Comment on above: Non-ReactiveReactive Repeatedly reactive samples must be confirmed according to CDC recommended confirmatory algorithms. The subresults for either HIVAG or AHIV can be used as an aid in the selection of the confirmation algorithm for reactive samples.Send out specimens with Reactive results to [facility] for confirmation.Order the HIV antibody detection and differentiation: [id number] Nucleated red blood cell per centageOrdered By: Marisela Straussorlin on 01-10-2025 Nucleated RBC/100 WBC (Bld) [Ratio] 0 % 0-5 [facility] Doctor Naturopathic Office Visit Reporton 01-10-2025 Doctor Naturopathic Office Visit Report [facility] [address], [address] [place] [address] OFFICE VISIT Date of Service: 01/10/25 MR#: [id number] Acct: [id number] Name: JAMIL NORRIS Rep #: [id number] : 1995 Provider: GEOVANNY Salazar ams Age/Sex: 29/F Location: [facility] Status: Signed with Addenda ADDENDUM by Renetta Pina on 01/10/25 at 1205 Office Procedure Documentation entered by Renetta Pina 01/10/25 12:05: Injections Is this a patient provided medication?: No Immunizations Adacel(Tdap Adolesn/Adult)(PF) 2 Lf-(2.5-5-3-5)-5 Lf/0.5 mL IM syringe Performing Provider: Veronica Cabrera CNM Performing Location: [facility] Administered by: Renetta Pina on 01/10/25 12:03 Dose Route Admin Location Dispensed Lot Number Expiration Date Package NDC NDC Business Transformation Manager 0.5 mL IM Left Deltoid 0.5 mL [id number] 12/04/26 13706-448-29 [id number] NOFI-PASTEUR VIS Given Date VIS Provided VIS Publication Date 01/10/25 Single Vaccine 24 Eligibility Eligibility Date Funding Source Not Applicable Office Meds RhoGAM Ultra-Filtered PLUS 1,500 unit (300 mcg) intramuscular syringe Performing Provider: Veroinca Cabrera CNM Performing Location: [facility] Administered by: Renetta Pina on 01/10/25 12:03 Dose Route Admin Location Dispensed Lot Number Expiration Date Package NDC NDC Business Transformation Manager 1,500 unit IM Left Buttock 1 ea [id number] 10/30/26 44292-244-75 [id number] [facility] Date cc: * Signed Intake Vital Signs 11/22/24 11:24 12/20/24 10:06 01/10/25 11:12 Height 5 ft 5 in 5 ft 5 in 5 ft 5 in Weight: 206 lb 4 oz BMI 34.3 BP 127/78 H Intake Visit Reasons: 28wk ob/glucose/rhogam Chief Complaint: 28wk OB Computer Tech Required: No Is patient in pain?: No Allergies ragweed pollen Allergy (Mild, Verified 01/10/25 11:10) Itching Medications ???Medication ???Instructions ???Recorded ???Confirmed ???Type sertraline 50 mg tablet 50 mg PO QDAY 07/31/24 01/10/25 Hi story multivit-min no.71-iron fum 28 cap PO 08/06/24 01/10/25 History mg-folate no.1 1 mg-dha 300 mg capsule (PNV-[place]) famotidine 20 mg tablet (Pepcid) 20 mg PO BID #60 tabs 12/20/24 Rx Last Menstrual Period: 06/28/24 : No PFSH PFSH Medical History RhD negative Seasonal allergies Pneumonia Surgical History [place] teeth extracted Family History Grandmother Arthritis Diabetes [...] animals: dog(s) history of recent travel: Yes ([place]) out of state: Yes out of [...] 1-2 times per week duration: 30-45 minutes/day fredi/gnosticist: Yazdanism seatbelt use: always do you feel safe [...] special requests (more content not included)... Normal [facility] Platelet countOrdered By: Barbara Nelson on 01-10-2025 Platelets (Bld) [#/Vol] 176 10*3/uL 150-450 [facility] RBC Auto (Bld) [#/Vol]Ordere d By: Marisela Nelson on 01-10-2025 RBC (Bld) [#/Vol] 3.72 10*6/uL Low 4.2-5.4 [facility] Syphilis Antibodieson 2024 Syphilis Abs Non-Reactive Normal Nonreactive [facility] Comment on above: Performed By: #### L 509.8002, L501.0250, L100.0100, L3890.6006, BTS #### [facility] Laboratory [address] [place], [place], [address] Type AND Screenon 01-10-2025 ABO and Rh group Nom (Bld) Blood group A Rh(D) negative Normal [facility] Comment on above: Order Comment: PN Performed By: #### L 509.8002, L501.0250, L100.0100, L3890.6006, BTS #### [facility] [address] [place], [address] White blood cell (WBC) count Ordered By: Marisela Nelson on 01-10-2025 WBC (Bld) [#/Vol] 8.4 10*3/uL 4.4-11.0 [facility] Laboratory - Chemistry and C hemistry - challengeOrdered By: Marisela Nelson on 12-20-2024 Glucose Ql (U) Negative [facility] Laboratory - UrinalysisOrder ed By: Marisela Nelson on 12-20-2024 Protein Ql (U) Negative [facility] Doctor Naturopathic Office Visit Reporton 12-20-2024 Doctor Naturopathic Office Visit Report [facility], [address] [place] [address] OFFICE VISIT Date of Service: 12/20/24 MR#: [id number] Acct: [id number] Name: JAMIL NORRIS Rep #: [id number] : 1995 Provider: Dr. Marisela wang MD Age/Sex: 29/F Location: [facility] Status: Signed Intake Vital Signs 09/24/24 09:41 11/22/24 11:24 12/20/24 10:06 Height 5 ft 5 in 5 ft 5 in 5 ft 5 in Weight: 189 lb 2 oz 199 lb 3 oz BMI 31.4 33.1 BP 124/69 H 122/82 H Intake Visit Reasons: 25wk ob Computer Tech Required: No Is patient in pain?: No Allergies ragweed pollen Allergy (Mild, Verified 12/20/24 10:03) Itching Medications ???Medication ???Instructions ???Recorded ???Confirmed ???Type sertraline 50 mg tablet 50 mg PO QDAY 07/31/24 12/20/24 Hi story multivit-min no.71-iron fum 28 cap PO 08/06/24 12/20/24 History mg-folate no.1 1 mg-dha 300 mg capsule (PNV-[place]) famotidine 20 mg tablet (Pepcid) 20 mg PO BID #60 tabs 12/20/2409/08 Rx Last Menstrual Period: 06/28/24 Zika: Zika virus screening: Negative : No PFSH PFSH Medical History RhD negative Seasonal allergies Pneumonia Surgical History [place] teeth extracted Family History Grandmother Arthritis Diabetes [...] animals: dog(s) history of recent travel: Yes ([place]) out of state: Yes out of country: [...] 1-2 times per week duration: 30-45 minutes/day fredi/gnosticist: Yazdanism seatbelt use: always do you feel safe [...] nipt. first baby first . lives in [place]. 09/24/24 -???-???-???-???-?? ?-???-???-???-???-? ??-???-???- 12w 4d 181 lb 130/82 Negative -???-???-???-???-?? ?-???-???-???-???-? ??-???-???- Negative 152 -???-???-???-???-?? ?-???-???-???-???-? ??-???-???- MH-No VB. N ausea improved. (more content not included)... Normal [facility] Laboratory - Chemistry and C hemistry - challengeOrdered By: Veronica Cabrera on 11-22-2024 Glucose Ql (U) Negative [facility] Laboratory - UrinalysisOrder ed By: Veronica Cabrera on 11-22-2024 Protein Ql (U) Negative [facility] Doctor Naturopathic Office Visit Reporton 11-22-2024 Doctor Naturopathic Office Visit Report [facility] [address], [address] [place] [address] OFFICE VISIT Date of Service: 11/22/24 MR#: [id number] Acct: [id number] Name: JAMIL NORRIS Rep #: [id number] : 1995 Provider: GEOVANNY Salazar ams Age/Sex: 29/F Location: [facility] Status: Signed Intake Vital Signs 08/30/24 14:15 10/24/24 10:52 11/22/24 11:24 Height 5 ft 5 in 5 ft 5 in 5 ft 5 in Weight: 189 lb 2 oz BMI 31.4 BP 124/69 H Intake Visit Reasons: 21wk ob Chief Complaint: 21wk OB Computer Tech Required: No Is patient in pain?: No Allergies ragweed pollen Allergy (Mild, Verified 11/22/24 11:22) Itching Medications ???Medication ???Instructions ???Recorded ???Confirmed ???Type sertraline 50 mg tablet 50 mg PO QDAY 07/31/24 11/22/24 Hi story multivit-min no.71-iron fum 28 cap PO 08/06/24 11/22/24 History mg-folate no.1 1 mg-dha 300 mg capsule (PNV-[place]) Last Menstrual Period: 06/28/24 : No PFSH PFSH Medical History RhD negative Seasonal allergies Pneumonia Surgical History [place] teeth extracted Family History Grandmother Arthritis Diabetes [...] 1-2 times per week duration: 30-45 minutes/day fredi/gnosticist: Yazdanism seatbelt use: always do you feel safe [...] nipt. first baby first . lives in [place]. 09/24/24 -???-???-???-???-?? ?-???-???-???-???-? ??-???-???- 12w 4d 181 [...] 145 21 (more content not included)... Normal [facility] Laboratory - Chemistry and C hemistry - challengeOrdered By: Rachele Bradley on 10-24-2024 Glucose Ql (U) Negative [facility] Laboratory - UrinalysisOrder ed By: Rachele Bradley on 10-24-2024 Protein Ql (U) Negative [facility] Doctor Naturopathic Office Visit Reporton 10-24-2024 Doctor Naturopathic Office Visit Report [facility] [address], [facility] [address] [place] [address] OFFICE VISIT Date of Service: 10/24/24 MR#: [id number] Acct: [id number] Name: JAMIL NORRIS Rep #: [id number] : 1995 Provider: Dr. Rachele Hook DO Age/Sex: 29/F Location: [facility] Status: Signed Intake Vital Signs 08/30/24 14:15 09/24/24 09:41 10/24/24 10:52 Height 5 ft 5 in 5 ft 5 in 5 ft 5 in Weight: 180 lb 6 oz BMI 29.9 BP 111/79 Intake Visit Reasons: 16w6d ob Computer Tech Required: No Is patient in pain?: No Allergies ragweed pollen Allergy (Mild, Verified 10/24/24 10:53) Itching Medications ???Medication ???Instructions ???Recorded ???Confirmed ???Type sertraline 50 mg tablet 50 mg PO QDAY 07/31/24 10/24/24 Hi story multivit-min no.71-iron fum 28 cap PO 08/06/24 10/24/24 History mg-folate no.1 1 mg-dha 300 mg capsule (PNV-[place]) Last Menstrual Period: 06/28/24 Zika: Zika virus screening: Negative : No PFSH PFSH Medical History RhD negative Seasonal allergies Pneumonia Surgical History [place] teeth extracted Family History Grandmother Arthritis Diabetes [...] animals: dog(s) history of recent travel: Yes ([place]) out of state: Yes out of [...] 1-2 times per week duration: 30-45 minutes/day fredi/gnosticist: Yazdanism seatbelt use: always do you feel safe [...] nipt. first baby first . lives in [place]. 09/24/24 -???-???-???-???-?? ?-???-???-???-???-? ??-???-???- 12w 4d 181 [...] Office Urine (more content not included)... Normal [facility] Laboratory - Chemistry and C hemistry - challengeOrdered By: Sai Foss on 09-24-2024 Glucose Ql (U) Negative [facility] Laboratory - UrinalysisOrder ed By: Sai Foss on 09-24-2024 Protein Ql (U) Negative [facility] Doctor Naturopathic Office Visit Reporton 09-24-2024 Doctor Naturopathic Office Visit Report [facility]'s [address], [address] [place] [address] OFFICE VISIT Date of Service: 09/24/24 MR#: [id number] Acct: [id number] Name: JAMIL NORRIS Rep #: [id number] : 1995 Provider: CAMPOS solitario Age/Sex: 29/F Location: [facility] Status: Signed Intake Vital Signs 08/06/24 09:57 08/30/24 14:15 09/24/24 09:41 Height 5 ft 5 in 5 ft 5 in 5 ft 5 in Weight: 181 lb BMI 30.1 BP 130/82 H Intake Visit Reasons: 12 WK OB Chief Complaint: 12 Week OB Computer Tech Required: No Is patient in pain?: No Allergies ragweed pollen Allergy (Mild, Verified 09/24/24 09:43) Itching Medications ???Medication ???Instructions ???Recorded ???Confirmed ???Type sertraline 50 mg tablet 50 mg PO QDAY 07/31/24 09/24/24 Hi story multivit-min no.71-iron fum 28 cap PO 08/06/24 09/24/24 History mg-folate no.1 1 mg-dha 300 mg capsule (PNV-[place]) Last Menstrual Period: 06/28/24 Zika: Zika virus screening: Negative : No PFSH PFSH Medical History RhD negative Seasonal allergies Pneumonia Surgical History [place] teeth extracted Family History Grandmother Arthritis Diabetes [...] animals: dog(s) history of recent travel: Yes ([place]) out of state: Yes out of [...] 1-2 times per week duration: 30-45 minutes/day fredi/gnosticist: Yazdanism seatbelt use: always do you feel safe [...] nipt. first baby first . lives in [place]. 09/24/24 -???-???-???-???-?? ?-???-???-???-???-? ??-???-???- 12w 4d 181 [...] Dip (Clin (more content not included)... Normal [facility] Absolute lymphocyte countOrd ered By: Marisela Nelson on 09-03-2024 Lymphocytes Auto (Unsp spec) [#/Vol] 2.19 10*3/uL 0.83-4.51 [facility] Absolute neutrophil countOrd ered By: Marisela Nelson on 09-03-2024 Neutrophils (Bld) [#/Vol] 6.8 10*3/uL 2.0-7.7 [facility] Automated lymphocyte count a s percentage of total leukocytesOrdered By: Marisela Nelson on 09-03-2024 Lymphocytes/100 WBC Auto (Unsp spec) 22.4 % 19-41 [facility] Basophil percentageOrdered B y: Marisela Nelson on 09-03-2024 Basophils/100 WBC (Bld) 0.4 % 0-1 [facility] CBC W/Diff, Automatedon 08-16 0 Absolute Lymph 2.19 X10 3/uL Normal 0.83-4.51 [facility] Comment on above: Performed By: #### L 509.8002, L501.0250, L100.0100, L3890.6006, BTS #### [facility] [address] [place], [address] Absolute Neut 6.8 X10 3/uL Normal 2.0-7.7 [facility] Comment on above: Performed By: #### L 509.8002, L501.0250, L100.0100, L3890.6006, BTS #### [facility] [address] [place], [address] Basophils/100 WBC (Bld) 0.4 % Normal 0-1 [facility] Comment on above: Performed By: #### L 509.8002, L501.0250, L100.0100, L3890.6006, BTS #### [facility] [address] [place], [address] Eosinophils/100 WBC (Bld) 1.4 % Normal 0-5 [facility] Comment on above: Performed By: #### L 509.8002, L501.0250, L100.0100, L3890.6006, BTS #### [facility] [address] [place], [address] Erythrocyte distribution width (RBC) [Ratio] 12.4 % Normal 11.6-14.6 [facility] Comment on above: Performed By: #### L 509.8002, L501.0250, L100.0100, L3890.6006, BTS #### [facility] [address] [place], [address] Hematocrit (Bld) [Volume fraction] 40.1 % Normal 37-47 [facility] Comment on above: Performed By: #### L 509.8002, L501.0250, L100.0100, L3890.6006, BTS #### [facility] [address] [place], [address] Hemoglobin (Bld) [Mass/Vol] 14.0 g/dL Normal 12.0-15.0 [facility] Comment on above: Performed By: #### L 509.8002, L501.0250, L100.0100, L3890.6006, BTS #### [facility] [address] [place], [address] IG% 0.300 Normal 0.0-0.9 [facility] Comment on above: Result Comment: IG% - Immature Granulocytes (promyelocytes, myelocytes and metamyelocytes) > 1% indicates that a LEFT SHIFT is Present. Performed By: #### L 509.8002, L501.0250, L100.0100, L3890.6006, BTS #### [facility] [address] [place], [address] Lymphocytes/100 WBC (Bld) 22.4 % Normal 19-41 [facility] Comment on above: Performed By: #### L 509.8002, L501.0250, L100.0100, L3890.6006, BTS #### [facility] [address] [place], [address] MCH (RBC) [Entitic mass] 30.8 pg Normal 27.0-32.0 [facility] Comment on above: Performed By: #### L 509.8002, L501.0250, L100.0100, L3890.6006, BTS #### [facility] [address] [place], [address] MCHC (RBC) [Mass/Vol] 34.9 g/dL Normal 32-36 [facility] Comment on above: Performed By: #### L 509.8002, L501.0250, L100.0100, L3890.6006, BTS #### [facility] [address] [place], [address] MCV (RBC) [Entitic vol] 88.3 fL Normal 81-99 [facility] Comment on above: Performed By: #### L 509.8002, L501.0250, L100.0100, L3890.6006, BTS #### [facility] [address] [place], [address] Monocytes/100 WBC (Bld) 5.5 % Normal 0-10 [facility] Comment on above: Performed By: #### L 509.8002, L501.0250, L100.0100, L3890.6006, BTS #### [facility] [address] [place], [address] Neutrophils/100 WBC (Bld) 70.0 % Normal 47-70 [facility] Comment on above: Performed By: #### L 509.8002, L501.0250, L100.0100, L3890.6006, BTS #### [facility] [address] [place], [address] Nucleated RBC (Bld) [#/Vol] 0 10*3/uL Normal 0-5 [facility] Comment on above: Performed By: #### L 509.8002, L501.0250, L100.0100, L3890.6006, BTS #### [facility] [address] [place], [address] Platelet mean volume (Bld) [Entitic vol] 10.7 fL Normal 6.2-12.0 [facility] Comment on above: Performed By: #### L 509.8002, L501.0250, L100.0100, L3890.6006, BTS #### [facility] [address] [place], [address] Platelets (Bld) [#/Vol] 216 10*3/uL Normal 150-450 [facility] Comment on above: Performed By: #### L 509.8002, L501.0250, L100.0100, L3890.6006, BTS #### [facility] [address] [place], [address] RBC (Bld) [#/Vol] 4.54 10*6/uL Normal 4.2-5.4 [facility] Comment on above: Performed By: #### L 509.8002, L501.0250, L100.0100, L3890.6006, BTS #### [facility] [address] [place], [address] RDW SD 40.0 fl Normal 35.1-43.9 [facility] Comment on above: Performed By: #### L 509.8002, L501.0250, L100.0100, L3890.6006, BTS #### [facility] [address] [place], [address] WBC (Bld) [#/Vol] 9.8 10*3/uL Normal 4.4-11.0 [facility] Comment on above: Performed By: #### L 509.8002, L501.0250, L100.0100, L3890.6006, BTS #### [facility] [address] [place], [address] Eosinophil percentageOrdered By: Marisela Nelson on 09-03-2024 Eosinophils/100 WBC (Bld) 1.4 % 0-5 [facility] Erythrocyte distribution wid th ratioOrdered By: Marisela Pickettgene on 09-03-2024 Erythrocyte distribution width (RBC) [Ratio] 12.4 % 11.6-14.6 [facility] Erythrocyte distribution wid th standard deviationOrdered By: Marisela Pickettgene on 09-03-2024 Erythrocyte distribution width (RBC) [Ratio] 40.0 fl 35.1-43.9 [facility] HIVon 09-03-2024 HIV Non-Reactive Normal Nonreactive [facility] Comment on above: Result Comment: Non- Reactive Reactive Repeatedly reactive samples must be confirmed according to CDC recommended confirmatory algorithms. The subresults for either HIVAG or AHIV can be used as an aid in the selection of the confirmation algorithm for reactive samples. Send out specimens with Reactive results to [facility] for confirmation. Order the HIV antibody detection and differentiation: lc#[id number] Performed By: #### L 509.8002, L501.0250, L100.0100, L3890.6006, BTS #### [facility] [address] [place], [address] Hematocrit Auto (Bld) [Volum e fraction]Ordered By: Marisela Nelson on 09-03-2024 Hematocrit (Bld) [Volume fraction] 40.1 % 37-47 [facility] Hemoglobin A1con 09-03-2024 HbA1c (Bld) [Mass fraction] 5.1 % Normal <=5.6 [facility] Comment on above: Result Comment: Norm al < 5.7 % Prediabetic 5.7 - 6.4 % Diabetic >or= 6.5 % Please note range changes. Performed By: #### L 509.8002, L501.0250, L100.0100, L3890.6006, BTS #### [facility] [address] [place], [place], [address] Hemoglobin A1c percentageOrd ered By: Marisela Nelson on 09-03-2024 HbA1c (Bld) [Mass fraction] 5.1 % <5.7 [facility] Comment on above: Normal < 5.7 % Predi abetic 5.7 - 6.4 % Diabetic >or= 6.5 % Please note range changes. Hemoglobin measurementOrdere d By: Mariselatamy Pickettgene on 09-03-2024 Hemoglobin (Bld) [Mass/Vol] 14.0 g/dL 12.0-15.0 [facility] Hepatitis C Antibodyon 09-03 Hepatitis C Ab Non-Reactive Normal Nonreactive [facility] Comment on above: Result Comment: Reac tive: Presumptive evidence of antibodies to HCV. Follow CDC recommendations for supplemental testing. Non-Reactive: Antibodies to HCV were not detected; does not exclude the possibility of exposure to HCV Reactive Results are presumptive evidence of antibodies to HCV. Follow CDC recommendations for supplemental testing. Order confirmation testing: HCV Quant by PCR testing - HCVPCR lc#[id number] Non Reactive: < 0.8 Equivocal: >/= 0.8 to < 1.0 Reactive: >/= 1.0 The [facility] requires that a reactive/equivocal HCV antibody result be sent out for confirmation. HCV Quant by PCR testing. Performed By: #### L 509.8002, L501.0250, L100.0100, L3890.6006, BTS #### [facility] [address] [facility] [place], [address] Immature granulocytes/100 WB C Auto (Bld)Ordered By: Marisela Nelson on 09-03-2024 Immature granulocytes/100 WBC (Bld) 0.300 % 0.0-0.9 [facility] Comment on above: IG% - Immature Granu locytes (promyelocytes, myelocytes and metamyelocytes) > 1% indicates that a LEFT SHIFT is Present. L3890.6102on 09-03-2024 HEP B Surf Ag Non-Reactive Normal Nonreactive [facility] Comment on above: Result Comment: Reac tive: Presumptive evidence of HBV. Repeatedly reactive samples must be confirmed using a neutralization test ([employer] HBsAg Confirmatory Test) Non-Reactive: HBsAg not detected; does not exclude the possibility of exposure to HBV Performed By: #### L 509.8002, L501.0250, L100.0100, L3890.6006, BTS #### [facility] [address] [place], [place], [address] L509.4006on 09-03-2024 Rubella IgG REAC Normal Nonreactive [facility] Comment on above: Result Comment: Anti body Result: Interpretation Non-Reactive: Non-Immune Reactive: Immune The following results were obtained with the [employer] Rubella IgG assay. Results from assays of other manufacturers cannot be used interchangeably. Performed By: #### L 509.8002, L501.0250, L100.0100, L3890.6006, BTS #### [facility] [address] [place], [place], [address] Laboratory - Microbiology an d Antimicrobial susceptibilityOrdered By: Marisela Nelson on 09-03-2024 HBV surface Ag Ql (S) Non-Reactive Nonreactive [facility] Comment on above: Reactive: Presumptiv e evidence of HBV. Repeatedly reactive samples must be confirmed using a neutralization test ([employer] HBsAg Confirmatory Test)Non-Reactive: HBsAg not detected; does not exclude the possibility of exposure to HBV MCV (mean corpuscular volume ) determinationOrdered By: Marisela Nelson on 09-03-2024 MCV (RBC) [Entitic vol] 88.3 fL 81-99 [facility] Mean corpuscular hemoglobin (MCH) determinationOrdered By: Marisela Nelson on 09-03-2024 MCH (RBC) [Entitic mass] 30.8 pg 27.0-32.0 [facility] Mean corpuscular hemoglobin concentration (MCHC) determinationOrdered By: Marisela Nelson on 09-03-2024 MCHC (RBC) [Mass/Vol] 34.9 g/dL 32-36 [facility] Mean platelet volume determi nationOrdered By: Marisela Nelson on 09-03-2024 Platelet mean volume (Bld) [Entitic vol] 10.7 fL 6.2-12.0 [facility] Monocyte percentageOrdered B y: Marisela Nelson on 09-03-2024 Monocytes/100 WBC (Bld) 5.5 % 0-10 [facility] NATERAon 09-03-2024 NATURA SEE SCANNED REPORT Normal [facility] Comment on above: Performed By: #### L 900.0098 #### [facility] [address] [place], [address] Neutrophil percentageOrdered By: Marisela Nelson on 09-03-2024 Neutrophils/100 WBC (Bld) 70.0 % 47-70 [facility] No Panel InformationOrdered By: Marisela Nelson on 09-03-2024 HIV (1&2) Antibody Non-Reactive Nonreactive [facility] Comment on above: Non-ReactiveReactive Repeatedly reactive samples must be confirmed according to CDC recommended confirmatory algorithms. The subresults for either HIVAG or AHIV can be used as an aid in the selection of the confirmation algorithm for reactive samples.Send out specimens with Reactive results to [facility] for confirmation.Order the HIV antibody detection and differentiation: #[id number] Nucleated red blood cell per centageOrdered By: Marisela Nelson on 09-03-2024 Nucleated RBC/100 WBC (Bld) [Ratio] 0 % 0-5 [facility] Platelet countOrdered By: Barbara Nelson on 09-03-2024 Platelets (Bld) [#/Vol] 216 10*3/uL 150-450 [facility] RBC Auto (Bld) [#/Vol]Ordere d By: Marisela Nelson on 09-03-2024 RBC (Bld) [#/Vol] 4.54 10*6/uL 4.2-5.4 [facility] Syphilis Antibodieson 2024 Syphilis Abs Non-Reactive Normal Nonreactive [facility] Comment on above: Performed By: #### L 509.8002, L501.0250, L100.0100, L3890.6006, BTS #### [facility] [address] [place], [address] Type AND Screenon 09-03-2024 Ab SCREEN GEL Negative Normal [facility] Comment on above: Order Comment: PN Performed By: #### L 509.8002, L501.0250, L100.0100, L3890.6006, BTS #### [facility] [address] [place], [address] White blood cell (WBC) count Ordered By: Marisela Nelson on 09-03-2024 WBC (Bld) [#/Vol] 9.8 10*3/uL 4.4-11.0 [facility] Chlamydia/GC CK aptimaon CHLAMY,NUC ACID Negative Normal Negative [facility] Comment on above: Performed By: #### L 509.8002, L501.0250, L100.0100, L3890.6006, BTS #### [facility] [address] [place], [place], [id number] GC BY NUC ACID Negative Normal Negative [facility] Comment on above: Result Comment: Perf ormed at: =G - [facility] [address] [id number] Tobacco Cutter: Jeannine So MD, Phone: [phone] Performed By: #### L 509.8002, L501.0250, L100.0100, L3890.6006, BTS #### [facility] [address] [place], [place], [id number] Urine Cultureon 08-31-2024 [facility] Culture exhibits no growth. Normal [facility] Comment on above: Performed By: #### L 509.8002, L501.0250, L100.0100, L3890.6006, BTS #### [facility] [address] [place], [address] Chlamydia trachomatis rRNA d etection by probe and target amplification methodOrdered By: Marisela Nelson on 08-30-2024 C. trachomatis rRNA CK+probe Ql (Unsp spec) Negative Negative [facility] Neisseria gonorrhoeae nuclei c acid detection by amplified probe techniqueOrdered By: Marisela eNlson on 08-30-2024 N. gonorrhoeae DNA CK+probe Ql (Unsp spec) Negative Negative [facility] Comment on above: Performed at: =G - [facility] [address] [id number] Director: Jeannine So MD, Phone: [phone] Doctor Naturopathic Office Visit Reporton 08-30-2024 Doctor Naturopathic Office Visit Report [facility] [address], [address] [place] [address] OFFICE VISIT Date of Service: 08/30/24 MR#: [id number] Acct: [id number] Name: JAMIL NORRIS Rep #: [id number] : 1995 Provider: Dr. Rachele Hook DO Age/Sex: 29/F Location: [facility] Status: Signed Intake Vital Signs 08/06/24 09:57 08/30/24 14:13 08/30/24 14:15 Height 5 ft 5 in 5 ft 5 in 5 ft 5 in Weight: 182 lb 8 oz BMI 30.3 BP 127/81 H Intake Visit Reasons: New OB, LMP 06/28, SAMANTHA 04/04, first baby Computer Tech Required: No Is patient in pain?: No Allergies ragweed pollen Allergy (Mild, Verified 08/30/24 14:12) Itching Medications ???Medication ???Instructions ???Recorded ???Confirmed ???Type sertraline 50 mg tablet 50 mg PO QDAY 07/31/24 08/30/24 Hi story multivit-min no.71-iron fum 28 cap PO 08/06/24 08/30/24 History mg-folate no.1 1 mg-dha 300 mg capsule (PNV-[place]) Last Menstrual Period: 06/28/24 Zika: Zika virus screening: Negative : No PFSH PFSH Medical History Seasonal allergies Pneumonia Surgical History [place] teeth extracted Family History Grandmother Arthritis Diabetes [...] 1-2 times per week duration: 30-45 minutes/day fredi/gnosticist: Yazdanism seatbelt use: always do you feel safe [...] nipt. first baby first . lives in [place]. Menstrual History Last Menstrual Period: 06/28/24 Reported [...] Other Infe (more content not included)... Normal [facility] Urine cultureOrdered By: Nazario Nelson on 08-30-2024 Bacteria identified Cx Nom (U) Culture exhibits no growth. [facility] Laboratory - Chemistry and C hemistry - challengeOrdered By: Marisela Nelson on 08-06-2024 HCG ( test) Ql (U) Positive [facility] Office Visit Reporton 2024 Office Visit Report [facility] [address] [place] [address] OFFICE VISIT Date of Service: 08/06/24 MR#: [id number] Acct: [id number] Patient: JAMIL NORRIS Rep #: [id number] : 1995 Provider: Dr. Marisela wang MD Age/Sex: 29/F Location: [facility] Status: Signed Intake Vital Signs 08/06/24 09:57 Height 5 ft 5 in Weight: 182 lb BMI 30.2 BP 116/70 Blood Pressure Location Rt brachial Position Sitting Intake Visit Reasons: Est Care/Urine test/ Vitals Computer Tech Required: No Accompanied by: Is patient in pain?: No Allergies ragweed pollen Allergy (Mild, Verified 08/06/24 09:59) Itching Medications ???Medication ???Instructions ???Recorded ???Confirmed ???Type sertraline 50 mg tablet 50 mg PO QDAY 07/31/24 08/06/24 Hi story multivit-min no.71-iron fum 28 cap PO 08/06/24 08/06/24 History mg-folate no.1 1 mg-dha 300 mg capsule (PNV-[place]) Is last menstrual period known: Yes Last [...] Stone Signature: Date (if applicable) CC: Normal [facility] Family Medicine Office/Clini c Noteon 07-04-2024 Family [...] now prefers solitude and a smaller social [place]. The patient is also concerned about the [...] to follow up with family practice in [place] in September for a wellness check and [...] the Pa (more content not included)... Normal [facility] Gas Meter Prover Cytology Reporton 2023 Gas Meter Prover Cytology Report Clinical Information Specimen Collection Date: [...] smears in the future. GY Disclaimer Alpha Gas Meter Prover Disclaimer ANATOMICPATHOLOGY Normal [facility] Comment on above: Performed By: #### G YNCYTREP #### [facility] [address] [place] [address] Gynecology Office/Clinic Not terrence 01-18-2024 Gynecology Office/Clinic [...] Dc'd this medication in and it's safety. 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 Substance Abuse Denies All Tobacco Never (less than 100 in lifetime) Use:. Family History Family history is negative Immunizations Vaccine Date Status meningococcal conjugate vaccine 05/31/2017 Given Comments : ND (more content not included)... Normal [facility] Destruction of lesionon -0 ALICIA Kohler DPM [...] where the nail was split with an Japanese anvil distally to approximately 3 mm off [...] Response to Treatment:: Procedure was tolerated well [facility] Vital Signs Date Time Vital Sign Value Performing Clinician Kwan jalloh 02-17-2025 11:40-0500 Body height 165.[address] Marisela Nelson MD Work Phone: 0(391)576-207774 [place] [address] 02-17-2025 11:38-0500 Body mass index (BMI) [Ratio] 35.5 kg/m2 Dr. Marisela Nelson MD Work Phone: 4(406)080-442474 [place] [address] 02-17-2025 11:38-0500 Body weight 96.[address] Marisela Nelson MD Work Phone: 5(759)697-979474 [place] [address] 02-17-2025 11:38-0500 Diastolic blood pressure 75 mm[Hg] Dr. Marisela Nelson MD Work Phone: 2(872)297-348674 [place] [address] 02-17-2025 11:38-0500 Systolic blood pressure 117 mm[Hg] Dr. Marisela Nelson MD Work Phone: 1(956)749-325174 [place] [address] 02-05-2025 13:10-0400 Body mass index (BMI) [Ratio] 35.5 kg/m2 Dr. Marisela Nelson MD Work Phone: 3(820)810-265474 [place] [address] 02-05-2025 13:10-0400 Body weight 96.[address] Marisela Nelson MD Work Phone: 3(192)727-288974 [place] [address] 02-05-2025 13:10-0400 Diastolic blood pressure 70 mm[Hg] Dr. Marisela Nelson MD Work Phone: 4(228)957-700974 [place] [address] 02-05-2025 13:10-0400 Heart rate 112 /min Dr. Marisela Nelson MD Work Phone: 2(238)176-511674 [place] [address] 02-05-2025 13:10-0400 Systolic blood pressure 107 mm[Hg] Dr. Marisela Nelson MD Work Phone: 2(718)652-232174 [place] [address] 2025 10:46-0400 Body height 165.[address] Marisela Nelson MD Work Phone: 1(388)997-879774 [place] [address] 2025 10:45-0400 Body mass index (BMI) [Ratio] 35.1 kg/m2 Dr. Marisela Nelson MD Work Phone: 8(508)370-018774 [place] [address] 2025 10:45-0400 Body weight 95.[address] Marisela Nelson MD Work Phone: 3(222)480-519974 [place] [address] 2025 10:45-0400 Diastolic blood pressure 77 mm[Hg] Dr. Marisela Nelson MD Work Phone: 9(458)076-861174 [place] [address] 2025 10:45-0400 Systolic blood pressure 115 mm[Hg] Dr. Marisela Nelson MD Work Phone: 3(530)457-629274 [place] [address] 01-10-2025 11:12-0400 Body height 165.[address] Marisela Nelson MD Work Phone: 7(959)351-946874 [place] [address] 01-10-2025 11:12-0400 Body mass index (BMI) [Ratio] 34.3 kg/m2 Dr. Marisela Nelson MD Work Phone: 9(741)422-123974 [place] [address] 01-10-2025 11:12-0400 Body weight 93.[address] Marisela Nelson MD Work Phone: 2(877)613-161974 [place] [address] 01-10-2025 11:12-0400 Diastolic blood pressure 78 mm[Hg] Dr. Marisela Nelson MD Work Phone: 3(595)129-136474 [place] [address] 01-10-2025 11:12-0400 Systolic blood pressure 127 mm[Hg] Dr. Marisela Nelson MD Work Phone: 8(360)533-913374 [place] [address] 12-20-2024 10:06-0400 Body height 165.[address] Marisela Nelson MD Work Phone: 3(169)965-614274 [place] [address] 12-20-2024 10:06-0400 Body mass index (BMI) [Ratio] 33.1 kg/m2 Dr. Marisela Nelson MD Work Phone: 8(220)731-004974 [place] [address] 12-20-2024 10:06-0400 Body weight 90.[address] Marisela Nelson MD Work Phone: [facility] 12-20-2024 10:06-0400 Diastolic blood pressure 82 mm[Hg] Dr. Marisela Nelson MD Work Phone: 6(277)932-890474 [place] [address] 12-20-2024 10:06-0400 Systolic blood pressure 122 mm[Hg] Dr. Marisela Nelson MD Work Phone: 5(954)701-573274 [place] [address] 11-22-2024 11:24-0400 Body height 165.[address] Marisela Nelson MD Work Phone: 3(640)156-214674 [place] [address] 11-22-2024 11:24-0400 Body mass index (BMI) [Ratio] 31.4 kg/m2 Dr. Marisela Nelson MD Work Phone: 2(098)183-968274 [place] [address] 11-22-2024 11:24-0400 Body weight 85.[address] Marisela Nelson MD Work Phone: 6(152)474-803074 [place] [address] 11-22-2024 11:24-0400 Diastolic blood pressure 69 mm[Hg] Dr. Marisela Nelson MD Work Phone: 7(911)408-053574 [place] [address] 11-22-2024 11:24-0400 Systolic blood pressure 124 mm[Hg] Dr. Marisela Nelson MD Work Phone: 9(620)613-100674 [place] [address] 10-24-2024 10:52-0400 Body height 165.[address] Marisela Nelson MD Work Phone: 2(235)868-201574 [place] [address] 10-24-2024 10:52-0400 Body mass index (BMI) [Ratio] 29.9 kg/m2 Dr. Marisela Nelson MD Work Phone: 4(863)221-665674 [place] [address] 10-24-2024 10:52-0400 Body weight 81.[address] Marisela Nelson MD Work Phone: 5(579)712-094274 [place] [address] 10-24-2024 10:52-0400 Diastolic blood pressure 79 mm[Hg] Dr. Marisela Nelson MD Work Phone: 3(034)522-498274 [place] [address] 10-24-2024 10:52-0400 Systolic blood pressure 111 mm[Hg] Dr. Marisela Nelson MD Work Phone: [facility] 10-01-2024 09:29-0400 Body height 165.1 cm Louann Hager MD Work Phone: [facility] 10-01-2024 09:29-0400 Body mass index (BMI) [Ratio] 29.82 kg/m2 Louann Hager MD Work Phone: [facility] 10-01-2024 09:29-0400 Body weight 81.28 kg Louann Hager MD Work Phone: 1(117)531-760319 [address] 10-01-2024 09:29-0400 Diastolic blood pressure 62 mm[Hg] Louann Hager MD Work Phone: 9(017)820-948219 [address] 10-01-2024 09:29-0400 Heart rate 89 /min Louann Hager MD Work Phone: [facility] 10-01-2024 09:29-0400 SaO2% (BldA) [Mass fraction] 98 % Louann Hager MD Work Phone: [facility] 10-01-2024 09:29-0400 Systolic blood pressure 108 mm[Hg] Louann Hager MD Work Phone: [facility] 09-24-2024 09:41-0400 Body height 165.[address] Marisela Nelson MD Work Phone: [facility] 09-24-2024 09:41-0400 Body mass index (BMI) [Ratio] 30.1 kg/m2 Dr. Marisela Nelson MD Work Phone: [facility] 09-24-2024 09:41-0400 Body weight 82.[address] Marisela Nelson MD Work Phone: [facility] 09-24-2024 09:41-0400 Diastolic blood pressure 82 mm[Hg] Dr. Marisela Nelson MD Work Phone: [facility] 09-24-2024 09:41-0400 Systolic blood pressure 130 mm[Hg] Dr. Marisela Nelson MD Work Phone: [facility] 08-30-2024 14:15-0400 Body height 165.[address] Marisela Nelson MD Work Phone: 4(043)549-055574 [place] [address] 08-30-2024 14:13-0400 Body mass index (BMI) [Ratio] 30.3 kg/m2 Dr. Marisela Nelson MD Work Phone: 5(056)681-265774 [place] [address] 08-30-2024 14:13-0400 Body weight 82.[address] Marisela Nelson MD Work Phone: 2(803)751-883874 [place] [address] 08-30-2024 14:13-0400 Diastolic blood pressure 81 mm[Hg] Dr. Marisela Nelson MD Work Phone: 5(551)760-344774 [place] [address] 08-30-2024 14:13-0400 Systolic blood pressure 127 mm[Hg] Dr. Marisela Nelson MD Work Phone: [facility] 08-06-2024 09:57-0400 Body mass index (BMI) [Ratio] 30.2 kg/m2 Dr. Marisela Nelson MD Work Phone: [facility] 08-06-2024 09:57-0400 Body weight 82.[address] Marisela Nelson MD Work Phone: [facility] 08-06-2024 09:57-0400 Diastolic blood pressure 70 mm[Hg] Dr. Marisela Nelson MD Work Phone: [facility] 08-06-2024 09:57-0400 Systolic blood pressure 116 mm[Hg] Dr. Marisela Nelson MD Work Phone: [facility] 10-03-2023 07:43-0400 Body temperature 98.4 [degF] ALICIA Kohler DPM Work Phone: [facility] 10-03-2023 07:43-0400 Diastolic blood pressure 69 mm[Hg] CJ Hassmann DPM Work Phone: [facility] 10-03-2023 07:43-0400 Heart rate 68 /min CJ Hassmann DPM Work Phone: [facility] 10-03-2023 07:43-0400 Systolic blood pressure 100 mm[Hg] CJ Hassmann DPM Work Phone: [facility] 09-19-2023 07:35-0400 Body temperature 98.4 [degF] CJ Hassmann DPM Work Phone: [facility] 09-19-2023 07:35-0400 Diastolic blood pressure 79 mm[Hg] CJ Hassmann DPM Work Phone: [facility] 09-19-2023 07:35-0400 Heart rate 64 /min CJ Hassmann DPM Work Phone: [facility] 09-19-2023 07:35-0400 SaO2% (BldA) [Mass fraction] 99 % CJ Hassmann DPM Work Phone: [facility] 09-19-2023 07:35-0400 Systolic blood pressure 112 mm[Hg] CJ Hassmann DPM Work Phone: [facility] Encounters Encounter Date Encounter Type Care Provider Facility Start: 02-21-2025 ambulatory Rachele Cabrera cility:[facility] Start: 02-20-2025 ambulatory Veronica Cabrera Facility :[facility] Start: 02-17-2025 End: 02-17-2025 ambulatory Veronica Cabrera Facility:[facility] Start: 02-12-2025 ambulatory Sai Foss NP Facil ity:[facility] Start: 02-07-2025 Non-patient / Non-visit Dr. Gale dupree MD -[facility] Work Phone: Start: 02-07-2025 End: 02-07-2025 Patient encounter procedure Sai Foss TOE CLOSING MACHINE TENDER-C -Pulmonary Services/Neurology Work Phone: Start: 02-07-2025 End: 02-07-2025 ambulatory Sai Foss TOE CLOSING MACHINE TENDER Facility:[facility] Start: 02-05-2025 End: 02-05-2025 Patient encounter procedure Sai Foss TOE CLOSING MACHINE TENDER-C -[facility] Work Phone: Start: 02-05-2025 End: 02-05-2025 ambulatory Sai Foss TOE CLOSING MACHINE TENDER Facility:[facility] Start: 2025 End: 2025 Patient encounter procedure Sai Foss TOE CLOSING MACHINE TENDER-C -[facility] Work Phone: Start: 2025 End: [address] Marisela Nelson MD Work Phone: [facility] Start: 01-10-2025 End: 01-10-2025 Patient encounter procedure Veronica Cabrera CNM -[facility] Work Phone: Start: 01-10-2025 End: 01-10-[address] Marisela Nelson MD Work Phone: [facility] Start: 01-10-2025 End: 01-10-2025 ambulatory Marisela Nelson Facility:[facility] Start: 12-20-2024 End: 12-20-[address] Marisela Nelson MD -[facility] Work Phone: Start: 12-20-2024 End: 12-20-[address] Marisela Nelson MD Work Phone: [facility] Start: 11-22-2024 End: 11-22-2024 Patient encounter procedure Veronica Cabrera CNM -[facility] Work Phone: Start: 11-22-2024 End: 11-22-[address] Marisela Nelson MD Work Phone: [facility] Start: 11-12-2024 End: 11-12-2024 ambulatory MD IBARRA [facility] Start: 10-24-2024 End: 10-24-[address] Rachele Llanes DO -[facility] Work Phone: Start: 10-24-2024 End: 10-24-[address] Marisela Nelson MD Work Phone: -[facility] Start: 10-01-2024 End: 10-01-2024 Office outpatient new 45 minutes Louann Hager MD Work Phone: [facility] Comment on above: Encounter to [facility] (Primary Dx); Anxiety and depression; Injury of left toe, initial encounter; 13 weeks gestation of ([facility] Start: 10-01-2024 End: 10-01-2024 ambulatory LOUANN Hunt BLANCA [facility] Ambulatory Start: 09-24-2024 End: 09-24-2024 Patient encounter procedure Sai GASCA -[facility] Work Phone: Start: 09-24-2024 End: 09-24-[address] Marisela Nelson MD Work Phone: [facility] Work Phone: Start: 09-03-2024 End: 09-03-[address] Rachele Llanes DO [facility] Start: 09-03-2024 End: 09-03-2024 ambulatory Rachele Llanes Facility:[facility] Start: 08-30-2024 End: 08-30-[address] Marisela Nelson MD Work Phone: [facility] Work Phone: Start: 08-30-2024 End: 08-30-[address] Marisela Nelson MD -Laboratory Specimen Work Phone: Start: 08-30-2024 End: 08-30-[address] Rachele Llanes DO -[facility] Work Phone: Start: 08-30-2024 End: 08-30-2024 ambulatory Rachele Llanes [facility] Work Phone: Start: 08-30-2024 End: 08-30-2024 ambulatory Marisela Nelson Facility:[facility] Start: 08-06-2024 End: 08-06-[address] Marisela Nelson MD -[facility] Work Phone: Start: 08-06-2024 End: 08-06-2024 ambulatory Marisela Nelson Facility:[facility] Start: 07-04-2024 End: 07-04-2024 ambulatory Merissa Linton EQUITY SALES ASSISTANT-GAME AGENT Facility: [facility] Start: 01-18-2024 End: 01-18-2024 ambulatory Mary Vaca EQUITY SALES ASSISTANT-GAME AGENT Facility:[facility] Start: 10-03-2023 End: 10-03-2023 Office outpatient visit 10 minutes ALICIA Kohler DPM Work Phone: [facility] Comment on above: Ingrown nail (Primar y Dx); Paronychia of great toe; Toe pain, left Start: 10-03-2023 End: 10-03-2023 ambulatory MERISSA LINTON [facility] Start: 09-29-2023 Orders Only ALICIA Kohler DPM Work Phone: [facility] Start: 09-19-2023 End: 09-19-2023 Office outpatient new 30 minutes ALICIA Kohler DPM Work Phone: [facility] Comment on above: Ingrown nail (Primar y Dx); Toe abscess, left; Paronychia of great toe; Toe pain, left Start: 09-19-2023 End: 09-19-2023 ambulatory GILBERTO KOHLER [facility] Ambulatory Start: 04-18-2022 End: 04-18-2022 ambulatory [facility] Start: 04-18-2022 End: 04-18-2022 Encounter for general adult medical examination without abnormal findings [facility] Start: 03-31-2021 End: 03-31-2021 ambulatory [facility] Start: 07-08-2020 End: 07-12-2020 Patient encounter procedure [facility] Procedures Date Procedure Procedure Detail Performing Clinician [...] HCV Quant by PCR testing - HCVPCR [id number] Non Reactive: < 0.8 Equivocal: >/= 0.8 [...] or Population) (1 - 1-dose 75+ series) [facility] Start: 2047 Zoster Vaccines (1 of 2) Zoster Vaccines (1 of 2) [facility] Start: 01-15-2027 Screening for malignant neoplasm of cervix [facility] Start: 10-02-2025 End: 10-02-2025 Patient encounter procedure 10/02/2025 10:20 AM EDT Office Visit [facility] [address] [id number] Louann Hager MD [address] [facility] Start: 02-21-2025 Patient encounter procedure Registered Clinical -Lab [facility] Start: 02-20-2025 Ultrasound scan for growth OB Limited With Biometrics [facility] Start: 02-20-2025 Patient encounter procedure Registered Clinical -Ultrasound [facility] Work Phone: Start: 02-17-2025 End: 02-17-2025 Patient encounter procedure Depression -[facility] Work Phone: Start: 02-12-2025 Patient encounter procedure Registered Clinical -Lab [facility] Start: 12-16-2024 Influenza vaccination Influenza Vaccine (Season Ended) [facility] Start: 12-17-2023 COVID-19 Vaccine ( season) COVID-19 Vaccine ( season) [facility] Start: 12-17-2023 Influenza vaccination Influenza Vaccine (Season Ended) [facility] Start: 10-03-2023 End: 10-03-2023 Patient encounter procedure 10/03/2023 7:45 AM EDT Office Visit [facility] [address] [place] [id number] ALICIA Kohler, DPM [address] [place] [address] [facility] Start: 12-16-2022 COVID-19 Vaccine ( season) COVID-19 Vaccine ( season) [facility] Start: 2019 DTaP/Tdap/Td Vaccines (1 - Tdap) DTaP/Tdap/Td Vaccines (1 - Tdap) [facility] Start: 2018 Screening for malignant neoplasm of cervix Pap Smear [facility] Start: 01-24-2016 Hepatitis B Vaccines (1 of 3 - 19+ 3-dose series) Hepatitis B Vaccines (1 of 3 - 19+ 3-dose series) [facility] Start: 2015 Diabetes mellitus screening Diabetes Screening [facility] Start: 2015 Hepatitis C screening Hepatitis C Screening [facility] Start: 01-24-2012 HIV screening HIV Screening [facility] Start: 2009 Depression screening using PHQ-9 (Patient Health Questionnaire 9) score Depression Screening (PHQ-2/9) [facility] Start: 01-24-2000 History and physical examination, annual for health maintenance Wellness Visit [facility] Start: 1998 MMR Vaccines (1 of 1 - Standard series) MMR Vaccines (1 of 1 - Standard series) [facility] Start: 1997 Lipid panel Lipid Panel [facility] Start: 1997 Tetanus vaccination Tetanus: Every 10yrs [facility] Start: 1997 Yearly Adult Physical Yearly Adult Physical [facility] CBC W Auto Different ial panel - Blood [facility] CBC W Auto Different ial panel - Blood [facility] Chlamydia deoxyribon ucleic acid detection [facility] Hemoglobin A1c/Hemoglobin.total in Blood [facility] Hepatitis C antibody measurement [facility] Measurement of gluco se 2 hours after glucose challenge for glucose tolerance test [facility] Rubella IgG measurement [facility] Serologic test for syphilis [facility] Serologic test for syphilis [facility] Immunizations Immunization Date Immunization Notes Care Provider Fa [place] 2025 influenza, injectabl e, madin darwin canine kidney, preservative free Dr. Marisela Nelson MD Work Phone: [facility] 01-10-2025 tetanus toxoid, reduced diphtheria toxoid, and acellular pertussis vaccine, adsorbed Dr. Marisela Nelson MD Work Phone: [facility] Payers Date Payer Category Payer Self-pay 2024 Managed Care (Private) [facility] [id number] 2024 Private Health Insurance 2023 Unknown [id number] 2020 Unknown [id number]. 1.13.385. [id number] 2020 Unknown [id number] 1997 Unknown [id number] 2.16.840.1.661486.3.579. 2.903 1997 Unknown [id number] 2.16.840.1.685554.3.579. 2.903 1997 Unknown [id number] 2.16.840.1.501797.3.579. 2.903 1997 Unknown [id number] 2.16.840.1.887330.3.579. 2.903 1997 Unknown [id number] 2.16.840.1.653946.3.579. 2.196 1997 Unknown [id number] 2.16.840.1.398842.3.579. 2.196 1997 Unknown [id number] 2.16.840.1.266287.3.579. 2.196 1997 Unknown [id number] 2.16.840.1.838392.3.579. 2.1244 1997 Unknown [id number] 2.16.840.1.739096.3.579. 2.479 Unknown [id number] 2.16.840.1.374927.3.579. 2.462 Unknown [id number] 2.16.840.1.051476.3.579. 2.462 Unknown [id number] 2.16.840.1.026711.3.579. 2.462 Unknown [id number] 2.16.840.1.582281.3.579. 2.462 Unknown [id number] 2.16.840.1.504305.3.579. 2.462 Unknown [id number] 2.16.840.1.206804.3.579. 2.462 Unknown [id number] 2.16.840.1.782177.3.579. 2.462 Unknown [id number] 2.840.1.751595.3.579. 2.462 Unknown [id number] 2.840.1.334046.3.579. 2.462 Unknown [id number] 2.16840.1.187963.3.579. 2.462 Unknown [id number] 2.16840.1.127799.3.579. 2.462 Unknown [id number] 2.16.840.1.024485.3.579. 2.462 Unknown [id number] 2.840.1.077428.3.579. 2.462 Unknown [id number] 2.16840.1.486033.3.579. 2.462 Unknown [id number] 2.16840.1.528828.3.579. 2.462 Unknown [id number] 2.840.1.431200.3.579. 2.462 Unknown [id number] 2.16840.1.079719.3.579. 2.462 Social History Date Type Detail Facility Start: 09-19-2023 End: 08-06-2024 Tobacco smoking status NHIS Never smoked tobacco [facility] Start: 09-19-2023 End: 10-01-2024 Tobacco use and exposure Smokeless tobacco non-user [facility] Start: 09-19-2023 End: 10-03-2023 Alcohol intake Current drinker of alcohol (finding) [facility] Start: 10-24-2013 End: 10-01-2024 History of Social function [facility] Start: 10-24-2013 End: 10-01-2024 Tobacco use panel [facility] Start: 09-19-2023 Alcohol Comment social [facility] Start: 1995 Sex Assigned At Not on file [facility] Start: 09-18-2023 Gender identity Identifies as female gender (finding) [facility] Start: 1995 Sex Assigned At Female [facility] Start: 10-01-2024 Alcoholic beverage intake Lifetime non-drinker (finding) [facility] Work Phone: NEGATED: Highlighted rowStart: NINF History of tobacco use Passive smoker [facility] Functional Status Date Assessment Result Facility 10-01-2024 Patient Health [facility] ionnaire 2 item (PHQ-2) [Reported] [facility] Work Phone: Clinical Notes 09-19-2023 to 02-05-2025 Note Date & Type Note Facility 02-05-2025 Progress note [facility] 02-05-2025 Progress note Note Date/Time February 05, 2025 2:26pm [facility] [address], [address] [place] [address] OFFICE VISIT Date of Service: 02/05/25 MR#: [id number] Acct: [id number] Name: JAMIL NORRIS Maida Rep #: [id number] : 1995 Provider: CAMPOS Foss Age/Sex: 30/F Location: [facility] Status: Signed Intake Vital Signs 11/22/24 11:24 01/23/25 10:46 02/05/25 13:10 Height 5 ft 5 in 5 ft 5 in 5 ft 5 in Weight: 213 lb 6 oz BMI 35.5 BP 107/70 Pulse 112 H Intake Visit Reasons: 31 WK 5D OB Computer Tech Required: No Is patient in pain?: No Allergies ragweed pollen Allergy (Mild, Verified 02/05/25 13:09) Itching Medications ?Medication ?Instructions ?Recorded ?Confirmed ?Type sertraline 50 mg tablet 50 mg PO QDAY 07/31/2402/05 History multivit-min no.71-iron fum 28 cap PO 08/06/24 5 History mg-folate no.1 1 mg-dha 300 mg capsule (PNV-[place]) famotidine 20 mg tablet (Pepcid) 20 mg PO BID #60 tabs 12/20/24 02/05/25 Rx ondansetron 4 mg disintegrating 4 mg PO Q4H PRN nausea and 01/23/25 02/05/25 Rx tablet vomiting #60 tabs Last Menstrual Period: 06/28/24 Zika: Zika virus screening: Negative : No PFSH PFSH Medical History RhD negative Seasonal allergies Pneumonia Surgical History [place] teeth extracted Family History Grandmother Arthritis Diabetes [...] animals: dog(s) history of recent travel: Yes ([place]) out of state: Yes out of [...] 1-2 times per week duration: 30-45 minutes/day fredi/gnosticist: Yazdanism seatbelt use: always do you feel safe [...] nipt. first baby first . lives in [place]. 09/24/24 -?-?-?-?-?-?-?-?-?-?-?-?- 12w 4d 181 lb 130/82 [...] high risk , unspecified, third trimester Comment: [id number], SAMANTHA 04/04/25 Boy, name secret?(jermaine) Joshua (2) [...] Jin Signature: Date (if applicable) CC: ~ [facility] Work Phone: 1(349) 355-483310-09-2025 Progress [facility]'s [address], [address] [place] [address] OFFICE VISIT Date of Service: 01/23/25 MR#: [id number] Acct: [id number] Name: JAMIL NORRIS Rep #: [id number] : 1995 Provider: CAMPOS Foss Age/Sex: 30/F Location: [facility] Status: Signed Intake Vital Signs 11/22/24 11:24 01/10/25 11:12 01/23/25 10:45 01/23/25 10:46 Height 5 ft 5 in 5 ft 5 in 5 ft 5 in 5 ft 5 in Weight: 211 lb 1 oz BMI 35.1 BP 115/77 Intake Visit Reasons: 30wk ob Computer Tech Required: No Is patient in pain?: No Allergies ragweed pollen Allergy (Mild, Verified 01/23/25 10:45) Itching Medications ?Medication ?Instructions ?Recorded ?Confirmed ?Type sertraline 50 mg tablet 50 mg PO QDAY 07/31/2401/23 History multivit-min no.71-iron fum 28 cap PO 08/06/24 5 History mg-folate no.1 1 mg-dha 300 mg capsule (PNV-[place]) famotidine 20 mg tablet (Pepcid) 20 mg PO BID #60 tabs 12/20/24 01/23/25 Rx ondansetron 4 mg disintegrating 4 mg PO Q4H PRN nausea and 01/23/25 01/23/25 Rx tablet vomiting #60 tabs Last Menstrual Period: 06/28/24 Zika: Zika virus screening: Negative : Yes PFSH PFSH Medical History RhD negative Seasonal allergies Pneumonia Surgical History [place] teeth extracted Family History Grandmother Arthritis Diabetes [...] animals: dog(s) history of recent travel: Yes ([place]) out of state: Yes out of [...] 1-2 times per week duration: 30-45 minutes/day fredi/gnosticist: Yazdanism seatbelt use: always do you feel safe [...] nipt. first baby first . lives in [place]. 09/24/24 -?-?-?-?-?-?-?-?-?-?-?-?- 12w 4d 181 lb 130/82 [...] Og on 01/23/25 10: 57 Immunizations Flucelvax [id number] (PF) 45 mcg (15 mcg x 3)/0.5 mL IM syringe Performing Provider: Rachele Llanes DO Performing Location: [facility] Administered by: Sai Hatch on 01/23/25 10:59 Dose Route Admin Location Dispensed Lot Number Expiration Date Pack age NDC NDC Business Transformation Manager 0.5 mL IM Left Deltoid 0.5 mL [id number] 08/24/25 90205-569-84 [id number] [employer]. VIS Given Date VIS Provided VIS Publication [...] high risk , unspecified, third trimester Comment: [id number], SAMANTHA 04/04/25 Boy, name secret?(jermaine) Joshua (2) [...] tabs 2RF nausea and vomiting Sai Foss TOE CLOSING MACHINE TENDER, TOE CLOSING MACHINE TENDER-C Plan problem list reviewed and updated for most current plan of care and appropriate orders placed. Relevant counseling for the gestational age appropriate provided and ACOG education checklist updated. Continue routine care and follow up. 01/23/252104 maida Bradley DO> Date _ Rachele Llanes DO 01/23/25 1126-C> Annabel Signature: Date (if applicable) Sai Foss NP TOE CLOSING MACHINE TENDER-C CC: ~ [facility] [id number] Progress [facility] [address] [place] [address], [address] [place] [address] OFFICE VISIT Date of Service: 01/10/25 MR#: [id number] Acct: [id number] Name: JAMIL NORRIS #: [id number] : 1995 Provider: GEOVANNY Cabrera Age/Sex: 29/F Location: [facility] Status: Signed with Addenda ADDENDUM by Renetta Pina on 01/10/25 at 1205 Office Procedure Documentation entered by Renetta Pina 01/10/25 12:05: Injections Is this a patient provided medication?: No Immunizations Adacel(Tdap Adolesn/Adult)(PF) 2 Lf-(2.5-5-3-5)-5 Lf/0.5 mL IM syringe Performing Provider: Veronica Cabrera CNM Performing Location: [facility] Administered by: Renetta Pina on 01/10/25 12:03 Dose Route Admin Location Dispensed Lot Number Expiration Date Pack age [facility] Business Transformation Manager 0.5 mL IM Left Deltoid 0.5 mL [id number] 12/04/26 [id number] [employer]- PASTEUR VIS Given Date VIS Provided VIS Publication Date 01/10/25 Single Vaccine 24 Eligibility Eligibility Date Funding Source Not Applicable Office Meds RhoGAM Ultra-Filtered PLUS 1,500 unit (300 mcg) intramuscular syringe Performing Provider: Veronica Cabrera CNM Performing Location: [facility] Administered by: Renetta Pina on 01/10/25 12:03 Dose Route Admin Location Dispensed Lot Number Expiration Date Pack age ND NDC Business Transformation Manager 1,500 unit IM Left Buttock 1 ea [id number] 10/30/26 [id number] [facility] Date _ cc: ~* Signed Intake Vital Signs 11/22/24 11:24 12/20/24 10:06 01/10/25 11:12 Height 5 ft 5 in 5 ft 5 in 5 ft 5 in Weight: 206 lb 4 oz BMI 34.3 BP 127/78 H Intake Visit Reasons: 28wk ob/glucose/rhogam Chief Complaint: 28wk OB Computer Tech Required: No Is patient in pain?: No Allergies ragweed pollen Allergy (Mild, Verified 09/26/25 11:10) Itching Medications ?Medication ?Instructions ?Recorded ?Confirmed ?Type sertraline 50 mg tablet 50 mg PO QDAY 07/31/2401/10 History multivit-min no.71-iron fum 28 cap PO 08/06/24 5 History mg-folate no.1 1 mg-dha 300 mg capsule (PNV-[place]) famotidine 20 mg tablet (Pepcid) 20 mg PO BID #60 tabs 12/20/24 01/10/25 Rx Last Menstrual Period: 06/28/24 : No PFSH PFSH Medical History RhD negative Seasonal allergies Pneumonia Surgical History [place] teeth extracted Family History Grandmother Arthritis Diabetes [...] animals: dog(s) history of recent travel: Yes ([place]) out of state: Yes out of [...] 1-2 times per week duration: 30-45 minutes/day fredi/gnosticist: Yazdanism seatbelt use: always do you feel safe [...] nipt. first baby first . lives in [place]. 09/24/24 -?-?-?-?-?-?-?-?-?-?-?-?- 12w 4d 181 lb 130/82 [...] high risk , unspecified, first trimester Comment: [id number], SAMANTHA 04/04/25 Boy, name secret?(jermaine) Joshua (3) [...] Signature: Date (if applicable) CC: ~ [facility]09-05-2025 [facility] [address], [address] [place] [address] OFFICE VISIT Date of Service: 12/20/24 MR#: [id number] Acct: [id number] Name: JAMIL NORRIS Rep #: [id number] : 1995 Provider: Dr. Kendrick Nelson MD Age/Sex: 29/F Location: [facility] Status: Signed Intake Vital Signs 09/24/24 09:41 11/22/24 11:24 12/20/24 10:06 Height 5 ft 5 in 5 ft 5 in 5 ft 5 in Weight: 189 lb 2 oz 199 lb 3 oz BMI 31.4 33.1 BP 124/69 H 122/82 H Intake Visit Reasons: 25wk ob Computer Tech Required: No Is patient in pain?: No Allergies ragweed pollen Allergy (Mild, Verified 12/20/24 10:03) Itching Medications ?Medication ?Instructions ?Recorded ?Confirmed ?Type sertraline 50 mg tablet 50 mg PO QDAY 07/31/2412/20 History multivit-min no.71-iron fum 28 cap PO 08/06/24 5 History mg-folate no.1 1 mg-dha 300 mg capsule (PNV-[place]) famotidine 20 mg tablet (Pepcid) 20 mg PO BID #60 tabs 12/20/24 12/20/24 Rx Last Menstrual Period: 06/28/24 Zika: Zika virus screening: Negative : No PFSH PFSH Medical History RhD negative Seasonal allergies Pneumonia Surgical History [place] teeth extracted Family History Grandmother Arthritis Diabetes [...] animals: dog(s) history of recent travel: Yes ([place]) out of state: Yes out of [...] 1-2 times per week duration: 30-45 minutes/day fredi/gnosticist: Yazdanism seatbelt use: always do you feel safe [...] nipt. first baby first . lives in [place]. 09/24/24 -?-?-?-?-?-?-?-?-?-?--?-?- 12w 4d 181 lb 130/82 [...] high risk , unspecified, first trimester Comment: [id number], SAMANTHA 04/04/25 Boy, name secret?(jermaine) Joshua (3) [...] kirt ROBERTO> Date _ Marisela Nelson MD [facility] Signature: Date (if applicable) CC: ~ [facility]08-08-2025 Evaluation note* Diagnosis Onset Date [...] date discrepanc y acute February 17 11:37am [facility] Work Phone: 1(511) 817-715208-08-2025 [facility] [address] [place] [address], [address] [place] [address] OFFICE VISIT Date of Service: 11/22/24 MR#: [id number] Acct: [id number] Name: JAMIL NORRIS Rep #: [id number] : 1995 Provider: GEOVANNY Cabrera Age/Sex: 29/F Location: [facility] Status: Signed Intake Vital Signs 08/30/24 14:15 10/24/24 10:52 11/22/24 11:24 Height 5 ft 5 in 5 ft 5 in 5 ft 5 in Weight: 189 lb 2 oz BMI 31.4 BP 124/69 H Intake Visit Reasons: 21wk ob Chief Complaint: 21wk OB Computer Tech Required: No Is patient in pain?: No Allergies ragweed pollen Allergy (Mild, Verified 11/22/24 11:22) Itching Medications ?Medication ?Instructions ?Recorded ?Confirmed ?Type sertraline 50 mg tablet 50 mg PO QDAY 07/31/2411/22 History multivit-min no.71-iron fum 28 cap PO 08/06/24 5 History mg-folate no.1 1 mg-dha 300 mg capsule (PNV-[place]) Last Menstrual Period: 06/28/24 : No PFSH PFSH Medical History RhD negative Seasonal allergies Pneumonia Surgical History [place] teeth extracted Family History Grandmother Arthritis Diabetes [...] animals: dog(s) history of recent travel: Yes ([place]) out of state: Yes out of [...] 1-2 times per week duration: 30-45 minutes/day fredi/gnosticist: Yazdanism seatbelt use: always do you feel safe [...] nipt. first baby first . lives in [place]. 09/24/24 -?-?-?-?-?-?-?-?-?-?-?-?- 12w 4d 181 lb 130/82 [...] high risk , unspecified, first trimester Comment: [id number], SAMANTHA 04/04/25 Boy, Joshua (3) Depression: Status: [...] Signature: Date (if applicable) CC: ~ [facility]07-10-2025 Evaluation note* Diagnosis Onset Date [...] Supervision of high-risk acute January 23 10:54am [facility] Work Phone: 1(620) 788-753106-17-2025 History of Present illness Narrative* Louann Hager [...] initial encounter 4. 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 Louann Hager MD documented in this [facility] Work Phone: 1(898) 788-716306-10-2025 Evaluation note* Diagnosis Onset Date Resolution Status [...] of high-risk acute January 10, 2025 11:08am [facility] Work Phone: 1(382) 913-193806-10-2025 [facility] [address] [place] [address], [address] [place] [address] OFFICE VISIT Date of Service: 09/24/24 MR#: [id number] Acct: [id number] Name: JAMIL NORRIS Rep #: [id number] : 1995 Provider: CAMPOS Foss Age/Sex: 29/F Location: [facility] Status: Signed Intake Vital Signs 08/06/24 09:57 08/30/24 14:15 09/24/24 09:41 Height 5 ft 5 in 5 ft 5 in 5 ft 5 in Weight: 181 lb BMI 30.1 BP 130/82 H Intake Visit Reasons: 12 WK OB Chief Complaint: 12 Week OB Computer Tech Required: No Is patient in pain?: No Allergies ragweed pollen Allergy (Mild, Verified 09/24/24 09:43) Itching Medications ?Medication ?Instructions ?Recorded ?Confirmed ?Type sertraline 50 mg tablet 50 mg PO QDAY 07/31/2409/24 History multivit-min no.71-iron fum 28 cap PO 08/06/24 5 History mg-folate no.1 1 mg-dha 300 mg capsule (PNV-[place]) Last Menstrual Period: 06/28/24 Zika: Zika virus screening: Negative : No PFSH PFSH Medical History RhD negative Seasonal allergies Pneumonia Surgical History [place] teeth extracted Family History Grandmother Arthritis Diabetes [...] animals: dog(s) history of recent travel: Yes ([place]) out of state: Yes out of [...] 1-2 times per week duration: 30-45 minutes/day fredi/gnosticist: Yazdanism seatbelt use: always do you feel safe [...] nipt. first baby first . lives in [place]. 09/24/24 -?-?-?-?-?-?-?-?-?-?-?-?- 12w 4d 181 lb 130/82 [...] high risk , unspecified, first trimester Comment: [id number], SAMANTHA 04/04/25 Boy, Joshua (2) : Status: [...] care and follow up. 09/24/24 1004 s TOE CLOSING MACHINE TENDER TOE CLOSING MACHINE TENDER-C> Date _ Sai Foss TOE CLOSING MACHINE TENDER TOE CLOSING MACHINE TENDER-C Cosigner Signature: Date (if applicable) CC: ~ [facility]05-16-2025 Evaluation note* Diagnosis Onset Date [...] of high-risk acute December 20, 025 9:58am [facility] Work Phone: 1([phone]) 501-616805-16-2025 [facility] [address] [place] [address], [address] [place] [id number] OFFICE VISIT Date of Service: 08/30/24 MR#: [id number] Acct: [id number] Name: JAMIL NORRIS Rep #: [id number] : 1995 Provider: Dr. Yumiko Llanes DO Age/Sex: 29/F Location: [facility] Status: Signed Intake Vital Signs 08/06/24 09:57 08/30/24 14:13 08/30/24 14:15 Height 5 ft 5 in 5 ft 5 in 5 ft 5 in Weight: 182 lb 8 oz BMI 30.3 BP 127/81 H Intake Visit Reasons: New OB, LMP 06/28, SAMANTHA 04/04, first baby Computer Tech Required: No Is patient in pain?: No Allergies ragweed pollen Allergy (Mild, Verified 08/30/24 14:12) Itching Medications ?Medication ?Instructions ?Recorded ?Confirmed ?Type sertraline 50 mg tablet 50 mg PO QDAY 07/31/2408/30 History multivit-min no.71-iron fum 28 cap PO 08/06/24 5 History mg-folate no.1 1 mg-dha 300 mg capsule (PNV-[place]) Last Menstrual Period: 06/28/24 Zika: Zika virus screening: Negative : No PFSH PFSH Medical History Seasonal allergies Pneumonia Surgical History [place] teeth extracted Family History Grandmother Arthritis Diabetes [...] animals: dog(s) history of recent travel: Yes ([place]) out of state: Yes out of [...] 1-2 times per week duration: 30-45 minutes/day fredi/gnosticist: Yazdanism seatbelt use: always do you feel safe [...] nipt. first baby first . lives in [place]. Menstrual History Last Menstrual Period: 06/28/24 Reported [...] transfusions, D (Rh) Sensitized, Pulmonary (e.g.,TB,Asthma), Breast, Gas Meter Prover surgery, Anesthetic complications, History of abnormal pap [...] comfortable and no acute distress Orientation: alert [facility] Head: normal to inspection, normocephalic [...] Herring Signature: Date (if applicable) CC: ~ [facility]05-16-2025 Progress note Author Rachele Bradley [facility] Note Date/Time August 30, 2024 3:04p m [facility]'s [address], [address] [place] [address] OFFICE VISIT Date of Service: 08/30/24 MR#: [id number] Acct: [id number] Name: JAMIL NORRIS Rep #: [id number] : 1995 Provider: Dr. Yumiko Llanes DO Age/Sex: 29/F Location: [facility] Status: Signed Intake Vital Signs 08/06/24 09:57 08/30/24 14:13 08/30/24 14:15 Height 5 ft 5 in 5 ft 5 in 5 ft 5 in Weight: 182 lb 8 oz BMI 30.3 BP 127/81 H Intake Visit Reasons: New OB, LMP 06/28, SAMANTHA 04/04, first baby Computer Tech Required: No Is patient in pain?: No Allergies ragweed pollen Allergy (Mild, Verified 08/30/24 14:12) Itching Medications ?Medication ?Instructions ?Recorded ?Confirmed ?Type sertraline 50 mg tablet 50 mg PO QDAY 07/31/2408/30 History multivit-min no.71-iron fum 28 cap PO 08/06/24 5 History mg-folate no.1 1 mg-dha 300 mg capsule (PNV-[place]) Last Menstrual Period: 06/28/24 Zika: Zika virus screening: Negative : No PFSH PFSH Medical History Seasonal allergies Pneumonia Surgical History [place] teeth extracted Family History Grandmother Arthritis Diabetes [...] animals: dog(s) history of recent travel: Yes ([place]) out of state: Yes out of [...] 1-2 times per week duration: 30-45 minutes/day fredi/gnosticist: Yazdanism seatbelt use: always do you feel safe [...] nipt. first baby first . lives in [place]. Menstrual History Last Menstrual Period: 06/28/24 Reported [...] transfusions, D (Rh) Sensitized, Pulmonary (e.g.,TB,Asthma), Breast, Gas Meter Prover surgery, Anesthetic complications, History of abnormal pap [...] Signature: Date (if applicable) CC: ~ [facility] Work Phone: 1(364) 475-471504-22-2025 Evaluation note* Diagnosis Onset Date Resolution Status Admit Date Depression acute August 06 8:59am Obesity affecting acute August 06, 2024 8:59am acute August 06 8:59am Supervision of high-risk acute August 06, 2024 8:59am Depression acute August 30, 2024 2:06pm Obesity affecting acute August 30, 2024 2:06pm acute August 30, 2024 2:06pm Supervision of high-risk acute August 30, 2024 2 :06pm [facility] Work Phone: 1(231) 529-911704-22-2025 Evaluation note* Diagnosis Onset Date Resolution Status [...] high-risk acute September 24, 2024 9:37am [facility] Work Phone: 1(343) 260-623404-22-2025 Evaluation note* Diagnosis Onset Date Resolution Status [...] of high-risk acute October 24, 2024 10:49am [facility] Work Phone: 1(114) 304-208304-22-2025 Evaluation note* Diagnosis Onset Date Resolution Status [...] of high-risk acute November 22, 2024 11:20am [facility] Work Phone: 1(443) 743-554306-18-2024 NoteEstablished Patient Visit ALICIA Kohler DPM Patient [...] AUTHENTICATED BY GILBERTO KOHLER II, ON 10/03/2023 08:09:29[facility]06-18-2024 History of Present illness Narrative* [...] Foot & Ankle Surgery documented in this [id number] NoteNEW Patient Visit ALICIA Kohler DPM Patient [...] where the nail was split with an Japanese anvil distally to approximately 3 mm off [...] subject to errors includi (more content not included)...[facility]06-04-2024 History of Present illness Narrative* ALICIA [...] where the nail was split with an Japanese anvil distally to approximately 3 mm off [...] toe, initial encounter 13 weeks gestation of ([facility]) documented in this encounter [facility] Work Phone: Progress note Author Sai Foss [facility] Note Date/Time September 24, 2024 10:0 4am [facility] [address] [place] [address], [address] [place] [address] OFFICE VISIT Date of Service: 09/24/24 MR#: [id number] Acct: [id number] Name: JAMIL NORRIS Maida Rep #: [id number] : 1995 Provider: CAMPOS Foss Age/Sex: 29/F Location: [facility] Status: Signed Intake Vital Signs 08/06/24 09:57 08/30/24 14:15 09/24/24 09:41 Height 5 ft 5 in 5 ft 5 in 5 ft 5 in Weight: 181 lb BMI 30.1 BP 130/82 H Intake Visit Reasons: 12 WK OB Chief Complaint: 12 Week OB Computer Tech Required: No Is patient in pain?: No Allergies ragweed pollen Allergy (Mild, Verified 09/24/24 09:43) Itching Medications ?Medication ?Instructions ?Recorded ?Confirmed ?Type sertraline 50 mg tablet 50 mg PO QDAY 07/31/2409/24 History multivit-min no.71-iron fum 28 cap PO 08/06/24 5 History mg-folate no.1 1 mg-dha 300 mg capsule (PNV-[place]) Last Menstrual Period: 06/28/24 Zika: Zika virus screening: Negative : No PFSH PFSH Medical History RhD negative Seasonal allergies Pneumonia Surgical History [place] teeth extracted Family History Grandmother Arthritis Diabetes [...] animals: dog(s) history of recent travel: Yes ([place]) out of state: Yes out of [...] 1-2 times per week duration: 30-45 minutes/day fredi/gnosticist: Yazdanism seatbelt use: always do you feel safe [...] nipt. first baby first . lives in [place]. 09/24/24 -?-?-?-?-?-?-?-?-?-?-?-?- 12w 4d 181 lb 130/82 [...] high risk , unspecified, first trimester Comment: [id number], SAMANTHA 04/04/25 Boy, Joshua (2) : Status: [...] 09/24/24 1004 <Electronically signed by Sai loza TOE CLOSING MACHINE TENDER TOE CLOSING MACHINE TENDER-C> Date _ Sai Foss TOE CLOSING MACHINE TENDER TOE CLOSING MACHINE TENDER-C Cosigner Signature: Date (if applicable) CC: ~ [facility] Work Phone: Progress note Author Veronica Cabrera [facility] Note Date/Time November 22, 2024 11: 45am [facility] [address] [place] [address], [address] [place] [address] OFFICE VISIT Date of Service: 11/22/24 MR#: [id number] Acct: [id number] Name: JAMIL NORRIS Rep #: [id number] : 1995 Provider: GEOVANNY Cabrera Age/Sex: 29/F Location: [facility] Status: Signed Intake Vital Signs 08/30/24 14:15 10/24/24 10:52 11/22/24 11:24 Height 5 ft 5 in 5 ft 5 in 5 ft 5 in Weight: 189 lb 2 oz BMI 31.4 BP 124/69 H Intake Visit Reasons: 21wk ob Chief Complaint: 21wk OB Computer Tech Required: No Is patient in pain?: No Allergies ragweed pollen Allergy (Mild, Verified 11/22/24 11:22) Itching Medications ?Medication ?Instructions ?Recorded ?Confirmed ?Type sertraline 50 mg tablet 50 mg PO QDAY 07/31/2411/22 History multivit-min no.71-iron fum 28 cap PO 08/06/24 5 History mg-folate no.1 1 mg-dha 300 mg capsule (PNV-[place]) Last Menstrual Period: 06/28/24 : No PFSH PFSH Medical History RhD negative Seasonal allergies Pneumonia Surgical History [place] teeth extracted Family History Grandmother Arthritis Diabetes [...] animals: dog(s) history of recent travel: Yes ([place]) out of state: Yes out of [...] 1-2 times per week duration: 30-45 minutes/day fredi/gnosticist: Yazdanism seatbelt use: always do you feel safe [...] nipt. first baby first . lives in [place]. 09/24/24 -?-?-?-?-?-?-?-?-?-?-?-?- 12w 4d 181 lb 130/82 [...] high risk , unspecified, first trimester Comment: [id number], SAMANTHA 04/04/25 Boy, Joshua (3) Depression: Status: [...] this visit. [place] appropriate handout given. 11/22/24 1148 <Electronically signed by Veronica loza CNM> Date _ Veronica Cabrera CNM Cosigner Signature: Date (if applicable) CC: ~ [facility] Work Phone: Progress note Author Marisela Nelson [facility] Note Date/Time December 20, 2024 10:32am [facility] [address] [place] [address], [address] [place] [address] OFFICE VISIT Date of Service: 12/20/24 MR#: [id number] Acct: [id number] Name: JAMIL NORRIS Rep #: [id number] : 1995 Provider: Dr. Kendrick Nelson MD Age/Sex: 29/F Location: [facility] Status: Signed Intake Vital Signs 09/24/24 09:41 11/22/24 11:24 12/20/24 10:06 Height 5 ft 5 in 5 ft 5 in 5 ft 5 in Weight: 189 lb 2 oz 199 lb 3 oz BMI 31.4 33.1 BP 124/69 H 122/82 H Intake Visit Reasons: 25wk ob Computer Tech Required: No Is patient in pain?: No Allergies ragweed pollen Allergy (Mild, Verified 12/20/24 10:03) Itching Medications ?Medication ?Instructions ?Recorded ?Confirmed ?Type sertraline 50 mg tablet 50 mg PO QDAY 07/31/2412/20 History multivit-min no.71-iron fum 28 cap PO 08/06/24 5 History mg-folate no.1 1 mg-dha 300 mg capsule (PNV-[place]) famotidine 20 mg tablet (Pepcid) 20 mg PO BID #60 tabs 12/20/24 12/20/24 Rx Last Menstrual Period: 06/28/24 Zika: Zika virus screening: Negative : No PFSH PFSH Medical History RhD negative Seasonal allergies Pneumonia Surgical History [place] teeth extracted Family History Grandmother Arthritis Diabetes [...] animals: dog(s) history of recent travel: Yes ([place]) out of state: Yes out of [...] 1-2 times per week duration: 30-45 minutes/day fredi/gnosticist: Yazdanism seatbelt use: always do you feel safe [...] nipt. first baby first . lives in [place]. 09/24/24 -?-?-?-?-?-?-?-?-?-?--?-?- 12w 4d 181 lb 130/82 [...] high risk , unspecified, first trimester Comment: [id number], SAMANTHA 04/04/25 Boy, name secret?(jermaine) Joshua (3) [...] Signature: Date (if applicable) CC: ~ [facility] Work Phone: Progress note Author Veronica Cabrera [facility] Note Date/Time January 10, 2025 11:52am [facility] [address], [place] [address] OFFICE VISIT Date of Service: 01/10/25 MR#: [id number] Acct: [id number] Name: JAMIL NORRIS Rep #: [id number] : 1995 Provider: GEOVANNY Cabrera Age/Sex: 29/F Location: [facility] Status: Signed with Addenda ADDENDUM by Renetta Pina on 01/10/25 at 1205 Office Procedure Documentation entered by Renetta Pina 01/10/25 12:05: Injections Is this a patient provided medication?: No Immunizations Adacel(Tdap Adolesn/Adult)(PF) 2 Lf-(2.5-5-3-5)-5 Lf/0.5 mL IM syringe Performing Provider: Veronica Cabrera CNM Performing Location: [facility] Administered by: Renetta Pina on 01/10/25 12:03 Dose Route Admin Location Dispensed Lot Number Expiration Date Pack age NDC NDC Business Transformation Manager 0.5 mL IM Left Deltoid 0.5 mL [id number] 12/04/26 86392-629-84 [id number] [employer]- PASTEUR VIS Given Date VIS Provided VIS Publication Date 01/10/25 Single Vaccine 24 Eligibility Eligibility Date Funding Source Not Applicable Office Meds RhoGAM Ultra-Filtered PLUS 1,500 unit (300 mcg) intramuscular syringe Performing Provider: Veronica Cabrera CNM Performing Location: [facility] Administered by: Renetta Pina on 01/10/25 12:03 Dose Route Admin Location Dispensed Lot Number Expiration Date Pack age NDC NDC Business Transformation Manager 1,500 unit IM Left Buttock 1 ea [id number] 10/30/26 39899-893-35 [id number] [employer] Date _ cc: ~* Signed Intake Vital Signs 11/22/24 11:24 12/20/24 10:06 01/10/25 11:12 Height 5 ft 5 in 5 ft 5 in 5 ft 5 in Weight: 206 lb 4 oz BMI 34.3 BP 127/78 H Intake Visit Reasons: 28wk ob/glucose/rhogam Chief Complaint: 28wk OB Computer Tech Required: No Is patient in pain?: No Allergies ragweed pollen Allergy (Mild, Verified 01/10/25 11:10) Itching Medications ?Medication ?Instructions ?Recorded ?Confirmed ?Type sertraline 50 mg tablet 50 mg PO QDAY 07/31/2401/10 History multivit-min no.71-iron fum 28 cap PO 08/06/24 5 History mg-folate no.1 1 mg-dha 300 mg capsule (PNV-[place]) famotidine 20 mg tablet (Pepcid) 20 mg PO BID #60 tabs 12/20/24 01/10/25 Rx Last Menstrual Period: 06/28/24 : No PFSH PFSH Medical History RhD negative Seasonal allergies Pneumonia Surgical History [place] teeth extracted Family History Grandmother Arthritis Diabetes [...] animals: dog(s) history of recent travel: Yes ([place]) out of state: Yes out of [...] 1-2 times per week duration: 30-45 minutes/day fredi/gnosticist: Yazdanism seatbelt use: always do you feel safe [...] nipt. first baby first . lives in [place]. 09/24/24 -?-?-?-?-?-?-?-?-?-?-?-?- 12w 4d 181 lb 130/82 [...] high risk , unspecified, first trimester Comment: [id number], SAMANTHA 04/04/25 Boy, name secret?(jermaine) Joshua (3) [...] this visit. [place] appropriate handout given. 01/10/25 1150 <Electronically signed by Veronica loza CNM> Date _ Veronica Cabrera CNM Cosigner Signature: Date (if applicable) CC: ~ [facility] Work Phone: Progress note Author Rachele Bradley [facility] Note Date/Time 2025 11 :10am [facility] [address] [place] [address], [address] [place] [address] OFFICE VISIT Date of Service: 01/23/25 MR#: [id number] Acct: [id number] Name: JAMIL NORRIS Rep #: [id number] : 1995 Provider: CAMPOS Foss Age/Sex: 30/F Location: [facility] Status: Signed Intake Vital Signs 11/22/24 11:24 01/10/25 11:12 01/23/25 10:45 01/23/25 10:46 Height 5 ft 5 in 5 ft 5 in 5 ft 5 in 5 ft 5 in Weight: 211 lb 1 oz BMI 35.1 BP 115/77 Intake Visit Reasons: 30wk ob Computer Tech Required: No Is patient in pain?: No Allergies ragweed pollen Allergy (Mild, Verified 01/23/25 10:45) Itching Medications ?Medication ?Instructions ?Recorded ?Confirmed ?Type sertraline 50 mg tablet 50 mg PO QDAY 07/31/2401/23 History multivit-min no.71-iron fum 28 cap PO 08/06/24 5 History mg-folate no.1 1 mg-dha 300 mg capsule (PNV-[place]) famotidine 20 mg tablet (Pepcid) 20 mg PO BID #60 tabs 12/20/24 01/23/25 Rx ondansetron 4 mg disintegrating 4 mg PO Q4H PRN nausea and 01/23/25 01/23/25 Rx tablet vomiting #60 tabs Last Menstrual Period: 06/28/24 Zika: Zika virus screening: Negative : Yes PFSH PFSH Medical History RhD negative Seasonal allergies Pneumonia Surgical History [place] teeth extracted Family History Grandmother Arthritis Diabetes [...] animals: dog(s) history of recent travel: Yes ([place]) out of state: Yes out of [...] 1-2 times per week duration: 30-45 minutes/day fredi/gnosticist: Yazdanism seatbelt use: always do you feel safe [...] nipt. first baby first . lives in [place]. 09/24/24 -?-?-?-?-?-?-?-?-?-?-?-?- 12w 4d 181 lb 130/82 [...] Og on 01/23/25 10: 57 Immunizations Flucelvax [id number] (PF) 45 mcg (15 mcg x 3)/0.5 mL IM syringe Performing Provider: Rachele Llanes DO Performing Location: [facility] Administered by: Sai Hatch on 01/23/25 10:59 Dose Route Admin Location Dispensed Lot Number Expiration Date Pack age NDC NDC Business Transformation Manager 0.5 mL IM Left Deltoid 0.5 mL [id number] 08/24/25 40661-022-95 [id number] [employer] VIS Given Date VIS Provided [...] high risk , unspecified, third trimester Comment: [id number], SAMANTHA 04/04/25 Boy, name secret?(jermaine) Joshua (2) [...] tabs 2RF nausea and vomiting Sai Foss TOE CLOSING MACHINE TENDER, TOE CLOSING MACHINE TENDER-C Plan problem list reviewed and updated for most current plan of care and appropriate orders placed. Relevant counseling for the gestational age appropriate provided and ACOG education checklist updated. Continue routine care and follow up. 01/23/252104 <Electronically signed by Rachele Reilly DO> Date _ Rachele Llanes DO 01/23/25 1126<Electronically signed by Sai Foss TOE CLOSING MACHINE TENDER TOE CLOSING MACHINE TENDER -C> Cosigner Signature: Date (if applicable) Sai Foss NP TOE CLOSING MACHINE TENDER-C CC: ~ [facility] Work Phone: Reason for referral (narrative)No reason for referral information availableK[facility] Work Phone: Summary Purpose Family [...] December 20, 2024 9:58am [facility] 2024 9:58am Depression January 10, 2025 11:08am Obesity affecting January 102024 11:08am January 10, 2025 11:08am RhD negative January 10, 2025 11:08am Supervision of high-risk [facility] 2024 11:08am Chief Complaint Admit Date 16w6d [...] December 20, 2024 9:58am Supervision of high-risk [facility] 2024 9:58am Depression January 10, 2025 11:08am Obesity affecting January 102024 11:08am January 10, 2025 11:08am RhD negative January 10, 2025 11:08am Supervision of high-risk [place] 2024 11:08am Depression 2025 10 :54am Obesity [...] December 20, 2024 9:58am [facility] 2024 9:58am Depression January 10, 2025 11:08am Obesity affecting January 102024 11:08am January 10, 2025 11:08am RhD negative January 10, 2025 11:08am Supervision of high-risk [place] [facility] 2024 11:08am Depression 2025 10 :54am Obesity [...] section and content) DATE CREATED AUTHOR 07/12/2020 [facility] DATE CREATED AUTHOR AUTHOR'S ORGANIZ ATION [facility] DATE CREATED AUTHOR AUTHOR'S ORGANIZ ATION 04/18/2022 [facility] DATE CREATED AUTHOR AUTHOR'S ORGANIZ ATION 10/04/2023 [facility] DATE CREATED AUTHOR AUTHOR'S ORGANIZ ATION 07/05/2024 [facility] DATE CREATED AUTHOR AUTHOR'S ORGANIZ ATION 10/04/2024 [facility] DATE CREATED AUTHOR AUTHOR'S ORGANIZ ATION 11/13/2024 [facility] DATE CREATED AUTHOR AUTHOR'S ORGANIZ ATION 02/22/2025 [facility] Reason for Visit (unrecogniz ed section and content) Reason Comments Ingrown Toenail Lateral border; ongo ing about a week and a half Reason Comments Follow-up S/p Left grt toenail . Slight pain, doing well. Reason Comments New Patient Visit Toe injury, loose st ool, Care Teams (unrecognized sec tion and content) Production Laborer Relationship Specialty Start Date End Date Merissa Linton CNP [address] [place] [id number] PCP - General Nurse Practitioner 09/19/23 Production Laborer Relationship Specialty Start Date End Date eMrissa Linton CNP [address] [place] [address] PCP - General Nurse Practitioner 09/19/23 Production Laborer Relationship Specialty Start Date End Date Merissa Linton CNP [address] [place] [address] PCP - General Nurse Practitioner 09/19/23 Team [...] 2024 End: August 30, 2024 Dr. Marisela Nleson MD Referring Provider Active Start: August 30, [...] Inactive Member Role Status Dates Sai Foss TOE CLOSING MACHINE TENDER, TOE CLOSING MACHINE TENDER-C Attending Provider Active Start: September 24, 2024 End: September 24, 2024 Production Laborer Relationship Specialty Start Date End Date Louann Hager MD [address] [place] [address] PCP - General Family Medicine 10/01/24 Team [...] Member Role/Relationship Status Dates Sai Foss NP TOE CLOSING MACHINE TENDER-C Attending Provider Active Start: September 24, 2024 [...] Member Role/Relationship Status Dates Sai Foss NP TOE CLOSING MACHINE TENDER-C Attending Provider Active Start: September 24, 2024 [...] Inactive Member Role/Relationship Status Dates Sai Foss TOE CLOSING MACHINE TENDER, TOE CLOSING MACHINE TENDER-C Attending physician Active Start: September 24, 2024 [...] Status: Inactive Member Role/Relationship Status Dates Veronica Cabrrea CNM Attending physician Active Start: January 10, [...] Inactive Member Role/Relationship Status Dates Sai Foss TOE CLOSING MACHINE TENDER, TOE CLOSING MACHINE TENDER-C Attending physician Active Start: 2025 End: 2025 Team Status: Active Member Role/Relationship Status Dates Dr. Louann Hager MD Primary care physician Active Team Status: Inactive Member Role/Relationship Status Dates Sai Foss TOE CLOSING MACHINE TENDER, TOE CLOSING MACHINE TENDER-C Attending physician Active Start: February 05, 2025 End: February 05, 2025 Team Status: Inactive Member Role/Relationship Status Dates Sai Foss TOE CLOSING MACHINE TENDER, TOE CLOSING MACHINE TENDER-C Attending physician Active Start: February 07, 2025 End: February 07, 2025 Sai Foss TOE CLOSING MACHINE TENDER, TOE CLOSING MACHINE TENDER-C Referring Provider Active Start: February 07, 2025 End: February 07, 2025 Dr. Louann Hager MD Primary care physician Active Start: February 07, 2025 End: February 07, 2025 Team Status: Active Member Role/Relationship Status Dates Dr. Louann Hager MD Primary care physician Active Start: February 07, 2025 Dr. Gale Zamora MD Attending physician Active Start: February 07, 2025 Sai Foss TOE CLOSING MACHINE TENDER, TOE CLOSING MACHINE TENDER-C Referring Provider Active Start: February 07, 2025 Team Status: Active Member Role/Relationship Status Dates Dr. Louann Hager MD Primary care physician Active Start: February 12, 2025 Sai Foss TOE CLOSING MACHINE TENDER, TOE CLOSING MACHINE TENDER-C Attending physician Active Start: February 12, 2025 [...] BE BASED ON THE PRIMARY CLINICAL RECORDS. [employer] provides no warranty or guarantee of the accuracy or completeness of information in this document.
[2025-03-29] MEDS: LACTATED RINGERS 500 ML 999 ML IV (12:58)
[2025-03-29] MEDS: 0.9% Saline Lock 10 ML Syringe IV (14:32)
--- NOTE | 2025-03-29 18:11 | PN_ITS ---
Progress Note comfortable with epidural current tracing: FHT:150 Moderate variability reactive no decelerations category I tracing [employer]: 2-3 Contractions Membranes:mec fluid SVE: complete and pushing A/P: Continue with position changes Titrate pitocin per protocol Epidural per anesthesia GBS neg Anticipate Dr Nelson aware of above assessment and agrees with plan of care Assessment & Plan Assessment/Plan (1) Encounter for induction of labor: (2) LGA (large for gestational age) fetus affecting management of mother: (3) Medication administered at wrong time: (4) PVC (premature ventricular contraction): (5) Sinus tachycardia: (6) Uterine size date discrepancy : (7) Tachycardia: (8) RhD negative: (9) Supervision of high-risk : QUALIFIERS: Trimester: third trimester Qualified Code(s): O09.93 - Supervision of high risk , unspecified, third trimester (10) Depression: QUALIFIERS: Depression Type: unspecified Qualified Code(s): F32.A - Depression, unspecified (11) : QUALIFIERS: Weeks of gestation: 38 weeks Qualified Code(s): Z3A.38 - 38 weeks gestation of (12) Obesity affecting : QUALIFIERS: Trimester: first trimester Obesity type affecting : unspecified obesity Qualified Code(s): O99.211 - Obesity complic ating , first trimester Multi Select Codes Urinary/Genital Urinary/Genital CPT Codes: No Charge
--- NOTE | 2025-03-29 19:45 | OB.VAGDELI_ITS ---
Assessment & Plan (1) Vaginal delivery: COMMENT: KW IOL boy 39.0 (2) Encounter for induction of labor: (3) LGA (large for gestational age) fetus affecting management of mother: COMMENT: 94 percentile discussed IOL vs exp management plan 39 week IOL. nl GTT on repeat EFW 4000-4100g (4) Medication administered at wrong time: COMMENT: patient was given the Arexvy vaccine instead of the Abrysvo. The risk is labor but was given at 36 weeks. Patient informed that this is not FDA approved for but no defects were found in clinical trials. Patient was told that this also does not protect her baby from RSV and she will need to have her baby vaccinated after . (5) PVC (premature ventricular contraction): COMMENT: - Patient asymptomatic (6) Sinus tachycardia: COMMENT: - Patient with noted resting heart rates 90s to low 100s on average - No new or unexpected worsening exertional symptoms, able to tolerate Peloton bike exercises regularly - Resting average heart rate is still within expected range for , and not averaging higher than 115 bpm (7) Uterine size date discrepancy : COMMENT: 33w6d KHADIJAH 20 EFW 2940g 98 % AC 99% repeat glucose 02/21-normal (8) Tachycardia: COMMENT: Cardiology appointment pending (9) RhD negative: COMMENT: Fetus RHD+ on NIPT; rhogam 28 wk, pp and prn (10) Supervision of high-risk : QUALIFIERS: Trimester: third trimester Qualified Code(s): O09.93 - Supervision of high risk , unspecified, third trimester COMMENT: [id number], SAMANTHA [birth year] Boy, name secret?(jermaine) Joshua (11) Depression: QUALIFIERS: Depression Type: unspecified Qualified Code(s): F32.A - Depression, unspecified COMMENT: sertraline/stable (12) : QUALIFIERS: Weeks of gestation: 38 weeks Qualified Code(s): Z3A.38 - 38 weeks gestation of COMMENT: NIPT low risk, Carrier neg. 4/, unremarkable anatomy, consistent dates. GBS neg. (13) Obesity affecting : QUALIFIERS: Trimester: first trimester Obesity type affecting : unspecified obesity Qualified Code(s): O99.211 - Obesity complicating , first trimester COMMENT: HgbA1c Maternal Data Information SAMANTHA Calculator Estimated Delivery Date Method Current WG Current Estimate 04/04/25 LMP (Certain) 39w 1d Other Estimates 04/02/25 Ultrasound #1 39w 3d Final SAMANTHA: 04/04/25 Final SAMANTHA Source: [place] >20 weeks Gestational age: 39.1 Vaginal Delivery Maternal Presentation Maternal Presentation: Medically Indicated Induction Maternal Presentation: Presented to unit for induction of labor for suspected LGA at 39.0 weeks Type of Induction: Pitocin, Amniotomy and Cytotec Medical Reason for Induction: Other (suspected LGA) Vaginal Delivery Information Procedure Performed: Spontaneous Vaginal Delivery Surgeon/Practitioner: Veronica Cabrera Date of Procedure: 03/29/25 Pre-Procedure Diagnosis: see problem list Post-Procedure Diagnosis: same Type of anesthesia: Epidural Estimated Blood Loss: 400 Time of Delivery: 19:20 Findings Description of procedure: Progressed well to 10cm dilated and made steady progress with effective maternal pushing. Delivered the head in TIMBO presentation. The head was delivered atraumatically and no nuchal cord was identified. The anterior and posterior shoulders delivered without complication followed by the rest of the infant and the was placed on the maternal abdomen. Delayed cord clamping was employed for approximately 3 minutes. Cord was clamped and cut and gentle traction was applied to the cord and the placenta delivered spontaneously. Immediately following, it was noted to be intact with a 3 vessel cord. Uterine bleeding brisk, Methergine IM given and bleeding resolved. The perineum and vagina were inspected and noted to have a first degree laceration which was repaired with 3-0 Vicryl in the usual fashion. EBL was 400cc. Patient and infant tolerated delivery well. Apgars 7/9. Dr Nelson notified of vaginal delivery and orders reviewed. Physician agrees with current plan of care. Presentation: Vertex Amniotic Membrane Rupture Type: Artificial Amniotic Fluid Description: Lightly stained meconium Placental Delivery Description: Spontaneous Placenta Disposition: [facility] Specimen collected: No Cord Vessel Description: 3 Vessels Cord Entanglement: None Infant A Gender: Male (1 minute): 7 (5 minute): 9 Delayed Cord Clamping: Yes Ambulance Dispatcher vehicle care specialist: No Post Vaginal Deli Medications given after delivery: IV Pitocin and IM Methergin Episiotomy Description: None Laceration: 1st degree Complication Complications: No Multi Select Codes Urinary/Genital Urinary/Genital CPT Codes: 64641 Vaginal Delivery [facility]
--- NOTE | 2025-03-29 19:49 | DCINST_ITS ---
Discharge Instructions DC O2, CPAP, BIPAP needs Home O2 Discharge instructions: No Dressing / Incision Discharge Activity: Return to Normal Activity May resume sexual activity in: 6-8 weeks Dressing / Incision Call your doctor if you observe: Fever of 101 or Higher, Coldness, Increased Pain, Numbness or Tingling, Change in Color, Inability to urinate, Inability to have a bowel movement, Using more than 1 pad per hour, Shortness of breath, Dizziness, Fainting spells, Swelling in the ankles, Chest pain, Increased palpitations (irregular heartbeat), Calf discomfort and Uncontrolled pain Follow Up Care Please Follow Up With: Veronica Cabrera CNM When: Please call the office to schedule your follow up appointment in 6 weeks. If you had high blood pressure please call to schedule an appointment in 2 weeks. Test Results: Test results from this visit will be discussed in further detail at your follow- up appointment, if applicable. Discharge Plan Admission Admit Date/Time: 03/28/25 19:20 Attending Provider: Veronica Cabrera Primary Care Provider: Sidra Andres Discharge Orders/Prescriptions Prescriptions: No Action PNV-[place] 28-1-300 mg capsule PO ondansetron 4 mg tablet,disintegrating 4 mg PO Q4H PRN (Reason: nausea and vomiting) Qty: 60 2RF Abrysvo (PF) 120 mcg/0.5 mL recon soln 0.5 ml IM ONCE Qty: 1 0RF Rx Instructions: as a single dose famotidine [Pepcid] 20 mg tablet 20 mg PO BID PRN sertraline 50 mg tablet 50 mg PO QDAY Referrals / Follow Up: Sidra Andres MD [Primary Care Provider, Family Practice]
[2025-03-29] MEDS: Oxytocin 15 Units/NS 250ml 15 UNITS/250 ML IV.SOLN 83 UNITS IV (19:55)
[2025-03-30] VITALS (13 sets, daily range): BP systolic 112–136; BP diastolic 62–73; PULSE 98–115; RESP 16–18; TEMP 36.1–37.2; O2SAT 97–100
[2025-03-30] MEDS: GLYCERIN/WITCH HAZEL (TUCKS) MED..PAD 1 EACH TOPICAL (00:21)
[2025-03-30] MEDS: Rho(D) Immune Globulin 300 MCG (1500 Unit) Syringe IV (04:16)
[2025-03-30] MEDS: SELF ADMINISTRATION OF MEDS 1 EACH NOTE ×2 (07:47→12:39)
--- NOTE | 2025-03-30 08:49 | PN.OBGYN_ITS ---
Subjective Subjective Patient doing well without complaints. Tolerating PO. Ambulating and voiding without difficulty. Feeding well. Denies chest pain, shortness of breath, calf pain/swelling, fevers, chills, lightheadedness. Objective Data Objective Data Vital Signs: Vital Signs Temp Pulse Resp BP Pulse Ox O2 Del Method 97.0 F L 115 H 16 123/68 H 98 Room Air 03/30/25 07:56 03/30/25 07:56 03/30/25 07:56 03/30/25 07:56 03/30/25 07:56 03/30/25 07:56 Oxygen Delivery Method Room Air Weight: 224 lb Body Mass Index (BMI) 37.3 Intake & Output: Intake and Output for Last 24 Hours 03/28/25 03/29/25 03/30/25 23:59 23:59 23:59 Intake Total 16.65 / 16.65 3638.33 / 3638.33 Output Total 400 / 400 1000 / 1000 Balance 16.65 / 16.65 3238.33 / 3238.33 -1000 / -1000 Lab / Micro Data 03/28/25 19:50 Labs: Laboratory Results - last 24 hr 03/29/25 09:15: Screen NEGATIVE, Baby's Blood Type A POSITIVE, Baby's IGLESIA NEGATIVE 03/29/25 12:57: POC Glucose 73 L ROS Constitutional Constitutional: Reports systems reviewed and no addt'l complaints, except as documented; Denies anorexia or headache(s) Cardiovascular Cardiovascular: Reports systems reviewed and no addt'l complaints, except as documented; Denies dizziness, dyspnea, nausea or tachypnea Respiratory/Chest Respiratory/Chest: Reports systems reviewed and no addt'l complaints, except as documented; Denies cough, dyspnea, shortness of breath at rest or tachypnea Gastrointestinal Gastrointestinal: Reports systems reviewed and no addt'l complaints, except as documented; Denies abdominal pain, constipation or nausea Genitourinary Genitourinary: Reports systems reviewed and no addt'l complaints, except as documented; Denies burning urination, difficulty urinating, dysuria, urinary frequency or urinary incontinence Musculoskeletal Musculoskeletal: Reports systems reviewed and no addt'l complaints, except as documented Integumentary Integumentary: Reports systems reviewed and no addt'l complaints, except as documented Neurologic Neurologic: Reports systems reviewed and no addt'l complaints, except as documented; Denies abnormal speech, dizziness or headache(s) Psychiatric Psychiatric: Reports systems reviewed and no addt'l complaints, except as documented Endocrine Endocrinology: Reports systems reviewed and no addt'l complaints, except as documented Hematologic/Lymphatic Hematologic/Lymphatic: Reports systems reviewed and no addt'l complaints, except as documented Physical Exam Const alert, oriented x3 and no apparent distress Neck full ROM Resp normal respiratory effort, normal air movement and no retractions Effort and Inspection: able to speak in complete sentences and symmetric chest movement GI soft to palpation Bladder / Kidney Exam: bladder normal to palpation Uterus Palpation: uterus fundus firm Extremity normal to inspection and full ROM Psych mental status grossly normal, thought process normal and cooperative Assessment & Plan (1) Vaginal delivery: COMMENT: KW IOL boy 39.0 PLAN: s/p PPD # 1 1. routine post delivery care 2. breast feeding- support given 3. rh positive 4. rubella immune (2) Encounter for induction of labor: (3) LGA (large for gestational age) fetus affecting management of mother: COMMENT: 94 percentile discussed IOL vs exp management plan 39 week IOL. nl GTT on repeat EFW 4000-4100g (4) Medication administered at wrong time: COMMENT: patient was given the Arexvy vaccine instead of the Abrysvo. The risk is labor but was given at 36 weeks. Patient informed that this is not FDA approved for but no defects were found in clinical trials. Patient was told that this also does not protect her baby from RSV and she will need to have her baby vaccinated after . (5) PVC (premature ventricular contraction): COMMENT: - Patient asymptomatic (6) Sinus tachycardia: COMMENT: - Patient with noted resting heart rates 90s to low 100s on average - No new or unexpected worsening exertional symptoms, able to tolerate Peloton bike exercises regularly - Resting average heart rate is still within expected range for , and not averaging higher than 115 bpm (7) Uterine size date discrepancy : COMMENT: 33w6d KHADIJAH 20 EFW 2940g 98 % AC 99% repeat glucose 02/21-normal (8) Tachycardia: COMMENT: Cardiology appointment pending (9) RhD negative: COMMENT: Fetus RHD+ on NIPT; rhogam 28 wk, pp and prn (10) Supervision of high-risk : QUALIFIERS: Trimester: third trimester Qualified Code(s): O09.93 - Supervision of high risk , unspecified, third trimester COMMENT: [id number], SAMANTHA 04[birth year] Boy, name secret?(jermaine) Joshua (11) Depression: QUALIFIERS: Depression Type: unspecified Qualified Code(s): F32.A - Depression, unspecified COMMENT: sertraline/stable (12) : QUALIFIERS: Weeks of gestation: 38 weeks Qualified Code(s): Z 3A.38 - 38 weeks gestation of COMMENT: NIPT low risk, Carrier neg. 07/19, unremarkable anatomy, consistent dates. GBS neg. (13) Obesity affecting : QUALIFIERS: Trimester: first trimester Obesity type affecting : unspecified obesity Qualified Code(s): O99.211 - Obesity complicating , first trimester COMMENT: HgbA1c Charges/Coding Multi Select Codes Urinary/Genital Urinary/Genital CPT Codes: No Charge
--- NOTE | 2025-03-30 15:19 | CASEMGMT ---
Social Work Assessment Labor and Delivery Unit Patient Address: [address] [place] [id number] Phone number: [phone] Date of Referral: 03/29/25 Time of Referral: 21:59 Referred By: Veronica Cabrera Date of Intervention: 03/30/25 Time of Intervention: 15:19 Reason for Referral: Mental Health History obtained from: Mother of baby (MOB), father of baby (FOB/Joshua, age 27) and review of medical records. ?? Household composition: MOB, FOB and their son Wilfred, born on 03/29/25. Patient's parent/guardian status: ???MOB and FOB have been together for 6 years and for 2 of those years. ?MOB denied any previous or current issues of domestic violence and described a positive relationship with the FOB. Medical History: : 1 Para, now 1.? MOB received care through [facility] beginning at 9 weeks and 0 days. Visits were observed to be routine. ?Apgars: 7 and 9. ???Weight: 4390 grams. Wildlife Biology Technician: Dr. Mcneill Educational Status: MOB and FOB denied any issues with reading, writing or learning comprehension. MOB and FOB both earned their bachelor?s degrees and have taken some graduate school classes. Financial Status: MOB and FOB reported that their income is sufficient to meet the needs of their family at this time. 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 Supplies: MOB and FOB reported they have the supplies they need for baby at this time including but not limited to: Car seat, bassinet, crib, pack-n-play, diapers, bottles, breast pump and clothing. Childcare/Caregiver(s): MOB reported that she will be taking 20 weeks of maternity leave and after that will be able to watch some from home as she works from home where she has a lot of job flexibility and will also have various family members and friends who will be able to assist as well. The FOB reported he has taken all of next week off to help provide support to the MOB and baby. MOB and FOB denied any barriers/needs related to childcare/caregiving. Transportation: Both MOB and FOB are licensed drivers and have a reliable vehicle to get baby to and from all medical appointments. MOB and FOB denied any issues/barriers to transportation at this time. Programs/Agencies Involved: MOB and FOB denied any program/agency involvement. Children Services/Legal Issues: MOB and FOB denied any previous or current Children Services and/or legal involvement. Behavioral Health Issues: None reported/denied. ? Mental Health History: MOB has a history of depression and anxiety. MOB reported she has been on Zoloft for 5 years and described her symptoms as being effectively managed at this time. MOB denied any current depression. FOB denied any history of mental health. ??Suit Maker administered the [place] Depression Scale (EPDS). MOB?s score was a 4. Suit Maker provided education on what the score means which the MOB verbalized she understood. Substance Use History: MOB and FOB denied any history or current drug and/or alcohol abuse. ? Family History: MOB and FOB denied any family history of mental health and/or drug/alcohol abuse on either side. Drug Screens: None obtained for the MOB or baby during this admission. Family/Social Stressors:?? Denied. Support Systems: MOB identified her biggest support as the FOB, family as well as both of their parents. Depression/Shaken Baby/Safe Sleeping: Suit Maker provided verbal and written education on PPD, increased risk factors for PPD, Safe Sleeping and Shaken Baby.? MOB and FOB both verbalized an understanding.??? ASSESSMENT: MOB and FOB provided consent to social work visit. Upon arrival, the MOB was laying in the hospital bed, the FOB was laying nearby on the couch and ?s maternal grandmother (MGM) was sitting in a chair holding . MOB and FOB indicated it was OK for the MGM to be present during the assessment. MOB and FOB were both verbally engaged, and cooperative. Suit Maker observed positive interaction between the MOB and FOB as well with the MGM towards . MGM had swaddled and was observed to be very gentle, attentive and nurturing towards . ??At the end of the assessment, nephrology social worker requested to speak with the MOB alone, which MOB and FOB were both agreeable to. MOB reported feeling safe in her home and denied any previous or current domestic violence, unmanaged mental health issues either with herself or with the FOB, and also denied any concerns with any drug or alcohol abuse either with herself or with the FOB. Safe Plan of Care for related to substance use: N/A PLAN: For MOB and baby to be discharged when medically ready. No other services requested or indicated. Rachele Kelley, ORACLE PROGRAMMER ANALYST, TALENT ACQUISITION ADMINISTRATOR
[2025-03-30] MEDS: Senna/Docusate Sodium 1 Tablet PO ×2 (17:23→20:23)
[2025-03-31 02:45] VITALS: BP 122/82; PULSE 88; RESP 16; TEMP 36.3; O2SAT 97
[2025-03-31] MEDS: SELF ADMINISTRATION OF MEDS 1 EACH NOTE (06:09)
[2025-03-31] MEDS: GLYCERIN/WITCH HAZEL (TUCKS) MED..PAD 1 EACH TOPICAL (08:19)
[2025-03-31 08:20] VITALS: BP 126/80; PULSE 98; RESP 16; TEMP 36.5
[2025-03-31 08:21] VITALS: BP 126/80; PULSE 98
--- NOTE | 2025-03-31 10:01 | PCM.PN.BLA ---
Progress Note Patient doing well without complaints. Tolerating PO. Ambulating and voiding without difficulty. Feeding well. Denies chest pain, shortness of breath, calf pain/swelling, fevers, chills, lightheadedness. Physical Exam Const alert, oriented x3 and no apparent distress Neck full ROM Resp normal respiratory effort, normal air movement and no retractions Effort and Inspection: able to speak in complete sentences and symmetric chest movement GI soft to palpation Uterus Palpation: uterus fundus firm Extremity normal to inspection and full ROM Psych mental status grossly normal, thought process normal and cooperative Assessment & Plan Assessment/Plan (1) Vaginal delivery: PLAN: s/p PPD # 2 1. routine post delivery care 2. breast feeding- support given 3. rh negative - s/p rhogam 4. rubella immune d/c today
--- NOTE | 2025-03-31 10:13 | DS.PCM_ITS ---
Providers Date of Admission: 03/28/25 Primary Care Physician: Dr. Sidra Andres MD Reason For Visit: INDUCTION Diagnosis Discharge Diagnosis (1) Vaginal delivery: Status: Acute Code(s): O80 - Encounter for full-term uncomplicated delivery Plan: s/p PPD # 2 1. routine post delivery care 2. breast feeding- support given 3. rh negative - s/p rhogam 4. rubella immune d/c today Medications at Discharge Home Medications sertraline 50 mg tablet 50 mg PO QDAY alfred helth 07/31/24 multivit-min no.71-iron fum 28 mg-folate no.1 1 mg-dha 300 mg capsule (PNV- [place]) cap PO 08/06/24 ondansetron 4 mg disintegrating tablet 4 mg PO Q4H PRN nausea and vomiting #60 tabs 01/23/25 famotidine 20 mg tablet (Pepcid) 20 mg PO BID PRN 03/04/25 RSV vac, preF A and preF B(PF) 120 mcg/0.5 mL IM solution (Abrysvo (PF)) 0.5 ml IM ONCE #1 ea 03/12/25 acetaminophen 325 mg tablet (Tylenol) 650 mg (2 x 325 mg) PO Q6H PRN pain #60 tabs 03/31/25 ibuprofen 600 mg tablet 600 mg PO Q6H PRN PRN Pain #30 tabs 03/31/25 Hospital Course Summary of Care Provided Hospital Course: Jamil Ventura is a 30-year-old G who presented at 39w1d for induction of labor for suspected LGA. She had an uncomplicated vaginal delivery of a baby boy and was discharged home on PPD#2 in s table condition. Weight / BMI Weight Weight: 224 lb Body Mass Index (BMI) 37.3 PRE- weight 182 lb PRE- Body Mass Index 30.2 (BMI) ABG / Lab / Microbiology Data 03/28/25 19:50 D/C Instructions May resume sexual activity in: 6-8 weeks Call your doctor if you observe: Fever of 101 or Higher, Coldness, Increased Pain, Numbness or Tingling, Change in Color, Inability to urinate, Inability to have a bowel movement, Using more than 1 pad per hour, Shortness of breath, Dizziness, Fainting spells, Swelling in the ankles, Chest pain, Increased palpitations (irregular heartbeat), Calf discomfort and Uncontrolled pain DC O2, CPAP, BIPAP Needs Home O2 Discharge instructions: No Please Follow Up With: Veronica Cabrera CNM When: Please call the office to schedule your follow up appointment in 6 weeks. If you had high blood pressure please call to schedule an appointment in 2 weeks. Meaningful Use Info Meaningful Use Meaningful Use Diagnoses (Choose all that apply): None applicable Discharge Plan Admission Admit Date/Time: 03/28/25 19:20 Primary Reason for Your Visit: labor and delivery Attending Provider: Veronica Cabrera Primary Care Provider: Sidra Andres Instructions Patient Instructions: After a Vaginal Delivery (WP) Discharge Orders/Prescriptions Prescriptions: New ibuprofen 600 mg tablet 600 mg PO Q6H PRN PRN (Reason: Pain) Qty: 30 0RF acetaminophen [Tylenol] 325 mg tablet 650 mg PO Q6H PRN (Reason: pain) Qty: 60 0RF Continued PNV-[place] 28-1-300 mg capsule PO ondansetron 4 mg tablet,disintegrating 4 mg PO Q4H PRN (Reason: nausea and vomiting) Qty: 60 2RF Abrysvo (PF) 120 mcg/0.5 mL recon soln 0.5 ml IM ONCE Qty: 1 0RF Rx Instructions: as a single dose famotidine [Pepcid] 20 mg tablet 20 mg PO BID PRN sertraline 50 mg tablet 50 mg PO QDAY Referrals / Follow Up: Sidra Andres MD [Primary Care Provider, Family Practice] Disposition Disposition (needs filled in before D/C Order can be placed): Home, Self Care
== END 2025-03-31 11:35 | disposition home or self-care (01) | DRG 807 ==
PROVIDERS: Admitting Provider Advanced Practice Midwife; PCP Family Medicine; Referring Provider Advanced Practice Midwife; Visit Provider Advanced Practice Midwife
DX: O36.63X0 Maternal care for excessive fetal growth, third trimester, not applicable or unspecified (principal); Z37.0 Single live birth; O99.344 Other mental disorders complicating childbirth; F32.A Depression, unspecified; O99.214 Obesity complicating childbirth; F41.9 Anxiety disorder, unspecified; O26.843 Uterine size-date discrepancy, third trimester; O99.892 Other specified diseases and conditions complicating childbirth; R00.0 Tachycardia, unspecified; O26.893 Other specified pregnancy related conditions, third trimester; O70.0 First degree perineal laceration during delivery; O77.0 Labor and delivery complicated by meconium in amniotic fluid; Z67.11 Type A blood, Rh negative; Z3A.39 39 weeks gestation of pregnancy; Z79.899 Other long term (current) drug therapy
CPT/HCPCS: 59025; 59050; 82962; 85025; 85461; 86780; 86850; 86900; 86901; 90384; 99221; A4216; G0378; J2405; J2790; J2791